=== PATIENT | male | born 1955 | race Caucasian/White ===

== ENCOUNTER 2021-07-23 12:10 | Inpatient (IN) | payer OTHER, SELFPAY ==
[2021-07-23] VITALS (143 sets, daily range): BP systolic 79–118; BP diastolic 46–69; PULSE 80–127; RESP 12–44; TEMP 36.3–37.1; O2SAT 85–100; BMI 43.4
--- NOTE | 2021-07-23 12:26 | DI.RAD.S_ITS ---
PROCEDURE: XR CHEST 1V INDICATIONS: suspected sepsis TECHNIQUE: One view of the chest was acquired. COMPARISON: [facility], CHEST 1 VIEW, 07/18/2017, 7:52. [facility], CHEST 2 VIEW, 07/10/2017, 8:38. FINDINGS: Surgical changes and devices: None. Lungs and pleura: Nodular opacity in the right mid lung field. Streaky opacity in both lungs. No definite pleural effusions or pneumothorax. Mediastinum: Fullness in the right hilar region. Heart size appears unchanged. Bones and chest wall: No suspicious bony lesions. Overlying soft tissues appear unremarkable. IMPRESSION: Evaluation is limited by technique and body habitus. Nodular opacity in the right mid lung field. This could be due to pneumonia or metastatic disease. Fullness in the right hilar region. Findings could be further evaluated with CT of the chest (prefer IV contrast). Dictated by: Shivam Jauregui M.D. on 07/23/2021 at 13:22 Approved by: Shivam Jauregui M.D. on 07/23/2021 at 13:25
--- NOTE | 2021-07-23 12:46 | ED_ITS ---
HPI - Weakness General Chief complaint: Weakness Stated complaint: short of breath, alcohol, hasn't eatten Time Seen by Provider: 07/23/21 12:44 Source: patient Mode of arrival: Wheelchair Limitations: no limitations History of Present Illness HPI Narrative: The patient presents with complaints of weakness for 5 days. He denies headache, sore throat, or fever. He has no chest pain. He does have dyspnea, and dyspnea on exertion. He is not coughing at this time. He is a heavy alcohol drinker. He has been vomiting. He has no hematemesis. He also has no hemoptysis. The vomitus has been clear liquids only. He denies diarrhea or melena. He is not having significant abdominal pain. He has no history of GI bleeding. He presents with generalized weakness. He has difficulty standing on his own. He has no fall, no injury. He has been experiencing mid back pain. He has a history of chronic back pain. He does not have a PCM, he receives no regular medical care. Related Data Home Medications Medication Instructions Recorded Confirmed No Known Home Medications 07/23/21 07/23/21 Allergies Allergy/AdvReac Type Severity Reaction Status Date / Time No Known Drug Allergies Allergy Unverified 01/27/20 16:03 Review of Systems Constitutional Constitutional: Reports as per HPI, Denies anorexia, Denies chills, Reports fatigue, Denies fever(s), Denies headache(s), Reports malaise and Reports weakness Eyes Eyes: Denies change in vision ENT Ears, Nose, Mouth, and Throat: Denies vertigo, Denies dizziness, Denies heada jannet(s) and Denies sore throat Cardiovascular Cardiovascular: Denies chest pain, Denies syncope, Denies pedal edema, Denies palpitations and Denies dyspnea Respiratory Respiratory: Denies chest congestion, Denies cough, Denies dyspnea and Reports other (No hemoptysis) Gastrointestinal Comments: Vague abdominal discomfort. Occasional vomiting. No hematemesis. No suggestive lower GI bleeding. Genitourinary Genitourinary: Denies dysuria and Denies penile discharge Comments: No hematuria Musculoskeletal Comments: Back pain, see HPI. No lower extremity edema. Integumentary/Breasts Skin/Breast: Denies lesions, Denies rash and Denies skin pain Neurologic Neurologic: Denies confusion, Denies vertigo, Denies dizziness, Denies syncope, Denies headache(s) and Reports weakness Psychiatric Psychiatric: Denies confusion and Denies depression Endocrine Endocrine: Reports fatigue and Denies palpitations Hematologic/Lymphatic On Anticoagulants: No Patient History Medical History Anticoagulated Hepatic failure Left ureteral calculus Renal failure Right renal stone Sepsis Urinary tract infection Family History Father Cancer Grandfather Cancer Grandmother Diabetes mellitus Heart disease Mother Age: 81 Alzheimer disease Sister Age: 66 Hypertension Social History household members: spouse Smoking Status: Current every day smoker alcohol intake: current Smoking Status: Current every day smoker alcohol intake frequency: 3 or more drinks per day Substance Use Type: does not use Exam Initial Vital Signs Initial Vital Signs: Vital Signs Temperature 97.7 F 07/23/21 12:21 Pulse Rate 93 H 07/23/21 12:21 Respiratory Rate 28 H 07/23/21 12:21 Blood Pressure 83/50 L 07/23/21 12:21 Pulse Oximetry 94 07/23/21 12:21 Const General: cooperative, disheveled and ill appearing Nutritional Appearance: obese Orientation: Orientation [facility] Head: normal to inspection, normocephalic and atraumatic Face and sinus: normal facial exam Mouth: lip normal and moist mucous membranes Throat: posterior oropharynx normal Eyes Conjunctivae: conjunctivae normal Sclera: sclerae normal Cornea: corneas normal Pupils: PERRL EOM: EOM intact bilaterally and No nystagmus Other: No icterus Neck Neck: supple and No tender Chest Chest: normal palpation of entire chest wall Resp Effort & Inspection: normal respiratory effort Auscultation: clear to auscultation bilaterally Cardio Rate: regular rate Rhythm: regular rhythm Heart Sounds: S1 normal, S2 normal, no click and no murmurs GI Inspection: no edema, non-distended, large pannus and obesity Palpation: soft, No mass and No tender Auscultation: normal bowel sounds Rectal Exam: visual inspection normal, heme negative stool, No hemorrhoids, No mass and No tenderness Other: Normal male genitalia Back/Spine/Pelvis Back: No CVA tenderness Thoracic/Lumbar Spine: thoracic and lumbar spine normal to inspection Skin General: no rashes or lesions noted Neuro General: patient alert, patient awake, patient oriented x3 and no focal motor deficits Cranial Nerves: No nystagmus Extrem General: normal to inspection, no pedal edema and no calf tenderness Psych Appearance: grossly normal and well kempt Course Course Course Narrative: The patient was hypotensive upon arrival, but with out tachycardia or fever. No new immediate source was obvious. COVID test is n egative. Chest x-ray revealed a right middle lobe mass, not of obvious infiltrate. There was also a left pleural effusion. Labs were consistent with renal failure and hepatic failure. CT again demonstrated the right middle lung mass. There are multiple nodular changes of the liver consistent with cirrhosis. Neoplasm needs to be considered. CT revealed a large right kidney stone, but also an obstructing left proximal ureter stone. He has significant pyuria. Urosepsisdue to the stone is the most likely source of sepsis. He was started on IV fluids, given a 30 milliliter/kilogram bolus. Blood and urine cultures were done. He was given Zosyn as well as vancomycin for sepsis. His blood pressure improved to the 90s. Urology, and Anesthesiology were consult. The patient went to the OR for a right ureter stent. The urologist, Dr. Lainez, later informed me that there was a large gush of purulent fluid once the stent was in place. Anesthesia has agreed to place a central line prior to admission. The on-call hospitalist,Dr Escobar, was involved in multiple conversations regarding the patient. He has accepted the patient admission following the urology procedure. Orders Ordered: ED Orders 07/23/21 12:26 XR chest 1V Stat EKG-12 Lead Stat 07/23/21 12:40 Ammonia (NH3) Stat Complete Blood Count AUTO DIFF Stat Comprehensive Metabolic Panel Stat Ethanol (ETOH) Stat Lactate (Lactic Acid) Stat Lipase Stat NT-proBNP (BNP-Adult 18+) Stat Procalcitonin Stat Prothrombin Time INR Stat Troponin & CK Cardiac Panel Stat Type and Screen Stat 07/23/21 12:55 Blood Culture Stat COVID19 - ADMIT (HOME DEPOT REP swab/PCR) Stat 07/23/21 13:05 COVID19 -Nasal swab/Pre-Proc Stat 07/23/21 13:15 Ictotest Urine Stat Urinalysis and Microscopic Stat Urine Culture Stat Urine Drug Screen, Rapid Stat 07/23/21 13:53 CT chest abd pel wo con Stat 07/23/21 14:20 Lactate (Lactic Acid) Stat Trop I [Troponin I] Stat Acetaminophen (Acetaminophen 325 Mg Tablet) 650 mg PO Q6HR PRN PRN Reason: Fever Fentanyl (Fentanyl 100 Mcg/2 Ml Inj) 0 mcg IV Q5MIN PRN PRN Reason: Pain, Severe (7-10) Folic Acid (Folic Acid 1 Mg Tablet) 1 mg PO DAILY LUCRETIA Meropenem 1 gm/ Sodium (Chloride) 100 mls @ 200 mls/hr IV Q12H LUCRETIA Last Admin: 07/23/21 18:18 Dose: 200 mls/hr Documented by: HECTOR Norepinephrine Bitartrate 4 mg (/ Dextrose) 254 mls @ 30.48 mls/hr IV TITRATE LUCRETIA; Protocol Last Admin: 07/23/21 18:35 Dose: Not Given Documented by: HECTOR Sodium Chloride (Normal Saline 0.9%) 1,000 mls @ 1,000 mls/hr IV BOLUS ONE Stop: 07/23/21 19:10 Last Infusion: 07/23/21 18:45 Dose: 0 mls/hr Documented by: Admin: 07/23/21 18:34 Dose: 1,000 mls/hr Documented by: HECTOR Lorazepam (Lorazepam 1 Mg Tablet) 0 mg PO CIWAPRN PRN; Protocol PRN Reason: Alcohol Withdrawal Lorazepam (Lorazepam 2 Mg/Ml Inj) 0 mg IV CIWAPRN PRN; Protocol PRN Reason: Alcohol Withdrawal Last Admin: 07/23/21 18:01 Dose: 2 mg Documented by: HECTOR Multivitamins (Multivitamin 1 Tablet) 1 tab PO DAILY [facility] Naloxone HCl (Naloxone 0.4 Mg/Ml Vial) 0.2 mg IV Q2MIN PRN PRN Reason: Opiate Reversal Ondansetron HCl (Ondansetron 4 Mg/2 Ml Inj) 4 mg IV NOW PRN PRN Reason: Nausea And Vomiting Pantoprazole Sodium (Pantoprazole 40 Mg Vial) 40 mg IV DAILY [facility]CRETIA Thiamine HCl (Thiamine 100 Mg Tablet) 100 mg PO DAILY LUCRETIA Stop: 07/27/21 09:01 Tramadol HCl (Tramadol 50 Mg Tablet) 50 mg PO TID PRN PRN Reason: Pain, Moderate (4-6) Last Admin: 07/23/21 18:01 Dose: 50 mg Documented by: HECTOR Discontinued Medications Hydromorphone HCl (Hydromorphone 0.5 Mg Inj) 0.5 mg IV NOW ONE Stop: 07/23/21 14:19 Last Admin: 07/23/21 14:28 Dose: 0.5 mg Documented by: MARISEL Sodium Chloride (Normal Saline 0.9%) 1,000 mls @ 1,000 mls/hr IV BOLUS ONE Stop: 07/23/21 13:33 Last Infusion: 07/23/21 14:07 Dose: 0 mls/hr Documented by: Admin: 07/23/21 12:50 Dose: 1,000 mls/hr Documented by: BRIEN Lactated Ringer's (Lactated Ringers) 4,116 mls @ 1,372 mls/hr 30 ml/kg infuse over 3 hr (4116 ml) IV NOW ONE Stop: 07/23/21 16:16 Last Infusion: 07/23/21 16:14 Dose: 0 mls/hr Documented by: Admin: 07/23/21 13:23 Dose: 1,000 mls/hr Documented by: BRIEN Piperacillin Sod/Tazobactam (Sod 4.5 gm/ Sodium Chloride) 100 mls @ 200 mls/hr IV NOW ONE Stop: 07/23/21 13:18 Last Infusion: 07/23/21 14:20 Dose: 0 mls/hr Documented by: Admin: 07/23/21 13:41 Dose: 200 mls/hr Documented by: MARISEL Vancomycin HCl (Vancomycin) 1,000 mg in 200 mls @ 200 mls/hr IV NOW ONE Stop: 07/23/21 15:31 Last Infusion: 07/23/21 15:51 Dose: 0 mls/hr Documented by: Admin: 07/23/21 14:48 Dose: 200 mls/hr Documented by: MARISEL Ondansetron HCl (Ondansetron 4 Mg/2 Ml Inj) 4 mg IV NOW ONE Stop: 07/23/21 14:18 Last Admin: 07/23/21 14:28 Dose: 4 mg Documented by: MARISEL Pantoprazole Sodium (Pantoprazole 40 Mg Vial) 40 mg IV NOW ONE Stop: 07/23/21 12:46 Last Admin: 07/23/21 13:22 Dose: 40 mg Documented by: BRIEN Vancomycin HCl (Vancomycin Per Pharmacy) 1 request MISC NOW ONE Stop: 07/23/21 14:23 Last Admin: 07/23/21 14:39 Dose: Not Given Documented by: MARISEL Vital Signs Vital signs: Vital Signs - 8 hr 07/23/21 12:21 07/23/21 12:31 07/23/21 12:32 Temperature 97.7 F Pulse Rate 93 H 93 H Respiratory Rate 28 H Blood Pressure 83/50 L 84/51 L Pulse Oximetry 94 93 93 07/23/21 12:35 07/23/21 12:37 07/23/21 12:40 Temperature Pulse Rate 90 88 88 Respiratory Rate 23 27 H 27 H Blood Pressure 80/50 L Pulse Oximetry 94 93 94 07/23/21 12:42 07/23/21 12:45 07/23/21 12:50 Temperature Pulse Rate 91 H 87 83 Respiratory Rate 28 H 26 H 23 Blood Pressure 80/53 L 82/52 L Pulse Oximetry 95 93 07/23/21 12:55 07/23/21 13:00 07/23/21 13:05 Temperature Pulse Rate 84 83 83 Respiratory Rate 25 H 23 21 Blood Pressure 90/52 L Pulse Oximetry 94 95 95 07/23/21 13:10 07/23/21 13:15 07/23/21 13:20 Temperature Pulse Rate 84 86 83 Respiratory Rate 22 28 H 20 Blood Pressure 89/51 L 92/51 L Pulse Oximetry 94 94 94 07/23/21 13:25 07/23/21 13:30 07/23/21 13:35 Temperature Pulse Rate 83 83 82 Respiratory Rate 23 20 21 Blood Pressure 92/52 L Pulse Oximetry 95 96 95 07/23/21 13:40 07/23/21 13:45 07/23/21 13:55 Temperature Pulse Rate 81 83 82 Respiratory Rate 20 25 H Blood Pressure 99/54 L Pulse Oximetry 96 97 92 07/23/21 13:59 07/23/21 14:00 07/23/21 14:05 Temperature Pulse Rate 81 81 80 Respiratory Rate 20 19 18 Blood Pressure 79/50 L 85/50 L Pulse Oximetry 95 95 94 07/23/21 14:10 07/23/21 14:15 07/23/21 14:20 Temperature Pulse Rate 82 82 82 Respiratory Rate 24 21 23 Blood Pressure 84/52 L 86/54 L Pulse Oximetry 95 95 96 07/23/21 14:25 07/23/21 14:27 07/23/21 14:30 Temperature Pulse Rate 81 84 85 Respiratory Rate 21 20 21 Blood Pressure 89/54 L 86/50 L Pulse Oximetry 97 97 95 07/23/21 14:35 07/23/21 14:40 07/23/21 14:45 Temperature Pulse Rate 84 83 84 Respiratory Rate 18 16 15 Blood Pressure 94/50 L Pulse Oximetry 91 93 91 07/23/21 14:50 07/23/21 14:55 07/23/21 15:00 Temperature Pulse Rate 84 83 83 Respiratory Rate 17 15 15 Blood Pressure 89/51 L 91/54 L Pulse Oximetry 92 92 92 07/23/21 15:05 07/23/21 15:10 07/23/21 15:15 Temperature Pulse Rate 81 84 84 Respiratory Rate 15 17 15 Blood Pressure 93/48 L Pulse Oximetry 91 91 91 07/23/21 15:20 07/23/21 15:25 07/23/21 15:30 Temperature Pulse Rate 83 83 82 Respiratory Rate 13 13 13 Blood Pressure 93/46 L 86/48 L Pulse Oximetry 90 L 91 91 07/23/21 15:35 07/23/21 15:40 07/23/21 15:45 Temperature Pulse Rate 83 82 82 Respiratory Rate 13 12 12 Blood Pressure 92/54 L Pulse Oximetry 91 94 94 07/23/21 15:50 07/23/21 15:55 Temperature Pulse Rate 85 86 Respiratory Rate 17 18 Blood Pressure Pulse Oximetry 95 95 MDM - Weakness Lab Data Result diagrams: 07/23/21 12:40 07/23/21 12:40 Labs: Lab Results 07/23/21 07/23/21 07/23/21 Range/Units 12:40 12:40 12:40 WBC 21.8 H (4.5-11.0) X10^3/uL RBC 4.87 (4.5-5.9) X10^6/uL Hgb 15.1 (13.5-17.5) g/dL Hct 44.6 (41-53) % MCV 91.5 (80-100) fL MCH 30.9 (26-34) PG MCHC 33.8 (30-36) % RDW 16.5 H (11.6-14.8) % Plt Count 43 L (150-400) X10^3/uL Neut % (Auto) Not Reportable Lymph % (Auto) Not Reportable [place] % (Auto) Not Reportable Eos % (Auto) Not Reportable Baso % (Auto) Not Reportable Lymph # (Auto) Not Reportable [place] # (Auto) Not Reportable Baso # (Auto) Not Reportable Total Counted 100 Seg Neutrophils % 77.0 H (38-70) % Band Neutrophils % 13.0 H (3-7) % Lymphocytes % (Manual) 1.0 L (25-45) % Monocytes % (Manual) 9.0 (2-11) % Neutrophils # (Manual) 18181 H (2360-7876) /uL RBC Morphology Normal morphology PT (10.1-12.7) SECONDS INR (0.9-1.3) Sodium 129 L (137-145) mmol/L Potassium 4.3 (3.4-5.1) mmol/L Chloride 92 L (98-107) mmol/L Carbon Dioxide 19 L (22-32) mmol/L BUN 82 H (9-20) mg/dL Creatinine 3.89 H (0.66-1.25) mg/dL Estimated GFR 15.7 L (>60) mL/min BUN/Creatinine Ratio 21.1 (6-22) Glucose 190 H (80-110) mg/dL Lactate 5.1 H* (0.7-2.1) mmol/L Calcium 8.8 (8.4-10.2) mg/dL Total Bilirubin 7.7 H (0.2-1.3) mg/dL AST 258 H (17-59) IU/L ALT 104 H (<50) IU/L Alkaline Phosphatase 131 H (38-126) U/L Ammonia (9-30) umol/L Total Creatine Kinase 146 (55-170) U/L CK-MB (CK-2) 4.27 H (<2.37) ng/mL CK-MB (CK-2) Rel Index 2.9 (1.5-5.0) % Troponin I 0.018 (0.01-0.034) ng/mL NT-Pro-B Natriuret Pep 2600 H (<125) pg/mL Total Protein 6.9 (6.3-8.2) g/dL Albumin 3.3 L (3.5-5.0) g/dL Globulin 3.6 (1.7-4.1) g/dL Albumin/Globulin Ratio 0.9 L (1.0-2.8) Lipase 20 L (23-300) U/L Procalcitonin 55.6 H (<0.5) ng/mL Urine Color Urine Appearance Urine pH (4.5-8.0) Ur Specific Hines (1.000-1.035) Urine Protein (Negative) Urine Glucose (UA) (Negative) g/dL Urine Ketones (NEGATIVE) Urine Occult Blood (Negative) Urine Nitrate (Negative) Urine Bilirubin (NEGATIVE) Ur Bilirubin Confirm (Negative) Urine Urobilinogen (0.2) E.U./dL Ur Leukocyte Esterase (NEGATIVE) Urine RBC (0-5/HPF) Urine WBC (0-5/HPF) Urine Bacteria (None) Ur Culture Indicated? U Opiates 300ng/mL cut (Negative) Ur Oxycodone Screen (Negative) Urine Methadone Screen (Negative) Ur Barbiturates Screen (Negative) U Tricyclic Antidepress (Negative) Ur Phencyclidine Scrn (Negative) Ur Amphetamines Screen (Negative) U Methamphetamines Scrn (Negative) Ur MDMA Scrn (Ecstasy) (Negative) U Benzodiazepines Scrn (Negative) Urine Cocaine Screen (Negative) U Marijuana (THC) Screen (Negative) Ethyl Alcohol ( - 10) mg/dL SARS-CoV-2 (PCR) (Negative) Blood Type Antibody Screen 07/23/21 07/23/21 07/23/21 Range/Units 12:40 12:40 12:40 WBC (4.5-11.0) X10^3/uL RBC (4.5-5.9) X10^6/uL Hgb (13.5-17.5) g/dL Hct (41-53) % MCV (80-100) fL MCH (26-34) PG MCHC (30-36) % RDW (11.6-14.8) % Plt Count (150-400) X10^3/uL Neut % (Auto) Lymph % (Auto) [place] % (Auto) Eos % (Auto) Baso % (Auto) Lymph # (Auto) [place] # (Auto) Baso # (Auto) Total Counted Seg Neutrophils % (38-70) % Band Neutrophils % (3-7) % Lymphocytes % (Manual) (25-45) % Monocytes % (Manual) (2-11) % Neutrophils # (Manual) (7723-8903) /uL RBC Morphology PT 17.9 H (10.1-12.7) SECONDS INR 1.6 H (0.9-1.3) Sodium (137-145) mmol/L Potassium (3.4-5.1) mmol/L Chloride (98-107) mmol/L Carbon Dioxide (22-32) mmol/L BUN (9-20) mg/dL Creatinine (0.66-1.25) mg/dL Estimated GFR (>60) mL/min BUN/Creatinine Ratio (6-22) Glucose (80-110) mg/dL Lactate (0.7-2.1) mmol/L Calcium (8.4-10.2) mg/dL Total Bilirubin (0.2-1.3) mg/dL AST (17-59) IU/L ALT (<50) IU/L Alkaline Phosphatase (38-126) U/L Ammonia 21 (9-30) umol/L Total Creatine Kinase (55-170) U/L CK-MB (CK-2) (<2.37) ng/mL CK-MB (CK-2) Rel Index (1.5-5.0) % Troponin I (0.01-0.034) ng/mL NT-Pro-B Natriuret Pep (<125) pg/mL Total Protein (6.3-8.2) g/dL Albumin (3.5-5.0) g/dL Globulin (1.7-4.1) g/dL Albumin/Globulin Ratio (1.0-2.8) Lipase (23-300) U/L Procalcitonin (<0.5) ng/mL Urine Color Urine Appearance Urine pH (4.5-8.0) Ur Specific Hines (1.000-1.035) Urine Protein (Negative) Urine Glucose (UA) (Negative) g/dL Urine Ketones (NEGATIVE) Urine Occult Blood (Negative) Urine Nitrate (Negative) Urine Bilirubin (NEGATIVE) Ur Bilirubin Confirm (Negative) Urine Urobilinogen (0.2) E.U./dL Ur Leukocyte Esterase (NEGATIVE) Urine RBC (0-5/HPF) Urine WBC (0-5/HPF) Urine Bacteria (None) Ur Culture Indicated? U Opiates 300ng/mL cut (Negative) Ur Oxycodone Screen (Negative) Urine Methadone Screen (Negative) Ur Barbiturates Screen (Negative) U Tricyclic Antidepress (Negative) Ur Phencyclidine Scrn (Negative) Ur Amphetamines Screen (Negative) U Methamphetamines Scrn (Negative) Ur MDMA Scrn (Ecstasy) (Negative) U Benzodiazepines Scrn (Negative) Urine Cocaine Screen (Negative) U Marijuana (THC) Screen (Negative) Ethyl Alcohol < 10 ( - 10) mg/dL SARS-CoV-2 (PCR) (Negative) Blood Type Antibody Screen 07/23/21 07/23/21 07/23/21 Range/Units 12:40 12:55 13:05 WBC (4.5-11.0) X10^3/uL RBC (4.5-5.9) X10^6/uL Hgb (13.5-17.5) g/dL Hct (41-53) % MCV (80-100) fL MCH (26-34) PG MCHC (30-36) % RDW (11.6-14.8) % Plt Count (150-400) X10^3/uL Neut % (Auto) Lymph % (Auto) [place] % (Auto) Eos % (Auto) Baso % (Auto) Lymph # (Auto) [place] # (Auto) Baso # (Auto) Total Counted Seg Neutrophils % (38-70) % Band Neutrophils % (3-7) % Lymphocytes % (Manual) (25-45) % Monocytes % (Manual) (2-11) % Neutrophils # (Manual) (6886-0764) /uL RBC Morphology PT (10.1-12.7) SECONDS INR (0.9-1.3) Sodium (137-145) mmol/L Potassium (3.4-5.1) mmol/L Chloride (98-107) mmol/L Carbon Dioxide (22-32) mmol/L BUN (9-20) mg/dL Creatinine (0.66-1.25) mg/dL Estimated GFR (>60) mL/min BUN/Creatinine Ratio (6-22) Glucose (80-110) mg/dL Lactate (0.7-2.1) mmol/L Calcium (8.4-10.2) mg/dL Total Bilirubin (0.2-1.3) mg/dL AST (17-59) IU/L ALT (<50) IU/L Alkaline Phosphatase (38-126) U/L Ammonia (9-30) umol/L Total Creatine Kinase (55-170) U/L CK-MB (CK-2) (<2.37) ng/mL CK-MB (CK-2) Rel Index (1.5-5.0) % Troponin I (0.01-0.034) ng/mL NT-Pro-B Natriuret Pep (<125) pg/mL Total Protein (6.3-8.2) g/dL Albumin (3.5-5.0) g/dL Globulin (1.7-4.1) g/dL Albumin/Globulin Ratio (1.0-2.8) Lipase (23-300) U/L Procalcitonin (<0.5) ng/mL Urine Color Urine Appearance Urine pH (4.5-8.0) Ur Specific [place] (1.000-1.035) Urine Protein (Negative) Urine Glucose (UA) (Negative) g/dL Urine Ketones (NEGATIVE) Urine Occult Blood (Negative) Urine Nitrate (Negative) Urine Bilirubin (NEGATIVE) Ur Bilirubin Confirm (Negative) Urine Urobilinogen (0.2) E.U./dL Ur Leukocyte Esterase (NEGATIVE) Urine RBC (0-5/HPF) Urine WBC (0-5/HPF) Urine Bacteria (None) Ur Culture Indicated? U Opiates 300ng/mL cut (Negative) Ur Oxycodone Screen (Negative) Urine Methadone Screen (Negative) Ur Barbiturates Screen (Negative) U Tricyclic Antidepress (Negative) Ur Phencyclidine Scrn (Negative) Ur Amphetamines Screen (Negative) U Methamphetamines Scrn (Negative) Ur MDMA Scrn (Ecstasy) (Negative) U Benzodiazepines Scrn (Negative) Urine Cocaine Screen (Negative) U Marijuana (THC) Screen (Negative) Ethyl Alcohol ( - 10) mg/dL SARS-CoV-2 (PCR) Negative Negative (Negative) Blood Type O Positive Antibody Screen Negative 07/23/21 07/23/21 07/23/21 Range/Units 13:15 13:15 14:20 WBC (4.5-11.0) X10^3/uL RBC (4.5-5.9) X10^6/uL Hgb (13.5-17.5) g/dL Hct (41-53) % MCV (80-100) fL MCH (26-34) PG MCHC (30-36) % RDW (11.6-14.8) % Plt Count (150-400) X10^3/uL Neut % (Auto) Lymph % (Auto) [place] % (Auto) Eos % (Auto) Baso % (Auto) Lymph # (Auto) [place] # (Auto) Baso # (Auto) Total Counted Seg Neutrophils % (38-70) % Band Neutrophils % (3-7) % Lymphocytes % (Manual) (25-45) % Monocytes % (Manual) (2-11) % Neutrophils # (Manual) (7446-0092) /uL RBC Morphology PT (10.1-12.7) SECONDS INR (0.9-1.3) Sodium (137-145) mmol/L Potassium (3.4-5.1) mmol/L Chloride (98-107) mmol/L Carbon Dioxide (22-32) mmol/L BUN (9-20) mg/dL Creatinine (0.66-1.25) mg/dL Estimated GFR (>60) mL/min BUN/Creatinine Ratio (6-22) Glucose (80-110) mg/dL Lactate 3.7 H (0.7-2.1) mmol/L Calcium (8.4-10.2) mg/dL Total Bilirubin (0.2-1.3) mg/dL AST (17-59) IU/L ALT (<50) IU/L Alkaline Phosphatase (38-126) U/L Ammonia (9-30) umol/L Total Creatine Kinase (55-170) U/L CK-MB (CK-2) (<2.37) ng/mL CK-MB (CK-2) Rel Index (1.5-5.0) % Troponin I (0.01-0.034) ng/mL NT-Pro-B Natriuret Pep (<125) pg/mL Total Protein (6.3-8.2) g/dL Albumin (3.5-5.0) g/dL Globulin (1.7-4.1) g/dL Albumin/Globulin Ratio (1.0-2.8) Lipase (23-300) U/L Procalcitonin (<0.5) ng/mL Urine Color Brown Urine Appearance Clear Urine pH 5.0 (4.5-8.0) Ur Specific [place] 1.020 (1.000-1.035) Urine Protein 3+ H (Negative) Urine Glucose (UA) Negative (Negative) g/dL Urine Ketones Trace H (NEGATIVE) Urine Occult Blood 3+ H (Negative) Urine Nitrate Negative (Negative) Urine Bilirubin 2+ H (NEGATIVE) Ur Bilirubin Confirm Positive H (Negative) Urine Urobilinogen 1.0 (0.2) E.U./dL Ur Leukocyte Esterase 2+ H (NEGATIVE) Urine RBC 30-100/hpf H (0-5/HPF) Urine WBC >100/hpf H (0-5/HPF) Urine Bacteria Many (>30) H (None) Ur Culture Indicated? Specimen cultured U Opiates 300ng/mL cut Negative (Negative) Ur Oxycodone Screen Negative (Negative) Urine Methadone Screen Negative (Negative) Ur Barbiturates Screen Negative (Negative) U Tricyclic Antidepress Negative (Negative) Ur Phencyclidine Scrn Negative (Negative) Ur Amphetamines Screen Negative (Negative) U Methamphetamines Scrn Negative (Negative) Ur MDMA Scrn (Ecstasy) Negative (Negative) U Benzodiazepines Scrn Negative (Negative) Urine Cocaine Screen Negative (Negative) U Marijuana (THC) Screen Negative (Negative) Ethyl Alcohol ( - 10) mg/dL SARS-CoV-2 (PCR) (Negative) Blood Type Antibody Screen 07/23/21 07/23/21 Range/Units 14:20 14:20 WBC (4.5-11.0) X10^3/uL RBC (4.5-5.9) X10^6/uL Hgb (13.5-17.5) g/dL Hct (41-53) % MCV (80-100) fL MCH (26-34) PG MCHC (30-36) % RDW (11.6-14.8) % Plt Count (150-400) X10^3/uL Neut % (Auto) Lymph % (Auto) [place] % (Auto) Eos % (Auto) Baso % (Auto) Lymph # (Auto) [place] # (Auto) Baso # (Auto) Total Counted Seg Neutrophils % (38-70) % Band Neutrophils % (3-7) % Lymphocytes % (Manual) (25-45) % Monocytes % (Manual) (2-11) % Neutrophils # (Manual) (2508-6805) /uL RBC Morphology PT (10.1-12.7) SECONDS INR (0.9-1.3) Sodium (137-145) mmol/L Potassium (3.4-5.1) mmol/L Chloride (98-107) mmol/L Carbon Dioxide (22-32) mmol/L BUN (9-20) mg/dL Creatinine (0.66-1.25) mg/dL Estimated GFR (>60) mL/min BUN/Creatinine Ratio (6-22) Glucose (80-110) mg/dL Lactate 4.0 H (0.7-2.1) mmol/L Calcium (8.4-10.2) mg/dL Total Bilirubin (0.2-1.3) mg/dL AST (17-59) IU/L ALT (<50) IU/L Alkaline Phosphatase (38-126) U/L Ammonia (9-30) umol/L Total Creatine Kinase (55-170) U/L CK-MB (CK-2) (<2.37) ng/mL CK-MB (CK-2) Rel Index (1.5-5.0) % Troponin I 0.012 (0.01-0.034) ng/mL NT-Pro-B Natriuret Pep (<125) pg/mL Total Protein (6.3-8.2) g/dL Albumin (3.5-5.0) g/dL Globulin (1.7-4.1) g/dL Albumin/Globulin Ratio (1.0-2.8) Lipase (23-300) U/L Procalcitonin (<0.5) ng/mL Urine Color Urine Appearance Urine pH (4.5-8.0) Ur Specific Hines (1.000-1.035) Urine Protein (Negative) Urine Glucose (UA) (Negative) g/dL Urine Ketones (NEGATIVE) Urine Occult Blood (Negative) Urine Nitrate (Negative) Urine Bilirubin (NEGATIVE) Ur Bilirubin Confirm (Negative) Urine Urobilinogen (0.2) E.U./dL Ur Leukocyte Esterase (NEGATIVE) Urine RBC (0-5/HPF) Urine WBC (0-5/HPF) Urine Bacteria (None) Ur Culture Indicated? U Opiates 300ng/mL cut (Negative) Ur Oxycodone Screen (Negative) Urine Methadone Screen (Negative) Ur Barbiturates Screen (Negative) U Tricyclic Antidepress (Negative) Ur Phencyclidine Scrn (Negative) Ur Amphetamines Screen (Negative) U Methamphetamines Scrn (Negative) Ur MDMA Scrn (Ecstasy) (Negative) U Benzodiazepines Scrn (Negative) Urine Cocaine Screen (Negative) U Marijuana (THC) Screen (Negative) Ethyl Alcohol ( - 10) mg/dL SARS-CoV-2 (PCR) (Negative) Blood Type Antibody Screen Imaging Data Chest x-ray: Radiologist Impression: [address] [address] XRay Report Signed Patient: Natalio Cardozo V MR#: [id number] : 1955 Acct:[id number] Age/Sex: 65 / M Date of Service: 07/23/21 Loc: ED Accession Number: [id number] ?? Procedure: XR chest 1V Ordering Provider: Solitario Morales MD PROCEDURE:? XR CHEST 1V ? INDICATIONS:? suspected sepsis ? TECHNIQUE:? One view of the chest was acquired.? ? COMPARISON:? [facility], , CHEST 1 VIEW, 07/18/2017, 7:52.? [facility], CHEST 2 VIEW, 07/10/2017, 8:38. ? FINDINGS:? ? Surgical changes and devices:? None.? ? Lungs and pleura:? Nodular opacity in the right mid lung field.? Streaky opacity in both lungs.? No definite pleural effusions or pneumothorax.? ? Mediastinum:? Fullness in the right hilar region.? Heart size appears unchanged.? ? Bones and chest wall:? No suspicious bony lesions.? Overlying soft tissues appear unremarkable.? ? IMPRESSION:? Evaluation is limited by technique and body habitus.? ? Nodular opacity in the right mid lung field.? This could be due to pneumonia or metastatic disease. ? Fullness in the right hilar region. ? Findings could be further evaluated with CT of the chest (prefer IV contrast).? ? Dictated by: Shivam Jauregui M.D. on 07/23/2021 at 13:22 ? ? Approved by: Shivam Jauregui M.D. on 07/23/2021 at 13:25?? Chest/abdomen/pelvis CT:: Radiologist Impression: [address] [address] [address] Scan Report Signed Patient: Natalio Cardozo V MR#: [id number] : 1955 Acct:[id number] Age/Sex: 65 / M Date of Service: 07/23/21 Loc: ED Accession Number: [id number] ?? Procedure: CT chest abd pel wo con Ordering Provider: Solitario Morales MD PROCEDURE:? CT CHEST ABD PEL WO CON ? INDICATIONS:? Sepsis.? Elevated LFTs.? Pulmonary mass.? Renal failure. ? TECHNIQUE:? After the administration of oral contrast, 5 mm thick sections acquired from the lung apices to the symphysis pubis.? 5 mm thick coronal and sagittal reformats acquired, with additional 7 mm coronal MIP reformats through the lungs.? For radiation dose re duction, the following was used:? automated exposure control, adjustment of mA and/or kV according to patient size.? ? IV contrast not administered due to renal insufficiency. ? COMPARISON:? [facility], CT, PE STUDY (CTA CHEST), 05/13/2017, 18:48.? [facility], CR, XR CHEST 1V, 07/23/2021, 12:36. ? FINDINGS:? Image quality:? Good.? Evaluation of the solid parenchymal organs is limited without IV contrast. ? CHEST:? Lungs and pleura:? Right middle lobe juxta fissural oval-shaped mass or nodular opacity measuring 4.4 x 2.5 cm, (3/27).? This measures 30 Hounsfield units.? Right upper lobe nodular opacity measuring 1.5 x 1.4 cm, (3/134).? Mild surrounding ill-defined opacity.? Remotely seen left upper lobe ground-glass pulmonary nodules are resolved.? Bibasilar atelectasis.? Small right pleural effusion.? No effusion on the left.? No pneumothorax.? Central and peripheral airways are patent are normal in caliber.? ? Mediastinum:? Heart size is normal.? Mild coronary artery calcifications.? No pericardial effusion.? No mediastinal adenopathy by CT size criteria.? Small mediastinal lymph nodes with increased density.? These nodes appear to be present on the 2017 CT.? Thoracic aorta and central pulmonary arteries are normal in size.? Esophagus is normal in caliber.? No hiatal hernia.? ? Chest wall:? No axillary or supraclavicular adenopathy by size criteria.? Thyroid gland is within normal limits.? ? ? ABDOMEN:? Solid organs:? Liver is normal in size.? Nodular contour of the liver.? Multiple hypodense ill-defined hepatic lesions.? Gallbladder is not significantly distended.? No calcified gallstones.? Pancreas is normal in contours.? Spleen is enlarged measuring 17.3 cm. No adrenal nodules.? Small foci of gas within the kidneys.? Calices are prominent bilaterally, left greater than right.? Calculus at the right renal pelvis measuring 2.2 cm, ().? Several additional small calculi on the right.? Calculus in the left proximal ureter measuring 1.2 cm, ().? Air is seen in the right ureter, (). ? Peritoneum and bowel:? Small and large bowel loops are normal in caliber and wall thickness.? The appendix is not seen.? Trace perihepatic ascites, ().? No pneumoperitoneum. ? Nodes and vessels:? No retroperitoneal or mesenteric adenopathy by size criteria.? Aorta and inferior vena cava are normal in size.? Suspect upper abdominal varices.? Suspect small paraesophageal varices.? No portal venous gas. ? Miscellaneous:? No ventral hernias.? ? ? PELVIS:? Genitourinary:? Bladder is decompressed with Pisano catheter.? There is air within the bladder lumen. ? Miscellaneous:? Fat containing left inguinal hernia.? No adenopathy.? ? Bones:? Irregular lucent lesion at L3, ().? Multilevel DDD.? No vertebral body compression fractures.? ? IMPRESSION:? ? 1. Mass or nodular opacity in the right middle lobe measuring 4.4 cm. ? 2. Nodular opacity in the right upper lobe measuring 1.5 cm. ? 3. Small right unilocular pleural effusion. ? 4. Cirrhotic liver morphology.? Multiple hypodense ill-defined lesions.? This is concerning for HCC.? Metastatic disease is also consideration. ? 5. Trace perihepatic ascites. Portal hypertension and small upper abdominal varices.? Splenomegaly. ? 6. 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 ? 7. Suspect mild left hydronephrosis due to obstructing calculus in the proximal left ureter measuring 1.2 cm.? Additional larger calculus at the right renal pelvis measuring 2.2 cm. ? 8. Lucent lesion at L3 is indeterminate for osseous metastasis. ? ? Comment: Findings were discussed with Solitario Morales at the time of dictation. ? Dictated by: Shivam Jauregui M.D. on 07/23/2021 at 14:24 ? ? Approved by: Shivam Jauregui M.D. on 07/23/2021 at 14:55?? ECG Data Attestation: I personally reviewed and interpreted this ECG as follows: (Normal sinus rhythm rate 92 beats per minute. LAFB. Prolonged QT. no ectopy, no acute ST T wave changes.) Critical Care Time Critical Care Time Critical Care Time: Yes Total Critical Care Time: 75 Attestation: See details above. There were multiple clinical decisions, with multiple consultations and multiple physicians involved. Patient was made aware of his clinical situation and need for admission. Discharge Plan Departure Patient Disposition: Admitted As Inpatient Clinical Impression: Septic shock due to undetermined organism, Pleural effusion, Hepatic failure, Renal failure, Left ureteral calculus, Urinary tract infection, Mass of middle lobe of right lung, Liver mass, Alcoholism, Cirrhosis of liver Admit Date/Time: 07/23/21 15:56 Admit Provider: Elio Escobar
[2021-07-23] MEDS: SODIUM CHLORIDE 0.9% 1,000 ML 1000 ML IV ×2 (12:50→18:34)
[2021-07-23 12:59] LABS: Hematocrit 44.6 % (41-53); Hemoglobin 15.1 g/dL (13.5-17.5); Mean Corpuscular HGB Conc 33.8 % (30-36); Mean Corpuscular Hemoglobin 30.9 PG (26-34); Mean Corpuscular Volume 91.5 fL (80-100); Platelet Count 43 X10^3/uL (150-400); Red Blood Cell Count 4.87 X10^6/uL (4.5-5.9); Red Cell Distribution Width 16.5 % (11.6-14.8); White Blood Cell Count 21.8 X10^3/uL (4.5-11.0)
[2021-07-23 13:00] LABS: Add Manual Diff / Slide Review YES
[2021-07-23 13:03] LABS: INR 1.6 (0.9-1.3); Prothrombin Time 17.9 SECONDS (10.1-12.7)
[2021-07-23 13:09] LABS: Ammonia (NH3) 21 umol/L (9-30)
[2021-07-23 13:10] LABS: Albumin 3.3 g/dL (3.5-5.0); Albumin Globulin Ratio 0.9 (1.0-2.8); Alkaline Phosphatase 131 U/L (38-126); Aspartate Aminotransferase 258 IU/L (17-59); BUN Creatinine Ratio 21.1 (6-22); Bilirubin Total 7.7 mg/dL (0.2-1.3); Blood Urea Nitrogen 82 mg/dL (9-20); Calcium 8.8 mg/dL (8.4-10.2); Carbon Dioxide 19 mmol/L (22-32); Chloride 92 mmol/L (98-107); Creatine Kinase 146 U/L (55-170); Estimated Glomerular Filt Rate 15.7 mL/min (>60); Globulin 3.6 g/dL (1.7-4.1); Glucose 190 mg/dL (80-110); HEMOLYSIS < 15 (0-50); Lipase 20 U/L (23-300); Potassium 4.3 mmol/L (3.4-5.1); Sodium 129 mmol/L (137-145); Total Protein 6.9 g/dL (6.3-8.2)
[2021-07-23 13:11] LABS: Ethanol (ETOH) < 10 mg/dL
[2021-07-23 13:15] LABS: Lactate (Lactic Acid) 5.1 mmol/L (0.7-2.1)
[2021-07-23 13:17] LABS: Alanine Aminotransferase 104 IU/L (<50)
[2021-07-23 13:19] LABS: Neutrophils Absolute Manual 19620 /uL (3000-5900); RBC Morphology Normal Morphology; Total Cells Counted 100
[2021-07-23 13:22] LABS: NT-proBNP (BNP-Adult 18+) 2600 pg/mL (<125); Troponin I 0.018 ng/mL (0.01-0.034)
[2021-07-23] MEDS: PANTOPRAZOLE 40 MG VIAL IV (13:22)
[2021-07-23] MEDS: LACTATED RINGERS 1000 ML IV (13:23)
[2021-07-23 13:24] LABS: COVID19 -Nasal RAPID Negative (Negative)
[2021-07-23 13:25] LABS: CKMB % Relative Index 2.9 % (1.5-5.0); Creatine Kinase MB 4.27 ng/mL (<2.37)
[2021-07-23 13:26] LABS: Procalcitonin 55.6 ng/mL (<0.5)
[2021-07-23 13:28] LABS: Appearance Urine UA CLEAR; Bilirubin Urine UA 2+ (NEGATIVE); Glucose Urine UA NEGATIVE (Negative); Ketones Urine UA TRACE (NEGATIVE); Leukocyte Esterase Urine UA 2+ (NEGATIVE); Nitrite Urine UA NEGATIVE (Negative); Occult Blood Urine UA 3+ (Negative); Protein Urine UA 3+ (Negative); UR Morphine/Opiate cutoff 300 Negative (Negative); Ur Creatinine Normal (Normal); Ur Specific Gravity Normal (Normal); Urine Amphetamines Negative (Negative); Urine Barbiturates Negative (Negative); Urine Benzodiazepines Negative (Negative); Urine Cocaine Negative (Negative); Urine MDMA Negative (Negative); Urine Methadone Negative (Negative); Urine Methamphetamines Negative (Negative); Urine Oxycodone Negative (Negative); Urine Phencyclidine Negative (Negative); Urine Tetrahydrocannabinol Negative (Negative); Urine Tricyclic Antidepressant Negative (Negative); Urine pH Normal (Normal)
[2021-07-23 13:34] LABS: Color Urine UA BROWN
[2021-07-23 13:35] LABS: Bacteria Urine Many (>30); Culture Indicated Urine Specimen Cultured; Ictotest Urine Positive (Negative); RBC Urine 30-100/HPF (0-5/HPF); WBC Urine >100/HPF (0-5/HPF)
[2021-07-23] MEDS: PIPERACILLIN/TAZO 4.5 GM in SODIUM CHLORIDE 0.9% 100 ML 200 ML IV (13:41)
--- NOTE | 2021-07-23 13:53 | DI.CT.S_ITS ---
PROCEDURE: CT CHEST ABD PEL WO CON INDICATIONS: Sepsis. Elevated LFTs. Pulmonary mass. Renal failure. TECHNIQUE: After the administration of oral contrast, 5 mm thick sections acquired from the lung apices to the symphysis pubis. 5 mm thick coronal and sagittal reformats acquired, with additional 7 mm coronal MIP reformats through the lungs. For radiation dose reduction, the following was used: automated exposure control, adjustment of mA and/or kV according to patient size. IV contrast not administered due to renal insufficiency. COMPARISON: [facility], CT, PE STUDY (CTA CHEST), 05/13/2017, 18:48. [facility], CR, XR CHEST 1V, 07/23/2021, 12:36. FINDINGS: Image quality: Good. Evaluation of the solid parenchymal organs is limited without IV contrast. CHEST: Lungs and pleura: Right middle lobe juxta fissural oval-shaped mass or nodular opacity measuring 4.4 x 2.5 cm, (3/27). This measures 30 Hounsfield units. Right upper lobe nodular opacity measuring 1.5 x 1.4 cm, (3/134). Mild surrounding ill-defined opacity. Remotely seen left upper lobe ground-glass pulmonary nodules are resolved. Bibasilar atelectasis. Small right pleural effusion. No effusion on the left. No pneumothorax. Central and peripheral airways are patent are normal in caliber. Mediastinum: Heart size is normal. Mild coronary artery calcifications. No pericardial effusion. No mediastinal adenopathy by CT size criteria. Small mediastinal lymph nodes with increased density. These nodes appear to be present on the 2017 CT. Thoracic aorta and central pulmonary arteries are normal in size. Esophagus is normal in caliber. No hiatal hernia. Chest wall: No axillary or supraclavicular adenopathy by size criteria. Thyroid gland is within normal limits. ABDOMEN: Solid organs: Liver is normal in size. Nodular contour of the liver. Multiple hypodense ill-defined hepatic lesions. Gallbladder is not significantly distended. No calcified gallstones. Pancreas is normal in contours. Spleen is enlarged measuring 17.3 cm. No adrenal nodules. Small foci of gas within the kidneys. Calices are prominent bilaterally, left greater than right. Calculus at the right renal pelvis measuring 2.2 cm, (2/87). Several additional small calculi on the right. Calculus in the left proximal ureter measuring 1.2 cm, (2/90). Air is seen in the right ureter, (2/116). Peritoneum and bowel: Small and large bowel loops are normal in caliber and wall thickness. The appendix is not seen. Trace perihepatic ascites, (2/60). No pneumoperitoneum. Nodes and vessels: No retroperitoneal or mesenteric adenopathy by size criteria. Aorta and inferior vena cava are normal in size. Suspect upper abdominal varices. Suspect small paraesophageal varices. No portal venous gas. Miscellaneous: No ventral hernias. PELVIS: Genitourinary: Bladder is decompressed with Pisano catheter. There is air within the bladder lumen. Miscellaneous: Fat containing left inguinal hernia. No adenopathy. Bones: Irregular lucent lesion at L3, (). Multilevel DDD. No vertebral body compression fractures. IMPRESSION: 1. Mass or nodular opacity in the right middle lobe measuring 4.4 cm. 2. Nodular opacity in the right upper lobe measuring 1.5 cm. 3. Small right unilocular pleural effusion. 4. Cirrhotic liver morphology. Multiple hypodense ill-defined lesions. This is concerning for HCC. Metastatic disease is also consideration. 5. Trace perihepatic ascites. Portal hypertension and small upper abdominal varices. Splenomegaly. 6. 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 7. Suspect mild left hydronephrosis due to obstructing calculus in the proximal left ureter measuring 1.2 cm. Additional larger calculus at the right renal pelvis measuring 2.2 cm. 8. Lucent lesion at L3 is indeterminate for osseous metastasis. Comment: Findings were discussed with Solitario Morales at the time of dictation. Dictated by: Shivam Jauregui M.D. on 07/23/2021 at 14:24 Approved by: Shivam Jauregui M.D. on 07/23/2021 at 14:55
[2021-07-23 13:58] LABS: COVID19 - ADMIT (NP swab/PCR) Negative (Negative)
[2021-07-23] MEDS: HYDROMORPHONE 0.5 MG INJ IV (14:28)
[2021-07-23] MEDS: ONDANSETRON 4 MG/2 ML INJ IV (14:28)
[2021-07-23 14:37] LABS: Lactate (Lactic Acid) 3.7 mmol/L (0.7-2.1)
[2021-07-23] MEDS: VANCOMYCIN 1,000 MG/200 ML PIGGYBACK 200 MG IV (14:48)
[2021-07-23 14:49] LABS: Reflexed Lactate in 2 Hours Y
[2021-07-23 14:50] LABS: Troponin I 0.012 ng/mL (0.01-0.034)
--- NOTE | 2021-07-23 15:56 | P.TELICUCN_ITS ---
History of Present Illness Consult details Chief complaint: short of breath, alcohol, hasn't eatten :: This patient was seen via real time interactive two-way audiovisual telecommunication. Narrative: Patient is a 65 year old male with significant history of alcohol abuse presents with generalized fatigue and intractable N/V. No reported fever/chills, chest pain, or SOB. On presentation, labs notable for WBC 21.8, BUN 82, Cr 3.89, lactic acid 5.1, PCT 55.6, AST 258, ALT 104, ALP 131, TB 7.7. 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 Patient was noted to be hypotensive with SBP ~89. He was resuscitated with 30cc/kg LR bolus and started on vanc/zosyn. Urology consulted and plan for emergent ureteral stent for source control. Tele-toll ticket clerk consulted for further management. [facility] Medical History (Updated 07/23/21 @ 16:30 by Sylvester Deras MD) Anticoagulated Hepatic failure Left ureteral calculus Renal failure Right renal stone Sepsis Urinary tract infection Family History (Updated 05/30/17 @ 00:00 by Conversion Provider) Father Cancer Grandfather Cancer Grandmother Diabetes mellitus Heart disease Mother Age: 81 Alzheimer disease Sister Age: 66 Hypertension Social History Smoking Status: Current every day smoker Current Medications Current Medications Medications: Home Medications No Known Home Medications 07/23/21 [History Confirmed 07/23/21] Visit Medications (administered) Generic Name Dose Route Start Last Admin Trade Name Freq PRN Reason Stop Dose Admin Lactated Ringer's 4,116 mls @ 1,372 mls/hr 07/23/21 13:17 07/23/21 13:23 Lactated Ringers 30 ml/kg infuse over 3 hr (4116 ml) 07/23/21 16:16 1,000 mls/hr IV Administration NOW ONE Exam Vital Signs (past 8 hours): - 07/23/21 12:21 07/23/21 12:31 07/23/21 12:32 Temperature 97.7 F Pulse Rate 93 H 93 H Respiratory Rate 28 H Blood Pressure 83/50 L 84/51 L Pulse Oximetry 94 93 93 07/23/21 12:35 07/23/21 12:37 07/23/21 12:40 Temperature Pulse Rate 90 88 88 Respiratory Rate 23 27 H 27 H Blood Pressure 80/50 L Pulse Oximetry 94 93 94 07/23/21 12:42 07/23/21 12:45 07/23/21 12:50 Temperature Pulse Rate 91 H 87 83 Respiratory Rate 28 H 26 H 23 Blood Pressure 80/53 L 82/52 L Pulse Oximetry 95 93 07/23/21 12:55 07/23/21 13:00 07/23/21 13:05 Temperature Pulse Rate 84 83 83 Respiratory Rate 25 H 23 21 Blood Pressure 90/52 L Pulse Oximetry 94 95 95 07/23/21 13:10 07/23/21 13:15 07/23/21 13:20 Temperature Pulse Rate 84 86 83 Respiratory Rate 22 28 H 20 Blood Pressure 89/51 L 92/51 L Pulse Oximetry 94 94 94 07/23/21 13:25 07/23/21 13:30 07/23/21 13:35 Temperature Pulse Rate 83 83 82 Respiratory Rate 23 20 21 Blood Pressure 92/52 L Pulse Oximetry 95 96 95 07/23/21 13:40 07/23/21 13:45 07/23/21 13:55 Temperature Pulse Rate 81 83 82 Respiratory Rate 20 25 H Blood Pressure 99/54 L Pulse Oximetry 96 97 92 07/23/21 13:59 07/23/21 14:00 07/23/21 14:05 Temperature Pulse Rate 81 81 80 Respiratory Rate 20 19 18 Blood Pressure 79/50 L 85/50 L Pulse Oximetry 95 95 94 07/23/21 14:10 07/23/21 14:15 07/23/21 14:20 Temperature Pulse Rate 82 82 82 Respiratory Rate 24 21 23 Blood Pressure 84/52 L 86/54 L Pulse Oximetry 95 95 96 07/23/21 14:25 07/23/21 14:27 07/23/21 14:30 Temperature Pulse Rate 81 84 85 Respiratory Rate 21 20 21 Blood Pressure 89/54 L 86/50 L Pulse Oximetry 97 97 95 07/23/21 14:35 07/23/21 14:40 07/23/21 14:45 Temperature Pulse Rate 84 83 84 Respiratory Rate 18 16 15 Blood Pressure 94/50 L Pulse Oximetry 91 93 91 07/23/21 14:50 07/23/21 14:55 07/23/21 15:00 Temperature Pulse Rate 84 83 83 Respiratory Rate 17 15 15 Blood Pressure 89/51 L 91/54 L Pulse Oximetry 92 92 92 07/23/21 15:05 07/23/21 15:10 07/23/21 15:15 Temperature Pulse Rate 81 84 84 Respiratory Rate 15 17 15 Blood Pressure 93/48 L Pulse Oximetry 91 91 91 07/23/21 15:20 07/23/21 15:25 07/23/21 15:30 Temperature Pulse Rate 83 83 82 Respiratory Rate 13 13 13 Blood Pressure 93/46 L 86/48 L Pulse Oximetry 90 L 91 91 Oxygen Delivery Method Room Air Objective Labs Result Diagrams: 07/23/21 12:40 07/23/21 12:40 Labs: Laboratory Results - last 24 hr 07/23/21 07/23/21 07/23/21 12:40 12:40 12:40 WBC 21.8 H RBC 4.87 Hgb 15.1 Hct 44.6 MCV 91.5 MCH 30.9 MCHC 33.8 RDW 16.5 H Plt Count 43 L Neut % (Auto) Not Reportable Lymph % (Auto) Not Reportable [place] % (Auto) Not Reportable Eos % (Auto) Not Reportable Baso % (Auto) Not Reportable Lymph # (Auto) Not Reportable [place] # (Auto) Not Reportable Baso # (Auto) Not Reportable Total Counted 100 Seg Neutrophils % 77.0 H Band Neutrophils % 13.0 H Lymphocytes % (Manual) 1.0 L Monocytes % (Manual) 9.0 Neutrophils # (Manual) 82526 H RBC Morphology Normal morphology PT INR Sodium 129 L Potassium 4.3 Chloride 92 L Carbon Dioxide 19 L BUN 82 H Creatinine 3.89 H Estimated GFR 15.7 L BUN/Creatinine Ratio 21.1 Glucose 190 H Lactate 5.1 H* Calcium 8.8 Total Bilirubin 7.7 H AST 258 H ALT 104 H Alkaline Phosphatase 131 H Ammonia Total Creatine Kinase 146 CK-MB (CK-2) 4.27 H CK-MB (CK-2) Rel Index 2.9 Troponin I 0.018 NT-Pro-B Natriuret Pep 2600 H Total Protein 6.9 Albumin 3.3 L Globulin 3.6 Albumin/Globulin Ratio 0.9 L Lipase 20 L Procalcitonin 55.6 H Urine Color Urine Appearance Urine pH Ur Specific [place] Urine Protein Urine Glucose (UA) Urine Ketones Urine Occult Blood Urine Nitrate Urine Bilirubin Ur Bilirubin Confirm Urine Urobilinogen Ur Leukocyte Esterase Urine RBC Urine WBC Urine Bacteria Ur Culture Indicated? U Opiates 300ng/mL cut Ur Oxycodone Screen Urine Methadone Screen Ur Barbiturates Screen U Tricyclic Antidepress Ur Phencyclidine Scrn Ur Amphetamines Screen U Methamphetamines Scrn Ur MDMA Scrn (Ecstasy) U Benzodiazepines Scrn Urine Cocaine Screen U Marijuana (THC) Screen Ethyl Alcohol SARS-CoV-2 (PCR) Blood Type Antibody Screen 07/23/21 07/23/21 07/23/21 12:40 12:40 12:40 WBC RBC Hgb Hct MCV MCH MCHC RDW Plt Count Neut % (Auto) Lymph % (Auto) [place] % (Auto) Eos % (Auto) Baso % (Auto) Lymph # (Auto) [place] # (Auto) Baso # (Auto) Total Counted Seg Neutrophils % Band Neutrophils % Lymphocytes % (Manual) Monocytes % (Manual) Neutrophils # (Manual) RBC Morphology PT 17.9 H INR 1.6 H Sodium Potassium Chloride Carbon Dioxide BUN Creatinine Estimated GFR BUN/Creatinine Ratio Glucose Lactate Calcium Total Bilirubin AST ALT Alkaline Phosphatase Ammonia 21 Total Creatine Kinase CK-MB (CK-2) CK-MB (CK-2) Rel Index Troponin I NT-Pro-B Natriuret Pep Total Protein Albumin Globulin Albumin/Globulin Ratio Lipase Procalcitonin Urine Color Urine Appearance Urine pH Ur Specific [place] Urine Protein Urine Glucose (UA) Urine Ketones Urine Occult Blood Urine Nitrate Urine Bilirubin Ur Bilirubin Confirm Urine Urobilinogen Ur Leukocyte Esterase Urine RBC Urine WBC Urine Bacteria Ur Culture Indicated? U Opiates 300ng/mL cut Ur Oxycodone Screen Urine Methadone Screen Ur Barbiturates Screen U Tricyclic Antidepress Ur Phencyclidine Scrn Ur Amphetamines Screen U Methamphetamines Scrn Ur MDMA Scrn (Ecstasy) U Benzodiazepines Scrn Urine Cocaine Screen U Marijuana (THC) Screen Ethyl Alcohol < 10 SARS-CoV-2 (PCR) Blood Type Antibody Screen 07/23/21 07/23/21 07/23/21 12:40 12:55 13:05 WBC RBC Hgb Hct MCV MCH MCHC RDW Plt Count Neut % (Auto) Lymph % (Auto) [place] % (Auto) Eos % (Auto) Baso % (Auto) Lymph # (Auto) [place] # (Auto) Baso # (Auto) Total Counted Seg Neutrophils % Band Neutrophils % Lymphocytes % (Manual) Monocytes % (Manual) Neutrophils # (Manual) RBC Morphology PT INR Sodium Potassium Chloride Carbon Dioxide BUN Creatinine Estimated GFR BUN/Creatinine Ratio Glucose Lactate Calcium Total Bilirubin AST ALT Alkaline Phosphatase Ammonia Total Creatine Kinase CK-MB (CK-2) CK-MB (CK-2) Rel Index Troponin I NT-Pro-B Natriuret Pep Total Protein Albumin Globulin Albumin/Globulin Ratio Lipase Procalcitonin Urine Color Urine Appearance Urine pH Ur Specific [place] Urine Protein Urine Glucose (UA) Urine Ketones Urine Occult Blood Urine Nitrate Urine Bilirubin Ur Bilirubin Confirm Urine Urobilinogen Ur Leukocyte Esterase Urine RBC Urine WBC Urine Bacteria Ur Culture Indicated? U Opiates 300ng/mL cut Ur Oxycodone Screen Urine Methadone Screen Ur Barbiturates Screen U Tricyclic Antidepress Ur Phencyclidine Scrn Ur Amphetamines Screen U Methamphetamines Scrn Ur MDMA Scrn (Ecstasy) U Benzodiazepines Scrn Urine Cocaine Screen U Marijuana (THC) Screen Ethyl Alcohol SARS-CoV-2 (PCR) Negative Negative Blood Type O Positive Antibody Screen Negative 07/23/21 07/23/21 07/23/21 13:15 13:15 14:20 WBC RBC Hgb Hct MCV MCH MCHC RDW Plt Count Neut % (Auto) Lymph % (Auto) [place] % (Auto) Eos % (Auto) Baso % (Auto) Lymph # (Auto) [place] # (Auto) Baso # (Auto) Total Counted Seg Neutrophils % Band Neutrophils % Lymphocytes % (Manual) Monocytes % (Manual) Neutrophils # (Manual) RBC Morphology PT INR Sodium Potassium Chloride Carbon Dioxide BUN Creatinine Estimated GFR BUN/Creatinine Ratio Glucose Lactate 3.7 H Calcium Total Bilirubin AST ALT Alkaline Phosphatase Ammonia Total Creatine Kinase CK-MB (CK-2) CK-MB (CK-2) Rel Index Troponin I NT-Pro-B Natriuret Pep Total Protein Albumin Globulin Albumin/Globulin Ratio Lipase Procalcitonin Urine Color Brown Urine Appearance Clear Urine pH 5.0 Ur Specific [place] 1.020 Urine Protein 3+ H Urine Glucose (UA) Negative Urine Ketones Trace H Urine Occult Blood 3+ H Urine Nitrate Negative Urine Bilirubin 2+ H Ur Bilirubin Confirm Positive H Urine Urobilinogen 1.0 Ur Leukocyte Esterase 2+ H Urine RBC 30-100/hpf H Urine WBC >100/hpf H Urine Bacteria Many (>30) H Ur Culture Indicated? Specimen cultured U Opiates 300ng/mL cut Negative Ur Oxycodone Screen Negative Urine Methadone Screen Negative Ur Barbiturates Screen Negative U Tricyclic Antidepress Negative Ur Phencyclidine Scrn Negative Ur Amphetamines Screen Negative U Methamphetamines Scrn Negative Ur MDMA Scrn (Ecstasy) Negative U Benzodiazepines Scrn Negative Urine Cocaine Screen Negative U Marijuana (THC) Screen Negative Ethyl Alcohol SARS-CoV-2 (PCR) Blood Type Antibody Screen 07/23/21 14:20 WBC RBC Hgb Hct MCV MCH MCHC RDW Plt Count Neut % (Auto) Lymph % (Auto) [place] % (Auto) Eos % (Auto) Baso % (Auto) Lymph # (Auto) [place] # (Auto) Baso # (Auto) Total Counted Seg Neutrophils % Band Neutrophils % Lymphocytes % (Manual) Monocytes % (Manual) Neutrophils # (Manual) RBC Morphology PT INR Sodium Potassium Chloride Carbon Dioxide BUN Creatinine Estimated GFR BUN/Creatinine Ratio Glucose Lactate Calcium Total Bilirubin AST ALT Alkaline Phosphatase Ammonia Total Creatine Kinase CK-MB (CK-2) CK-MB (CK-2) Rel Index Troponin I 0.012 NT-Pro-B Natriuret Pep Total Protein Albumin Globulin Albumin/Globulin Ratio Lipase Procalcitonin Urine Color Urine Appearance Urine pH Ur Specific [place] Urine Protein Urine Glucose (UA) Urine Ketones Urine Occult Blood Urine Nitrate Urine Bilirubin Ur Bilirubin Confirm Urine Urobilinogen Ur Leukocyte Esterase Urine RBC Urine WBC Urine Bacteria Ur Culture Indicated? U Opiates 300ng/mL cut Ur Oxycodone Screen Urine Methadone Screen Ur Barbiturates Screen U Tricyclic Antidepress Ur Phencyclidine Scrn Ur Amphetamines Screen U Methamphetamines Scrn Ur MDMA Scrn (Ecstasy) U Benzodiazepines Scrn Urine Cocaine Screen U Marijuana (THC) Screen Ethyl Alcohol SARS-CoV-2 (PCR) Blood Type Antibody Screen CT Chest/Abdomen/Pelvis: 1. Mass or nodular opacity in the right middle lobe measuring 4.4 cm. ? 2. Nodular opacity in the right upper lobe measuring 1.5 cm. ? 3. Small right unilocular pleural effusion. ? 4. Cirrhotic liver morphology.? Multiple hypodense ill-defined lesions.? This is concerning for HCC.? Metastatic disease is also consideration. ? 5. Trace perihepatic ascites. Portal hypertension and small upper abdominal varices.? Splenomegaly. ? 6. Air within the renal calices bilaterally is most consistent with emphysematous pyelitis.? ? 7. Suspect mild left hydronephrosis due to obstructing calculus in the proximal left ureter measuring 1.2 cm.? Additional larger calculus at the right renal pelvis measuring 2.2 cm. ? 8. Lucent lesion at L3 is indeterminate for osseous metastasis. Assessment & Plan Assessment and plan (1) Septic shock due to undetermined organism: Status: Acute Assessment & Plan narrative: NEURO: # Alcohol abuse -- Recommend starting thiamine, folic aicd, and MTV -- Start CIWA protocol RESP: # Abnormal CT chest findings -- Concern for malignancy given nodular lesions seen in RUL and RML -- Recommend outpatient follow up with pulmonary -- May need CT guided biopsy vs veran navigational bronchoscopy CVS: # Distributive shock -- Secondary to septic shock -- Recommend aggressive IVF resuscitation -- ABx as below -- If failed to maintain MAP goal > 65 then start levophed -- If required levophed then will add stress dose steroids ID: # Septic shock -- Secondary to pylenoephritis from obstructive calculus uropathy -- Agree with 30cc/kg LR resuscitation -- Recommend starting LR 150 cc/hr -- Levophed to maintain MAP goal > 65 -- Recommend meropenem -- Check blood and urine culture -- Urology plan for ureteral stent placement for source control : # Acute renal failure -- Secondary to septic shock and post obstructive uropathy -- Cont aggressive IVF resuscitation -- AVoid nephrotoxin agents -- Monitor UOP -- Daily BMP # Hyponatremia -- Secondary to beer potomania and dehydration -- Cont aggressive IVF resuscitation -- Daily BMP GI: # Alcoholic liver cirrhosis -- Calculated MELD score 33 (52.3% estimated 3 month mortality) -- Recommend checking liver US w/ doppler to rule out portal vein thromobosis -- Ammonia level normal -- Daily LFTs -- Will need triple phase CT to rule out HCC once renal function improve HEME: # Osseous lesions -- Concern for metastatic disease -- Will need formal biopsy once septic shock improve -- Oncology consultation as outpatient ENDO: -- Goal BS < 180 Time Spent With Patient Critical Care time: I spent a total of [] minutes of critical care time on this patient's care today; this time is exclusive of procedural time.
--- NOTE | 2021-07-23 16:04 | P.CONS_ITS ---
History of Present Illness Consult details Date Patient Seen: 07/23/21 Time Patient Seen: 16:05 Chief complaint: short of breath, alcohol, hasn't eatten Reason for consult: Sepsis, obstructing left ureteral stone, infected urine Requesting provider: Solitario Morales Narrative: This is a 65-year-old male patient who presented to the emergency department with complaint of being short of breath not having eaten. All their in the workup they found multiple significant medical problems. The patient also had a presenting blood pressure of 80 and with fluids it has gotten up to 90. He was found to be septic have infected urine and a obstructing stone in the left ureter. In addition the patient has a lung mass likely liver failure renal failure and multiple other medical problems. He is COVID negative. And Dr. Morales called to request that a stent be placed to eliminate any obstruction on the left patient does have a large nearing staghorn calculus on the right also. Procedure risks and alternatives were discussed with the patient his questions were answered and he wishes to proceed. He denies tahir rgies reports it has been 5 days since he has had anything to eat or drink. Meds Home Medications and Allergies Home Medications Medication Instructions Recorded Confirmed Type No Known Home Medications 07/23/21 07/23/21 History Allergies Allergy/AdvReac Type Severity Reaction Status Date / Time No Known Drug Allergies Allergy Unverified 01/27/20 16:03 Review of Systems Review of Systems ROS: Yes All systems reviewed with the patient and are negative except as otherwise documented (And as per emergency departmen) Exam Vital Signs (past 8 hours): - 07/23/21 12:21 07/23/21 12:31 07/23/21 12:32 Temperature 97.7 F Pulse Rate 93 H 93 H Respiratory Rate 28 H Blood Pressure 83/50 L 84/51 L Pulse Oximetry 94 93 93 07/23/21 12:35 07/23/21 12:37 07/23/21 12:40 Temperature Pulse Rate 90 88 88 Respiratory Rate 23 27 H 27 H Blood Pressure 80/50 L Pulse Oximetry 94 93 94 07/23/21 12:42 07/23/21 12:45 07/23/21 12:50 Temperature Pulse Rate 91 H 87 83 Respiratory Rate 28 H 26 H 23 Blood Pressure 80/53 L 82/52 L Pulse Oximetry 95 93 07/23/21 12:55 07/23/21 13:00 07/23/21 13:05 Temperature Pulse Rate 84 83 83 Respiratory Rate 25 H 23 21 Blood Pressure 90/52 L Pulse Oximetry 94 95 95 07/23/21 13:10 07/23/21 13:15 07/23/21 13:20 Temperature Pulse Rate 84 86 83 Respiratory Rate 22 28 H 20 Blood Pressure 89/51 L 92/51 L Pulse Oximetry 94 94 94 07/23/21 13:25 07/23/21 13:30 07/23/21 13:35 Temperature Pulse Rate 83 83 82 Respiratory Rate 23 20 21 Blood Pressure 92/52 L Pulse Oximetry 95 96 95 07/23/21 13:40 07/23/21 13:45 07/23/21 13:55 Temperature Pulse Rate 81 83 82 Respiratory Rate 20 25 H Blood Pressure 99/54 L Pulse Oximetry 96 97 92 07/23/21 13:59 07/23/21 14:00 07/23/21 14:05 Temperature Pulse Rate 81 81 80 Respiratory Rate 20 19 18 Blood Pressure 79/50 L 85/50 L Pulse Oximetry 95 95 94 07/23/21 14:10 07/23/21 14:15 07/23/21 14:20 Temperature Pulse Rate 82 82 82 Respiratory Rate 24 21 23 Blood Pressure 84/52 L 86/54 L Pulse Oximetry 95 95 96 07/23/21 14:25 07/23/21 14:27 07/23/21 14:30 Temperature Pulse Rate 81 84 85 Respiratory Rate 21 20 21 Blood Pressure 89/54 L 86/50 L Pulse Oximetry 97 97 95 07/23/21 14:35 07/23/21 14:40 07/23/21 14:45 Temperature Pulse Rate 84 83 84 Respiratory Rate 18 16 15 Blood Pressure 94/50 L Pulse Oximetry 91 93 91 07/23/21 14:50 07/23/21 14:55 07/23/21 15:00 Temperature Pulse Rate 84 83 83 Respiratory Rate 17 15 15 Blood Pressure 89/51 L 91/54 L Pulse Oximetry 92 92 92 07/23/21 15:05 07/23/21 15:10 07/23/21 15:15 Temperature Pulse Rate 81 84 84 Respiratory Rate 15 17 15 Blood Pressure 93/48 L Pulse Oximetry 91 91 91 07/23/21 15:20 07/23/21 15:25 07/23/21 15:30 Temperature Pulse Rate 83 83 82 Respiratory Rate 13 13 13 Blood Pressure 93/46 L 86/48 L Pulse Oximetry 90 L 91 91 Oxygen Delivery Method Room Air Narrative Exam Narrative: This is a awake, semi alert and somewhat oriented male lying on a gurney. Lungs: Coarse breath sounds Cardiovascular exam regular at 80-90 Abdomen: Protuberant and minimally tender Genitourinary exam: Normal male Objective Labs Result Diagrams: 07/23/21 12:40 07/23/21 12:40 Labs: Laboratory Results - last 24 hr 07/23/21 07/23/21 07/23/21 12:40 12:40 12:40 WBC 21.8 H RBC 4.87 Hgb 15.1 Hct 44.6 MCV 91.5 MCH 30.9 MCHC 33.8 RDW 16.5 H Plt Count 43 L Neut % (Auto) Not Reportable Lymph % (Auto) Not Reportable [place] % (Auto) Not Reportable Eos % (Auto) Not Reportable Baso % (Auto) Not Reportable Lymph # (Auto) Not Reportable [place] # (Auto) Not Reportable Baso # (Auto) Not Reportable Total Counted 100 Seg Neutrophils % 77.0 H Band Neutrophils % 13.0 H Lymphocytes % (Manual) 1.0 L Monocytes % (Manual) 9.0 Neutrophils # (Manual) 29075 H RBC Morphology Normal morphology PT INR Sodium 129 L Potassium 4.3 Chloride 92 L Carbon Dioxide 19 L BUN 82 H Creatinine 3.89 H Estimated GFR 15.7 L BUN/Creatinine Ratio 21.1 Glucose 190 H Lactate 5.1 H* Calcium 8.8 Total Bilirubin 7.7 H AST 258 H ALT 104 H Alkaline Phosphatase 131 H Ammonia Total Creatine Kinase 146 CK-MB (CK-2) 4.27 H CK-MB (CK-2) Rel Index 2.9 Troponin I 0.018 NT-Pro-B Natriuret Pep 2600 H Total Protein 6.9 Albumin 3.3 L Globulin 3.6 Albumin/Globulin Ratio 0.9 L Lipase 20 L Procalcitonin 55.6 H Urine Color Urine Appearance Urine pH Ur Specific [place] Urine Protein Urine Glucose (UA) Urine Ketones Urine Occult Blood Urine Nitrate Urine Bilirubin Ur Bilirubin Confirm Urine Urobilinogen Ur Leukocyte Esterase Urine RBC Urine WBC Urine Bacteria Ur Culture Indicated? U Opiates 300ng/mL cut Ur Oxycodone Screen Urine Methadone Screen Ur Barbiturates Screen U Tricyclic Antidepress Ur Phencyclidine Scrn Ur Amphetamines Screen U Methamphetamines Scrn Ur MDMA Scrn (Ecstasy) U Benzodiazepines Scrn Urine Cocaine Screen U Marijuana (THC) Screen Ethyl Alcohol SARS-CoV-2 (PCR) Blood Type Antibody Screen 07/23/21 07/23/21 07/23/21 12:40 12:40 12:40 WBC RBC Hgb Hct MCV MCH MCHC RDW Plt Count Neut % (Auto) Lymph % (Auto) [place] % (Auto) Eos % (Auto) Baso % (Auto) Lymph # (Auto) [place] # (Auto) Baso # (Auto) Total Counted Seg Neutrophils % Band Neutrophils % Lymphocytes % (Manual) Monocytes % (Manual) Neutrophils # (Manual) RBC Morphology PT 17.9 H INR 1.6 H Sodium Potassium Chloride Carbon Dioxide BUN Creatinine Estimated GFR BUN/Creatinine Ratio Glucose Lactate Calcium Total Bilirubin AST ALT Alkaline Phosphatase Ammonia 21 Total Creatine Kinase CK-MB (CK-2) CK-MB (CK-2) Rel Index Troponin I NT-Pro-B Natriuret Pep Total Protein Albumin Globulin Albumin/Globulin Ratio Lipase Procalcitonin Urine Color Urine Appearance Urine pH Ur Specific [place] Urine Protein Urine Glucose (UA) Urine Ketones Urine Occult Blood Urine Nitrate Urine Bilirubin Ur Bilirubin Confirm Urine Urobilinogen Ur Leukocyte Esterase Urine RBC Urine WBC Urine Bacteria Ur Culture Indicated? U Opiates 300ng/mL cut Ur Oxycodone Screen Urine Methadone Screen Ur Barbiturates Screen U Tricyclic Antidepress Ur Phencyclidine Scrn Ur Amphetamines Screen U Methamphetamines Scrn Ur MDMA Scrn (Ecstasy) U Benzodiazepines Scrn Urine Cocaine Screen U Marijuana (THC) Screen Ethyl Alcohol < 10 SARS-CoV-2 (PCR) Blood Type Antibody Screen 07/23/21 07/23/21 07/23/21 12:40 12:55 13:05 WBC RBC Hgb Hct MCV MCH MCHC RDW Plt Count Neut % (Auto) Lymph % (Auto) [place] % (Auto) Eos % (Auto) Baso % (Auto) Lymph # (Auto) [place] # (Auto) Baso # (Auto) Total Counted Seg Neutrophils % Band Neutrophils % Lymphocytes % (Manual) Monocytes % (Manual) Neutrophils # (Manual) RBC Morphology PT INR Sodium Potassium Chloride Carbon Dioxide BUN Creatinine Estimated GFR BUN/Creatinine Ratio Glucose Lactate Calcium Total Bilirubin AST ALT Alkaline Phosphatase Ammonia Total Creatine Kinase CK-MB (CK-2) CK-MB (CK-2) Rel Index Troponin I NT-Pro-B Natriuret Pep Total Protein Albumin Globulin Albumin/Globulin Ratio Lipase Procalcitonin Urine Color Urine Appearance Urine pH Ur Specific [place] Urine Protein Urine Glucose (UA) Urine Ketones Urine Occult Blood Urine Nitrate Urine Bilirubin Ur Bilirubin Confirm Urine Urobilinogen Ur Leukocyte Esterase Urine RBC Urine WBC Urine Bacteria Ur Culture Indicated? U Opiates 300ng/mL cut Ur Oxycodone Screen Urine Methadone Screen Ur Barbiturates Screen U Tricyclic Antidepress Ur Phencyclidine Scrn Ur Amphetamines Screen U Methamphetamines Scrn Ur MDMA Scrn (Ecstasy) U Benzodiazepines Scrn Urine Cocaine Screen U Marijuana (THC) Screen Ethyl Alcohol SARS-CoV-2 (PCR) Negative Negative Blood Type O Positive Antibody Screen Negative 07/23/21 07/23/21 07/23/21 13:15 13:15 14:20 WBC RBC Hgb Hct MCV MCH MCHC RDW Plt Count Neut % (Auto) Lymph % (Auto) [place] % (Auto) Eos % (Auto) Baso % (Auto) Lymph # (Auto) [place] # (Auto) Baso # (Auto) Total Counted Seg Neutrophils % Band Neutrophils % Lymphocytes % (Manual) Monocytes % (Manual) Neutrophils # (Manual) RBC Morphology PT INR Sodium Potassium Chloride Carbon Dioxide BUN Creatinine Estimated GFR BUN/Creatinine Ratio Glucose Lactate 3.7 H Calcium Total Bilirubin AST ALT Alkaline Phosphatase Ammonia Total Creatine Kinase CK-MB (CK-2) CK-MB (CK-2) Rel Index Troponin I NT-Pro-B Natriuret Pep Total Protein Albumin Globulin Albumin/Globulin Ratio Lipase Procalcitonin Urine Color Brown Urine Appearance Clear Urine pH 5.0 Ur Specific [place] 1.020 Urine Protein 3+ H Urine Glucose (UA) Negative Urine Ketones Trace H Urine Occult Blood 3+ H Urine Nitrate Negative Urine Bilirubin 2+ H Ur Bilirubin Confirm Positive H Urine Urobilinogen 1.0 Ur Leukocyte Esterase 2+ H Urine RBC 30-100/hpf H Urine WBC >100/hpf H Urine Bacteria Many (>30) H Ur Culture Indicated? Specimen cultured U Opiates 300ng/mL cut Negative Ur Oxycodone Screen Negative Urine Methadone Screen Negative Ur Barbiturates Screen Negative U Tricyclic Antidepress Negative Ur Phencyclidine Scrn Negative Ur Amphetamines Screen Negative U Methamphetamines Scrn Negative Ur MDMA Scrn (Ecstasy) Negative U Benzodiazepines Scrn Negative Urine Cocaine Screen Negative U Marijuana (THC) Screen Negative Ethyl Alcohol SARS-CoV-2 (PCR) Blood Type Antibody Screen 07/23/21 14:20 WBC RBC Hgb Hct MCV MCH MCHC RDW Plt Count Neut % (Auto) Lymph % (Auto) [place] % (Auto) Eos % (Auto) Baso % (Auto) Lymph # (Auto) [place] # (Auto) Baso # (Auto) Total Counted Seg Neutrophils % Band Neutrophils % Lymphocytes % (Manual) Monocytes % (Manual) Neutrophils # (Manual) RBC Morphology PT INR Sodium Potassium Chloride Carbon Dioxide BUN Creatinine Estimated GFR BUN/Creatinine Ratio Glucose Lactate Calcium Total Bilirubin AST ALT Alkaline Phosphatase Ammonia Total Creatine Kinase CK-MB (CK-2) CK-MB (CK-2) Rel Index Troponin I 0.012 NT-Pro-B Natriuret Pep Total Protein Albumin Globulin Albumin/Globulin Ratio Lipase Procalcitonin Urine Color Urine Appearance Urine pH Ur Specific [place] Urine Protein Urine Glucose (UA) Urine Ketones Urine Occult Blood Urine Nitrate Urine Bilirubin Ur Bilirubin Confirm Urine Urobilinogen Ur Leukocyte Esterase Urine RBC Urine WBC Urine Bacteria Ur Culture Indicated? U Opiates 300ng/mL cut Ur Oxycodone Screen Urine Methadone Screen Ur Barbiturates Screen U Tricyclic Antidepress Ur Phencyclidine Scrn Ur Amphetamines Screen U Methamphetamines Scrn Ur MDMA Scrn (Ecstasy) U Benzodiazepines Scrn Urine Cocaine Screen U Marijuana (THC) Screen Ethyl Alcohol SARS-CoV-2 (PCR) Blood Type Antibody Screen [facility] Medical History (Updated 07/23/21 @ 16:14 by Kurt Lainez MD) Anticoagulated Hepatic failure Left ureteral calculus Renal failure Right renal stone Sepsis Urinary tract infection Family History Father Cancer Grandfather Cancer Grandmother Diabetes mellitus Heart disease Mother Age: 81 Alzheimer disease Sister Age: 66 Hypertension Tobacco & Substance Use Smoking Status: Current every day smoker Assessment & Plan Assessment and plan (1) Right renal stone: Status: Acute (2) Left ureteral calculus: Status: Acute (3) Urinary tract infection: Qualifiers: Urinary tract infection type: acute cystitis Hematuria presence: with hematuria Qualified Code(s): N30.01 - Acute cystitis with hematuria Status: Acute (4) Anticoagulated: Status: Acute (5) Hepatic failure: Qualifiers: Liver failure chronicity: acute Hepatic coma status: without hepatic coma Qualified Code(s): K72.00 - Acute and subacute hepatic failure without coma Status: Acute (6) Renal failure: Qualifiers: Renal failure chronicity: acute Acute renal failure type: with other specified pathological lesion Qualified Code(s): N17.8 - Other acute kidney failure Status: Acute Plan: Assessment and plan: This is a very ill septic male with an obstructing left ureteral stone evidence of urinary tract infection. Patient also has multiple other comorbidities which will need to be sorted out. Plan would be for cystoscopy left stent placement. Procedure risks alternatives have been discussed with the patient and he wishes to proceed. Assessment & Plan narrative: Assessment and plan as noted above. Time Spent With Patient Time with patient: 30 to 49 minutes with 50% spent counseling/coordinating care Critical Care time: I spent a total of [] minutes of critical care time on this patient's care today; this time is exclusive of procedural time.
--- NOTE | 2021-07-23 16:05 | SUR.OPER ---
Lithotomy on padded OR bed, head on pillow, arms secured on padded arm boards at <90 degrees abduction. Legs secured in padded yellow fins stirrups.
--- NOTE | 2021-07-23 16:16 | PM.PREOP ---
Pre-operative Note COVID-19 COVID-19 status: Negative Result date/Date tested (Pos, Neg/Pending): 07/23/21 Interval Note History & Physical reviewed/Exam performed by Physician: Yes Changes to H&P: No
--- NOTE | 2021-07-23 16:21 | PC.NURSE ---
Called Jessica @ [phone] and updated w/ patient permission. verbalized understanding of current condition.
--- NOTE | 2021-07-23 16:39 | SUR.OPER ---
[place] FROM [facility] PER DR. DALIA SIMONS.
--- NOTE | 2021-07-23 16:42 | DI.US.S_ITS ---
PROCEDURE: US ABDOMEN LIMITED INDICATIONS: ELEVATED LIVER TESTS. EVALUATE FOR PORTAL VEIN THROMBOSIS TECHNIQUE: Real-time scanning was performed of the abdominal and retroperitoneal organs, with image documentation. COMPARISON: [facility], CT, PE STUDY (CTA CHEST), 05/13/2017, 18:48. [facility], US, ABDOMEN COMPLETE, 07/18/2017, 8:46. [facility], CT, CT CHEST ABD PEL WO CON, 07/23/2021, 13:52. FINDINGS: Liver: Liver is normal in size, and demonstrates lobular contour and heterogeneous echotexture. There are multiple anechoic masses in liver compatible with cysts. The largest cyst is in the right hepatic lobe measuring 3.9 x 3.3 cm in the left hepatic lobe. Doppler ultrasound: The main portal vein is patent measuring 12.2 mm in diameter, demonstrating hepatopetal flow. The left and right portal veins are also patent. Gallbladder: Semi contracted. There is gallbladder sludge. The gallbladder wall is thickened measuring 6.6 mm. No pericholecystic fluid or sonographic Crooks's sign. Biliary ducts: Intrahepatic bile ducts are non-dilated. Extrahepatic bile duct caliber measures 5.8 mm. Normal is 6-7 mm or less in diameter, or 10 mm or less post-cholecystectomy. Pancreas: Obscured by overlying bowel gas. Spleen: Spleen is normal in size and homogeneous in echotexture. Miscellaneous: There is a trace abdominal fluid in the right upper quadrant. IMPRESSION: 1. Liver demonstrates nodular contour and heterogeneous echotexture, consistent with cirrhosis. 2. Patent portal vein with normal direction of flow. 3. There are multiple hepatic cysts. 4. There is gallbladder wall thickening, most likely secondary to chronic liver disease. 5. Trace right upper quadrant free fluid. Dictated by: Alvaro Hidalgo M.D. on 07/24/2021 at 11:34 Approved by: Alvaro Hidalgo M.D. on 07/24/2021 at 11:47
--- NOTE | 2021-07-23 17:06 | P.OP_ITS ---
Procedure & Clinicians Procedure: Cystoscopy with left stent placement Same procedure as scheduled: Yes Indications: This is a 65-year-old male who presented to the emergency department with complaints of shortness of breath workup there revealed multiple significant medical problems including sepsis, left ureteral calculus and evidence of urinary tract infection. Patient was also found to have some degree of hepatic failure, renal failure, pulmonary mass, hepatic mass and or alcoholic cirrhosis, hypotension. I was called by Dr. Morales to place a stent on the left side to alleviate any obstruction. Patient presents in the operating room this time for that. Surgeon: Kurt Lainez Click Yes if Unassisted: Yes Anesthesia Type: General Operative Notes Findings: Urethra normal to the prostatic fossa which shows moderate obstructive character. The bladder showed some hypercontractility. Ureteral orifices in normal position. No mass was noted within the bladder. Stone was noted be a fluoro and with the stent in place, vigorous purulent efflux was noted via the left collecting system. The stent was a 7 Irish multi length stent the string was removed. Stent was in good position and the bladder under direct vision and in the kidney under fluoroscopic visualization. Closure Type: not applicable Specimen(s): none sent Applied: other (Ureteral stent 7 Irish multi length left collecting system no string) Estimated Blood Loss (mL): 0 Blood products transfused: none Procedure in detail: After informed consent was obtained the patient was identified and brought to the operating room. Patient was then placed in a supine position on the operative table, anesthesia was induced and maintained. After ensuring an adequate level of anesthesia the patient was transition to a lithotomy position. His Pisano catheter was removed. The Patient was then prepped, draped and prepared for surgery in a sterile fashion. After prepping, draping and ensuring an adequate level of anesthesia a 21 Irish cystoscope was passed through the urethra prostate and bladder were cystoscopy was performed. Left ureteral orifice was then identified again and a hybrid wire was passed up and into the left collecting system. The stent was passed over the wire and positioned in the renal pelvis under fluoroscopic visualization, as well as under direct vision in the bladder. The nylon hardness or string was removed. The position of the stent was once again verified the scope was removed and a 16 Irish 5 cc Pisano catheter was passed through the urethra and into the bladder without difficulty the balloon was filled with 14 cc of sterile water in the catheter placed to gravity drainage. The patient was awakened having tolerated the procedure well. The Patient is to be admitted by the hospitalist service to the intensive care unit. Follow-up for the patient will be determined by how he does with his multiple medical difficulties. Complications: none Post-operative Condition: other (Septic) Disposition: ICU Plan for aftercare: Follow-up with Urology will be determined depending on how the patient does with the rest of his hospital care.
--- NOTE | 2021-07-23 17:21 | PM.HP.1 ---
History of Present Illness History of Present Illness Date Patient Seen: 07/23/21 Time Patient Seen: 16:00 Chief complaint: short of breath, alcohol, hasn't eatten Narrative: Mr. Cardozo is a 65M with PMH liver cirrhosis, alcohol abuse who does not regularly see physicians who presents with weakness and vomiting for the last 5 days. He states his last alcoholic drink was 5 days ago. He has had subjective fevers/chils. No cough, but he has had shortness of breath. No abdominal pain, nausea, vomiting, diarrhea, or dysuria. He has felt lightheaded as well. In the ED workup was done, vitals notable for afebrile, tachy in the 90s, tachypneic in the 20s, blood pressure 80s/50s. Labs notable for WBC 21.8, hgb 15.1, plts 43. Na 129, BUN 89, creatinine 3.89. Lactate 5.1. Bilirubin 7.7, ast 258, alt 104, alk phos 131, procal 55.6. Urine was grossly positive with WBCs, blood, bacteria, leuk esterase. Chest xray showed right nodular opacity. CT thorax showed mass in right lobe, right pleural effusion, cirrhotic liver with hypodense lesions, air with renal calices, left hydronephrosis with calculus in left ureter, lucent lesion at l3. He was ordered for IV antibiotics, IV fluids. He was taken urgently with urology for stent placement for sepsis secondary to obstructing and infected kidney stone. He was admitted for further treatment. Patient History Medical History Anticoagulated Hepatic failure Left ureteral calculus Renal failure Right renal stone Sepsis Urinary tract infection Family & Social History Family History Father Cancer Grandfather Cancer Grandmother Diabetes mellitus Heart disease Mother Age: 81 Alzheimer disease Sister Age: 66 Hypertension Safety & Behavioral: Feels Safe in Current Yes Environment Been Physically Hurt or No Threatened By a Person Tobacco & Substance use: Smoking Status Current every day smoker alcohol intake frequency 3 or more drinks per day Substance Use Type does not use Meds Home Medications and Allergies Home Medications Medication Instructions Recorded Confirmed Type No Known Home Medications 07/23/21 07/23/21 History Allergies Allergy/AdvReac Type Severity Reaction Status Date / Time No Known Drug Allergies Allergy Unverified 01/27/20 16:03 Review of Systems Review of Systems Narrative: 14 systems reviewed and negative aside from what is noted in HPI Exam Vital Signs (past 8 hours): - 07/23/21 12:21 07/23/21 12:31 07/23/21 12:32 Temperature 97.7 F Pulse Rate 93 H 93 H Respiratory Rate 28 H Blood Pressure 83/50 L 84/51 L Pulse Oximetry 94 93 93 07/23/21 12:35 07/23/21 12:37 07/23/21 12:40 Temperature Pulse Rate 90 88 88 Respiratory Rate 23 27 H 27 H Blood Pressure 80/50 L Pulse Oximetry 94 93 94 07/23/21 12:42 07/23/21 12:45 07/23/21 12:50 Temperature Pulse Rate 91 H 87 83 Respiratory Rate 28 H 26 H 23 Blood Pressure 80/53 L 82/52 L Pulse Oximetry 95 93 07/23/21 12:55 07/23/21 13:00 07/23/21 13:05 Temperature Pulse Rate 84 83 83 Respiratory Rate 25 H 23 21 Blood Pressure 90/52 L Pulse Oximetry 94 95 95 07/23/21 13:10 07/23/21 13:15 07/23/21 13:20 Temperature Pulse Rate 84 86 83 Respiratory Rate 22 28 H 20 Blood Pressure 89/51 L 92/51 L Pulse Oximetry 94 94 94 07/23/21 13:25 07/23/21 13:30 07/23/21 13:35 Temperature Pulse Rate 83 83 82 Respiratory Rate 23 20 21 Blood Pressure 92/52 L Pulse Oximetry 95 96 95 07/23/21 13:40 07/23/21 13:45 07/23/21 13:55 Temperature Pulse Rate 81 83 82 Respiratory Rate 20 25 H Blood Pressure 99/54 L Pulse Oximetry 96 97 92 07/23/21 13:59 07/23/21 14:00 07/23/21 14:05 Temperature Pulse Rate 81 81 80 Respiratory Rate 20 19 18 Blood Pressure 79/50 L 85/50 L Pulse Oximetry 95 95 94 07/23/21 14:10 07/23/21 14:15 07/23/21 14:20 Temperature Pulse Rate 82 82 82 Respiratory Rate 24 21 23 Blood Pressure 84/52 L 86/54 L Pulse Oximetry 95 95 96 07/23/21 14:25 07/23/21 14:27 07/23/21 14:30 Temperature Pulse Rate 81 84 85 Respiratory Rate 21 20 21 Blood Pressure 89/54 L 86/50 L Pulse Oximetry 97 97 95 07/23/21 14:35 07/23/21 14:40 07/23/21 14:45 Temperature Pulse Rate 84 83 84 Respiratory Rate 18 16 15 Blood Pressure 94/50 L Pulse Oximetry 91 93 91 07/23/21 14:50 07/23/21 14:55 07/23/21 15:00 Temperature Pulse Rate 84 83 83 Respiratory Rate 17 15 15 Blood Pressure 89/51 L 91/54 L Pulse Oximetry 92 92 92 07/23/21 15:05 07/23/21 15:10 07/23/21 15:15 Temperature Pulse Rate 81 84 84 Respiratory Rate 15 17 15 Blood Pressure 93/48 L Pulse Oximetry 91 91 91 07/23/21 15:20 07/23/21 15:25 07/23/21 15:30 Temperature Pulse Rate 83 83 82 Respiratory Rate 13 13 13 Blood Pressure 93/46 L 86/48 L Pulse Oximetry 90 L 91 91 07/23/21 15:35 07/23/21 15:40 07/23/21 15:45 Temperature Pulse Rate 83 82 82 Respiratory Rate 13 12 12 Blood Pressure 92/54 L Pulse Oximetry 91 94 94 07/23/21 15:50 07/23/21 15:55 07/23/21 16:00 Temperature Pulse Rate 85 86 82 Respiratory Rate 17 18 18 Blood Pressure Pulse Oximetry 95 95 94 07/23/21 16:01 07/23/21 16:05 07/23/21 16:10 Temperature Pulse Rate 83 83 82 Respiratory Rate 19 18 20 Blood Pressure 81/47 L 86/53 L Pulse Oximetry 95 96 95 07/23/21 16:59 07/23/21 17:04 07/23/21 17:08 Temperature 97.3 F L 97.3 F L Pulse Rate 87 88 90 Respiratory Rate 12 14 18 Blood Pressure 100/56 L 99/58 L 92/61 Pulse Oximetry 97 97 98 07/23/21 17:13 Temperature Pulse Rate 98 H Respiratory Rate 15 Blood Pressure 93/62 Pulse Oximetry 100 Oxygen Delivery Method Nasal Cannula Oxygen Flow Rate 2 Narrative Exam Narrative: GEN: no acute distress HEENT: dry mucous membranes, PERRL NECK: trachea midline, no JVD CV: regular rate and rhythm, no murmurs PULM: clear bilaterally ABD: soft, nontender, nondistended, no organomegaly, normal bowel sounds EXT: warm and well perfused with 1+ edema NEURO: awake, alert, and oriented, slightly slow to respond PSYCH: pleasant, cooperative Objective Labs Result Diagrams: 07/23/21 12:40 07/23/21 12:40 Labs: Laboratory Results - last 24 hr 07/23/21 07/23/21 07/23/21 12:40 12:40 12:40 WBC 21.8 H RBC 4.87 Hgb 15.1 Hct 44.6 MCV 91.5 MCH 30.9 MCHC 33.8 RDW 16.5 H Plt Count 43 L Neut % (Auto) Not Reportable Lymph % (Auto) Not Reportable [place] % (Auto) Not Reportable Eos % (Auto) Not Reportable Baso % (Auto) Not Reportable Lymph # (Auto) Not Reportable [place] # (Auto) Not Reportable Baso # (Auto) Not Reportable Total Counted 100 Seg Neutrophils % 77.0 H Band Neutrophils % 13.0 H Lymphocytes % (Manual) 1.0 L Monocytes % (Manual) 9.0 Neutrophils # (Manual) 02375 H RBC Morphology Normal morphology PT INR Sodium 129 L Potassium 4.3 Chloride 92 L Carbon Dioxide 19 L BUN 82 H Creatinine 3.89 H Estimated GFR 15.7 L BUN/Creatinine Ratio 21.1 Glucose 190 H Lactate 5.1 H* Calcium 8.8 Total Bilirubin 7.7 H AST 258 H ALT 104 H Alkaline Phosphatase 131 H Ammonia Total Creatine Kinase 146 CK-MB (CK-2) 4.27 H CK-MB (CK-2) Rel Index 2.9 Troponin I 0.018 NT-Pro-B Natriuret Pep 2600 H Total Protein 6.9 Albumin 3.3 L Globulin 3.6 Albumin/Globulin Ratio 0.9 L Lipase 20 L Procalcitonin 55.6 H Urine Color Urine Appearance Urine pH Ur Specific [place] Urine Protein Urine Glucose (UA) Urine Ketones Urine Occult Blood Urine Nitrate Urine Bilirubin Ur Bilirubin Confirm Urine Urobilinogen Ur Leukocyte Esterase Urine RBC Urine WBC Urine Bacteria Ur Culture Indicated? U Opiates 300ng/mL cut Ur Oxycodone Screen Urine Methadone Screen Ur Barbiturates Screen U Tricyclic Antidepress Ur Phencyclidine Scrn Ur Amphetamines Screen U Methamphetamines Scrn Ur MDMA Scrn (Ecstasy) U Benzodiazepines Scrn Urine Cocaine Screen U Marijuana (THC) Screen Ethyl Alcohol SARS-CoV-2 (PCR) Blood Type Antibody Screen 07/23/21 07/23/21 07/23/21 12:40 12:40 12:40 WBC RBC Hgb Hct MCV MCH MCHC RDW Plt Count Neut % (Auto) Lymph % (Auto) [place] % (Auto) Eos % (Auto) Baso % (Auto) Lymph # (Auto) [place] # (Auto) Baso # (Auto) Total Counted Seg Neutrophils % Band Neutrophils % Lymphocytes % (Manual) Monocytes % (Manual) Neutrophils # (Manual) RBC Morphology PT 17.9 H INR 1.6 H Sodium Potassium Chloride Carbon Dioxide BUN Creatinine Estimated GFR BUN/Creatinine Ratio Glucose Lactate Calcium Total Bilirubin AST ALT Alkaline Phosphatase Ammonia 21 Total Creatine Kinase CK-MB (CK-2) CK-MB (CK-2) Rel Index Troponin I NT-Pro-B Natriuret Pep Total Protein Albumin Globulin Albumin/Globulin Ratio Lipase Procalcitonin Urine Color Urine Appearance Urine pH Ur Specific [place] Urine Protein Urine Glucose (UA) Urine Ketones Urine Occult Blood Urine Nitrate Urine Bilirubin Ur Bilirubin Confirm Urine Urobilinogen Ur Leukocyte Esterase Urine RBC Urine WBC Urine Bacteria Ur Culture Indicated? U Opiates 300ng/mL cut Ur Oxycodone Screen Urine Methadone Screen Ur Barbiturates Screen U Tricyclic Antidepress Ur Phencyclidine Scrn Ur Amphetamines Screen U Methamphetamines Scrn Ur MDMA Scrn (Ecstasy) U Benzodiazepines Scrn Urine Cocaine Screen U Marijuana (THC) Screen Ethyl Alcohol < 10 SARS-CoV-2 (PCR) Blood Type Antibody Screen 07/23/21 07/23/21 07/23/21 12:40 12:55 13:05 WBC RBC Hgb Hct MCV MCH MCHC RDW Plt Count Neut % (Auto) Lymph % (Auto) [place] % (Auto) Eos % (Auto) Baso % (Auto) Lymph # (Auto) [place] # (Auto) Baso # (Auto) Total Counted Seg Neutrophils % Band Neutrophils % Lymphocytes % (Manual) Monocytes % (Manual) Neutrophils # (Manual) RBC Morphology PT INR Sodium Potassium Chloride Carbon Dioxide BUN Creatinine Estimated GFR BUN/Creatinine Ratio Glucose Lactate Calcium Total Bilirubin AST ALT Alkaline Phosphatase Ammonia Total Creatine Kinase CK-MB (CK-2) CK-MB (CK-2) Rel Index Troponin I NT-Pro-B Natriuret Pep Total Protein Albumin Globulin Albumin/Globulin Ratio Lipase Procalcitonin Urine Color Urine Appearance Urine pH Ur Specific [place] Urine Protein Urine Glucose (UA) Urine Ketones Urine Occult Blood Urine Nitrate Urine Bilirubin Ur Bilirubin Confirm Urine Urobilinogen Ur Leukocyte Esterase Urine RBC Urine WBC Urine Bacteria Ur Culture Indicated? U Opiates 300ng/mL cut Ur Oxycodone Screen Urine Methadone Screen Ur Barbiturates Screen U Tricyclic Antidepress Ur Phencyclidine Scrn Ur Amphetamines Screen U Methamphetamines Scrn Ur MDMA Scrn (Ecstasy) U Benzodiazepines Scrn Urine Cocaine Screen U Marijuana (THC) Screen Ethyl Alcohol SARS-CoV-2 (PCR) Negative Negative Blood Type O Positive Antibody Screen Negative 07/23/21 07/23/21 07/23/21 13:15 13:15 14:20 WBC RBC Hgb Hct MCV MCH MCHC RDW Plt Count Neut % (Auto) Lymph % (Auto) [place] % (Auto) Eos % (Auto) Baso % (Auto) Lymph # (Auto) [place] # (Auto) Baso # (Auto) Total Counted Seg Neutrophils % Band Neutrophils % Lymphocytes % (Manual) Monocytes % (Manual) Neutrophils # (Manual) RBC Morphology PT INR Sodium Potassium Chloride Carbon Dioxide BUN Creatinine Estimated GFR BUN/Creatinine Ratio Glucose Lactate 3.7 H Calcium Total Bilirubin AST ALT Alkaline Phosphatase Ammonia Total Creatine Kinase CK-MB (CK-2) CK-MB (CK-2) Rel Index Troponin I NT-Pro-B Natriuret Pep Total Protein Albumin Globulin Albumin/Globulin Ratio Lipase Procalcitonin Urine Color Brown Urine Appearance Clear Urine pH 5.0 Ur Specific [place] 1.020 Urine Protein 3+ H Urine Glucose (UA) Negative Urine Ketones Trace H Urine Occult Blood 3+ H Urine Nitrate Negative Urine Bilirubin 2+ H Ur Bilirubin Confirm Positive H Urine Urobilinogen 1.0 Ur Leukocyte Esterase 2+ H Urine RBC 30-100/hpf H Urine WBC >100/hpf H Urine Bacteria Many (>30) H Ur Culture Indicated? Specimen cultured U Opiates 300ng/mL cut Negative Ur Oxycodone Screen Negative Urine Methadone Screen Negative Ur Barbiturates Screen Negative U Tricyclic Antidepress Negative Ur Phencyclidine Scrn Negative Ur Amphetamines Screen Negative U Methamphetamines Scrn Negative Ur MDMA Scrn (Ecstasy) Negative U Benzodiazepines Scrn Negative Urine Cocaine Screen Negative U Marijuana (THC) Screen Negative Ethyl Alcohol SARS-CoV-2 (PCR) Blood Type Antibody Screen 07/23/21 07/23/21 14:20 14:20 WBC RBC Hgb Hct MCV MCH MCHC RDW Plt Count Neut % (Auto) Lymph % (Auto) [place] % (Auto) Eos % (Auto) Baso % (Auto) Lymph # (Auto) [place] # (Auto) Baso # (Auto) Total Counted Seg Neutrophils % Band Neutrophils % Lymphocytes % (Manual) Monocytes % (Manual) Neutrophils # (Manual) RBC Morphology PT INR Sodium Potassium Chloride Carbon Dioxide BUN Creatinine Estimated GFR BUN/Creatinine Ratio Glucose Lactate 4.0 H Calcium Total Bilirubin AST ALT Alkaline Phosphatase Ammonia Total Creatine Kinase CK-MB (CK-2) CK-MB (CK-2) Rel Index Troponin I 0.012 NT-Pro-B Natriuret Pep Total Protein Albumin Globulin Albumin/Globulin Ratio Lipase Procalcitonin Urine Color Urine Appearance Urine pH Ur Specific [place] Urine Protein Urine Glucose (UA) Urine Ketones Urine Occult Blood Urine Nitrate Urine Bilirubin Ur Bilirubin Confirm Urine Urobilinogen Ur Leukocyte Esterase Urine RBC Urine WBC Urine Bacteria Ur Culture Indicated? U Opiates 300ng/mL cut Ur Oxycodone Screen Urine Methadone Screen Ur Barbiturates Screen U Tricyclic Antidepress Ur Phencyclidine Scrn Ur Amphetamines Screen U Methamphetamines Scrn Ur MDMA Scrn (Ecstasy) U Benzodiazepines Scrn Urine Cocaine Screen U Marijuana (THC) Screen Ethyl Alcohol SARS-CoV-2 (PCR) Blood Type Antibody Screen Assessment & Plan Assessment & Plan narrative: Mr. Cardozo is a 65M with PMH of EtOH abuse who presents with obstructing infected left kidney stone developing septic shock also found to have pulmonary, bone, and liver lesions of possible malignancy 1. Septic shock from infected left kidney stone -sepsis with WBC, infected urine, with acute renal failure -lactate improved from 5->4 after IV fluid -continue with aggressive fluid replacement -follow up urine and blood cultures -switch antibiotics to meropenem -trend lactate per protocol q4 2. HEIDE from obstruction with hydronephrosis -probable secondary HEIDE from obstructing stones -s/p stent placement with urology -trend creatinine closely -[place] to monitor urine output -no indication for dialysis currently 3. Alcoholic liver cirrhosis with alcohol abuse -MELD 34, 3 month mortality >50% -continues to have significant alcohol abuse -last drink 5 days ago -will order for CIWA protocol -thiamine, mvi, folate -trend LFTs daily 4. Bone, hepatic, pulmonary lesions concerning for metastatic disease -plan for triple phase CT when HEIDE improves -will need further evaluation of bone and liver abnormalities, may have metastatic lung cancer -will need outpatient workup likely with oncology, gastroenterology, and pulmonlogy 5. Hyponatremia -presume secondary to etoh abuse -trend sodium closely, follow after IV fluid bolus 6. Thrombocytopenia -secondary to cirrhosis -with bleeding after stent placement, plan to transfuse 1U platelets 7. Bilateral kidney stones -s/p stent placement, now with traumatic hematuria -has bilateral nonobstructing stones as well -urology consulted CODE: Full Proxy: Jessica Ordonez, DVT ppx: SCDs GI ppx: protonix Time Spent With Patient Critical Care time: I spent a total of [] minutes of critical care time on this patient's care today; this time is exclusive of procedural time. Quality MIPS - Admit I confirm the patient?s Advance Care Plan is present, Code status is documented, Surrogate decision maker is in patient?s record [If Yes, STOP here]: Yes
[2021-07-23] MEDS: TRAMADOL 50 MG TABLET PO (18:01)
[2021-07-23] MEDS: LORazepam 2 MG/ML INJ IV (18:01)
[2021-07-23] MEDS: MEROPENEM 1 GM in SODIUM CHLORIDE 0.9% 100 ML 200 ML IV (18:18)
--- NOTE | 2021-07-23 18:43 | DI.RAD.S_ITS ---
PROCEDURE: XR CHEST 1V INDICATIONS: sob, hypoxemia TECHNIQUE: One view of the chest was acquired. COMPARISON: [facility], CT, CT CHEST ABD PEL WO CON, 07/23/2021, 13:52. [facility], CR, XR CHEST 1V, 07/23/2021, 12:36. FINDINGS: Surgical changes and devices: None. Lungs and pleura: There is a mass redemonstrated in the right midlung zone. There is persistent pulmonary edema. There increased patchy airspace opacities bilaterally. There is a persistent small right pleural effusion. No definite pneumothorax. Mediastinum: Mediastinal contours are unchanged. Heart size is enlarged. Bones and chest wall: No suspicious bony lesions. Overlying soft tissues appear unremarkable. IMPRESSION: 1. Slightly increased pulmonary edema and patchy airspace opacities which may reflect pneumonia. 2. Right midlung mass redemonstrated. Dictated by: Reji Krishnan M.D. on 07/23/2021 at 20:38 Approved by: Reji Krishnan M.D. on 07/23/2021 at 20:40
[2021-07-23 19:09] LABS: HCO3 ABG 20 mmol/L (22-26); PCO2 ABG 35.7 mmHg (35-45); PO2 ABG 56 mmHg (80-100); TCO2 ABG 21 mmol/L (21-31); pH ABG 7.36 (7.35-7.45)
[2021-07-23 19:10] LABS: Fractionated Inspired Oxygen 38; Oxygen Saturation ABG 87 % (95-100)
[2021-07-23 19:11] LABS: Blood Urea Nitrogen 80 mg/dL (9-20); Carbon Dioxide 19 mmol/L (22-32); Chloride 97 mmol/L (98-107); Estimated Glomerular Filt Rate 18.8 mL/min (>60); Glucose 106 mg/dL (80-110); HEMOLYSIS < 15 (0-50); Sodium 131 mmol/L (137-145)
[2021-07-23 19:17] LABS: Hematocrit 43.2 % (41-53); Hemoglobin 14.5 g/dL (13.5-17.5); Mean Corpuscular HGB Conc 33.7 % (30-36); Mean Corpuscular Hemoglobin 31.3 PG (26-34); Platelet Count 46 X10^3/uL (150-400); Red Blood Cell Count 4.64 X10^6/uL (4.5-5.9); Red Cell Distribution Width 16.4 % (11.6-14.8); White Blood Cell Count 3.9 X10^3/uL (4.5-11.0)
[2021-07-23 19:55] LABS: Lactate (Lactic Acid) 3.8 mmol/L (0.7-2.1)
--- NOTE | 2021-07-23 20:05 | PM.ICURNDS ---
- :: This patient was seen via real time interactive two-way audiovisual telecommunication. Note: Completed multidisciplinary round. Patient returned back from OR post ureteral stent placement. Received 4 liters LR bolus and started on levophed 2 mcg. Lactic acid downtrending with fluids. Cont meropenem and IVF. On levophed to maintain MAP goal > 65. If levophed above 5 mcg then will add hydrocortisone 50 mg q6hr. If levophed escalated above 10 mcg then will add vasopressin 0.04 units/min. Case d/w RN at bedside.
[2021-07-23] MEDS: NOREPINEPHRINE 4 MG in DEXTROSE 5% IN WATER 250 ML 30.48 ML IV (20:21)
[2021-07-23] MEDS: LACTATED RINGERS 1,000 ML 150 ML IV (20:28)
[2021-07-23 21:39] LABS: Reflexed Lactate in 2 Hours Y
[2021-07-23] MEDS: HYDROCORTISONE 100 MG/2 ML VIAL 50 MG IV (22:22)
--- NOTE | 2021-07-23 22:37 | PC.NURSE ---
2030 Pt recently received from PACU with DX sepsis, cirrhosis, alcohol abuse, S/P placement of stint in L ureter for obstructive stone per urologist. BP on arrival to in the 80's measured on cuff on left lower extremity. B/P measured on Left upper arm in the 70's. Norepi started per order at 8mcg/min. Teleintensivist contacted and orders received. 2 lumen midline placed per DI RN, IV of LR atarted @ 150/hr. Earlier CIWA score of 12 pt received ativan 2mg IV. Current CIWA =0 will continue to monitor and titrated norepinephrine as ordered.
[2021-07-24] VITALS (48 sets, daily range): BP systolic 81–119; BP diastolic 50–68; PULSE 71–104; RESP 11–24; TEMP 36.2–36.6; O2SAT 90–98
[2021-07-24 01:18] LABS: Lactate (Lactic Acid) 3.1 mmol/L (0.7-2.1)
[2021-07-24] MEDS: TRAMADOL 50 MG TABLET PO ×2 (02:00→15:38)
[2021-07-24 03:05] LABS: Reflexed Lactate in 2 Hours Y
[2021-07-24] MEDS: HYDROCORTISONE 100 MG/2 ML VIAL 50 MG IV (03:41)
[2021-07-24 04:21] LABS: Lactate (Lactic Acid) 2.8 mmol/L (0.7-2.1)
[2021-07-24 04:22] LABS: Albumin 2.8 g/dL (3.5-5.0); Albumin Globulin Ratio 0.8 (1.0-2.8); Globulin 3.7 g/dL (1.7-4.1); Total Protein 6.5 g/dL (6.3-8.2)
[2021-07-24 04:38] LABS: Hematocrit 43.1 % (41-53); Hemoglobin 14.2 g/dL (13.5-17.5); Mean Corpuscular Hemoglobin 30.4 PG (26-34); Platelet Count 48 X10^3/uL (150-400); Red Blood Cell Count 4.68 X10^6/uL (4.5-5.9); Red Cell Distribution Width 16.4 % (11.6-14.8); White Blood Cell Count 27.4 X10^3/uL (4.5-11.0)
[2021-07-24 04:39] LABS: Add Manual Diff / Slide Review YES
[2021-07-24 04:41] LABS: Alanine Aminotransferase 95 IU/L (<50); Alkaline Phosphatase 137 U/L (38-126); Aspartate Aminotransferase 216 IU/L (17-59); Bilirubin Total 8.5 mg/dL (0.2-1.3); Bilirubin Unconjugated 1.4 mg/dL (0.0-1.1); HEMOLYSIS < 15 (0-50)
[2021-07-24 06:01] LABS: Reflexed Lactate in 2 Hours Y
[2021-07-24] MEDS: NOREPINEPHRINE 4 MG in DEXTROSE 5% IN WATER 250 ML 15.24 ML IV (06:08)
[2021-07-24] MEDS: LACTATED RINGERS 1,000 ML 75 ML IV ×2 (06:09→20:27)
--- NOTE | 2021-07-24 06:21 | PC.NURSE ---
Map > 70 for last several hours, titrating norepi down to maintain map >65
[2021-07-24] MEDS: MEROPENEM 1 GM in SODIUM CHLORIDE 0.9% 100 ML 200 ML IV ×2 (06:29→18:15)
[2021-07-24 06:46] LABS: Neutrophils Absolute Manual 23016 /uL (3000-5900); Total Cells Counted 100
[2021-07-24 06:47] LABS: Platelet Estimate Decreased on smear
[2021-07-24 06:48] LABS: Anisocytosis 1+; Toxic Granulation Present; Toxic Vacuolation Present
[2021-07-24 06:53] LABS: BUN Creatinine Ratio 27.1 (6-22); Blood Urea Nitrogen 89 mg/dL (9-20); Carbon Dioxide 21 mmol/L (22-32); Chloride 97 mmol/L (98-107); Estimated Glomerular Filt Rate 19.2 mL/min (>60); Glucose 156 mg/dL (80-110); HEMOLYSIS < 15 (0-50); Potassium 4.5 mmol/L (3.4-5.1); Sodium 132 mmol/L (137-145)
[2021-07-24 08:44] LABS: Lactate (Lactic Acid) 3.1 mmol/L (0.7-2.1)
--- NOTE | 2021-07-24 08:54 | CM.DANOTE ---
DCP: Case received, EMR reviewed. Patient was sleeping, but , Jessica, was present in the room. Introduced self and role. Was able to obtain information from spouse regarding patient's baseline activity level at home and some medical history. DCP assessment completed with information currently available. Patient is a 65 year old male who admitted yesterday afternoon to the care of the hospitalist team. PCP: None currently Payer: confirmed: [facility]. Patient came to the hospital via private vehicle secondary to having shortness of breath, and weakness. Patient ended up having a kidney stone. He had Cystoscopy and left stent placement. Patient also has history of alcohol use. Met with patient's , Jessica, in the room. Patient sleeping. Spouse stated, he had drank last week on his fishing trip. She stated that he alternates between beer and sometimes hard liquor. She indicated that patient has gone to recovery. He has no provider, he does not like to go to the doctor. He is independent at his baseline. Mentioned YUNG and Jazmin. Spouse indicated, I tried going to the meetings, but they we not helpful. She confirmed that he has gone to [facility] before, and that's an option if he will go. Mentioned bringing a list of providers from [facility] for patient as well. P: DCP to continue to follow and will be available for resources. Lucy Mcgregor RN/Engagement Director Discharge Planning/Care Management CM Discharge Assessment Start: 07/24/21 08:52 Freq: Status: Active Protocol: Document 07/24/21 08:52 (Rec: 07/24/21 08:54 [id number]) Discharge Planning Assessment Assigned Substation Operator Lucy Mcgregor RN/Engagement Director Advance Directives? No History Provided By Patient,Family Member,Medical Record Household Members spouse Type of transporation used prior to Drives own vehicle admit Independent with ADL's Yes Is patient alert and oriented? Yes Caregiver for Another No Barriers to Discharge No Discharge Plan Home Referrals Initiated Other Additional Comment Will provide provider resources before discharge, and [facility] information. Whiteboard Updated in Patient Room with Yes name and ext. # of Substation Operator Review Status In Process Next Review Type Continued Stay Review
--- NOTE | 2021-07-24 09:45 | P.TELICUPN_ITS ---
Subjective Subjective :: This patient was seen via real time interactive two-way audiovisual telecommunication. Current Medications Current Medications Medications: Home Medications No Known Home Medications 07/23/21 [History Confirmed 07/23/21] Visit Medications (administered) Generic Name Dose Route Start Last Admin Trade Name Ozzieq PRN Reason Stop Dose Admin Heparin Sodium (Porcine) 50 unit 07/23/21 21:00 07/23/21 19:54 Heparin Flush (Cl/Picc/Mid-Line) 50 Unit/5 Ml Syringe IV 50 unit BID LUCRETIA Administration Meropenem 1 gm/ Sodium 100 mls @ 200 mls/hr 07/23/21 19:00 07/24/21 08:08 Chloride IV Infused Q12H LUCRETIA Infusion Norepinephrine Bitartrate 4 mg 254 mls @ 30.48 mls/hr 07/23/21 16:45 07/24/21 07:45 / Dextrose IV 0 mcg/min TITRATE LUCRETIA 0 mls/hr Titration Protocol 8 MCG/MIN Lactated Ringer's 1,000 mls @ 75 mls/hr 07/23/21 20:30 07/24/21 06:09 Lactated Ringers IV 75 mls/hr CONT LUCRETIA Administration Lorazepam 0 mg 07/23/21 17:28 07/23/21 18:01 Lorazepam 2 Mg/Ml Inj IV 2 mg [id number] PRN Administration Alcohol Withdrawal Protocol Tramadol HCl 50 mg 07/23/21 17:46 07/24/21 02:00 Tramadol 50 Mg Tablet PO 50 mg TID PRN Administration Pain, Moderate (4-6) Objective Labs Result Diagrams: 07/24/21 04:00 07/24/21 04:00 Labs: Laboratory Results - last 24 hr 07/23/21 07/23/21 07/23/21 12:40 12:40 12:40 WBC 21.8 H RBC 4.87 Hgb 15.1 Hct 44.6 MCV 91.5 MCH 30.9 MCHC 33.8 RDW 16.5 H Plt Count 43 L Neut % (Auto) Not Reportable Lymph % (Auto) Not Reportable [place] % (Auto) Not Reportable Eos % (Auto) Not Reportable Baso % (Auto) Not Reportable Lymph # (Auto) Not Reportable [place] # (Auto) Not Reportable Baso # (Auto) Not Reportable Total Counted 100 Seg Neutrophils % 77.0 H Band Neutrophils % 13.0 H Lymphocytes % (Manual) 1.0 L Atypical Lymphs % Monocytes % (Manual) 9.0 Neutrophils # (Manual) 87574 H Toxic Granulation Toxic Vacuolation Platelet Estimate RBC Morphology Normal morphology Anisocytosis PT INR ABG pH ABG pCO2 ABG pO2 ABG HCO3 ABG Total CO2 ABG O2 Saturation ABG Base Excess FiO2 Sodium 129 L Potassium 4.3 Chloride 92 L Carbon Dioxide 19 L BUN 82 H Creatinine 3.89 H Estimated GFR 15.7 L BUN/Creatinine Ratio 21.1 Glucose 190 H Lactate 5.1 H* Calcium 8.8 Total Bilirubin 7.7 H Conjugated Bilirubin Unconjugated Bilirubin AST 258 H ALT 104 H Alkaline Phosphatase 131 H Ammonia Total Creatine Kinase 146 CK-MB (CK-2) 4.27 H CK-MB (CK-2) Rel Index 2.9 Troponin I 0.018 NT-Pro-B Natriuret Pep 2600 H Total Protein 6.9 Albumin 3.3 L Globulin 3.6 Albumin/Globulin Ratio 0.9 L Lipase 20 L Procalcitonin 55.6 H Urine Color Urine Appearance Urine pH Ur Specific [place] Urine Protein Urine Glucose (UA) Urine Ketones Urine Occult Blood Urine Nitrate Urine Bilirubin Ur Bilirubin Confirm Urine Urobilinogen Ur Leukocyte Esterase Urine RBC Urine WBC Urine Bacteria Ur Culture Indicated? Nasal Screen MRSA (PCR) U Opiates 300ng/mL cut Ur Oxycodone Screen Urine Methadone Screen Ur Barbiturates Screen U Tricyclic Antidepress Ur Phencyclidine Scrn Ur Amphetamines Screen U Methamphetamines Scrn Ur MDMA Scrn (Ecstasy) U Benzodiazepines Scrn Urine Cocaine Screen U Marijuana (THC) Screen Ethyl Alcohol SARS-CoV-2 (PCR) Blood Type Antibody Screen 07/23/21 07/23/21 07/23/21 12:40 12:40 12:40 WBC RBC Hgb Hct MCV MCH MCHC RDW Plt Count Neut % (Auto) Lymph % (Auto) [place] % (Auto) Eos % (Auto) Baso % (Auto) Lymph # (Auto) [place] # (Auto) Baso # (Auto) Total Counted Seg Neutrophils % Band Neutrophils % Lymphocytes % (Manual) Atypical Lymphs % Monocytes % (Manual) Neutrophils # (Manual) Toxic Granulation Toxic Vacuolation Platelet Estimate RBC Morphology Anisocytosis PT 17.9 H INR 1.6 H ABG pH ABG pCO2 ABG pO2 ABG HCO3 ABG Total CO2 ABG O2 Saturation ABG Base Excess FiO2 Sodium Potassium Chloride Carbon Dioxide BUN Creatinine Estimated GFR BUN/Creatinine Ratio Glucose Lactate Calcium Total Bilirubin Conjugated Bilirubin Unconjugated Bilirubin AST ALT Alkaline Phosphatase Ammonia 21 Total Creatine Kinase CK-MB (CK-2) CK-MB (CK-2) Rel Index Troponin I NT-Pro-B Natriuret Pep Total Protein Albumin Globulin Albumin/Globulin Ratio Lipase Procalcitonin Urine Color Urine Appearance Urine pH Ur Specific [place] Urine Protein Urine Glucose (UA) Urine Ketones Urine Occult Blood Urine Nitrate Urine Bilirubin Ur Bilirubin Confirm Urine Urobilinogen Ur Leukocyte Esterase Urine RBC Urine WBC Urine Bacteria Ur Culture Indicated? Nasal Screen MRSA (PCR) U Opiates 300ng/mL cut Ur Oxycodone Screen Urine Methadone Screen Ur Barbiturates Screen U Tricyclic Antidepress Ur Phencyclidine Scrn Ur Amphetamines Screen U Methamphetamines Scrn Ur MDMA Scrn (Ecstasy) U Benzodiazepines Scrn Urine Cocaine Screen U Marijuana (THC) Screen Ethyl Alcohol < 10 SARS-CoV-2 (PCR) Blood Type Antibody Screen 07/23/21 07/23/21 07/23/21 12:40 12:55 13:05 WBC RBC Hgb Hct MCV MCH MCHC RDW Plt Count Neut % (Auto) Lymph % (Auto) [place] % (Auto) Eos % (Auto) Baso % (Auto) Lymph # (Auto) [place] # (Auto) Baso # (Auto) Total Counted Seg Neutrophils % Band Neutrophils % Lymphocytes % (Manual) Atypical Lymphs % Monocytes % (Manual) Neutrophils # (Manual) Toxic Granulation Toxic Vacuolation Platelet Estimate RBC Morphology Anisocytosis PT INR ABG pH ABG pCO2 ABG pO2 ABG HCO3 ABG Total CO2 ABG O2 Saturation ABG Base Excess FiO2 Sodium Potassium Chloride Carbon Dioxide BUN Creatinine Estimated GFR BUN/Creatinine Ratio Glucose Lactate Calcium Total Bilirubin Conjugated Bilirubin Unconjugated Bilirubin AST ALT Alkaline Phosphatase Ammonia Total Creatine Kinase CK-MB (CK-2) CK-MB (CK-2) Rel Index Troponin I NT-Pro-B Natriuret Pep Total Protein Albumin Globulin Albumin/Globulin Ratio Lipase Procalcitonin Urine Color Urine Appearance Urine pH Ur Specific [place] Urine Protein Urine Glucose (UA) Urine Ketones Urine Occult Blood Urine Nitrate Urine Bilirubin Ur Bilirubin Confirm Urine Urobilinogen Ur Leukocyte Esterase Urine RBC Urine WBC Urine Bacteria Ur Culture Indicated? Nasal Screen MRSA (PCR) U Opiates 300ng/mL cut Ur Oxycodone Screen Urine Methadone Screen Ur Barbiturates Screen U Tricyclic Antidepress Ur Phencyclidine Scrn Ur Amphetamines Screen U Methamphetamines Scrn Ur MDMA Scrn (Ecstasy) U Benzodiazepines Scrn Urine Cocaine Screen U Marijuana (THC) Screen Ethyl Alcohol SARS-CoV-2 (PCR) Negative Negative Blood Type O Positive Antibody Screen Negative 07/23/21 07/23/21 07/23/21 13:15 13:15 14:20 WBC RBC Hgb Hct MCV MCH MCHC RDW Plt Count Neut % (Auto) Lymph % (Auto) [place] % (Auto) Eos % (Auto) Baso % (Auto) Lymph # (Auto) [place] # (Auto) Baso # (Auto) Total Counted Seg Neutrophils % Band Neutrophils % Lymphocytes % (Manual) Atypical Lymphs % Monocytes % (Manual) Neutrophils # (Manual) Toxic Granulation Toxic Vacuolation Platelet Estimate RBC Morphology Anisocytosis PT INR ABG pH ABG pCO2 ABG pO2 ABG HCO3 ABG Total CO2 ABG O2 Saturation ABG Base Excess FiO2 Sodium Potassium Chloride Carbon Dioxide BUN Creatinine Estimated GFR BUN/Creatinine Ratio Glucose Lactate 3.7 H Calcium Total Bilirubin Conjugated Bilirubin Unconjugated Bilirubin AST ALT Alkaline Phosphatase Ammonia Total Creatine Kinase CK-MB (CK-2) CK-MB (CK-2) Rel Index Troponin I NT-Pro-B Natriuret Pep Total Protein Albumin Globulin Albumin/Globulin Ratio Lipase Procalcitonin Urine Color Brown Urine Appearance Clear Urine pH 5.0 Ur Specific [place] 1.020 Urine Protein 3+ H Urine Glucose (UA) Negative Urine Ketones Trace H Urine Occult Blood 3+ H Urine Nitrate Negative Urine Bilirubin 2+ H Ur Bilirubin Confirm Positive H Urine Urobilinogen 1.0 Ur Leukocyte Esterase 2+ H Urine RBC 30-100/hpf H Urine WBC >100/hpf H Urine Bacteria Many (>30) H Ur Culture Indicated? Specimen cultured Nasal Screen MRSA (PCR) U Opiates 300ng/mL cut Negative Ur Oxycodone Screen Negative Urine Methadone Screen Negative Ur Barbiturates Screen Negative U Tricyclic Antidepress Negative Ur Phencyclidine Scrn Negative Ur Amphetamines Screen Negative U Methamphetamines Scrn Negative Ur MDMA Scrn (Ecstasy) Negative U Benzodiazepines Scrn Negative Urine Cocaine Screen Negative U Marijuana (THC) Screen Negative Ethyl Alcohol SARS-CoV-2 (PCR) Blood Type Antibody Screen 07/23/21 07/23/21 07/23/21 14:20 14:20 18:07 WBC RBC Hgb Hct MCV MCH MCHC RDW Plt Count Neut % (Auto) Lymph % (Auto) [place] % (Auto) Eos % (Auto) Baso % (Auto) Lymph # (Auto) [place] # (Auto) Baso # (Auto) Total Counted Seg Neutrophils % Band Neutrophils % Lymphocytes % (Manual) Atypical Lymphs % Monocytes % (Manual) Neutrophils # (Manual) Toxic Granulation Toxic Vacuolation Platelet Estimate RBC Morphology Anisocytosis PT INR ABG pH ABG pCO2 ABG pO2 ABG HCO3 ABG Total CO2 ABG O2 Saturation ABG Base Excess FiO2 Sodium Potassium Chloride Carbon Dioxide BUN Creatinine Estimated GFR BUN/Creatinine Ratio Glucose Lactate 4.0 H Calcium Total Bilirubin Conjugated Bilirubin Unconjugated Bilirubin AST ALT Alkaline Phosphatase Ammonia Total Creatine Kinase CK-MB (CK-2) CK-MB (CK-2) Rel Index Troponin I 0.012 NT-Pro-B Natriuret Pep Total Protein Albumin Globulin Albumin/Globulin Ratio Lipase Procalcitonin Urine Color Urine Appearance Urine pH Ur Specific [place] Urine Protein Urine Glucose (UA) Urine Ketones Urine Occult Blood Urine Nitrate Urine Bilirubin Ur Bilirubin Confirm Urine Urobilinogen Ur Leukocyte Esterase Urine RBC Urine WBC Urine Bacteria Ur Culture Indicated? Nasal Screen MRSA (PCR) Negative for mrsa U Opiates 300ng/mL cut Ur Oxycodone Screen Urine Methadone Screen Ur Barbiturates Screen U Tricyclic Antidepress Ur Phencyclidine Scrn Ur Amphetamines Screen U Methamphetamines Scrn Ur MDMA Scrn (Ecstasy) U Benzodiazepines Scrn Urine Cocaine Screen U Marijuana (THC) Screen Ethyl Alcohol SARS-CoV-2 (PCR) Blood Type Antibody Screen 07/23/21 07/23/21 07/23/21 18:50 18:50 19:30 WBC 3.9 L D RBC 4.64 Hgb 14.5 Hct 43.2 MCV 93.0 MCH 31.3 MCHC 33.7 RDW 16.4 H Plt Count 46 L Neut % (Auto) Lymph % (Auto) [place] % (Auto) Eos % (Auto) Baso % (Auto) Lymph # (Auto) [place] # (Auto) Baso # (Auto) Total Counted Seg Neutrophils % Band Neutrophils % Lymphocytes % (Manual) Atypical Lymphs % Monocytes % (Manual) Neutrophils # (Manual) Toxic Granulation Toxic Vacuolation Platelet Estimate RBC Morphology Anisocytosis PT INR ABG pH ABG pCO2 ABG pO2 ABG HCO3 ABG Total CO2 ABG O2 Saturation ABG Base Excess FiO2 Sodium 131 L Potassium 4.0 Chloride 97 L Carbon Dioxide 19 L BUN 80 H Creatinine 3.34 H Estimated GFR 18.8 L BUN/Creatinine Ratio 24.0 H Glucose 106 Lactate 3.8 H Calcium 8.0 L Total Bilirubin Conjugated Bilirubin Unconjugated Bilirubin AST ALT Alkaline Phosphatase Ammonia Total Creatine Kinase CK-MB (CK-2) CK-MB (CK-2) Rel Index Troponin I NT-Pro-B Natriuret Pep Total Protein Albumin Globulin Albumin/Globulin Ratio Lipase Procalcitonin Urine Color Urine Appearance Urine pH Ur Specific [place] Urine Protein Urine Glucose (UA) Urine Ketones Urine Occult Blood Urine Nitrate Urine Bilirubin Ur Bilirubin Confirm Urine Urobilinogen Ur Leukocyte Esterase Urine RBC Urine WBC Urine Bacteria Ur Culture Indicated? Nasal Screen MRSA (PCR) U Opiates 300ng/mL cut Ur Oxycodone Screen Urine Methadone Screen Ur Barbiturates Screen U Tricyclic Antidepress Ur Phencyclidine Scrn Ur Amphetamines Screen U Methamphetamines Scrn Ur MDMA Scrn (Ecstasy) U Benzodiazepines Scrn Urine Cocaine Screen U Marijuana (THC) Screen Ethyl Alcohol SARS-CoV-2 (PCR) Blood Type Antibody Screen 07/23/21 07/23/21 07/24/21 19:32 20:35 01:00 WBC RBC Hgb Hct MCV MCH MCHC RDW Plt Count Neut % (Auto) Lymph % (Auto) [place] % (Auto) Eos % (Auto) Baso % (Auto) Lymph # (Auto) [place] # (Auto) Baso # (Auto) Total Counted Seg Neutrophils % Band Neutrophils % Lymphocytes % (Manual) Atypical Lymphs % Monocytes % (Manual) Neutrophils # (Manual) Toxic Granulation Toxic Vacuolation Platelet Estimate RBC Morphology Anisocytosis PT INR ABG pH 7.36 ABG pCO2 35.7 ABG pO2 56 L ABG HCO3 20 L ABG Total CO2 21 ABG O2 Saturation 87 L ABG Base Excess -6.0 L FiO2 38 Sodium Potassium Chloride Carbon Dioxide BUN Creatinine Estimated GFR BUN/Creatinine Ratio Glucose Lactate 3.1 H Calcium Total Bilirubin Conjugated Bilirubin Unconjugated Bilirubin AST ALT Alkaline Phosphatase Ammonia Total Creatine Kinase CK-MB (CK-2) CK-MB (CK-2) Rel Index Troponin I NT-Pro-B Natriuret Pep Total Protein Albumin Globulin Albumin/Globulin Ratio Lipase Procalcitonin Urine Color Urine Appearance Urine pH Ur Specific [place] Urine Protein Urine Glucose (UA) Urine Ketones Urine Occult Blood Urine Nitrate Urine Bilirubin Ur Bilirubin Confirm Urine Urobilinogen Ur Leukocyte Esterase Urine RBC Urine WBC Urine Bacteria Ur Culture Indicated? Nasal Screen MRSA (PCR) Negative for mrsa U Opiates 300ng/mL cut Ur Oxycodone Screen Urine Methadone Screen Ur Barbiturates Screen U Tricyclic Antidepress Ur Phencyclidine Scrn Ur Amphetamines Screen U Methamphetamines Scrn Ur MDMA Scrn (Ecstasy) U Benzodiazepines Scrn Urine Cocaine Screen U Marijuana (THC) Screen Ethyl Alcohol SARS-CoV-2 (PCR) Blood Type Antibody Screen 07/24/21 07/24/21 07/24/21 04:00 04:00 04:00 WBC 27.4 H D RBC 4.68 Hgb 14.2 Hct 43.1 MCV 92.0 MCH 30.4 MCHC 33.0 RDW 16.4 H Plt Count 48 L Neut % (Auto) Not Reportable Lymph % (Auto) Not Reportable [place] % (Auto) Not Reportable Eos % (Auto) Not Reportable Baso % (Auto) Not Reportable Lymph # (Auto) Not Reportable [place] # (Auto) Not Reportable Baso # (Auto) Not Reportable Total Counted 100 Seg Neutrophils % 68.0 Band Neutrophils % 16.0 H Lymphocytes % (Manual) 4.0 L Atypical Lymphs % 12.0 H Monocytes % (Manual) Neutrophils # (Manual) 61710 H Toxic Granulation Present H Toxic Vacuolation Present H Platelet Estimate Decreased on smear RBC Morphology See below Anisocytosis 1+ H PT INR ABG pH ABG pCO2 ABG pO2 ABG HCO3 ABG Total CO2 ABG O2 Saturation ABG Base Excess FiO2 Sodium Potassium Chloride Carbon Dioxide BUN Creatinine Estimated GFR BUN/Creatinine Ratio Glucose Lactate 2.8 H Calcium Total Bilirubin 8.5 H Conjugated Bilirubin 5.0 H Unconjugated Bilirubin 1.4 H AST 216 H ALT 95 H Alkaline Phosphatase 137 H Ammonia Total Creatine Kinase CK-MB (CK-2) CK-MB (CK-2) Rel Index Troponin I NT-Pro-B Natriuret Pep Total Protein 6.5 Albumin 2.8 L Globulin 3.7 Albumin/Globulin Ratio 0.8 L Lipase Procalcitonin Urine Color Urine Appearance Urine pH Ur Specific [place] Urine Protein Urine Glucose (UA) Urine Ketones Urine Occult Blood Urine Nitrate Urine Bilirubin Ur Bilirubin Confirm Urine Urobilinogen Ur Leukocyte Esterase Urine RBC Urine WBC Urine Bacteria Ur Culture Indicated? Nasal Screen MRSA (PCR) U Opiates 300ng/mL cut Ur Oxycodone Screen Urine Methadone Screen Ur Barbiturates Screen U Tricyclic Antidepress Ur Phencyclidine Scrn Ur Amphetamines Screen U Methamphetamines Scrn Ur MDMA Scrn (Ecstasy) U Benzodiazepines Scrn Urine Cocaine Screen U Marijuana (THC) Screen Ethyl Alcohol SARS-CoV-2 (PCR) Blood Type Antibody Screen 07/24/21 07/24/21 04:00 08:15 WBC RBC Hgb Hct MCV MCH MCHC RDW Plt Count Neut % (Auto) Lymph % (Auto) [place] % (Auto) Eos % (Auto) Baso % (Auto) Lymph # (Auto) [place] # (Auto) Baso # (Auto) Total Counted Seg Neutrophils % Band Neutrophils % Lymphocytes % (Manual) Atypical Lymphs % Monocytes % (Manual) Neutrophils # (Manual) Toxic Granulation Toxic Vacuolation Platelet Estimate RBC Morphology Anisocytosis PT INR ABG pH ABG pCO2 ABG pO2 ABG HCO3 ABG Total CO2 ABG O2 Saturation ABG Base Excess FiO2 Sodium 132 L Potassium 4.5 Chloride 97 L Carbon Dioxide 21 L BUN 89 H Creatinine 3.28 H Estimated GFR 19.2 L BUN/Creatinine Ratio 27.1 H Glucose 156 H Lactate 3.1 H Calcium 8.0 L Total Bilirubin Conjugated Bilirubin Unconjugated Bilirubin AST ALT Alkaline Phosphatase Ammonia Total Creatine Kinase CK-MB (CK-2) CK-MB (CK-2) Rel Index Troponin I NT-Pro-B Natriuret Pep Total Protein Albumin Globulin Albumin/Globulin Ratio Lipase Procalcitonin Urine Color Urine Appearance Urine pH Ur Specific [place] Urine Protein Urine Glucose (UA) Urine Ketones Urine Occult Blood Urine Nitrate Urine Bilirubin Ur Bilirubin Confirm Urine Urobilinogen Ur Leukocyte Esterase Urine RBC Urine WBC Urine Bacteria Ur Culture Indicated? Nasal Screen MRSA (PCR) U Opiates 300ng/mL cut Ur Oxycodone Screen Urine Methadone Screen Ur Barbiturates Screen U Tricyclic Antidepress Ur Phencyclidine Scrn Ur Amphetamines Screen U Methamphetamines Scrn Ur MDMA Scrn (Ecstasy) U Benzodiazepines Scrn Urine Cocaine Screen U Marijuana (THC) Screen Ethyl Alcohol SARS-CoV-2 (PCR) Blood Type Antibody Screen Exam Vital Signs (past 8 hours): - 07/24/21 02:00 07/24/21 03:00 07/24/21 04:00 Temperature Pulse Rate 96 H 94 H 91 H Respiratory Rate 20 20 17 Blood Pressure 107/56 L 109/58 L 104/58 L Pulse Oximetry 95 95 98 07/24/21 05:00 07/24/21 06:00 07/24/21 06:59 Temperature 97.1 F L Pulse Rate 87 81 83 Respiratory Rate 16 14 16 Blood Pressure 113/63 119/64 114/62 Pulse Oximetry 94 95 94 07/24/21 07:00 07/24/21 07:15 07/24/21 07:30 Temperature Pulse Rate 83 84 83 Respiratory Rate 14 16 14 Blood Pressure 114/62 117/66 117/68 Pulse Oximetry 93 94 95 07/24/21 07:45 07/24/21 08:00 07/24/21 08:15 Temperature Pulse Rate 80 84 84 Respiratory Rate 13 14 16 Blood Pressure 111/67 109/58 L 107/60 Pulse Oximetry 94 91 93 Oxygen Delivery Method Nasal Cannula Oxygen Flow Rate 4 Assessment & Plan Assessment & Plan narrative: Assessment: Septic shock 2/2 pyelonephritis with obstructive calculus S/P ureteral stent placement 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 Concern for metastatic disease Rec: Off pressors, maintain MAP goal > 65 Continue meropenem, urine showed Gram neg bacilli, f/u final sensitivity Stop stress dose steroid Daily CBC, CMP Continue thiamine, folic acid, and MTV CIWA protocol Post obstructive diuresis (200-300 ml/hr) , hourly I/O , BMP Q12H, Adjust IV fluid composition and rate accordingly 2 D echo SCD for DVT ppx, check coags and platelets daily and re eval for consideration of SC heparin bid ppx dose when appropriate On PPI BS control, Goal BS < 180 Recommend Onc & pulmonary consults after improvement Discussed with medical staff CCT 35 min Time Spent With Patient Critical Care time: I spent a total of [] minutes of critical care time on this patient's care today; this time is exclusive of procedural time.
[2021-07-24] MEDS: THIAMINE 100 MG TABLET PO (09:58)
[2021-07-24] MEDS: FOLIC ACID 1 MG TABLET PO (09:58)
[2021-07-24] MEDS: MULTIVITAMIN 1 TABLET 1 TAB PO (09:58)
[2021-07-24] MEDS: PANTOPRAZOLE 40 MG VIAL IV (09:59)
[2021-07-24 10:21] LABS: Reflexed Lactate in 2 Hours Y
[2021-07-24 11:15] LABS: Lactate 2HR (Lactic Acid Rflx) 2.7 mmol/L (0.7-2.1)
--- NOTE | 2021-07-24 15:27 | P.PN_ITS ---
Subjective Subjective Date Patient Seen: 07/24/21 Time Patient Seen: 08:00 Interval history: This morning he feels improved. He is less confused, less tachycardic, not withdrawing per CIWA. Urine output has been strong. He has been turned off levophed. Exam Vital Signs (past 8 hours): - 07/24/21 07:30 07/24/21 07:45 07/24/21 08:00 Temperature Pulse Rate 83 80 84 Respiratory Rate 14 13 14 Blood Pressure 117/68 111/67 109/58 L Pulse Oximetry 95 94 91 07/24/21 08:15 07/24/21 08:30 07/24/21 08:45 Temperature Pulse Rate 84 84 84 Respiratory Rate 16 16 12 Blood Pressure 107/60 104/58 L 103/64 Pulse Oximetry 93 93 95 07/24/21 09:00 07/24/21 09:15 07/24/21 09:30 Temperature Pulse Rate 83 81 81 Respiratory Rate 18 15 15 Blood Pressure 94/61 111/63 113/58 L Pulse Oximetry 96 95 95 07/24/21 09:45 07/24/21 09:58 07/24/21 10:00 Temperature 97.4 F L Pulse Rate 80 79 Respiratory Rate 14 14 Blood Pressure 107/59 L 105/59 L Pulse Oximetry 95 95 07/24/21 10:15 07/24/21 10:30 07/24/21 10:45 Temperature 97.4 F L Pulse Rate 78 79 76 Respiratory Rate 13 14 14 Blood Pressure 104/55 L 117/59 L 95/52 L Pulse Oximetry 94 95 94 07/24/21 11:00 07/24/21 11:15 07/24/21 11:30 Temperature Pulse Rate 76 76 75 Respiratory Rate 14 12 12 Blood Pressure 96/55 L 98/54 L 99/55 L Pulse Oximetry 95 95 95 07/24/21 11:45 07/24/21 12:00 07/24/21 12:15 Temperature Pulse Rate 75 74 75 Respiratory Rate 12 12 12 Blood Pressure 89/50 L 92/51 L 91/55 L Pulse Oximetry 94 95 95 07/24/21 12:30 07/24/21 12:45 07/24/21 13:00 Temperature Pulse Rate 74 73 74 Respiratory Rate 11 L 13 12 Blood Pressure 81/53 L 90/58 L 97/63 Pulse Oximetry 95 96 95 07/24/21 13:30 07/24/21 14:00 07/24/21 14:30 Temperature Pulse Rate 75 75 75 Respiratory Rate 12 12 11 L Blood Pressure 103/58 L Pulse Oximetry 95 93 94 07/24/21 15:00 Temperature Pulse Rate 79 Respiratory Rate 17 Blood Pressure 101/64 Pulse Oximetry 91 Oxygen Delivery Method Nasal Cannula Oxygen Flow Rate 4 Narrative Exam Narrative: EN: no acute distress HEENT: moist mucous membranes, PERRL NECK: trachea midline, no JVD CV: regular rate and rhythm, no murmurs PULM: crackles bilaterally ABD: soft, nontender, nondistended, no organomegaly, normal bowel sounds EXT: warm and well perfused with 1+ edema NEURO: awake, alert, and oriented, slightly slow to respond PSYCH: pleasant, cooperative Objective Labs Result Diagrams: 07/24/21 04:00 07/24/21 04:00 Labs: Laboratory Results - last 24 hr 07/23/21 07/23/21 07/23/21 14:20 18:07 18:50 WBC RBC Hgb Hct MCV MCH MCHC RDW Plt Count Neut % (Auto) Lymph % (Auto) [place] % (Auto) Eos % (Auto) Baso % (Auto) Lymph # (Auto) [place] # (Auto) Baso # (Auto) Total Counted Seg Neutrophils % Band Neutrophils % Lymphocytes % (Manual) Atypical Lymphs % Neutrophils # (Manual) Toxic Granulation Toxic Vacuolation Platelet Estimate RBC Morphology Anisocytosis ABG pH ABG pCO2 ABG pO2 ABG HCO3 ABG Total CO2 ABG O2 Saturation ABG Base Excess FiO2 Sodium 131 L Potassium 4.0 Chloride 97 L Carbon Dioxide 19 L BUN 80 H Creatinine 3.34 H Estimated GFR 18.8 L BUN/Creatinine Ratio 24.0 H Glucose 106 Lactate 4.0 H Calcium 8.0 L Total Bilirubin Conjugated Bilirubin Unconjugated Bilirubin AST ALT Alkaline Phosphatase Total Protein Albumin Globulin Albumin/Globulin Ratio Nasal Screen MRSA (PCR) Negative for mrsa 07/23/21 07/23/21 07/23/21 18:50 19:30 19:32 WBC 3.9 L D RBC 4.64 Hgb 14.5 Hct 43.2 MCV 93.0 MCH 31.3 MCHC 33.7 RDW 16.4 H Plt Count 46 L Neut % (Auto) Lymph % (Auto) [place] % (Auto) Eos % (Auto) Baso % (Auto) Lymph # (Auto) [place] # (Auto) Baso # (Auto) Total Counted Seg Neutrophils % Band Neutrophils % Lymphocytes % (Manual) Atypical Lymphs % Neutrophils # (Manual) Toxic Granulation Toxic Vacuolation Platelet Estimate RBC Morphology Anisocytosis ABG pH 7.36 ABG pCO2 35.7 ABG pO2 56 L ABG HCO3 20 L ABG Total CO2 21 ABG O2 Saturation 87 L ABG Base Excess -6.0 L FiO2 38 Sodium Potassium Chloride Carbon Dioxide BUN Creatinine Estimated GFR BUN/Creatinine Ratio Glucose Lactate 3.8 H Calcium Total Bilirubin Conjugated Bilirubin Unconjugated Bilirubin AST ALT Alkaline Phosphatase Total Protein Albumin Globulin Albumin/Globulin Ratio Nasal Screen MRSA (PCR) 07/23/21 07/24/21 07/24/21 20:35 01:00 04:00 WBC RBC Hgb Hct MCV MCH MCHC RDW Plt Count Neut % (Auto) Lymph % (Auto) [place] % (Auto) Eos % (Auto) Baso % (Auto) Lymph # (Auto) [place] # (Auto) Baso # (Auto) Total Counted Seg Neutrophils % Band Neutrophils % Lymphocytes % (Manual) Atypical Lymphs % Neutrophils # (Manual) Toxic Granulation Toxic Vacuolation Platelet Estimate RBC Morphology Anisocytosis ABG pH ABG pCO2 ABG pO2 ABG HCO3 ABG Total CO2 ABG O2 Saturation ABG Base Excess FiO2 Sodium Potassium Chloride Carbon Dioxide BUN Creatinine Estimated GFR BUN/Creatinine Ratio Glucose Lactate 3.1 H Calcium Total Bilirubin 8.5 H Conjugated Bilirubin 5.0 H Unconjugated Bilirubin 1.4 H AST 216 H ALT 95 H Alkaline Phosphatase 137 H Total Protein 6.5 Albumin 2.8 L Globulin 3.7 Albumin/Globulin Ratio 0.8 L Nasal Screen MRSA (PCR) Negative for mrsa 07/24/21 07/24/21 07/24/21 04:00 04:00 04:00 WBC 27.4 H D RBC 4.68 Hgb 14.2 Hct 43.1 MCV 92.0 MCH 30.4 MCHC 33.0 RDW 16.4 H Plt Count 48 L Neut % (Auto) Not Reportable Lymph % (Auto) Not Reportable [place] % (Auto) Not Reportable Eos % (Auto) Not Reportable Baso % (Auto) Not Reportable Lymph # (Auto) Not Reportable [place] # (Auto) Not Reportable Baso # (Auto) Not Reportable Total Counted 100 Seg Neutrophils % 68.0 Band Neutrophils % 16.0 H Lymphocytes % (Manual) 4.0 L Atypical Lymphs % 12.0 H Neutrophils # (Manual) 80369 H Toxic Granulation Present H Toxic Vacuolation Present H Platelet Estimate Decreased on smear RBC Morphology See below Anisocytosis 1+ H ABG pH ABG pCO2 ABG pO2 ABG HCO3 ABG Total CO2 ABG O2 Saturation ABG Base Excess FiO2 Sodium 132 L Potassium 4.5 Chloride 97 L Carbon Dioxide 21 L BUN 89 H Creatinine 3.28 H Estimated GFR 19.2 L BUN/Creatinine Ratio 27.1 H Glucose 156 H Lactate 2.8 H Calcium 8.0 L Total Bilirubin Conjugated Bilirubin Unconjugated Bilirubin AST ALT Alkaline Phosphatase Total Protein Albumin Globulin Albumin/Globulin Ratio Nasal Screen MRSA (PCR) 07/24/21 07/24/21 08:15 10:55 WBC RBC Hgb Hct MCV MCH MCHC RDW Plt Count Neut % (Auto) Lymph % (Auto) [place] % (Auto) Eos % (Auto) Baso % (Auto) Lymph # (Auto) [place] # (Auto) Baso # (Auto) Total Counted Seg Neutrophils % Band Neutrophils % Lymphocytes % (Manual) Atypical Lymphs % Neutrophils # (Manual) Toxic Granulation Toxic Vacuolation Platelet Estimate RBC Morphology Anisocytosis ABG pH ABG pCO2 ABG pO2 ABG HCO3 ABG Total CO2 ABG O2 Saturation ABG Base Excess FiO2 Sodium Potassium Chloride Carbon Dioxide BUN Creatinine Estimated GFR BUN/Creatinine Ratio Glucose Lactate 3.1 H 2.7 H Calcium Total Bilirubin Conjugated Bilirubin Unconjugated Bilirubin AST ALT Alkaline Phosphatase Total Protein Albumin Globulin Albumin/Globulin Ratio Nasal Screen MRSA (PCR) PFSH Medical History Anticoagulated Hepatic failure Left ureteral calculus Renal failure Right renal stone Sepsis Urinary tract infection Family History Father Cancer Grandfather Cancer Grandmother Diabetes mellitus Heart disease Mother Age: 81 Alzheimer disease Sister Age: 66 Hypertension Social History household members: spouse Smoking Status: Current every day smoker alcohol intake: current Assessment & Plan Assessment & Plan narrative: Mr. Cardozo is a 65M with PMH of EtOH abuse who presents with obstructing infected left kidney stone developing septic shock also found to have pulmonary, bone, and liver lesions of possible malignancy 1. Septic shock from infected left kidney stone -sepsis with WBC, infected urine, with acute renal failure -lactate improved with aggressive IV fluid, from 5 now to 2.7, continue to trend -continue with aggressive fluid replacement -follow up urine and blood cultures, urine showing gram negative rods -antibiotics with meropenem 2. HEIDE from obstruction with hydronephrosis -probable secondary HEIDE from obstructing stones -s/p stent placement with urology -trend creatinine closely, is improving after stent placement with creatinine of 3.28 from 3.89 -[place] to monitor urine output -no indication for dialysis currently 3. Alcoholic liver cirrhosis with alcohol abuse -MELD 34 on admission, 3 month mortality >50% -continues to have significant alcohol abuse -last drink 5 days ago -will order for CIWA protocol -thiamine, mvi, folate -trend LFTs daily 4. Bone, hepatic, pulmonary lesions concerning for metastatic disease -plan for triple phase CT when HEIDE improves -will need further evaluation of bone and liver abnormalities, may have m etastatic lung cancer -will need outpatient workup likely with oncology, gastroenterology, and pulmo nlogy 5. Hyponatremia -presume secondary to etoh abuse -trend sodium closely, improved Na to 132 from 129 after fluid resuscitation 6. 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 Bilateral kidney stones -s/p stent placement, now with traumatic hematuria -has bilateral nonobstructing stones as well -urology consulted CODE: Full Proxy: Jessica Ordonez, DVT ppx: SCDs GI ppx: protonix Time Spent With Patient Critical Care time: I spent a total of [] minutes of critical care time on this patient's care today; this time is exclusive of procedural time.
[2021-07-24 16:05] LABS: Lactate (Lactic Acid) 2.6 mmol/L (0.7-2.1)
[2021-07-24 17:57] LABS: Reflexed Lactate in 2 Hours Y
[2021-07-24 18:04] LABS: BUN Creatinine Ratio 33.7 (6-22); Blood Urea Nitrogen 85 mg/dL (9-20); Calcium 7.4 mg/dL (8.4-10.2); Carbon Dioxide 24 mmol/L (22-32); Chloride 100 mmol/L (98-107); Glucose 197 mg/dL (80-110); HEMOLYSIS < 15 (0-50); Sodium 133 mmol/L (137-145)
--- NOTE | 2021-07-24 20:05 | PM.ICURNDS ---
- :: This patient was seen via real time interactive two-way audiovisual telecommunication. Note: Multidisciplinary round completed. Patient is off levophed. UOP remains ~150 cc/hr. Advised to continue IVF to meet UOP for post ATN diuresis. Cx positive for GNR, on meropenem. Okay to downgrade to acute care. Case d/w RN.
[2021-07-25] VITALS (33 sets, daily range): BP systolic 87–113; BP diastolic 51–65; PULSE 64–79; RESP 14–19; TEMP 35.8–36.6; O2SAT 85–95
[2021-07-25 05:20] LABS: Lactate (Lactic Acid) 1.4 mmol/L (0.7-2.1)
[2021-07-25 05:21] LABS: Alanine Aminotransferase 110 IU/L (<50); Albumin 2.6 g/dL (3.5-5.0); Albumin Globulin Ratio 0.7 (1.0-2.8); Alkaline Phosphatase 107 U/L (38-126); Aspartate Aminotransferase 201 IU/L (17-59); BUN Creatinine Ratio 35.1 (6-22); Bilirubin Conjugated 5.1 md/dL (0.0-0.3); Bilirubin Total 8.6 mg/dL (0.2-1.3); Bilirubin Unconjugated 1.3 mg/dL (0.0-1.1); Blood Urea Nitrogen 86 mg/dL (9-20); Calcium 7.5 mg/dL (8.4-10.2); Carbon Dioxide 27 mmol/L (22-32); Chloride 100 mmol/L (98-107); Estimated Glomerular Filt Rate 26.8 mL/min (>60); Globulin 3.6 g/dL (1.7-4.1); Glucose 203 mg/dL (80-110); HEMOLYSIS < 15 (0-50); Magnesium 2.8 mg/dL (1.6-2.3); Potassium 3.7 mmol/L (3.4-5.1); Sodium 134 mmol/L (137-145); Total Protein 6.2 g/dL (6.3-8.2)
[2021-07-25 05:22] LABS: Hematocrit 41.3 % (41-53); Hemoglobin 13.8 g/dL (13.5-17.5); Mean Corpuscular HGB Conc 33.4 % (30-36); Mean Corpuscular Hemoglobin 30.8 PG (26-34); Mean Corpuscular Volume 92.2 fL (80-100); Red Blood Cell Count 4.48 X10^6/uL (4.5-5.9); Red Cell Distribution Width 16.4 % (11.6-14.8); White Blood Cell Count 11.7 X10^3/uL (4.5-11.0)
[2021-07-25 05:44] LABS: Platelet Count 33 X10^3/uL (150-400)
[2021-07-25] MEDS: MEROPENEM 1 GM in SODIUM CHLORIDE 0.9% 100 ML 200 ML IV (06:46)
[2021-07-25] MEDS: PANTOPRAZOLE 40 MG VIAL IV (10:31)
[2021-07-25] MEDS: THIAMINE 100 MG TABLET PO (10:32)
[2021-07-25] MEDS: FOLIC ACID 1 MG TABLET PO (10:32)
[2021-07-25] MEDS: MULTIVITAMIN 1 TABLET 1 TAB PO (10:32)
[2021-07-25] MEDS: cefTRIAXone 2,000 MG in SODIUM CHLORIDE 0.9% 100 ML 200 ML IV (10:33)
[2021-07-25] MEDS: LACTATED RINGERS 1,000 ML 75 ML IV ×2 (10:35→23:46)
--- NOTE | 2021-07-25 14:44 | PM.PN.1 ---
Subjective Subjective Date Patient Seen: 07/25/21 Time Patient Seen: 14:45 Interval history: This morning he feels improved. He is less confused, no shaking or evidence of withdrawal. Exam Vital Signs (past 8 hours): - 07/25/21 08:00 07/25/21 12:00 Temperature 96.5 F L 96.5 F L Pulse Rate 69 73 Respiratory Rate 18 17 Blood Pressure 94/63 91/51 L Pulse Oximetry 93 94 Oxygen Delivery Method Nasal Cannula Oxygen Flow Rate 2 Narrative Exam Narrative: GEN: no acute distress HEENT: moist mucous membranes, PERRL NECK: trachea midline, no JVD CV: regular rate and rhythm, no murmurs PULM: crackles bilaterally, no wheezes ABD: soft, nontender, nondistended, no organomegaly, normal bowel sounds EXT: warm and well perfused with 1+ edema NEURO: awake, alert, and oriented, slightly slow to respond PSYCH: pleasant, cooperative Objective Labs Result Diagrams: 07/25/21 05:00 07/25/21 05:00 Labs: Laboratory Results - last 24 hr 07/24/21 07/24/21 07/25/21 15:45 17:40 05:00 WBC 11.7 H D RBC 4.48 L Hgb 13.8 Hct 41.3 MCV 92.2 MCH 30.8 MCHC 33.4 RDW 16.4 H Plt Count 33 L* Sodium 133 L Potassium 4.0 Chloride 100 Carbon Dioxide 24 BUN 85 H Creatinine 2.52 H Estimated GFR 26.0 L BUN/Creatinine Ratio 33.7 H Glucose 197 H Lactate 2.6 H Calcium 7.4 L Magnesium Total Bilirubin Conjugated Bilirubin Unconjugated Bilirubin AST ALT Alkaline Phosphatase Total Protein Albumin Globulin Albumin/Globulin Ratio 07/25/21 07/25/21 05:00 05:00 WBC RBC Hgb Hct MCV MCH MCHC RDW Plt Count Sodium 134 L Potassium 3.7 Chloride 100 Carbon Dioxide 27 BUN 86 H Creatinine 2.45 H Estimated GFR 26.8 L BUN/Creatinine Ratio 35.1 H Glucose 203 H Lactate 1.4 Calcium 7.5 L Magnesium 2.8 H Total Bilirubin 8.6 H Conjugated Bilirubin 5.1 H Unconjugated Bilirubin 1.3 H AST 201 H ALT 110 H Alkaline Phosphatase 107 Total Protein 6.2 L Albumin 2.6 L Globulin 3.6 Albumin/Globulin Ratio 0.7 L PFSH Medical History Anticoagulated Hepatic failure Left ureteral calculus Renal failure Right renal stone Sepsis Urinary tract infection Family History Father Cancer Grandfather Cancer Grandmother Diabetes mellitus Heart disease Mother Age: 81 Alzheimer disease Sister Age: 66 Hypertension Social History household members: spouse Smoking Status: Current every day smoker alcohol intake: current Assessment & Plan Assessment & Plan narrative: Mr. Cardozo is a 65M with PMH of EtOH abuse who presents with obstructing infected left kidney stone developing septic shock also found to have pulmonary, bone, and liver lesions of possible malignancy 1. Septic shock from infected left kidney stone -sepsis with WBC, infected urine, with acute renal failure -lactate improved with aggressive IV fluid, from 5 now to 2.7, continue to trend -continue with aggressive fluid replacement -urine cultures showing sanchez-sensitive E. coli. Narrowed today from meropenem to ceftriaxone. -thrombocytopenia also likely from sepsis and combination with cirrhosis. 2. HEIDE from obstruction with hydronephrosis, improving. -probable secondary HEIDE from obstructing stones -s/p stent placement with urology -trend creatinine closely, is improving after stent placement -[place] to monitor urine output -no indication for dialysis currently 3. Alcoholic liver cirrhosis with alcohol abuse -MELD 34 on admission, 3 month mortality >50% -continues to have significant alcohol abuse -last drink 5 days prior to admission. -[facility] protocol -thiamine, mvi, folate -trend LFTs daily 4. Bone, hepatic, pulmonary lesions concerning for metastatic disease -plan for triple phase CT when HEIDE improves possibly, may be able to defer to outpatient. -will need further evaluation of bone and liver abnormalities, may have metastatic lung cancer -will need outpatient workup likely with oncology, gastroenterology, and pulmonlogy 5. Hyponatremia -presume secondary to etoh abuse -trend sodium closely, improved Na to 132 from 129 after fluid resuscitation 6. 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 Bilateral kidney stones -s/p stent placement, now with traumatic hematuria -has bilateral nonobstructing stones as well -urology consulted 8. Acute respiratory failure with hypoxia, improved - likely in setting of sepsis, continue to wean O2 as tolerated. CODE: Full Proxy: Jessica Ordonez, DVT ppx: SCDs GI ppx: protonix Time Spent With Patient Critical Care time: I spent a total of [] minutes of critical care time on this patient's care today; this time is exclusive of procedural time.
--- NOTE | 2021-07-25 18:41 | PC.NURSE ---
PT ABLE TO BE WEANED DOWN TO 2L O2 WITH SPO2 MID 90'S BUT WITH OCCASIONAL EPISODES OF APNEA- TAKING PO WELL DENIES NAUSEA AND/OR VOMITING - MID LINE PATENT WITH LR INFUSING AT 75CC/H PT REQUIRES ASSIST OF 2 WITH USE OF GAIT BELT/WALKER TO TRANSFER TO BSC OR CHAIR- MOVING BOWELS AND WOOD PATENT, CIWA SCORE 3
[2021-07-25] MEDS: TRAMADOL 50 MG TABLET PO (19:43)
[2021-07-25] MEDS: SODIUM CHLORIDE 0.9% FLUSH 10 ML IV (23:07)
[2021-07-26] VITALS (38 sets, daily range): BP systolic 91–113; BP diastolic 53–71; PULSE 66–88; RESP 12–18; TEMP 35.8–36.8; O2SAT 82–97
[2021-07-26] MEDS: THIAMINE 100 MG TABLET PO (08:07)
[2021-07-26] MEDS: PANTOPRAZOLE 40 MG VIAL IV (08:07)
[2021-07-26] MEDS: FOLIC ACID 1 MG TABLET PO (08:07)
[2021-07-26] MEDS: MULTIVITAMIN 1 TABLET 1 TAB PO (08:07)
[2021-07-26] MEDS: SODIUM CHLORIDE 0.9% FLUSH 10 ML IV ×2 (08:07→21:18)
[2021-07-26] MEDS: cefTRIAXone 2,000 MG in SODIUM CHLORIDE 0.9% 100 ML 200 ML IV (08:08)
--- NOTE | 2021-07-26 11:20 | PT.IIE ---
Current Diagnoses Sepsis, unspecified organism (07/23/21) Acute and subacute hepatic failure without coma (07/23/21) Other acute kidney failure (07/23/21) Calculus of kidney (07/23/21) Calculus of ureter (07/23/21) Acute cystitis with hematuria (07/23/21) Severe sepsis with septic shock (07/23/21) senior living (current) use of anticoagulants (07/23/21) Surgery Performed Operation Date: 07/23/21 17:00 Actual Procedures p Cystoscopy w/ Ureteral Procedure Placement of Ureteral Stent(Left) - Kurt Lainez MD Medical History (Last Reviewed 07/23/21 @ 19:03 by Solitario Morales MD) Anticoagulated Hepatic failure Left ureteral calculus Renal failure Right renal stone Sepsis Urinary tract infection Physical Therapy Inpatient Evaluation/Re-Eval M1 PT/OT-IP Prior Functional Status Start: 07/26/21 14:17 Freq: NEEDED Status: Active Protocol: Document 07/26/21 11:20 AB (Rec: 07/26/21 14:34 AB [email or web address]) Medical Review Prior Functional Status Medical History Reviewed Yes Communication able to make needs known but with slow responses Mobility and Gait pt stated that he is independent with all mobilities and ambulation without AD Social History Household Members spouse Living Arrangements House Number of Floors (Floors) Two Floors Number of Stairs To Enter/Railing? pt stays on main level of the house 3 steps B rails to enter Home Environment High Toilet,Walk in Shower, Built-In Shower Seat Home Equipment Hand Held Shower,Grab Bars Near Toilet,Grab Bars In Shower M2 PT-IP Current Condition Start: 07/26/21 14:17 Freq: NEEDED Status: Active Protocol: Document 07/26/21 11:20 AB (Rec: 07/26/21 14:34 AB [email or web address]) Physical Therapy Current Condition Current Condition Evaluation Date 07/26/21 Treatment Diagnosis UTI; alcohol liver cirrhosis; difficulty in walking Onset Date 07/23/21 M3 PT-IP Subjective Start: 07/26/21 14:17 Freq: NEEDED Status: Active Protocol: Document 07/26/21 11:20 AB (Rec: 07/26/21 14:34 AB [email or web address]) Subjective Physical Therapy Visit Type Type Initial Evaluation Visit Start Time 11:20 Visit Stop Time 12:00 Total Visit Minutes 40 Number of FLORAL ARTIST Visits 0 Physical Therapy Visit Comments Patient Comments agreeable to do PT M4 PT-IP Mobility and Gait Start: 07/26/21 14:17 Freq: NEEDED Status: Active Protocol: Document 07/26/21 11:20 AB (Rec: 07/26/21 14:34 AB [id number]) PT-Bed Mobility Assessment Supine to Sit Supine to Sit Maximum Assistance,Bedrails PT-Transfer Assessment Sit to and From Stand Sit to and from Stand Minimal Assistance,1 Person Assistance,Use of Upper Extremities Equipment Transfer Assistive Device Gait Belt,Front Wheeled Walker Orthotic/Prosthetic Devices or Brace: No Transfers Transfer Destination Toilet Transfer Technique ambulated Transfer Ability Level of Assist Minimal Assistance,1 Person Assistance,Use of Upper Extremities Comments Mobility Comments BP supine: 109/64 O2 sat RA: 90%. pt completed supine to sit max A and max cues. pt sat on EOB CGA. (+) SOB. O2 sat 87-88%. informed nurse. pt requesting to use the toilet. completed sit to stand min A and ambulated to the toilet using FWW min A and cues. (+) LOB to the L requiring min A for rebalancing. max cues for all tasks. max A for controlled descent to the toilet. pt completed sit to stand from the toilet min A using grab bars and mod A for standing balance using grab bar/FWW while NAC assisted the hygiene care. pt ambulated out of the toilet to the chair using FWW min A. O2 sat decrease to ~ 85% but after deep breathing 91%. pt agreed to ambulate more and completed ~ 75 ft using FWW min A and max cues. pt sat back on chair. positioned on chair. call light and table placed within reach. Gait Assessment Gait Gait Assistance Required: Minimum Assistance Distance (Feet) 75 Able to Maintain Weight Bearing Status Yes During Gait Assistive Devices Assistive Device Gait Belt,Front Wheeled Walker Orthotic/Prosthetic Devices or Brace: No Gait Deviations General Gait Pattern Ataxic,Decreased Stride Length ,Decreased Feet Clearance Factors Limiting Gait Function Factors Limiting Gait Function Decreased Activity Tolerance, Decreased Strength,Difficulty Following Directions,Limited Range of Motion,Poor Balance, Poor Safety Awareness PT-Balance Assessment Sitting Balance and Reactions Static Sitting Balance Ability Good Dynamic Sitting Balance Ability Fair Standing Balance and Reactions Static Standing Balance Ability Fair Dynamic Standing Balance Ability Poor Device Used FWW M5 PT-IP Objective Assessments Start: 07/26/21 14:17 Freq: NEEDED Status: Active Protocol: Document 07/26/21 11:20 AB (Rec: 07/26/21 14:34 AB [email or web address]) Orientation Orientation/Cognition Level of Alertness Confusional State Orientation Name Language Function Ability Hard of Hearing Safety Awareness Decreased Safety Awareness Memory Description Short Term Impaired Gross Range of Motion Lower Extremity ROM Assessment Within Functional Limits Strength Lower Extremity Strength Assessment Within Functional Limits Muscle Tone Muscle Tone WNL Yes M6 PT-IP Treatment Start: 07/26/21 14:17 Freq: NEEDED Status: Active Protocol: Document 07/26/21 11:20 AB (Rec: 07/26/21 14:34 AB [email or web address]) Physical Therapy Treatment Education Education Provided Safety M7 PT-IP Assessment and Plan Start: 07/26/21 14:17 Freq: NEEDED Status: Active Protocol: Document 07/26/21 11:20 AB (Rec: 07/26/21 14:34 AB [email or web address]) PT Summary Assessment and Plan Potential Rehabilitation Potential Good Status of Condition at Evaluation Evolving Summary Impairments Pain,ROM,Strength,Balance, Coordination,Sensation,Tone, Cognition,Bed Mobility, Transfers,Gait,Activity Tolerance Assessment Summary pt requiring min A with ambulation using FWW and with (+) LOB during ambulation. pt also has decrease safety awareness and requires increase time to complete all tasks and follow directions. d/c plan depending on progress and if spouse will be able to provide assistance to pt. caregiver training will be conducted when appropriate as well as stair climbing training. At this time, pt may require SNF rehab to improve strength and independence. Goals Bed Mobility Goal Independent Transfer Goal Independent,Front Wheeled Walker Gait Goal Independent,Front Wheel Walker Gait Distance 200 Other Goals improve ambulation without AD/ least restrictive AD 250 ft I up/down 3 steps B rail mod I Days to Meet Goals 10 Frequency of Treatment Frequency Of Treatment Once a Day Treatment Plan Physical Therapy Treatment Plan Bed Mobility Training,Transfer Training,Gait Training, Therapeutic Exercise,Balance Retraining,Discharge Planning, Hot or Cold Pack,Neuromuscular Re-ed,Coordination Retraining Precautions Other Precautions falls Recommendations To Nursing Amount of Assist Needed 1 Person Assist Discharge Recommendations PT Discharge Recommendations Home with 06/04 Assist Available,Home Health,SNF Rehab,Home vs SNF Equipment Needed for Home Before FWW: if going home and not Discharge safe without AD Transportation Needs at Discharge Private Vehicle,Wheelchair/ Cabulance
--- NOTE | 2021-07-26 13:17 | PM.PN.1 ---
Subjective Subjective Date Patient Seen: 07/26/21 Time Patient Seen: 13:17 Interval history: This morning he feels improved. He is less confused but remains slow, no shaking or evidence of withdrawal. No pain today. Eating well. Exam Vital Signs (past 8 hours): - 07/26/21 05:30 07/26/21 08:00 07/26/21 09:04 Temperature 97.8 F Pulse Rate 73 73 Respiratory Rate 18 Blood Pressure 104/69 Pulse Oximetry 93 92 92 07/26/21 11:57 07/26/21 12:35 Temperature 98.3 F 96.5 F L Pulse Rate 80 74 Respiratory Rate 18 16 Blood Pressure 113/67 104/64 Pulse Oximetry 92 95 Oxygen Delivery Method Room Air Oxygen Flow Rate 0 Narrative Exam Narrative: GEN: no acute distress, sitting upright in bedside chair. HEENT: moist mucous membranes, PERRL NECK: trachea midline, no JVD CV: regular rate and rhythm, no murmurs PULM: crackles bilaterally, no wheezes ABD: soft, nontender, mild distension with probable ascites. EXT: warm and well perfused with 1+ edema NEURO: awake, alert, and oriented x3, slightly slow to respond but improving. PSYCH: pleasant, cooperative Objective Labs Result Diagrams: 07/25/21 05:00 07/25/21 05:00 [facility] Medical History Anticoagulated Hepatic failure Left ureteral calculus Renal failure Right renal stone Sepsis Urinary tract infection Family History Father Cancer Grandfather Cancer Grandmother Diabetes mellitus Heart disease Mother Age: 81 Alzheimer disease Sister Age: 66 Hypertension Social History household members: spouse Smoking Status: Current every day smoker alcohol intake: current Assessment & Plan Assessment & Plan narrative: Mr. Cardozo is a 65M with PMH of EtOH abuse who presents with obstructing infected left kidney stone developing septic shock also found to have pulmonary, bone, and liver lesions of possible malignancy 1. Septic shock from infected left kidney stone -sepsis with WBC, infected urine, with acute renal failure -lactate improved with aggressive IV fluid, from 5 now to normal. -can stop IV fluids today. -urine cultures showing sanchez-sensitive E. coli. Narrowed today from meropenem to ceftriaxone. Total 14 days likely needed but can convert to oral antibiotics. -thrombocytopenia also likely from sepsis and combination with cirrhosis. 2. HEIDE from obstruction with hydronephrosis, improving. -probable secondary HEIDE from obstructing stones -s/p stent placement with urology -trend creatinine closely, is improving after stent placement -davenport to monitor urine output -no indication for dialysis currently 3. Alcoholic liver cirrhosis with alcohol abuse -MELD 34 on admission, 3 month mortality >50% -continues to have significant alcohol abuse -last drink 5 days prior to admission. -[facility] protocol -thiamine, mvi, folate -trend LFTs daily 4. Bone, hepatic, pulmonary lesions concerning for metastatic disease -plan for triple phase CT when HEIDE improves possibly, may be able to defer to outpatient. -will need further evaluation of bone and liver abnormalities, may have metastatic lung cancer -will need outpatient workup likely with oncology, gastroenterology, and pulmonlogy 5. Hyponatremia -presume secondary to etoh abuse -trend sodium closely, improved Na to 132 from 129 after fluid resuscitation 6. 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 Bilateral kidney stones -s/p stent placement, now with traumatic hematuria -has bilateral nonobstructing stones as well -urology consulted 8. Acute respiratory failure with hypoxia, improved ?- likely in setting of sepsis, continue to wean O2 as tolerated. CODE: Full Proxy: Jessica Ordonez, DVT ppx: SCDs GI ppx: protonix Dispo: Pending PT/OT, likely discharge home or SNF in 1-2 days depending on evaluation. Time Spent With Patient Critical Care time: I spent a total of [] minutes of critical care time on this patient's care today; this time is exclusive of procedural time.
--- NOTE | 2021-07-26 14:18 | DIET.CONS ---
Dietary Consultation Note Admission Date: 07/23/2021 15:56 Assessment: 65 y/o M c PMH of ETOH abuse. Receiving MVI, Thiamine, and Folate. Ashok states he has a long h/o drinking and trying to quit drinking. Plans to attend AA meetings again after d/c. States that he will have N/V after drinking and self treats this with additional drinking. States he drinks to be happy but realizes he ends up sick instead. Ashok reports limited PO at home, possibly one meal per day (breakfast of two eggs, two buttered toast with milk). Most of kcals from ETOH intake. Drink of choice is sweetened wine coolers. Endorses 2-3 x 16oz per day. Has used candy bars as a way to deter ETOH intake in the past, worked for one year. Ht: 177.8 cm Wt: 139 kg BMI: 43.4 Last BM: 07/26/21 (07/26/21 11:57) MNA: 14 Dariel Score: 20 Diet: 07/24/21 Dinner Low Sodium Diet (2gm) Diet Modifications: Nutrition Percent Meal Consumed 25% 07/26/21 13:31 Percent Meal Consumed 25% 07/26/21 09:09 Percent Meal Consumed 75% 07/25/21 18:26 Percent Meal Consumed 75% 07/25/21 13:00 Labs: RBC 4.48 X10^6/uL (4.5-5.9) L 07/25/21 05:00 Hgb 13.8 g/dL (13.5-17.5) 07/25/21 05:00 Hct 41.3 % (41-53) 07/25/21 05:00 Creatinine 2.45 mg/dL (0.66-1.25) H 07/25/21 05:00 Lactate 1.4 mmol/L (0.7-2.1) 07/25/21 05:00 NT-Pro-B Natriuret Pep 2600 pg/mL (<125) H 07/23/21 12:40 Nutrition Diagnosis: 1. Excessive ETOH intake r/t reported chronic ETOH use to be happy aeb pt report use and elevated AST (201), hyponatremia (134) and liver cirrhosis 2. Chronic moderate malnutrition r/t excessive ETOH intake aeb reported poor PO of nutritious foods, getting most kcals from ETOH, reported N/V, and h/o ETOH abuse. Interventions: Provided Sobriety MNT education Monitoring/Evaluations: consult prn Electronically Signed by: Rach Bennett 07/26/21 14:01 Clinical Dietitian [address] [address]
--- NOTE | 2021-07-26 14:54 | PC.NURSE ---
Addendum entered by Gurdeep Cooper R.N. 07/26/21 18:30: Pt has been on RA all day with sats ranging 90-95%. Pt has been drowsy but awakens easily and answers questions appropriately with clear speech. He states that his fatigue is actually improved compared to before he came in. He has denied pain and not required any PRN rx. CIWA 0. Catheter noted to be leaking around meatus and was irrigated easily. Hygiene care provided. Urine is draining to davenport bag and no further issue noted. UOP has been more than adequate. Original Note: BEKA midline difficult to flush, does not draw. Reported to Dr. Villavicencio. Instruction rec'd to dc midline and place PIV. PIV place to RFA. Labs drawn/sent. Pt tolerated well.
[2021-07-26 16:07] LABS: Hematocrit 45.3 % (41-53); Hemoglobin 15.2 g/dL (13.5-17.5); Mean Corpuscular HGB Conc 33.6 % (30-36); Mean Corpuscular Hemoglobin 30.9 PG (26-34); Mean Corpuscular Volume 92.2 fL (80-100); Platelet Count 46 X10^3/uL (150-400); Red Blood Cell Count 4.92 X10^6/uL (4.5-5.9); Red Cell Distribution Width 16.5 % (11.6-14.8); White Blood Cell Count 11.9 X10^3/uL (4.5-11.0)
[2021-07-26 16:30] LABS: Add Manual Diff / Slide Review YES
[2021-07-26 17:00] LABS: Neutrophils Absolute Manual 9758 /uL (3000-5900); Nucleated Red Blood Cells 1 #/Diff; Total Cells Counted 100
[2021-07-26 17:01] LABS: Anisocytosis 2+
[2021-07-26 18:57] LABS: BUN Creatinine Ratio 42.9 (6-22); Blood Urea Nitrogen 57 mg/dL (9-20); Calcium 7.5 mg/dL (8.4-10.2); Carbon Dioxide 25 mmol/L (22-32); Chloride 101 mmol/L (98-107); Estimated Glomerular Filt Rate 54.3 mL/min (>60); Glucose 162 mg/dL (80-110); HEMOLYSIS 37 (0-50); Magnesium 2.7 mg/dL (1.6-2.3); Sodium 134 mmol/L (137-145)
[2021-07-27] VITALS (15 sets, daily range): BP systolic 108–110; BP diastolic 56–73; PULSE 77–89; RESP 17–81; TEMP 36.1–36.8; O2SAT 90–94
[2021-07-27 04:22] LABS: Acinetobacter baumannii Not Detected (Not Detect); E. coli Detected (Not Detect); Enterobacter cloacae complex Not Detected (Not Detect); Enterobacteriaceae species Detected (Not Detect); Enterococcus species Not Detected (Not Detect); KPC (carbapenem-resist gene) Not Detected (Not Detect); Listeria monocytogenes Not Detected (Not Detect); Proteus species Not Detected (Not Detect); Serratia marcescens Not Detected (Not Detect); Staphylococcus species Not Detected (Not Detect); Streptococcus agalactiae (Gr B Not Detected (Not Detect); Streptococcus pneumonia Not Detected (Not Detect); Streptococcus pyogenes (Gr A) Not Detected (Not Detect); Streptococcus species Not Detected (Not Detect)
[2021-07-27 04:23] LABS: Candida albicans Not Detected (Not Detect); Candida glabrata Not Detected (Not Detect); Candida krusei Not Detected (Not Detect); Candida parapsilosis Not Detected (Not Detect); Candida tropicalis Not Detected (Not Detect); Haemophilus influenzae Not Detected (Not Detect); Neisseria meningitidis Not Detected (Not Detect); Pseudomonas aeruginosa Not Detected (Not Detect)
[2021-07-27 05:48] LABS: Alanine Aminotransferase 112 IU/L (<50); Albumin 2.6 g/dL (3.5-5.0); Albumin Globulin Ratio 0.7 (1.0-2.8); Alkaline Phosphatase 207 U/L (38-126); Aspartate Aminotransferase 185 IU/L (17-59); BUN Creatinine Ratio 40.9 (6-22); Bilirubin Total 6.9 mg/dL (0.2-1.3); Blood Urea Nitrogen 47 mg/dL (9-20); Calcium 7.7 mg/dL (8.4-10.2); Carbon Dioxide 26 mmol/L (22-32); Chloride 103 mmol/L (98-107); Estimated Glomerular Filt Rate > 60.0 mL/min (>60); Globulin 3.9 g/dL (1.7-4.1); Glucose 140 mg/dL (80-110); HEMOLYSIS < 15 (0-50); Magnesium 2.6 mg/dL (1.6-2.3); Potassium 3.8 mmol/L (3.4-5.1); Sodium 136 mmol/L (137-145); Total Protein 6.5 g/dL (6.3-8.2)
[2021-07-27] MEDS: cefTRIAXone 2,000 MG in SODIUM CHLORIDE 0.9% 100 ML 200 ML IV (08:56)
[2021-07-27] MEDS: FOLIC ACID 1 MG TABLET PO (09:07)
[2021-07-27] MEDS: PANTOPRAZOLE DR 40 MG TABLET PO (09:07)
[2021-07-27] MEDS: MULTIVITAMIN 1 TABLET 1 TAB PO (09:07)
[2021-07-27] MEDS: THIAMINE 100 MG TABLET PO (09:07)
--- NOTE | 2021-07-27 11:59 | PT.IPTN ---
Current Diagnoses Sepsis, unspecified organism (07/23/21) Acute and subacute hepatic failure without coma (07/23/21) Other acute kidney failure (07/23/21) Calculus of kidney (07/23/21) Calculus of ureter (07/23/21) Acute cystitis with hematuria (07/23/21) Severe sepsis with septic shock (07/23/21) halfway (current) use of anticoagulants (07/23/21) Surgery Performed Operation Date: 07/23/21 17:00 Actual Procedures p Cystoscopy w/ Ureteral Procedure Placement of Ureteral Stent(Left) - Kurt Lainez MD Physical Therapy Treatment Note M2 PT-IP Current Condition Start: 07/26/21 14:17 Freq: NEEDED Status: Active Protocol: Document 07/27/21 10:42 SP (Rec: 07/27/21 12:42 SP [id number]) Physical Therapy Current Condition Current Condition Evaluation Date 07/26/21 Treatment Diagnosis UTI; alcohol liver cirrhosis; difficulty in walking Onset Date 07/23/21 M3 PT-IP Subjective Start: 07/26/21 14:17 Freq: NEEDED Status: Active Protocol: Document 07/27/21 10:42 SP (Rec: 07/27/21 12:42 SP [id number]) Subjective Physical Therapy Visit Type Type Treatment Note Visit Start Time 10:42 Visit Stop Time 11:00 Total Visit Minutes 38 Notes Pt seen for split tx: 1042- 1100, [id number] due to urgent need to use bathroom, decreased strength and set up caregiver training with for education on mobility assist with gait, stair mgt safety. Initial visit vitals post bathroom and gait in room assessment: BP 110/64 HR 84 SaO2 91% on RA with report lightheadeness but willing to work. 2nd arrival in room completed caregiver training including gait belt and support throughout tx required . Number of RETAIL EQUIPMENT ASSOCIATE Visits 1 Physical Therapy Visit Comments Patient Comments Pt agreeable to working with therapy. Patient Goals Return home with to assist him. Therapy Pain Assessment Pain Present Pain Present Denied Pain M4 PT-IP Mobility and Gait Start: 07/26/21 14:17 Freq: NEEDED Status: Active Protocol: Document 07/27/21 10:42 SP (Rec: 07/27/21 12:42 SP [id number]) PT-Bed Mobility Assessment Supine to Sit Supine to Sit Moderate Assistance,1 Person Assistance,Bedrails Scooting Scooting to Edge of Bed Contact Guard Assistance, Minimal Assistance PT-Transfer Assessment Sit to and From Stand Sit to and from Stand Minimal Assistance,1 Person Assistance,Use of Upper Extremities Equipment Transfer Assistive Device Gait Belt,Front Wheeled Walker Orthotic/Prosthetic Devices or Brace: No Transfers Transfer Destination Chair,Toilet,Wheelchair Transfer Technique pt ambulated using FWW Transfer Ability Level of Assist Contact Guard Assistance, Minimal Assistance,1 Person Assistance,Use of Upper Extremities Comments Mobility Comments Pt was seated on toilet during initial arrival nurse in bathroom to assist him. RETAIL EQUIPMENT ASSOCIATE provided CGA-Min A for sit> stand, cued utilizing grab bar for self support and other UE on FWW cued upright posture to decrease forward trunk posture leaning on FWW, CG-Min A for static stand while nurse assisted with pericare. Pt ambulated to sink 10 ft CGA with cuing FWW positioning safety facign sink, CGA static stand at sink unsteady LEs and trunk little sway, no LOB self recoveries and contact sink while washed hands. Pt return to chair 5 ft using FWW CGA with cues for pivot and back up fully with FWW, [place] with verbal and contact cues for reaching back for safe descent to chair, Min A. Pt agreeable to CGT with and assessing stairs for safety DC home. RET[employer] EQUIPMENT ASSOCIATE called Jessica and agreed to come in for CGT and discussed pt requires use of FWW for safety during mobility and asked we can dispense one due to [facility] not open. Jessica ( ) in room when returned, pt sleeping supine in bed when arrived. Pt agreeable to mobilizing. Completed LR R CGA , R SL>sit Mod A by pulling from her arm and pushing from bed to right trunk, CGA scoot EOB. donned another gown for back of body coverage and gait belt . Sit> stand CG-Min A cued push from bed to stand, ambulated further distance into hallway 50 ft using FWW, CG- 5% A with w/c follow due to tiring/decreased strength/ endurance, seated rest requested in w/c, Min A with cues for reaching back slow descent to w/c. Pt wheeled to stairs, Sit>stand cues for HP usign FWW 5 steps to stairs, completed ascend/descend 3 stairs x3 sets stairs CGA- 10% A BHR step to gait patterning, brief rest at bottom stairs between sets for stand rest and cues for breath recovery. Pt attempted walk to w/c no AD , unsteady,cues for reminders use of FWW at this time decreased balance, SPT using FWW to w/c, cues HP to sit. Pt wheeled to room. Sit>stand CG - mIn A from w/c and 5 ft to room chair using FWW, CG- 10A% A gait and slow descent to chair with cues proper hand placement. Pt had call light and all needs in reach with in room when left. RETAIL EQUIPMENT ASSOCIATE educated recommending fWW for mobility and willing to have dispensed and HHPT for skilled further strengthening for progressing functional independence in mobility. Gait Assessment Gait Gait Assistance Required: Contact Guard Assist,Minimum Assistance,1 Person Assist Distance (Feet) 50 Able to Maintain Weight Bearing Status Yes During Gait Assistive Devices Assistive Device Gait Belt,Front Wheeled Walker Orthotic/Prosthetic Devices or Brace: No Gait Deviations General Gait Pattern Antalgic,Decreased Stride Length,Decreased Feet Clearance,Flexed Trunk,Wide Based Gait Factors Limiting Gait Function Factors Limiting Gait Function Decreased Activity Tolerance, Decreased Strength,Difficulty Following Directions,Limited Range of Motion,Poor Balance, Poor Safety Awareness, Respiratory Distress Comments Gait Comments See mobility comments Stair Climbing Assessment Evaluation Level of Assist On Stairs Contact Guard Assistance, Minimal Assistance,1 Person Assistance Devices Stair Climbing Assistive Devices Left Railing,Right Railing Technique/Endurance Stair Climbing Direction Ascend and Descend Stair Climbing Technique Step to Step Number of Steps Climbed 3 Stair Climbing Set # Repetitions (reps) 3 Comments Stair Climbing Comments Step to patterning B HR, CG- Min A x1 by , pt requires support to steady trunk on stairs, no LOB. Brief rest between set for breath cues and tiring recovery. PT-Balance Assessment Sitting Balance and Reactions Static Sitting Balance Ability Good Dynamic Sitting Balance Ability Fair Standing Balance and Reactions Static Standing Balance Ability Fair Dynamic Standing Balance Ability Fair Device Used FWW M5 PT-IP Objective Assessments Start: 07/26/21 14:17 Freq: NEEDED Status: Active Protocol: Document 07/26/21 11:20 AB (Rec: 07/26/21 14:34 AB [id number]) Orientation Orientation/Cognition Level of Alertness Confusional State Orientation Name Language Function Ability Hard of Hearing Safety Awareness Decreased Safety Awareness Memory Description Short Term Impaired Gross Range of Motion Lower Extremity ROM Assessment Within Functional Limits Strength Lower Extremity Strength Assessment Within Functional Limits Muscle Tone Muscle Tone WNL Yes M6 PT-IP Treatment Start: 07/26/21 14:17 Freq: NEEDED Status: Active Protocol: Document 07/27/21 10:42 SP (Rec: 07/27/21 12:42 SP [id number]) Physical Therapy Treatment Education Education Provided Safety M7 PT-IP Assessment and Plan Start: 07/26/21 14:17 Freq: NEEDED Status: Active Protocol: Document 07/27/21 10:42 SP (Rec: 07/27/21 12:42 SP [id number]) PT Summary Assessment and Plan Potential Rehabilitation Potential Good Status of Condition at Evaluation Evolving Summary Impairments Pain,ROM,Strength,Balance, Coordination,Sensation,Tone, Cognition,Bed Mobility, Transfers,Gait,Activity Tolerance Progress Towards Goals Progressing Toward Goals,Slow Progress due to Activity Tolerance Assessment Summary Pt reported little lightheaded during initial mobility and lethargic throughout tx, required split tx, wanting to mobilize. Pt requires CGA- Min A during all mobility using FWW, complete stair and caregiver training with . [employer] EQUIPMENT ASSOCIATE dispensed FWW for home use . Recommending HHPT for progress strength and functional independence. Pt is ok to return home with when medically cleared / available. Goals Bed Mobility Goal Independent Transfer Goal Independent,Front Wheeled Walker Gait Goal Independent,Front Wheel Walker Gait Distance 200 Other Goals improve ambulation without AD/ least restrictive AD 250 ft I up/down 3 steps B rail mod I Days to Meet Goals 10 Frequency of Treatment Frequency Of Treatment Once a Day Treatment Plan Physical Therapy Treatment Plan Bed Mobility Training,Transfer Training,Gait Training, Therapeutic Exercise,Balance Retraining,Discharge Planning, Hot or Cold Pack,Neuromuscular Re-ed,Coordination Retraining Other Recommendations and Next Treatment LE ex, STS, gait further Focus distance w/ LRAD. Precautions Other Precautions falls Recommendations To Nursing Amount of Assist Needed 1 Person Assist Discharge Recommendations PT Discharge Recommendations Home with 24/7 Assist Available,Home Health Equipment Needed for Home Before dispensed FWW for home use due Discharge to unsteady with out AD. Transportation Needs at Discharge Private Vehicle
--- NOTE | 2021-07-27 12:47 | PM.DS.1 ---
History of Present Illness History of Present Illness Date Patient Seen: 07/27/21 Time Patient Seen: 12:47 Chief complaint: short of breath, alcohol, hasn't eatten Narrative: Per Dr. Escobar, ?Mr. Cardozo is a 65M with PMH liver cirrhosis, alcohol abuse who does not regularly see physicians who presents with weakness and vomiting for the last 5 days. He states his last alcoholic drink was 5 days ago. He has had subjective fevers/chils. No cough, but he has had shortness of breath. No abdominal pain, nausea, vomiting, diarrhea, or dysuria. He has felt lightheaded as well. In the ED workup was done, vitals notable for afebrile, tachy in the 90s, tachypneic in the 20s, blood pressure 80s/50s. Labs notable for WBC 21.8, hgb 15.1, plts 43. Na 129, BUN 89, creatinine 3.89. Lactate 5.1. Bilirubin 7.7, ast 258, alt 104, alk phos 131, procal 55.6. Urine was grossly positive with WBCs, blood, bacteria, leuk esterase. Chest xray showed right nodular opacity. CT thorax showed mass in right lobe, right pleural effusion, cirrhotic liver with hypodense lesions, air with renal calices, left hydronephrosis with calculus in left ureter, lucent lesion at l3. He was ordered for IV antibiotics, IV fluids. He was taken urgently with urology for stent placement for sepsis secondary to obstructing and infected kidney stone. He was admitted for further treatment. Discharge Providers Provider Date of admission: 07/23/21 15:56 Discharge Date: 07/27/21 Consults: 07/23/21 16:38 Consult to Tele-transaction processor Routine Comment: Consulting Provider: Anastasiya [employer] Reason for consultation: [employer] [facility] Has provider been notified: Yes 07/23/21 17:28 Consult to Dietitian, Adult Routine Comment: Reason For Exam: cirrhosis, likely cancer, etoh abuse 07/24/21 00:02 Consult to Respiratory Therapy Evaluate & Treat Comment: Physician Instructions: Evaluate and treat 07/25/21 18:33 Consult to Physical Therapy Evaluate & Treat Comment: Physician Instructions: Evaluate and Treat Discharge provider: Ugo Villavicencio DO Summary Hospital Course Discharge Diagnosis: Please see hospital course by problem list noted below. Hospital Course: ?Mr. Cardozo is a 65M with PMH of EtOH abuse who presented with obstructing infected left kidney stone developing septic shock also found to have pulmonary, bone, and liver lesions of possible malignancy. He improved with stent placement and antibiotic therapy, stable for discharge home with outpatient follow up. 1. Septic shock from infected left kidney stone and E. coli bacteremia. -sepsis with WBC, infected urine, with acute renal failure -lactate improved with aggressive IV fluid, from 5 now to normal. -urine cultures showing sanchez-sensitive E. coli. Blood cultures just now growing E. coli as well. Narrowed from meropenem to ceftriaxone on HD#3 based on urine cultures. Total 14 days needed but can convert to oral antibiotics on discharge. Discharged on oral cefdinir. -thrombocytopenia also likely from sepsis and combination with cirrhosis. -outpatient follow up with urology recommended. 2. HEIDE from obstruction with hydronephrosis, improving. -probable secondary HEIDE from obstructing stones and sepsis. Improved with stent placement and IV fluid. -s/p stent placement with urology. Will need outpatient urology follow up. 3. Alcoholic liver cirrhosis with alcohol abuse -MELD 34 on admission, 3 month mortality >50% -continues to have significant alcohol abuse -last drink 5 days prior to admission. -CIWA protocol while here, no evidence of withdrawal. Provided with multivitamin, folate, and thiamine during admission. -appreciate social work consultation. 4. Bone, hepatic, pulmonary lesions concerning for metastatic disease -recommend triple phase CT as an outpatient. -will need outpatient workup likely with oncology, gastroenterology, and pulmonlogy 5. Hyponatremia -presume secondary to etoh abuse, slight component from hypovolemia as this did improve with IV fluids. 6. Thrombocytopenia -secondary to cirrhosis -with bleeding after stent placement, given 1 pack plt. -ultimately improved with treatment of above sepsis. 7. Bilateral kidney stones -s/p stent placement, complicated by traumatic hematuria -has bilateral nonobstructing stones as well -will need outpatient urology follow up for possible stent and davenport removal. 8. Acute respiratory failure with hypoxia, resolved ?- likely in setting of sepsis, resolved prior to discharge Time Spent with Patient Time spent: Greater than 30 minutes Exam Vital Signs (past 8 hours): - 07/27/21 07:50 07/27/21 08:08 07/27/21 08:09 Temperature 97.0 F L Pulse Rate 81 81 81 Respiratory Rate 81 H Blood Pressure 108/56 L 108/56 L Pulse Oximetry 94 93 94 07/27/21 08:30 07/27/21 10:48 07/27/21 10:50 Temperature Pulse Rate Respiratory Rate Blood Pressure Pulse Oximetry 92 91 90 L 07/27/21 10:51 07/27/21 12:29 07/27/21 12:30 Temperature Pulse Rate 78 78 Respiratory Rate Blood Pressure 110/64 109/73 Pulse Oximetry 94 94 Oxygen Delivery Method Room Air Oxygen Flow Rate 0 Narrative Exam Narrative: GEN: no acute distress, sitting upright in bedside chair. HEENT: moist mucous membranes, PERRL NECK: trachea midline, no JVD CV: regular rate and rhythm, no murmurs PULM: crackles bilaterally, no wheezes ABD: soft, nontender, mild distension with probable ascites. EXT: warm and well perfused with 1+ edema NEURO: awake, alert, and oriented x3, slow to respond but improved mentation. PSYCH: pleasant, cooperative Objective Labs Result Diagrams: 07/26/21 14:45 07/27/21 05:04 Labs: Laboratory Results - last 24 hr 07/26/21 07/26/21 07/27/21 14:45 16:35 02:57 WBC 11.9 H RBC 4.92 Hgb 15.2 Hct 45.3 MCV 92.2 MCH 30.9 MCHC 33.6 RDW 16.5 H Plt Count 46 L Neut % (Auto) Not Reportable Lymph % (Auto) Not Reportable [place] % (Auto) Not Reportable Eos % (Auto) Not Reportable Baso % (Auto) Not Reportable Lymph # (Auto) Not Reportable [place] # (Auto) Not Reportable Baso # (Auto) Not Reportable Total Counted 100 Seg Neutrophils % 81.0 H Band Neutrophils % 1.0 L Lymphocytes % (Manual) 11.0 L Monocytes % (Manual) 6.0 Basophils % (Manual) 1.0 Neutrophils # (Manual) 9758 H Nucleated RBCs 1 H RBC Morphology See below Anisocytosis 2+ H Sodium 134 L Potassium 4.0 Chloride 101 Carbon Dioxide 25 BUN 57 H Creatinine 1.33 H Estimated GFR 54.3 L BUN/Creatinine Ratio 42.9 H Glucose 162 H Calcium 7.5 L Magnesium 2.7 H Total Bilirubin AST ALT Alkaline Phosphatase Total Protein Albumin Globulin Albumin/Globulin Ratio A. baumannii (PCR) Not detected Michelle albicans (PCR) Not detected C. glabrata (PCR) Not detected C. krusei (PCR) Not detected C. parapsilosis (PCR) Not detected C. tropicalis (PCR) Not detected Enterobacteriac sp PCR Detected H E. cloacae complex PCR Not detected Enterococcus sp PCR Not detected E. coli (PCR) Detected H H. influenzae (PCR) Not detected Klebsiella oxytoca PCR Not detected Klebsiella pneumoniae Not detected List. monocytogenes PCR Not detected N. meningitidis (PCR) Not detected Proteus species (PCR) Not detected Serratia marcescens PCR Not detected Staphylococcus sp PCR Not detected Staph aureus (PCR) Not detected mecA-Methicil Res Gene Not Reportable Streptococcus sp PCR Not detected Group A Strep (PCR) Not detected Strep agalactiae (PCR) Not detected Strep pneumoniae (PCR) Not detected P. aeruginosa (PCR) Not detected Farhana/B-Vanco Res Genes Not Reportable KPC-Carbap Res Gene PCR Not detected 07/27/21 05:04 WBC RBC Hgb Hct MCV MCH MCHC RDW Plt Count Neut % (Auto) Lymph % (Auto) [place] % (Auto) Eos % (Auto) Baso % (Auto) Lymph # (Auto) [place] # (Auto) Baso # (Auto) Total Counted Seg Neutrophils % Band Neutrophils % Lymphocytes % (Manual) Monocytes % (Manual) Basophils % (Manual) Neutrophils # (Manual) Nucleated RBCs RBC Morphology Anisocytosis Sodium 136 L Potassium 3.8 Chloride 103 Carbon Dioxide 26 BUN 47 H Creatinine 1.15 Estimated GFR > 60.0 BUN/Creatinine Ratio 40.9 H Glucose 140 H Calcium 7.7 L Magnesium 2.6 H Total Bilirubin 6.9 H AST 185 H ALT 112 H Alkaline Phosphatase 207 H D Total Protein 6.5 Albumin 2.6 L Globulin 3.9 Albumin/Globulin Ratio 0.7 L A. baumannii (PCR) Michelle albicans (PCR) C. glabrata (PCR) C. krusei (PCR) C. parapsilosis (PCR) C. tropicalis (PCR) Enterobacteriac sp PCR E. cloacae complex PCR Enterococcus sp PCR E. coli (PCR) H. influenzae (PCR) Klebsiella oxytoca PCR Klebsiella pneumoniae List. monocytogenes PCR N. meningitidis (PCR) Proteus species (PCR) Serratia marcescens PCR Staphylococcus sp PCR Staph aureus (PCR) mecA-Methicil Res Gene Streptococcus sp PCR Group A Strep (PCR) Strep agalactiae (PCR) Strep pneumoniae (PCR) P. aeruginosa (PCR) Farhana/B-Vanco Res Genes KPC-Carbap Res Gene PCR PFSH Medical History Anticoagulated Hepatic failure Left ureteral calculus Renal failure Right renal stone Sepsis Urinary tract infection Family History Father Cancer Grandfather Cancer Grandmother Diabetes mellitus Heart disease Mother Age: 81 Alzheimer disease Sister Age: 66 Hypertension Social History household members: spouse Smoking Status: Current every day smoker alcohol intake: current Discharge Plan Discharge Plan Patient Disposition: Home Provider Discharge Comment: You were admitted to the hospital with sepsis due to an infected urine stone. You had a stent placed and will need to follow up with urology as an outpatient. You should complete antibiotics at home. Please follow up with PCP as soon as possible for further assistance in management of your liver cirrhosis. Discharge orders & Medications Prescriptions: New cefdinir 300 mg capsule 300 mg PO BID 10 Days Qty: 20 RF: 0 Follow up/Referrals: Kurt Lainez MD [Physician] - 2 Weeks (S/p stent placement for obstructive stone) Diet/Activity/Treatments Diet: Diet as Tolerated Activity: As tolerated
--- NOTE | 2021-07-27 14:16 | CM.DANOTE ---
1400 Discharge completed, all paperwork reviewed with patient and spouse, all questions and concerns addressed. Psiano catheter removed with no difficulty, PIV removed, catheter intact. All pt belongings with , assisted pt to private vehicle in wheelchair, assisted pt to car, no further patient contact.
== END 2021-07-27 14:00 | disposition home or self-care (01) | DRG 871 ==
LOC: ED 14:30 → AC 15:57 → ICU 16:50
PROVIDERS: Internal Medicine; Internal Medicine Pulmonary Disease; Urology; Admitting Provider Internal Medicine; Emergency Provider Emergency Medicine; Referring Provider Emergency Medicine; Visit Provider Internal Medicine
PROC: 0T9780Z Drainage of Left Ureter with Drainage Device, Via Natural or Artificial Opening Endoscopic (ICD-10-PCS; principal; 2021-07-23 17:00)
DX: A41.51 Sepsis due to Escherichia coli [E. coli] (principal); R65.21 Severe sepsis with septic shock; J96.01 Acute respiratory failure with hypoxia; N17.9 Acute kidney failure, unspecified; N13.6 Pyonephrosis; E87.1 Hypo-osmolality and hyponatremia; C79.51 Secondary malignant neoplasm of bone; C78.00 Secondary malignant neoplasm of unspecified lung; C78.7 Secondary malignant neoplasm of liver and intrahepatic bile duct; D69.59 Other secondary thrombocytopenia; K70.30 Alcoholic cirrhosis of liver without ascites; F10.10 Alcohol abuse, uncomplicated; Y90.0 Blood alcohol level of less than 20 mg/100 ml; C80.1 Malignant (primary) neoplasm, unspecified; F17.200 Nicotine dependence, unspecified, uncomplicated; N20.0 Calculus of kidney; R31.9 Hematuria, unspecified; Z20.822 Contact with and (suspected) exposure to COVID-19
CPT/HCPCS: 36415; 36569; 36592; 36600; 71045; 71250; 74176; 76000; 76705; 80048; 80053; 80076; 80305; 80320; 81001; 82140; 82550; 82553; 82805; 83605; 83690; 83735; 83880; 84145; 84484; 85007; 85025; 85027; 85610; 86022; 86850; 86900; 86901; 87040; 87077; 87086; 87150; 87186; 87205; 87635; 87797; 93005; 93010; 94760; 94762; 96361; 96365; 96367; 96375; 97116; 97162; 97530; 99285; 99291; 99292; 99406; C9803; C9113; J0696; J1170; J1642; J1720; J2060; J2185; J2250; J2405; J2543; J2704; J3010

== ENCOUNTER → 2021-08-20 09:03 | Outpatient (CLI) | payer OTHER, SELFPAY ==
[2021-07-23 18:48] VITALS: BMI 43.4
== END ==
PROVIDERS: Visit Provider Urology
DX: R30.0 Dysuria (principal)
CPT/HCPCS: 87086

== ENCOUNTER → 2021-08-20 09:26 | Outpatient (CLI) | payer OTHER, SELFPAY ==
[2021-08-20 09:15] VITALS: BMI 43.4
--- NOTE | 2021-08-20 09:27 | DI.RAD.S_ITS ---
PROCEDURE: XR KUB INDICATIONS: Renal calculi TECHNIQUE: One view of the abdomen acquired. COMPARISON: [facility], CR, XR CHEST 1V, 07/23/2021, 12:36. [facility], CR, XR CHEST 1V, 07/23/2021, 18:47. [facility], CT, CT CHEST ABD PEL WO CON, 07/23/2021, 13:52. FINDINGS: Surgical changes and devices: Left ureterovesicular stent is present. Bowel: Bowel gas pattern is normal. Soft tissues: There are areas of increased density identified overlying the renal shadows bilaterally. It is noted that the area of increased density overlying what appears to be the central portion of the left renal shadow does not correspond to a calcification identified on 07/23/2021. The proximal ureteral calcification on the left is not clearly visualized. The right-sided focus of increased density does correspond to areas of calcification previously identified and appears unchanged. Visualized solid organ contours appear normal in size. Bones: No suspicious bony lesions. IMPRESSION: 1. Stable appearance of right-sided increased densities corresponding to calcifications within the right kidney from prior exam. 2. Area of increased density overlying the central portion of the left renal shadow does not appear to correlate to a previous area of calcification. This may be iatrogenic focus of density potentially related to the stent or much less likely new calcification since 07/23/2021. Previous left ureteral calculus is no longer visualized. Dictated by: Wendy Faust M.D. on 08/20/2021 at 11:32 Approved by: Wendy Faust M.D. on 08/20/2021 at 11:40
== END ==
PROVIDERS: PCP Physician Assistant; Referring Provider Urology; Visit Provider Urology
DX: N20.2 Calculus of kidney with calculus of ureter (principal); R30.0 Dysuria; N30.01 Acute cystitis with hematuria; K72.90 Hepatic failure, unspecified without coma; N19 Unspecified kidney failure; F10.20 Alcohol dependence, uncomplicated; R16.0 Hepatomegaly, not elsewhere classified; R91.8 Other nonspecific abnormal finding of lung field; M54.50 Low back pain, unspecified; G89.29 Other chronic pain; Z79.01 Long term (current) use of anticoagulants; Z96.0 Presence of urogenital implants
CPT/HCPCS: 74018; 81002; 87077; 87086; 87186

== ENCOUNTER → 2021-08-23 08:29 | Outpatient (CLI) | payer OTHER, SELFPAY ==
[2021-08-20 09:15] VITALS: BMI 43.4
--- NOTE | 2021-08-23 08:30 | DI.RAD.S_ITS ---
PROCEDURE: XR KUB INDICATIONS: Renal calculi TECHNIQUE: One view of the abdomen acquired. COMPARISON: [facility], CT, CT CHEST ABD PEL WO CON, 07/23/2021, 13:52. [facility], CR, XR KUB, 08/20/2021, 9:21. FINDINGS: Left double-J ureteral stent is not significantly changed. The proximal left ureteral calculus seen on the 07/23/2021 CT is not definitively visualized. Calculi in the right renal pelvis are unchanged. IMPRESSION: Unchanged position of left double-J ureteral calculus. No left ureteral calculus identified radiographically Dictated by: Yunior Wayne M.D. on 08/23/2021 at 11:18 Approved by: Yunior Wayne M.D. on 08/23/2021 at 11:25
== END ==
PROVIDERS: PCP Physician Assistant; Referring Provider Urology; Visit Provider Urology
DX: N20.1 Calculus of ureter (principal); Z96.0 Presence of urogenital implants
CPT/HCPCS: 74018

== ENCOUNTER → 2021-09-25 10:10 | Outpatient (CLI) | payer OTHER, SELFPAY ==
[2021-09-04 10:51] VITALS: BMI 43.4
--- NOTE | 2021-09-25 10:12 | DI.RAD.S_ITS ---
PROCEDURE: XR KUB INDICATIONS: Renal calculi/stent TECHNIQUE: One view of the abdomen acquired. COMPARISON: [facility], CR, XR KUB, 08/23/2021, 8:39. FINDINGS: Surgical changes and devices: Left-sided nephroureteral stent is present. Position and contour is stable compared to the prior study. Bowel: Bowel gas pattern is normal. Soft tissues: Hyperdense material projecting in the right mid abdomen, similar size and distribution compared to the prior study. Additionally, there is a calcification projecting over the mid left kidney measuring about 1.2 cm not present previously. Bones: No suspicious bony lesions. Mild degenerative changes through the lumbar spine. IMPRESSION: 1. Stable position of left nephroureteral stent. 2. New 1.2 cm possible left intrarenal calculus. Dictated by: Nasra Saleh M.D. on 09/25/2021 at 13:14 Approved by: Nasra Saleh M.D. on 09/25/2021 at 13:19
== END ==
PROVIDERS: PCP Physician Assistant; Referring Provider Urology; Visit Provider Urology
DX: N20.0 Calculus of kidney (principal); N20.1 Calculus of ureter; Z96.0 Presence of urogenital implants
CPT/HCPCS: 74018

== ENCOUNTER → 2021-10-28 09:32 | Outpatient (CLI) | payer OTHER, SELFPAY ==
[2021-09-04 10:51] VITALS: BMI 43.4
--- NOTE | 2021-10-28 09:33 | DI.RAD.S_ITS ---
PROCEDURE: XR KUB INDICATIONS: For renal calculi TECHNIQUE: One view of the abdomen acquired. COMPARISON: , CT, PET NECK TO MID THIGH, 10/18/2021, 9:53. [facility], , XR KUB, 09/25/2021, 11:16. FINDINGS: Surgical changes and devices: Redemonstrated left ureteral stent, grossly unchanged in position and configuration. Bowel: Bowel gas pattern is normal. Soft tissues: A calculus is again seen adjacent to the proximal left ureteral stent. Right nephrolithiasis is noted. Visualized solid organ contours appear normal in size. Bones: No suspicious bony lesions. IMPRESSION: No significant interval change. Dictated by: Jaison Mckeon M.D. on 10/28/2021 at 11:08 Approved by: Jaison Mckeon M.D. on 10/28/2021 at 11:54
[2021-10-28 10:51] LABS: INR 1.2 (0.9-1.3); Prothrombin Time 13.1 SECONDS (10.1-12.7)
[2021-10-28 11:30] LABS: BUN Creatinine Ratio 14.8 (6-22); Blood Urea Nitrogen 12 mg/dL (9-20); Calcium 9.1 mg/dL (8.4-10.2); Carbon Dioxide 27 mmol/L (22-32); Chloride 109 mmol/L (98-107); Estimated Glomerular Filt Rate > 60.0 mL/min (>60); Glucose 112 mg/dL (80-110); HEMOLYSIS < 15 (0-50); Potassium 4.5 mmol/L (3.4-5.1); Sodium 142 mmol/L (137-145)
== END ==
PROVIDERS: PCP Physician Assistant; Referring Provider Urology; Visit Provider Urology
DX: N20.2 Calculus of kidney with calculus of ureter (principal); N19 Unspecified kidney failure; Z79.01 Long term (current) use of anticoagulants; Z96.0 Presence of urogenital implants
CPT/HCPCS: 36415; 74018; 80048; 85610

== ENCOUNTER → 2021-12-11 13:22 | Outpatient (CLI) | payer OTHER, SELFPAY ==
[2021-11-04 14:14] VITALS: BMI 43.4
--- NOTE | 2021-12-11 13:24 | DI.RAD.S_ITS ---
PROCEDURE: XR KUB INDICATIONS: kidney and ureteral calculus TECHNIQUE: One view of the abdomen acquired. COMPARISON: [facility], [place], PET NECK TO MID THIGH, 10/18/2021, 9:53. [facility], CR, XR KUB, 10/28/2021, 10:49. [facility], CR, XR KUB, 09/25/2021, 11:16. FINDINGS: Surgical changes and devices: Left-sided double-J ureteral stent is redemonstrated. Bowel: Bowel gas pattern is normal. Soft tissues: There is a 2.2 cm radiopacity projected over the expected location of the right kidney and an 8 mm radiopacity projected over the expected location of the left kidney. Bones: No suspicious bony lesions. IMPRESSION: Bilateral nephrolithiasis. Double-J ureteral stent unchanged from the prior film. Dictated by: Chhaya Page M.D. on 12/11/2021 at 14:07 Approved by: Chhaya Page M.D. on 12/11/2021 at 14:11
== END ==
PROVIDERS: PCP Physician Assistant; Referring Provider Urology; Visit Provider Specialist
DX: N20.0 Calculus of kidney (principal); N20.1 Calculus of ureter; Z96.0 Presence of urogenital implants
CPT/HCPCS: 74018

== ENCOUNTER → 2021-12-17 08:06 | Outpatient (CLI) | payer OTHER, SELFPAY ==
[2021-11-04 14:14] VITALS: BMI 43.4
== END ==
PROVIDERS: PCP Physician Assistant; Visit Provider Urology
DX: R30.0 Dysuria (principal); N20.2 Calculus of kidney with calculus of ureter; N30.01 Acute cystitis with hematuria; N28.9 Disorder of kidney and ureter, unspecified; Z96.0 Presence of urogenital implants
CPT/HCPCS: 81002; 87077; 87086; 87186

== ENCOUNTER 2021-12-31 18:57 | Inpatient (IN) | payer OTHER, SELFPAY ==
[2021-12-17 08:23] VITALS: BMI 43.4
[2021-12-31 18:59] VITALS: BP 132/75; PULSE 92; RESP 16; TEMP 36.5; O2SAT 98; BMI 37.8
--- NOTE | 2021-12-31 19:09 | DI.RAD.S_ITS ---
PROCEDURE: XR CHEST 1V INDICATIONS: diabetic emergency TECHNIQUE: One view of the chest was acquired. COMPARISON: [facility], CR, XR CHEST 1V, 07/23/2021, 18:47. [facility], CR, XR CHEST 1V, 07/23/2021, 12:36. FINDINGS: Surgical changes and devices: None. Lungs and pleura: Mild hazy opacity in the right lung. Prominent pulmonary vasculature markings. Right middle lobe nodular opacity is similar to the prior exam. No significant pleural effusions. No pneumothorax. Mediastinum: Mediastinal contours appear unchanged. Heart size is prominent. Bones and chest wall: No suspicious bony lesions. Overlying soft tissues appear unremarkable. IMPRESSION: Mild hazy opacity in the right lung. This could represent atelectasis and/or edema, or pneumonia. Nodular opacity in the right middle lobe appears similar to the prior exams. Dictated by: Shivam Jauregui M.D. on 12/31/2021 at 20:21 Approved by: Shivam Jauregui M.D. on 12/31/2021 at 20:24
--- NOTE | 2021-12-31 19:11 | ED_ITS ---
HPI - General Adult General Chief complaint: Diabetic Problem Stated complaint: HIGH BLOOD SUGAR Time Seen by Provider: 12/31/21 19:01 Source: patient Mode of arrival: Ambulatory History of Present Illness HPI narrative: 66-year-old male smoker with extensive history of alcohol, cirrhosis with kidney stones and a right-sided ureteral stent in place presents at the request of his primary care provider for evaluation of 2-3 weeks of dizziness, weakness, polyuria, poly aphasia, and polydipsia. He had outpatient labs today noting a blood sugar of 641 and was sent here for evaluation. He has no history of diabetes or abnormal blood sugars. He has had no fever chills. Denies chest pain or shortness of breath. He has had no nausea, vomiting or diarrhea. He denies any change in medications or diet. Related Data Previous Rx's Medication Instructions Recorded sulfamethoxazole 800 1 tab PO BID #7 tab 12/17/21 mg-trimethoprim 160 mg tablet (Bactrim DS) sulfamethoxazole 800 1 tab PO BID #20 tab 12/19/21 mg-trimethoprim 160 mg tablet (Bactrim DS) Allergies Allergy/AdvReac Type Severity Reaction Status Date / Time No Known Drug Allergies Allergy Verified 12/31/21 18:59 Review of Systems Review of Systems Narrative: GENERAL: See HPI HEENT: Denies sinus pain, ear pain, sore throat, difficulty swallowing, dizziness. RESPIRATORY: Denies dyspnea, cough, wheezing, hemoptysis, sputum. CARDIOVASCULAR: Denies chest pain, palpitations, orthopnea, edema, GASTROINTESTINAL: See HPI : CHF MUSCULOSKELETAL: denies weakness, joint pain, or bony pain SKIN: Denies rash, skin lesions, or other NEUROLOGIC: see HPI PSYCHIATRIC: No concerning psychosocial issues. 12 point review of systems is negative except for those stated above Patient History Medical History Anticoagulated Hepatic failure Left ureteral calculus Lesion of right [place] kidney Renal failure Retained ureteral stent Right renal stone Sepsis Urinary tract infection Family History Father Cancer Grandfather Cancer Grandmother Diabetes mellitus Heart disease Mother Age: 81 Alzheimer disease Sister Age: 66 Hypertension Social History household members: spouse Smoking Status: Current every day smoker alcohol intake: current Smoking Status: Current every day smoker alcohol intake frequency: other Substance Use Type: does not use Exam Narrative Exam Narrative: GENERAL: [66] year old patient appears stated age. Well-developed patient, in mild distress. HEAD: Atraumatic. Normocephalic. EYES: Pupils equal round and reactive. Extraocular motions intact. No scleral icterus. No injection or drainage. ENT: Nose without bleeding, purulent drainage. Throat without erythema, tonsillar hypertrophy or exudate. Airway patent. NECK: Trachea midline. Non tender CARDIOVASCULAR: Regular rate and rhythm without murmurs, gallops, or rubs. RESPIRATORY: Clear to auscultation. Breath sounds equal bilaterally. No wheezes, rales, or rhonchi. GASTROINTESTINAL: Abdomen soft, non-tender, nondistended. EXTREMITIES: No edema or joint tenderness. BACK: Nontender without deformity or crepitance. No flank tenderness. NEURO: AOx3. SKIN: No rash or erythema of visible areas Initial Vital Signs Initial Vital Signs: Vital Signs Temperature 97.7 F 12/31/21 18:59 Pulse Rate 92 H 12/31/21 18:59 Respiratory Rate 16 12/31/21 18:59 Blood Pressure 132/75 12/31/21 18:59 Pulse Oximetry 98 12/31/21 18:59 Course Orders Ordered: ED Orders 12/31/21 19:09 XR chest 1V Stat EKG-12 Lead Stat 12/31/21 19:45 A1C [Hemoglobin A1C% w Est Avg Glu] Stat Blood Culture Stat Complete Blood Count AUTO DIFF Stat Comprehensive Metabolic Panel Stat Ketones (Beta-Hydroxybutyrate) Stat Lactate (Lactic Acid) Stat Procalcitonin Stat Venous Blood Gas Stat 12/31/21 20:10 COVID19 -Nasal RAPID/Pre-Proc Stat INSULIN DRIP PREMIX (Myxredlin Drip Premix) 100 unit in 100 mls @ 6 mls/hr IV TITRATE LUCRETIA; Protocol Last Admin: 12/31/21 20:53 Dose: 6 mls/hr, 6 mls/hr Documented by: NUSRAT Cosigned by: ESDRASIEDLE Discontinued Medications Sodium Chloride (Normal Saline 0.9%) 1,000 mls @ 1,000 mls/hr IV BOLUS ONE Stop: 12/31/21 20:07 Last Infusion: 12/31/21 20:55 Dose: 0 mls/hr Documented by: Admin: 12/31/21 20:09 Dose: 1,000 mls/hr Documented by: NUSRAT Lactated Ringer's (Lactated Ringers) 1,000 mls @ 1,000 mls/hr IV BOLUS ONE Stop: 12/31/21 21:36 Last Admin: 12/31/21 20:54 Dose: 1,000 mls/hr Documented by: NUSRAT Consultations Consultation #1: Hospitalist happy to accept Vital Signs Vital signs: Vital Signs - 8 hr 12/31/21 18:59 Temperature 97.7 F Pulse Rate 92 H Respiratory Rate 16 Blood Pressure 132/75 Pulse Oximetry 98 Medical Decision Making Lab Data Result diagrams: 12/31/21 19:45 12/31/21 19:45 Labs: Lab Results 12/31/21 12/31/21 12/31/21 Range/Units 19:45 19:45 19:45 WBC 6.1 (4.5-11.0) X10^3/uL RBC 4.63 (4.5-5.9) X10^6/uL Hgb 13.8 (13.5-17.5) g/dL Hct 41.3 (41-53) % MCV 89.1 (80-100) fL MCH 29.8 (26-34) PG MCHC 33.4 (30-36) % RDW 14.7 (11.6-14.8) % Plt Count 98 L (150-400) X10^3/uL Neut % (Auto) 71.9 (50-75) % Lymph % (Auto) 15.2 L (25-40) % [place] % (Auto) 9.9 (3-14) % Eos % (Auto) 2.1 (2-4) % Baso % (Auto) 0.9 (0-2) % Neut # (Auto) 4400 (5608-7757) /uL Lymph # (Auto) 900 L (8893-1240) /uL [place] # (Auto) 600 (0-900) /uL Eos # (Auto) 100 (0-450) /uL Baso # (Auto) 100 (0-100) /uL Sodium 129 L (137-145) mmol/L Potassium 4.6 (3.4-5.1) mmol/L Chloride 97 L (98-107) mmol/L Carbon Dioxide 24 (22-32) mmol/L BUN 21 H (9-20) mg/dL Creatinine 1.32 H (0.66-1.25) mg/dL Estimated GFR > 60 (>60) mL/min BUN/Creatinine Ratio 15.9 (6-22) Glucose 646 H* (80-110) mg/dL Hemoglobin A1c (4.0-6.0) % Lactate 1.8 (0.7-2.1) mmol/L Calcium 9.2 (8.4-10.2) mg/dL Total Bilirubin 1.1 (0.2-1.3) mg/dL AST 31 (17-59) IU/L ALT 25 (<50) IU/L Alkaline Phosphatase 227 H (38-126) U/L Total Protein 8.6 H (6.3-8.2) g/dL Albumin 3.6 (3.5-5.0) g/dL Globulin 5.0 H (1.7-4.1) g/dL Albumin/Globulin Ratio 0.7 L (1.0-2.8) Procalcitonin 0.23 (<0.5) ng/mL Ketones 0.37 H (<0.27) mmol/L SARS-CoV-2 (PCR) (Negative) 12/31/21 12/31/21 Range/Units 19:45 20:10 WBC (4.5-11.0) X10^3/uL RBC (4.5-5.9) X10^6/uL Hgb (13.5-17.5) g/dL Hct (41-53) % MCV (80-100) fL MCH (26-34) PG MCHC (30-36) % RDW (11.6-14.8) % Plt Count (150-400) X10^3/uL Neut % (Auto) (50-75) % Lymph % (Auto) (25-40) % [place] % (Auto) (3-14) % Eos % (Auto) (2-4) % Baso % (Auto) (0-2) % Neut # (Auto) (5816-6979) /uL Lymph # (Auto) (9817-5541) /uL [place] # (Auto) (0-900) /uL Eos # (Auto) (0-450) /uL Baso # (Auto) (0-100) /uL Sodium (137-145) mmol/L Potassium (3.4-5.1) mmol/L Chloride (98-107) mmol/L Carbon Dioxide (22-32) mmol/L BUN (9-20) mg/dL Creatinine (0.66-1.25) mg/dL Estimated GFR (>60) mL/min BUN/Creatinine Ratio (6-22) Glucose (80-110) mg/dL Hemoglobin A1c 12.4 H (4.0-6.0) % Lactate (0.7-2.1) mmol/L Calcium (8.4-10.2) mg/dL Total Bilirubin (0.2-1.3) mg/dL AST (17-59) IU/L ALT (<50) IU/L Alkaline Phosphatase (38-126) U/L Total Protein (6.3-8.2) g/dL Albumin (3.5-5.0) g/dL Globulin (1.7-4.1) g/dL Albumin/Globulin Ratio (1.0-2.8) Procalcitonin (<0.5) ng/mL Ketones (<0.27) mmol/L SARS-CoV-2 (PCR) Negative (Negative) Imaging Data Chest x-ray: Radiologist's Impression: Natalio Cardozo V?(Ashok)??66??M??1955 ? Allergy/Adv: No Known Drug Allergies (More??) Close Chest X-Ray (Signed) Shivam Jauregui - 12/31/21 KUB X-Ray (Signed) Chhaya Page - 12/11/21 KUB X-Ray (Signed) Jaison Mckeon - 10/28/21 KUB X-Ray (Signed) Nasra Saleh - 09/25/21 DI Result CC 08/30/21 KUB X-Ray (Signed) Yunior Wayne - 08/23/21 KUB X-Ray (Signed) Wendy Faust - 08/20/21 Chest X-Ray (Signed) Reji Krishnan - 07/23/21 Abdomen Ultrasound (Signed) Karo Hidalgo - 07/23/21 Telemetry Strips 07/23/21 Chest/Abdomen/Pelvis CT (Signed) Call,Shivam - 07/23/21 Chest X-Ray (Signed) Call,Shivam - 07/23/21 Radiology - Historical 07/18/17 Radiology - Historical 07/18/17 Radiology - Historical 07/18/17 Radiology - Historical 07/18/17 Radiology - Historical 07/18/17 Radiology - Historical 07/18/17 Radiology - Historical 05/14/17 Radiology - Historical 05/13/17 Radiology - Historical 05/13/17 Radiology - Historical 05/13/17 Radiology - Historical 05/13/17 Radiology - Historical 05/13/17 Launch?[place] [address] XRay Report Signed Patient: Natalio Cardozo V MR#: [id number] : 1955 Acct:[id number] Age/Sex: 66 / M Date of Service: 12/31/21 Loc: ED Accession Number: [id number] ?? Procedure: XR chest 1V Ordering Provider: Kemal Acosta D.O. PROCEDURE:? XR CHEST 1V ? INDICATIONS:? diabetic emergency ? TECHNIQUE:? One view of the chest was acquired.? ? COMPARISON:? [facility], XR CHEST 1V, 07/23/2021, 18:47.? [facility], XR CHEST 1V, 07/23/2021, 12:36. ? FINDINGS:? ? Surgical changes and devices:? None.? ? Lungs and pleura:? Mild hazy opacity in the right lung.? Prominent pulmonary vasculature markings.? Right middle lobe nodular opacity is similar to the prior exam.? No significant pleural effusions.? No pneumothorax.? ? Mediastinum:? Mediastinal contours appear unchanged.? Heart size is prominent.? ? Bones and chest wall:? No suspicious bony lesions.? Overlying soft tissues appear unremarkable.? ? IMPRESSION:? Mild hazy opacity in the right lung.? This could represent atelectasis and/or edema, or pneumonia. ? Nodular opacity in the right middle lobe appears similar to the prior exams. ? ? ? Dictated by: Shivam Jauregui M.D. on 12/31/2021 at 20:21 ? ? Approved by: Shivam Jauregui M.D. on 12/31/2021 at 20:24 ? [facility] Narrative Medical decision making narrative: Patient with 2 weeks of symptoms including polyphagia, polydipsia, polyuria presents with significantly elevated blood sugar and acute kidney injury. He is given fluids, started on insulin drip and will require hospitalization for further evaluation and stabilization. Chest x-ray does show an atypical appearance in the right middle lobe which appears chronic, no antibiotics initiated at this time. He has no chest pain, cough or fever. Discharge Plan Departure Patient Disposition: Admitted As Inpatient Clinical Impression: Acute hyperglycemia, Acute kidney injury Admit Date/Time: 12/31/21 21:06 Admit Provider: Cecy Baires
[2021-12-31 20:03] LABS: Add Manual Diff / Slide Review NO; Basophils Absolute Auto 100 /uL (0-100); Basophils Percent Auto 0.9 % (0-2); Eosinophils Absolute Auto 100 /uL (0-450); Eosinophils Percent Auto 2.1 % (2-4); Hematocrit 41.3 % (41-53); Hemoglobin 13.8 g/dL (13.5-17.5); Lymphocytes Absolute Auto 900 /uL (1100-4500); Lymphocytes Percent Auto 15.2 % (25-40); Mean Corpuscular HGB Conc 33.4 % (30-36); Mean Corpuscular Hemoglobin 29.8 PG (26-34); Mean Corpuscular Volume 89.1 fL (80-100); Monocytes Absolute Auto 600 /uL (0-900); Monocytes Percent Auto 9.9 % (3-14); Neutrophils Absolute Auto 4400 /uL (1500-7000); Neutrophils Percent Auto 71.9 % (50-75); Platelet Count 98 X10^3/uL (150-400); Red Blood Cell Count 4.63 X10^6/uL (4.5-5.9); Red Cell Distribution Width 14.7 % (11.6-14.8); White Blood Cell Count 6.1 X10^3/uL (4.5-11.0)
[2021-12-31] MEDS: SODIUM CHLORIDE 0.9% 1,000 ML 1000 ML IV (20:09)
[2021-12-31 20:13] LABS: Hemoglobin A1C% w Est Avg Glu 12.4 % (4.0-6.0)
[2021-12-31 20:15] LABS: Alanine Aminotransferase 25 IU/L (<50); Albumin 3.6 g/dL (3.5-5.0); Albumin Globulin Ratio 0.7 (1.0-2.8); Alkaline Phosphatase 227 U/L (38-126); Aspartate Aminotransferase 31 IU/L (17-59); BUN Creatinine Ratio 15.9 (6-22); Bilirubin Total 1.1 mg/dL (0.2-1.3); Blood Urea Nitrogen 21 mg/dL (9-20); Calcium 9.2 mg/dL (8.4-10.2); Carbon Dioxide 24 mmol/L (22-32); Chloride 97 mmol/L (98-107); Estimated Glomerular Filt Rate > 60 mL/min (>60); HEMOLYSIS < 15 (0-50); Potassium 4.6 mmol/L (3.4-5.1); Sodium 129 mmol/L (137-145); Total Protein 8.6 g/dL (6.3-8.2)
[2021-12-31 20:18] LABS: Ketones (Beta-Hydroxybutyrate) 0.37 mmol/L (<0.27)
[2021-12-31 20:21] LABS: Lactate (Lactic Acid) 1.8 mmol/L (0.7-2.1)
[2021-12-31 20:26] LABS: Glucose 646 mg/dL (80-110)
[2021-12-31 20:31] LABS: COVID19 -Nasal RAPID Negative (Negative)
[2021-12-31 20:34] LABS: Procalcitonin 0.23 ng/mL (<0.5)
[2021-12-31] MEDS: INSULIN DRIP PREMIX 100 UNIT/100 ML PLAST..BAG 6 UNIT IV (20:53)
[2021-12-31] MEDS: LACTATED RINGERS 1,000 ML 1000 ML IV (20:54)
--- NOTE | 2021-12-31 21:28 | RT ---
Addendum entered by Kevin Dueñas 01/01/22 06:40: BLOOD DRAWN BY SOMEONE ELSE . I RAN BLOOD FOR CHARTED RESULTS . ORDER IS IN INCORRECTLY Original Note: vbg results ph 7.37 , co2 47.9, po2 56, BE 3, HCO3 27.8 , TCO2 29 , SO2 88%
[2021-12-31 22:00] VITALS: BP 136/93; PULSE 76; RESP 21; TEMP 36.6; O2SAT 96
[2021-12-31 22:08] VITALS: BMI 37.8
--- NOTE | 2021-12-31 22:50 | PM.CN.EICU ---
History of Present Illness Consult details Chief complaint: HIGH BLOOD SUGAR :: This patient was seen via real time interactive two-way audiovisual telecommunication. Narrative: 66 y.o. male w/ PMHx of ? EtOH, cirrhpsis, nephrolithiasis who was sent over from his PCP for a high blood glucose. Value in the ED was 646 with a HgbA1C of 12.4%. He is unaware of a T2DM diagnosis. He was complaining of dizziness in the PCP; this is what prompted the labs. He also reports seeing a cancer doctor for a lung mass. ED labs also notable for elevated serum creatinine of 1.32. pCXR showed a RML nodular opacity as a RML/RLL hazy opacity (on my personal interpretation). Procalcitonin and anion gap were all normal. [facility] Medical History Anticoagulated Hepatic failure Left ureteral calculus Lesion of right [place] kidney Renal failure Retained ureteral stent Right renal stone Sepsis Urinary tract infection Family History Father Cancer Grandfather Cancer Grandmother Diabetes mellitus Heart disease Mother Age: 81 Alzheimer disease Sister Age: 66 Hypertension Social History household members: spouse Smoking Status: Current every day smoker alcohol intake: current Current Medications Current Medications Medications: Home Medications sulfamethoxazole 800 mg-trimethoprim 160 mg tablet (Bactrim DS) 1 tab PO BID #7 tab 12/17/21 [Rx Confirmed 12/17/21] sulfamethoxazole 800 mg-trimethoprim 160 mg tablet (Bactrim DS) 1 tab PO BID #20 tab 12/19/21 [Rx] Visit Medications (administered) Generic Name Dose Route Start Last Admin Trade Name Freq PRN Reason Stop Dose Admin INSULIN DRIP PREMIX 100 unit in 100 mls @ 6 mls/hr 12/31/21 20:45 12/31/21 20:53 Myxredlin Drip Premix IV 6 mls/hr TITRATE LUCRETIA 6 mls/hr Administration Protocol Exam Vital Signs (past 8 hours): - 12/31/21 18:59 12/31/21 22:00 Temperature 97.7 F 97.8 F Pulse Rate 92 H 76 Respiratory Rate 16 21 Blood Pressure 132/75 136/93 H Pulse Oximetry 98 96 Oxygen Delivery Method Room Air Oxygen Flow Rate 0 Const General: cooperative and comfortable Cardio Rate: regular rate Rhythm: regular rhythm Neuro General: patient alert and patient awake Objective Labs Result Diagrams: 12/31/21 19:45 12/31/21 19:45 Labs: Laboratory Results - last 24 hr 12/31/21 12/31/21 12/31/21 19:45 19:45 19:45 WBC 6.1 RBC 4.63 Hgb 13.8 Hct 41.3 MCV 89.1 MCH 29.8 MCHC 33.4 RDW 14.7 Plt Count 98 L Neut % (Auto) 71.9 Lymph % (Auto) 15.2 L [place] % (Auto) 9.9 Eos % (Auto) 2.1 Baso % (Auto) 0.9 Neut # (Auto) 4400 Lymph # (Auto) 900 L [place] # (Auto) 600 Eos # (Auto) 100 Baso # (Auto) 100 Sodium 129 L Potassium 4.6 Chloride 97 L Carbon Dioxide 24 BUN 21 H Creatinine 1.32 H Estimated GFR > 60 BUN/Creatinine Ratio 15.9 Glucose 646 H* Hemoglobin A1c Lactate 1.8 Calcium 9.2 Total Bilirubin 1.1 AST 31 ALT 25 Alkaline Phosphatase 227 H Total Protein 8.6 H Albumin 3.6 Globulin 5.0 H Albumin/Globulin Ratio 0.7 L Procalcitonin 0.23 Ketones 0.37 H SARS-CoV-2 (PCR) 12/31/21 12/31/21 19:45 20:10 WBC RBC Hgb Hct MCV MCH MCHC RDW Plt Count Neut % (Auto) Lymph % (Auto) [place] % (Auto) Eos % (Auto) Baso % (Auto) Neut # (Auto) Lymph # (Auto) [place] # (Auto) Eos # (Auto) Baso # (Auto) Sodium Potassium Chloride Carbon Dioxide BUN Creatinine Estimated GFR BUN/Creatinine Ratio Glucose Hemoglobin A1c 12.4 H Lactate Calcium Total Bilirubin AST ALT Alkaline Phosphatase Total Protein Albumin Globulin Albumin/Globulin Ratio Procalcitonin Ketones SARS-CoV-2 (PCR) Negative Assessment & Plan Assessment and plan (1) Acute hyperglycemia: Problem details: No evidence for DKA/HHS Status: Acute Plan: -Continue IV insulin -Can start insulin glargine now -Mild IV hydration (2) Acute kidney injury: Status: Acute Plan: -see IVF plan (3) Alcoholism: Status: Acute Plan: -Obtain further history -Consider CIWA, thiamine, folate (4) Lung nodule: Status: Acute Plan: -Continue outpt workup
[2021-12-31 23:00] VITALS: BP 115/79; PULSE 74; RESP 15; TEMP 36.5; O2SAT 96
--- NOTE | 2021-12-31 23:01 | P.HP_ITS ---
History of Present Illness History of Present Illness Date Patient Seen: 12/31/21 Time Patient Seen: 23:01 Chief complaint: New diagnosis of Diabetes type 2 Narrative: Ashok Cardozo is a 66-year-old male with no or limited medical history who states that he is being worked up for number of cancers and has had kidney stones in the past was seen by his PCP in the [facility] who requested that he present himself to the emergency room due to very high blood sugar. Patient is somewhat of a difficult historian due to likely lack of knowledge about the specialists. He states that his ?oncologist?, Dr. Lainez has been working up his kidney issues, and abnormal findings on of his liver, lung and pituitary gland. He states that he had a lung biopsy and that they have not been able to figure out if and where he has cancer?. He sees Dr. Diaz at [facility] who he refers to as his ?cancer doctor. Apparently he stated to the nurses and in not until I overheard that he had had an unintentional weight loss of 45 lb over the past couple months. Patient was hospitalized at [facility] in August of 2021 with urosepsis and encephalopathy. He was followed up by Oncology due to abnormal liver function tests, hyperbilirubinemia, a 4 cm right middle lobe lung mass, multiple hepatic cysts and cirrhotic lesions in his liver, and a 2.4 cm lesion in the right kidney concerning for potential kidney cancer. Per the patient it sounds like they are still trying to fully workup potential malignancy which could also include hepatocellular carcinoma versus cholangiocarcinoma versus lung malignancy with metastases to the liver. Chest x-ray done in the emergency department indicated a ?hazy opacity in the right lung? and a nodular opacity in the right middle lobe present in prior exams. Patient is afebrile, blood pressure 111/64, heart rate 77, respiratory rate 17, oxygen saturation of 95% on room air, he weighs 119.7 kg with a BMI of 37.8. CBC is unremarkable except for a low platelet count of 98, sodium 132, glucose initially 645 and now 468, A1c is 12.4, alk-phos 227, procalcitonin is normal, TSH is 1.86, he has ketones in his urine, and COVID-19 PCR is negative. Patient History Medical History Anticoagulated Hepatic failure Left ureteral calculus Lesion of right [place] kidney Renal failure Right renal stone Sepsis Urinary tract infection Surgical History (Updated 01/01/22 @ 00:50 by RUDY Nina) Retained ureteral stent Family & Social History Family History Father Cancer Grandfather Cancer Grandmother Diabetes mellitus Heart disease Mother Age: 81 Alzheimer disease Sister Age: 66 Hypertension Social History: household members spouse Prior Living Arrangements House Safety & Behavioral: Feels Safe in Current Yes Environment Been Physically Hurt or No Threatened By a Person Suicidal Ideation Description None Tobacco & Substance use: Tobacco type cigarettes Smoking Status Current every day smoker, 6 cigarettes per day alcohol intake as of today 12/31 states that the patient has not consumed for 30 days. alcohol intake frequency other Substance Use Type does not use Meds Home Medications and Allergies Allergies Allergy/AdvReac Type Severity Reaction Status Date / Time No Known Drug Allergies Allergy Verified 12/31/21 18:59 Review of Systems Review of Systems ROS: Yes All systems reviewed with the patient and are negative except as otherwise documented Exam Vital Signs (past 8 hours): - 12/31/21 18:59 12/31/21 22:00 Temperature 97.7 F 97.8 F Pulse Rate 92 H 76 Respiratory Rate 16 21 Blood Pressure 132/75 136/93 H Pulse Oximetry 98 96 Oxygen Delivery Method Room Air Oxygen Flow Rate 0 Narrative Exam Narrative: Gen: Alert, oriented, Ob 66 y.o. male, appears fatigued HEENT: normocephalic, atraumatic, conjunctiva clear, sclera non-icteric, oral mucosa pink and moist Neck: supple, full ROM, no JVD, trachea is midline Resp: Lungs CTA, non-labored breathing CV: RRR, no murmur or rubs Abd: Obese, soft, non-tender, normoactive BTs Skin: no lesions or rashes, dry and intact Neuro: Alert and oriented X 4 w/no focal deficits. Speech clear and coherent. Extremities: moves all 4 extremities, is ambulatory, negative Leyda?s sign Psyche: normal mood and affect. Objective Labs Result Diagrams: 12/31/21 19:45 12/31/21 23:20 Labs: Laboratory Results - last 24 hr 12/31/21 12/31/21 12/31/21 19:45 19:45 19:45 WBC 6.1 RBC 4.63 Hgb 13.8 Hct 41.3 MCV 89.1 MCH 29.8 MCHC 33.4 RDW 14.7 Plt Count 98 L Neut % (Auto) 71.9 Lymph % (Auto) 15.2 L [place] % (Auto) 9.9 Eos % (Auto) 2.1 Baso % (Auto) 0.9 Neut # (Auto) 4400 Lymph # (Auto) 900 L [place] # (Auto) 600 Eos # (Auto) 100 Baso # (Auto) 100 Sodium 129 L Potassium 4.6 Chloride 97 L Carbon Dioxide 24 BUN 21 H Creatinine 1.32 H Estimated GFR > 60 BUN/Creatinine Ratio 15.9 Glucose 646 H* Hemoglobin A1c Lactate 1.8 Calcium 9.2 Total Bilirubin 1.1 AST 31 ALT 25 Alkaline Phosphatase 227 H Total Protein 8.6 H Albumin 3.6 Globulin 5.0 H Albumin/Globulin Ratio 0.7 L Procalcitonin 0.23 Ketones 0.37 H SARS-CoV-2 (PCR) 12/31/21 12/31/21 19:45 20:10 WBC RBC Hgb Hct MCV MCH MCHC RDW Plt Count Neut % (Auto) Lymph % (Auto) [place] % (Auto) Eos % (Auto) Baso % (Auto) Neut # (Auto) Lymph # (Auto) [place] # (Auto) Eos # (Auto) Baso # (Auto) Sodium Potassium Chloride Carbon Dioxide BUN Creatinine Estimated GFR BUN/Creatinine Ratio Glucose Hemoglobin A1c 12.4 H Lactate Calcium Total Bilirubin AST ALT Alkaline Phosphatase Total Protein Albumin Globulin Albumin/Globulin Ratio Procalcitonin Ketones SARS-CoV-2 (PCR) Negative Assessment & Plan Assessment & Plan narrative: Ashok Cardozo is admitted to the intensive care unit for non DKA hyperosmolar hyperglycemia. 1.Non DKA hyperosmolar hyperglycemia * He was initiated on a standard insulin drip of 6 units per hour which has been reduced to 5 units/hour. * [facility] interviewed the patient and recommended starting Lantus 10 units now * They also recommended once his blood sugars dropped to 300 to stop the insulin drip and we will go to [facility] glucose checks and correctional insulin * BMP q.3 hours * Patient will need diabetic education 2. Risk stratification * Lipid panel is pending for the morning 3. Continued workup of potential carcinoma of the lung, kidney or liver * Patient is undergoing full workup at [facility] for this. VTE Prophylaxis: Wells risk score 0 Enoxaparin 40 mg subQ once daily Bilateral SCDs Patient is admitted to the inpatient Intensive care service due to the severity of disease, risks of further disease progression and this stay is expected to exceed 2 midnights. FEN: IV fluids: saline lock, diet: carb controlled diet, labs: CBC, C/BMP, liver enzymes, Mag, PT/INR Consultants [facility], care and involvement in the patient?s care is appreciated. Dispo: Likely discharge to home with outpatient followup Code status: Full Code as discussed with the patient who identifies his Deysi Ramirez as his surrogate and POA. [X] I have utilized all available immediate resources to obtain, update, or review of the patient's current medications COVID-19 COVID-19 status: Negative Result date/Date tested (Pos, Neg/Pending): 01/01/22 Time Spent With Patient Critical Care time: I spent a total of [] minutes of critical care time on this patient's care today; this time is exclusive of procedural time. Scores Wells' Criteria for PE Clinical signs and symptoms of DVT: No PE is #1 Dx or equally likely: No Heart rate > 100: No Immobilization at least 3 days or surg in previous 4 weeks: No History of PE or DVT: No Hemoptysis: No Malignancy w/Treatment within 6 months or palliative: No Wells' PE Score total: 0 Quality VTE Deep Vein Thrombosis/Pulmonary Embolism Present on Admission: No MIPS - Admit I confirm the patient?s Advance Care Plan is present, Code status is documented, Surrogate decision maker is in patient?s record [If Yes, STOP here]: Yes MIPS - DC The patient has current or prior documentation of left ventricular ejection fraction (LVEF) less than 40%, or moderate or severely depressed left ventricular systolic function.: No
--- NOTE | 2021-12-31 23:05 | PC.NURSE ---
Pt to room at 2200. BG per fingerstick 478, Insulin gtt infusing at 6 units/hr. Alert and orient, RESIGHINI bilateral hearing aids at home. Oriented to room and routine. Call light in reach. TeleIntensivist notified of patient arrival.
[2021-12-31 23:44] LABS: Blood Urea Nitrogen 19 mg/dL (9-20); Calcium 8.7 mg/dL (8.4-10.2); Carbon Dioxide 24 mmol/L (22-32); Chloride 100 mmol/L (98-107); Estimated Glomerular Filt Rate > 60 mL/min (>60); Glucose 468 mg/dL (80-110); HEMOLYSIS < 15 (0-50); Potassium 3.9 mmol/L (3.4-5.1); Sodium 132 mmol/L (137-145)
[2022-01-01] VITALS (14 sets, daily range): BP systolic 96–146; BP diastolic 49–86; PULSE 68–87; RESP 16–17; TEMP 36.4–37.2; O2SAT 95–97
[2022-01-01 00:16] LABS: TSH w/ Reflex to FT4 1.86 uIU/mL (0.47-4.68)
[2022-01-01] MEDS: INSULIN GLARGINE 100 UNIT/ML 3ML PEN 10 UNIT SUBCUT ×3 (01:10→21:16)
[2022-01-01] MEDS: LACTATED RINGERS 1,000 ML 100 ML IV (01:11)
--- NOTE | 2022-01-01 02:59 | PC.NURSE ---
Addendum entered by Mary Avelar R.N. 01/01/22 06:59: Requested SS coverage for Pt. Awaiting orders. CBG 284 this am. Original Note: Assumed care of Pt, Insulin gtt infusing at 5 units per hour, added maint IVF LR @ 100 per emar. Lantus added as well. CBG coming down nicely. Pt resting quietly at present. Insulin off @ 0300. Up to BR with SBA. Denies pain.
[2022-01-01 05:30] LABS: Add Manual Diff / Slide Review NO; Basophils Absolute Auto 0 /uL (0-100); Basophils Percent Auto 0.5 % (0-2); Eosinophils Absolute Auto 100 /uL (0-450); Eosinophils Percent Auto 2.6 % (2-4); Hematocrit 37.5 % (41-53); Lymphocytes Absolute Auto 900 /uL (1100-4500); Lymphocytes Percent Auto 20.1 % (25-40); Mean Corpuscular HGB Conc 34.7 % (30-36); Mean Corpuscular Volume 86.5 fL (80-100); Monocytes Absolute Auto 500 /uL (0-900); Monocytes Percent Auto 10.8 % (3-14); Neutrophils Absolute Auto 2800 /uL (1500-7000); Platelet Count 80 X10^3/uL (150-400); Red Blood Cell Count 4.34 X10^6/uL (4.5-5.9); White Blood Cell Count 4.3 X10^3/uL (4.5-11.0)
[2022-01-01 05:35] LABS: BUN Creatinine Ratio 14.8 (6-22); Blood Urea Nitrogen 17 mg/dL (9-20); Calcium 8.6 mg/dL (8.4-10.2); Carbon Dioxide 25 mmol/L (22-32); Chloride 105 mmol/L (98-107); Cholesterol 100 mg/dL (140-199); Estimated Glomerular Filt Rate > 60 mL/min (>60); Glucose 306 mg/dL (80-110); HDL Cholesterol 25 mg/dL (40-60); HEMOLYSIS < 15 (0-50); LDL Cholesterol Calculated 52 mg/dL (<100); Potassium 3.7 mmol/L (3.4-5.1); Sodium 136 mmol/L (137-145); Triglycerides 117 mg/dL (35-150)
[2022-01-01 05:37] LABS: Ketones (Beta-Hydroxybutyrate) 0.33 mmol/L (<0.27)
[2022-01-01] MEDS: HEPARIN 5,000 UNIT/ML VIAL 5000 UNIT SUBCUT ×3 (06:34→21:16)
[2022-01-01] MEDS: PANTOPRAZOLE 40 MG VIAL IV (08:22)
[2022-01-01] MEDS: INSULIN LISPRO 100 UNIT/ML 3ML VIAL SUBCUT ×4 (08:23→21:15)
--- NOTE | 2022-01-01 10:04 | PM.PN.EICU ---
Subjective Subjective :: This patient was seen via real time interactive two-way audiovisual telecommunication. patient weaned off insulin gtt today, curently on insulin basal bolus Current Medications Current Medications Medications: Visit Medications (administered) Generic Name Dose Route Start Last Admin Trade Name Freq PRN Reason Stop Dose Admin Heparin Sodium (Porcine) 5,000 unit 01/01/22 06:00 01/01/22 06:34 Heparin 5,000 Unit/Ml Vial SUBCUT 5,000 unit Q8HR LUCRETIA Administration INSULIN DRIP PREMIX 100 unit in 100 mls @ 6 mls/hr 12/31/21 20:45 01/01/22 03:02 Myxredlin Drip Premix IV 0 mls/hr TITRATE LUCRETIA 0 mls/hr Titration Protocol Lactated Ringer's 1,000 mls @ 100 mls/hr 12/31/21 23:15 01/01/22 01:11 Lactated Ringers IV 100 mls/hr CONT LUCRETIA Administration Insulin Glargine 10 unit 12/31/21 23:00 01/01/22 01:10 Insulin Glargine 100 Unit/Ml 3ml Pen SUBCUT 10 unit BEDTIME LUCRETIA Administration Insulin Human Lispro 0 unit 01/01/22 07:45 01/01/22 08:23 Insulin Lispro 100 Unit/Ml 3ml Vial SUBCUT 8 unit ACHS LUCRETIA Administration Protocol Pantoprazole Sodium 40 mg 01/01/22 09:00 01/01/22 08:22 Pantoprazole 40 Mg Vial IV 40 mg DAILY LUCRETIA Administration Objective Labs Result Diagrams: 01/01/22 04:47 01/01/22 04:47 Labs: Laboratory Results - last 24 hr 12/31/21 12/31/21 12/31/21 19:45 19:45 19:45 WBC 6.1 RBC 4.63 Hgb 13.8 Hct 41.3 MCV 89.1 MCH 29.8 MCHC 33.4 RDW 14.7 Plt Count 98 L Neut % (Auto) 71.9 Lymph % (Auto) 15.2 L [place] % (Auto) 9.9 Eos % (Auto) 2.1 Baso % (Auto) 0.9 Neut # (Auto) 4400 Lymph # (Auto) 900 L [place] # (Auto) 600 Eos # (Auto) 100 Baso # (Auto) 100 Sodium 129 L Potassium 4.6 Chloride 97 L Carbon Dioxide 24 BUN 21 H Creatinine 1.32 H Estimated GFR > 60 BUN/Creatinine Ratio 15.9 Glucose 646 H* Hemoglobin A1c Lactate 1.8 Calcium 9.2 Total Bilirubin 1.1 AST 31 ALT 25 Alkaline Phosphatase 227 H Total Protein 8.6 H Albumin 3.6 Globulin 5.0 H Albumin/Globulin Ratio 0.7 L Triglycerides Cholesterol LDL Cholesterol, Calc HDL Cholesterol Procalcitonin 0.23 TSH Ketones 0.37 H SARS-CoV-2 (PCR) 12/31/21 12/31/21 12/31/21 19:45 20:10 23:20 WBC RBC Hgb Hct MCV MCH MCHC RDW Plt Count Neut % (Auto) Lymph % (Auto) [place] % (Auto) Eos % (Auto) Baso % (Auto) Neut # (Auto) Lymph # (Auto) [place] # (Auto) Eos # (Auto) Baso # (Auto) Sodium Potassium Chloride Carbon Dioxide BUN Creatinine Estimated GFR BUN/Creatinine Ratio Glucose Hemoglobin A1c 12.4 H Lactate Calcium Total Bilirubin AST ALT Alkaline Phosphatase Total Protein Albumin Globulin Albumin/Globulin Ratio Triglycerides Cholesterol LDL Cholesterol, Calc HDL Cholesterol Procalcitonin TSH 1.86 Ketones SARS-CoV-2 (PCR) Negative 12/31/21 01/01/22 01/01/22 23:20 04:47 04:47 WBC 4.3 L RBC 4.34 L Hgb 13.0 L Hct 37.5 L MCV 86.5 MCH 30.0 MCHC 34.7 RDW 15.0 H Plt Count 80 L Neut % (Auto) 66.0 Lymph % (Auto) 20.1 L [place] % (Auto) 10.8 Eos % (Auto) 2.6 Baso % (Auto) 0.5 Neut # (Auto) 2800 Lymph # (Auto) 900 L [place] # (Auto) 500 Eos # (Auto) 100 Baso # (Auto) 0 Sodium 132 L Potassium 3.9 Chloride 100 Carbon Dioxide 24 BUN 19 Creatinine 1.19 Estimated GFR > 60 BUN/Creatinine Ratio 16.0 Glucose 468 H D Hemoglobin A1c Lactate Calcium 8.7 Total Bilirubin AST ALT Alkaline Phosphatase Total Protein Albumin Globulin Albumin/Globulin Ratio Triglycerides Cholesterol LDL Cholesterol, Calc HDL Cholesterol Procalcitonin TSH Ketones 0.33 H SARS-CoV-2 (PCR) 01/01/22 01/01/22 04:47 04:47 WBC RBC Hgb Hct MCV MCH MCHC RDW Plt Count Neut % (Auto) Lymph % (Auto) [place] % (Auto) Eos % (Auto) Baso % (Auto) Neut # (Auto) Lymph # (Auto) [place] # (Auto) Eos # (Auto) Baso # (Auto) Sodium 136 L Potassium 3.7 Chloride 105 Carbon Dioxide 25 BUN 17 Creatinine 1.15 Estimated GFR > 60 BUN/Creatinine Ratio 14.8 Glucose 306 H D Hemoglobin A1c Lactate Calcium 8.6 Total Bilirubin AST ALT Alkaline Phosphatase Total Protein Albumin Globulin Albumin/Globulin Ratio Triglycerides 117 Cholesterol 100 L LDL Cholesterol, Calc 52 HDL Cholesterol 25 L Procalcitonin TSH Ketones SARS-CoV-2 (PCR) Exam Vital Signs (past 8 hours): - 01/01/22 03:00 01/01/22 07:00 01/01/22 08:00 Temperature 97.7 F 97.9 F Pulse Rate 82 74 68 Respiratory Rate 16 Blood Pressure 99/54 L 96/49 L 116/75 Pulse Oximetry 97 96 95 Oxygen Delivery Method Room Air Oxygen Flow Rate 0 Narrative Exam Narrative: surrogat for exam is primary team Quality TeleICU VTE Deep Vein Thrombosis/Pulmonary Embolism Present on Admission: No Assessment & Plan Assessment and plan (1) Acute hyperglycemia: Problem details: No evidence for DKA/HHS Status: Acute Plan: continue FS achs and basal bolus reigmen (2) Acute kidney injury: Status: Acute Plan: can conitnue IVF for one more day, monitro UO and trend bmp (3) Lung nodule: Status: Acute Plan: reusme outclarisaetlenny hsieh, would touch abse with kulwinder zunigaan as a repeat CT may be needed. (4) Alcoholism: Status: Acute Plan: ciwa protocol Assessment & Plan narrative: patient stable for transfer to medical floor Time Spent With Patient Critical Care time: I spent a total of [] minutes of critical care time on this patient's care today; this time is exclusive of procedural time.
--- NOTE | 2022-01-01 10:51 | PM.PN.1 ---
Subjective Subjective Date Patient Seen: 01/01/22 Time Patient Seen: 10:30 Interval history: Today he feels dizzy. Insulin gtt was stopped last night. His blood sugars have been in upper 200s to 300s. He feels dehydrated. Exam Vital Signs (past 8 hours): - 01/01/22 03:00 01/01/22 07:00 01/01/22 08:00 Temperature 97.7 F 97.9 F Pulse Rate 82 74 68 Respiratory Rate 16 Blood Pressure 99/54 L 96/49 L 116/75 Pulse Oximetry 97 96 95 01/01/22 09:00 01/01/22 10:00 Temperature Pulse Rate 71 70 Respiratory Rate Blood Pressure 144/85 H 146/67 H Pulse Oximetry 95 95 Oxygen Delivery Method Room Air Oxygen Flow Rate 0 Narrative Exam Narrative: GEN: no acute distress HEENT: dry mucous membranes CV: regular rate and rhythm PULM: clear bilaterally ABD: soft, nontender, nondistended, no organomegaly EXT: warm and well perfused with no edema Objective Labs Result Diagrams: 01/01/22 04:47 01/01/22 04:47 Labs: Laboratory Results - last 24 hr 12/31/21 12/31/21 12/31/21 19:45 19:45 19:45 WBC 6.1 RBC 4.63 Hgb 13.8 Hct 41.3 MCV 89.1 MCH 29.8 MCHC 33.4 RDW 14.7 Plt Count 98 L Neut % (Auto) 71.9 Lymph % (Auto) 15.2 L [place] % (Auto) 9.9 Eos % (Auto) 2.1 Baso % (Auto) 0.9 Neut # (Auto) 4400 Lymph # (Auto) 900 L [place] # (Auto) 600 Eos # (Auto) 100 Baso # (Auto) 100 Sodium 129 L Potassium 4.6 Chloride 97 L Carbon Dioxide 24 BUN 21 H Creatinine 1.32 H Estimated GFR > 60 BUN/Creatinine Ratio 15.9 Glucose 646 H* Hemoglobin A1c Lactate 1.8 Calcium 9.2 Total Bilirubin 1.1 AST 31 ALT 25 Alkaline Phosphatase 227 H Total Protein 8.6 H Albumin 3.6 Globulin 5.0 H Albumin/Globulin Ratio 0.7 L Triglycerides Cholesterol LDL Cholesterol, Calc HDL Cholesterol Procalcitonin 0.23 TSH Ketones 0.37 H SARS-CoV-2 (PCR) 0412/31/21 12/31/21 19:45 20:10 23:20 WBC RBC Hgb Hct MCV MCH MCHC RDW Plt Count Neut % (Auto) Lymph % (Auto) [place] % (Auto) Eos % (Auto) Baso % (Auto) Neut # (Auto) Lymph # (Auto) [place] # (Auto) Eos # (Auto) Baso # (Auto) Sodium Potassium Chloride Carbon Dioxide BUN Creatinine Estimated GFR BUN/Creatinine Ratio Glucose Hemoglobin A1c 12.4 H Lactate Calcium Total Bilirubin AST ALT Alkaline Phosphatase Total Protein Albumin Globulin Albumin/Globulin Ratio Triglycerides Cholesterol LDL Cholesterol, Calc HDL Cholesterol Procalcitonin TSH 1.86 Ketones SARS-CoV-2 (PCR) Negative 12/31/21 01/01/22 01/01/22 23:20 04:47 04:47 WBC 4.3 L RBC 4.34 L Hgb 13.0 L Hct 37.5 L MCV 86.5 MCH 30.0 MCHC 34.7 RDW 15.0 H Plt Count 80 L Neut % (Auto) 66.0 Lymph % (Auto) 20.1 L [place] % (Auto) 10.8 Eos % (Auto) 2.6 Baso % (Auto) 0.5 Neut # (Auto) 2800 Lymph # (Auto) 900 L [place] # (Auto) 500 Eos # (Auto) 100 Baso # (Auto) 0 Sodium 132 L Potassium 3.9 Chloride 100 Carbon Dioxide 24 BUN 19 Creatinine 1.19 Estimated GFR > 60 BUN/Creatinine Ratio 16.0 Glucose 468 H D Hemoglobin A1c Lactate Calcium 8.7 Total Bilirubin AST ALT Alkaline Phosphatase Total Protein Albumin Globulin Albumin/Globulin Ratio Triglycerides Cholesterol LDL Cholesterol, Calc HDL Cholesterol Procalcitonin TSH Ketones 0.33 H SARS-CoV-2 (PCR) 01/01/22 01/01/22 04:47 04:47 WBC RBC Hgb Hct MCV MCH MCHC RDW Plt Count Neut % (Auto) Lymph % (Auto) [place] % (Auto) Eos % (Auto) Baso % (Auto) Neut # (Auto) Lymph # (Auto) [place] # (Auto) Eos # (Auto) Baso # (Auto) Sodium 136 L Potassium 3.7 Chloride 105 Carbon Dioxide 25 BUN 17 Creatinine 1.15 Estimated GFR > 60 BUN/Creatinine Ratio 14.8 Glucose 306 H D Hemoglobin A1c Lactate Calcium 8.6 Total Bilirubin AST ALT Alkaline Phosphatase Total Protein Albumin Globulin Albumin/Globulin Ratio Triglycerides 117 Cholesterol 100 L LDL Cholesterol, Calc 52 HDL Cholesterol 25 L Procalcitonin TSH Ketones SARS-CoV-2 (PCR) PFSH Medical History (Updated 01/01/22 @ 00:50 by RUDY Nina) Anticoagulated Hepatic failure Left ureteral calculus Lesion of right [place] kidney Renal failure Right renal stone Sepsis Urinary tract infection Surgical History (Updated 01/01/22 @ 00:50 by RUDY Nina) Retained ureteral stent Family History Father Cancer Grandfather Cancer Grandmother Diabetes mellitus Heart disease Mother Age: 81 Alzheimer disease Sister Age: 66 Hypertension Social History household members: spouse Smoking Status: Current every day smoker alcohol intake: current Assessment & Plan Assessment & Plan narrative: 1. New diagnosis of Type 2 DM with hyperglycemia -VBG results no in chart, but per report did not have acidosis -a1c >12, blood sugar on admission >600 -improved to the 300s now -off insulin gtt late PM on 12/31 -started lantus at 10U, still hyperglycemic, increase to 10U BID -increase sliding scale from medium to high dose -dietary consult ordered -will need insulin use teaching prior to dc 2. Dizziness -presume secondary to hypovolemia -slightly improved, but not completely resolved -suspect hypovolemia secondary to hyperglycemia -check orthostatics -bolus IVF as needed 3. HEIDE, improving -secondary to hypovolemia from hyperglycemia -creatinine on admission 1.3, baseline 0.8, now improved to 1.1 4. Lung nodule -follow up as outpatient 5. History of alcohol abuse -patient reports no EtOH in last 30 days -no need for CIWA protocol Time Spent With Patient Critical Care time: I spent a total of [] minutes of critical care time on this patient's care today; this time is exclusive of procedural time. Quality VTE Deep Vein Thrombosis/Pulmonary Embolism Present on Admission: No
[2022-01-01 13:07] LABS: Acinetobacter baumannii Not Detected (Not Detect); Candida albicans Not Detected (Not Detect); Candida glabrata Not Detected (Not Detect); Candida krusei Not Detected (Not Detect); Candida parapsilosis Not Detected (Not Detect); Candida tropicalis Not Detected (Not Detect); E. coli Not Detected (Not Detect); Enterobacter cloacae complex Not Detected (Not Detect); Enterobacteriaceae species Not Detected (Not Detect); Enterococcus species Not Detected (Not Detect); Haemophilus influenzae Not Detected (Not Detect); Listeria monocytogenes Not Detected (Not Detect); Neisseria meningitidis Not Detected (Not Detect); Proteus species Not Detected (Not Detect); Pseudomonas aeruginosa Not Detected (Not Detect); Serratia marcescens Not Detected (Not Detect); Staphylococcus species Not Detected (Not Detect); Streptococcus agalactiae (Gr B Not Detected (Not Detect); Streptococcus pneumonia Not Detected (Not Detect); Streptococcus pyogenes (Gr A) Not Detected (Not Detect); Streptococcus species Not Detected (Not Detect)
--- NOTE | 2022-01-01 13:48 | CM.IDA ---
DCP Assessment Patient is 66 y/o male who presents to due to concern for high blood sugar. Patient has new dx of Type 2 Diabetes with Hypergylcemia. Per RN, patient is poor historian and unable to provide detailed medical hx. 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 Upon entering patient's room, patient is asleep. Per RN, patient lives with and has a daughter who is a support to patient. Due to patient's new Diabetes dx patient is awaiting a consultation with a gluing crew leader. Plan: No known needs for patient at this time, possible d/c by tomorrow. DCP to f/u with POC for d/c needs. ROSEANNA Meier Discharge Planning/Care Management CM Discharge Assessment Start: 01/01/22 13:46 Freq: Status: Active Protocol: Document 01/01/22 13:47 LN (Rec: 01/01/22 13:48 LN [id number]) Discharge Planning Assessment Assigned Superintendent Maintenance ROSEANNA Caldwell Advance Directives? No History Provided By Medical Record Has Patient been admitted in last 30 No days? Prior Living Arrangements House Household Members spouse Type of transporation used prior to Drives own vehicle admit Independent with ADL's Yes Is patient alert and oriented? Yes Discharge Plan Home Please Provide Date Initial DC 01/01/22 Assessment Was Performed
--- NOTE | 2022-01-01 15:51 | DIET.CONS ---
Dietary Consultation Note Admission Date: 12/31/2021 21:06 Assessment: 66y M admitted c new dx DM2 (admit BG 634, A1c 12.4) referred to nutrition for DM education and reported 40# wt loss over 2mo. Pt reports profound taste changes over past 2mo, pt has no appetite and when eating everything tastes acidic and gives him heartburn. Pt eating small serving food once daily, otherwise drinks nearly a gallon of milk and nearly a gallon of juice daily (apple, orange, white grape) as this is all he feels he can tolerate. Pt endorses polydypsia, polyuria, and dry mouth despite drinking excessive water and liquids. Pt being worked up as outpatient with oncologist but does not yet know or understand if and what type of malignancy he may have. Pt very interested in outpatient DM education. This RD called his PCP office, Ron [facility] and requested referral. Ht: 177.8 cm Wt: 119.748 kg (-12.5% unintentional in 2mo) BMI: 37.8 UBW: 136kg Last BM: 12/31/21 (12/31/21 22:08) MNA: 10 Dariel Score: 19 Diet: 01/01/22 Breakfast Carbohydrate Consistent Diet Diet Modifications: Carbohydrate level: Medium (3 CHO) Bedtime snack: No Labs: RBC 4.34 X10^6/uL (4.5-5.9) L 01/01/22 04:47 Hgb 13.0 g/dL (13.5-17.5) L 01/01/22 04:47 Hct 37.5 % (41-53) L 01/01/22 04:47 Creatinine 1.15 mg/dL (0.66-1.25) 01/01/22 04:47 Hemoglobin A1c 12.4 % (4.0-6.0) H 12/31/21 19:45 Lactate 1.8 mmol/L (0.7-2.1) 12/31/21 19:45 Nutrition Diagnosis: 1. Severe Acute Protein Calorie Malnutrition r/t hyperglycemia and possible hypermetabolism of malignancy aeb 12.5% unintentional weight loss in 2 mo (severe), pt admitted c new dx DM2 (A1c 12.4, BG 634), pt endorses polydypsea, polyurea, pt being worked up by oncologist. 2. altered nutrition related laboratory values (A1c, BG) r/t undesirable food choices aeb admit BG 634, A1c 12.4, new dx DM2, pt reports drinking excessive amounts of fruit juice and milk. Interventions: 1. Educated pt on new dx diabetes based on pts current intake. Because pts not consuming much PO beside fluids, focused education on fluids to consume and fluids to avoid until pt starts outpatient education. Pt to avoid juices and sweetened beverages with preference for water, plain milk, and sugar free drinks. Provided carb counting handout for review. Called pts PCP for outpatient DMSE referral which was submitted. 2. To support PCM, sending pt ONS Glucerna and Ensure Max chocolate with watermelon water this evening for pt to consume over night in addition to meal tray. Will continue sending ONS through hospital stay. EER: 2300kcals (20kcal/kg per BMI), 125-150g PRO (1.2-1.4g/kg per PCM), 45-60g CHO Monitoring/Evaluations: f/u as outpatient Electronically Signed by: Fide Valenzuela 01/01/22 15:51 Clinical Dietitian [address] [address]
[2022-01-01] MEDS: SODIUM CHLORIDE 0.9% FLUSH 10 ML IV (21:16)
[2022-01-01 21:19] LABS: Blood Urea Nitrogen 19 mg/dL (9-20); Calcium 8.5 mg/dL (8.4-10.2); Carbon Dioxide 22 mmol/L (22-32); Chloride 102 mmol/L (98-107); Estimated Glomerular Filt Rate > 60 mL/min (>60); HEMOLYSIS < 15 (0-50); Potassium 4.7 mmol/L (3.4-5.1); Sodium 132 mmol/L (137-145)
[2022-01-01 21:29] LABS: Glucose 490 mg/dL (80-110)
--- NOTE | 2022-01-01 23:15 | PC.NURSE ---
Addendum entered by Mely Magallanes R.N. 01/02/22 00:33: CBG rechecked at midnight, 357, 10 units insulin given per sliding scale, SUPERIOR COURT JUSTICE aware, no other orders received at this time. Original Note: Shift Notes-HS CBG >500 on glucometer, verified to 490 with lab, reported to Keyonna GRANT, ordered to give scheduled 10 units Lantus, cover with high algorithm sliding scale, and recheck in two hours. Patient states he feels fine, ambulated into BR steadily.
[2022-01-02] MEDS: INSULIN LISPRO 100 UNIT/ML 3ML VIAL SUBCUT ×2 (00:03→11:39)
[2022-01-02 05:57] LABS: BUN Creatinine Ratio 16.5 (6-22); Blood Urea Nitrogen 18 mg/dL (9-20); Calcium 8.6 mg/dL (8.4-10.2); Carbon Dioxide 26 mmol/L (22-32); Chloride 105 mmol/L (98-107); Estimated Glomerular Filt Rate > 60 mL/min (>60); Glucose 289 mg/dL (80-110); HEMOLYSIS < 15 (0-50); Sodium 135 mmol/L (137-145)
[2022-01-02] MEDS: HEPARIN 5,000 UNIT/ML VIAL 5000 UNIT SUBCUT (06:17)
[2022-01-02 07:00] VITALS: BP 114/78; PULSE 75; RESP 14; TEMP 36.2; O2SAT 96
[2022-01-02] MEDS: PANTOPRAZOLE 40 MG VIAL IV (09:10)
[2022-01-02] MEDS: SODIUM CHLORIDE 0.9% FLUSH 10 ML IV (09:10)
[2022-01-02] MEDS: INSULIN GLARGINE 100 UNIT/ML 3ML PEN 10 UNIT SUBCUT (09:12)
[2022-01-02 09:25] VITALS: PULSE 74; RESP 18; O2SAT 95
--- NOTE | 2022-01-02 10:59 | PM.DS.1 ---
History of Present Illness History of Present Illness Date Patient Seen: 01/02/22 Chief complaint: New diagnosis of Diabetes type 2 Narrative: Ashok Cardozo is a 66-year-old male with no or limited medical history who states that he is being worked up for number of cancers and has had kidney stones in the past was seen by his PCP in the [facility] who requested that he present himself to the emergency room due to very high blood sugar.? Patient is somewhat of a difficult historian due to likely lack of knowledge about the specialists.? He states that his ?oncologist?, Dr. Lainez has been working up his kidney issues, and abnormal findings on of his liver, lung and pituitary gland.? He states that he had a lung biopsy and that they have not been able to figure out if and where he has cancer?.? He sees Dr. Diaz at [place] who he refers to as his ?cancer doctor.? Apparently he stated to the nurses and in not until I overheard that he had had an unintentional weight loss of 45 lb over the past couple months.? Patient was hospitalized at [facility] in August of 2021 with urosepsis and encephalopathy.? He was followed up by Oncology due to abnormal liver function tests, hyperbilirubinemia, a 4 cm right middle lobe lung mass, multiple hepatic cysts and cirrhotic lesions in his liver, and a 2.4 cm lesion in the right kidney concerning for potential kidney cancer.? Per the patient it sounds like they are still trying to fully workup potential malignancy which could also include hepatocellular carcinoma versus cholangiocarcinoma versus lung malignancy with metastases to the liver. Chest x-ray done in the emergency department indicated a ?hazy opacity in the right lung? and a nodular opacity in the right middle lobe present in prior exams.? Patient is afebrile, blood pressure 111/64, heart rate 77, respiratory rate 17, oxygen saturation of 95% on room air, he weighs 119.7 kg with a BMI of 37.8.? CBC is unremarkable except for a low platelet count of 98, sodium 132, glucose initially 645 and now 468, A1c is 12.4, alk-phos 227, procalcitonin is normal, TSH is 1.86, he has ketones in his urine, and COVID-19 PCR is negative. Discharge Providers Provider Date of admission: 12/31/21 21:06 Discharge Date: 01/02/22 Primary care physician: Mariluz Velasquez PA-C Consults: 12/31/21 21:51 Consult to Tele-controller operations and hr manager Routine Comment: Consulting Provider: Anastasiya Tele[employer]intensivists Reason for consultation: Bacteriology Research Assistant services Has provider been notified: Yes 12/31/21 22:19 Consult to Dietitian, Adult Routine Comment: Reason For Exam: unintentional weight loss 45lbs Discharge provider: Sunita Godwin MD Summary Hospital Course Discharge Diagnosis: 1. New onset diabetes 2. Hyperglycemia no evidence of DKA 3. Left ureteral calculi 4. Current workup for malignancy Hospital Course: Patient was admitted to the hospital for hyperglycemia. He was placed on an insulin drip with improvement of his blood sugars. His hemoglobin A1c was elevated at over 12%. Patient was transitioned from IV insulin to subcutaneous insulin. Blood sugars remain elevated and he will need to continue titration. He has had no further complaints. Patient has been seen by our dietitian and arrangements will be made for outpatient diabetic Education. Nursing has instructed him on proper insulin use and how to use a glucometer. The patient did have dizziness during the hospital but that resolved. With IV hydration he was significantly improved and deemed appropriate for discharge home. Status at Discharge Cognitive/behavioral status at discharge: oriented Functional status at discharge: independent ambulation Overall status at discharge: patient is progressing back to baseline Exam Vital Signs (past 8 hours): - 01/02/22 07:00 01/02/22 09:25 Temperature 97.2 F L Pulse Rate 75 74 Respiratory Rate 14 18 Blood Pressure 114/78 Pulse Oximetry 96 95 Oxygen Delivery Method Room Air Oxygen Flow Rate 0 Narrative Exam Narrative: Pleasant male resting comfortably in no distress Resp Other: Lungs: Clear to auscultation Cardio Other: Cardiac exam: Regular rate and rhythm normal S1-S2 GI Other: Abdomen: Soft nontender nondistended Extrem Other: Extremities: No edema Objective Labs Result Diagrams: 01/01/22 04:47 01/02/22 05:24 Labs: Laboratory Results - last 24 hr 12/31/21 01/01/22 01/01/22 19:45 20:39 21:02 VBG pH 7.37 VBG pCO2 47.9 VBG pO2 56 H VBG HCO3 28 VBG Total CO2 29 VBG O2 Saturation 88 H VBG Base Excess 3.0 Sodium 132 L Potassium 4.7 Chloride 102 Carbon Dioxide 22 BUN 19 Creatinine 1.19 Estimated GFR > 60 BUN/Creatinine Ratio 16.0 Glucose 490 H* D Calcium 8.5 A. baumannii (PCR) Not detected Michelle albicans (PCR) Not detected C. glabrata (PCR) Not detected C. krusei (PCR) Not detected C. parapsilosis (PCR) Not detected C. tropicalis (PCR) Not detected Enterobacteriac sp PCR Not detected E. cloacae complex PCR Not detected Enterococcus sp PCR Not detected E. coli (PCR) Not detected H. influenzae (PCR) Not detected Klebsiella oxytoca PCR Not detected Klebsiella pneumoniae Not detected List. monocytogenes PCR Not detected N. meningitidis (PCR) Not detected Proteus species (PCR) Not detected Serratia marcescens PCR Not detected Staphylococcus sp PCR Not detected Staph aureus (PCR) Not detected mecA-Methicil Res Gene Not Reportable Streptococcus sp PCR Not detected Group A Strep (PCR) Not detected Strep agalactiae (PCR) Not detected Strep pneumoniae (PCR) Not detected P. aeruginosa (PCR) Not detected Farhana/B-Vanco Res Genes Not Reportable KPC-Carbap Res Gene PCR Not Reportable 01/02/22 05:24 VBG pH VBG pCO2 VBG pO2 VBG HCO3 VBG Total CO2 VBG O2 Saturation VBG Base Excess Sodium 135 L Potassium 4.0 Chloride 105 Carbon Dioxide 26 BUN 18 Creatinine 1.09 Estimated GFR > 60 BUN/Creatinine Ratio 16.5 Glucose 289 H D Calcium 8.6 A. baumannii (PCR) Michelle albicans (PCR) C. glabrata (PCR) C. krusei (PCR) C. parapsilosis (PCR) C. tropicalis (PCR) Enterobacteriac sp PCR E. cloacae complex PCR Enterococcus sp PCR E. coli (PCR) H. influenzae (PCR) Klebsiella oxytoca PCR Klebsiella pneumoniae List. monocytogenes PCR N. meningitidis (PCR) Proteus species (PCR) Serratia marcescens PCR Staphylococcus sp PCR Staph aureus (PCR) mecA-Methicil Res Gene Streptococcus sp PCR Group A Strep (PCR) Strep agalactiae (PCR) Strep pneumoniae (PCR) P. aeruginosa (PCR) Farhana/B-Vanco Res Genes KPC-Carbap Res Gene PCR [facility] Medical History (Updated 01/01/22 @ 00:50 by Cecy Baires, PERSONNEL ASSOCIATE) Anticoagulated Hepatic failure Left ureteral calculus Lesion of right [place] kidney Renal failure Right renal stone Sepsis Urinary tract infection Surgical History (Updated 01/01/22 @ 00:50 by RUDY Nina) Retained ureteral stent Family History Father Cancer Grandfather Cancer Grandmother Diabetes mellitus Heart disease Mother Age: 81 Alzheimer disease Sister Age: 66 Hypertension Social History household members: spouse Smoking Status: Current every day smoker alcohol intake: current Discharge Plan Discharge Plan Patient Disposition: Home Discharge orders & Medications Prescriptions: New insulin glargine 100 unit/mL solution 20 unit SUBCUT BID Qty: 10 0RF (DME) miscellaneous medical supply Package See Rx Instructions .Route Qty: 48 0RF Rx Instructions: As directed Follow up/Referrals: Mariluz Velasquez PA-C [Primary Care Provider] - Discharge Health Status Multidrug resistant organism: No MDRO Diet/Activity/Treatments Diet: Carb-consistent/Diabetic Discharge Data Primary Care Provider: Mariluz Velasquez Quality VTE Deep Vein Thrombosis/Pulmonary Embolism Present on Admission: No
[2022-01-02 12:21] LABS: PCO2 VBG 47.9 mmHg (45-50); PO2 VBG 56 mmHg (35-45); pH VBG 7.37 (7.33-7.43)
[2022-01-02 12:22] LABS: HCO3 VBG 28 mmol/L (23-28); Total CO2 VBG 29 mmol/L (24-29)
[2022-01-02 12:23] LABS: Oxygen Saturation VBG 88 % (70-75)
== END 2022-01-02 13:24 | disposition home or self-care (01) | DRG 638 ==
LOC: ED 19:01 → AC 21:07 → ICU 22:11
PROVIDERS: Internal Medicine; Admitting Provider Nurse Practitioner Family; Emergency Provider Emergency Medicine; PCP Physician Assistant; Referring Provider Emergency Medicine; Visit Provider Nurse Practitioner Family
DX: E11.65 Type 2 diabetes mellitus with hyperglycemia (principal); N17.9 Acute kidney failure, unspecified; N20.1 Calculus of ureter; E86.1 Hypovolemia; F17.210 Nicotine dependence, cigarettes, uncomplicated; Z20.822 Contact with and (suspected) exposure to COVID-19
CPT/HCPCS: 36415; 71045; 80048; 80053; 80061; 82009; 82805; 82962; 83036; 83605; 84145; 84443; 85025; 87040; 87150; 87205; 87635; 93005; 94760; 99284; C9803; C9113; J1644; J1815

== ENCOUNTER → 2022-01-07 11:17 | Outpatient (CLI) | payer OTHER, SELFPAY ==
[2021-12-31 22:08] VITALS: BMI 37.8
--- NOTE | 2022-01-07 11:18 | DI.RAD.S_ITS ---
PROCEDURE: XR KUB INDICATIONS: Kidney stone TECHNIQUE: One view of the abdomen acquired. COMPARISON: [facility], CR, XR KUB, 12/11/2021, 13:17. FINDINGS: Surgical changes and devices: Left-sided ureteral stent is again seen and unchanged. Bowel: Bowel gas pattern is normal. Soft tissues: Again noted is a oval calcification projecting in right renal fossa measures 2.3 cm in length. 1 cm calcification is noted projecting in left renal fossa adjacent to proximal tip of the ureteral stent. Visualized solid organ contours appear normal in size. Bones: No suspicious bony lesions. IMPRESSION: Stable appearing bilateral renal calcifications and left-sided ureteral stent. Dictated by: Cabrera Rivera M.D. on 01/07/2022 at 16:14 Approved by: Cabrera Rivera M.D. on 01/07/2022 at 16:14
== END ==
PROVIDERS: PCP Physician Assistant; Referring Provider Urology; Visit Provider Urology
DX: N20.2 Calculus of kidney with calculus of ureter (principal); Z96.0 Presence of urogenital implants
CPT/HCPCS: 74018

== ENCOUNTER → 2022-03-07 08:49 | Outpatient (CLI) | payer OTHER, SELFPAY ==
[2022-03-07 10:18] LABS: Appearance Urine UA SL CLOUDY; Bilirubin Urine UA NEGATIVE (NEGATIVE); Color Urine UA YELLOW; Glucose Urine UA NEGATIVE (Negative); Ketones Urine UA NEGATIVE (NEGATIVE); Leukocyte Esterase Urine UA 3+ (NEGATIVE); Nitrite Urine UA POSITIVE (Negative); Occult Blood Urine UA 3+ (Negative); Protein Urine UA 1+ (Negative)
[2022-03-07 10:56] LABS: Bacteria Urine Many (>30); Culture Indicated Urine Specimen Cultured; RBC Urine 30-100/HPF (0-5/HPF); Squamous Epithelial Cell Urine 1-5 /HPF (0-5/HPF); WBC Urine >100/HPF (0-5/HPF)
== END ==
PROVIDERS: PCP Physician Assistant; Referring Provider Urology; Visit Provider Urology
DX: N20.0 Calculus of kidney (principal); R30.0 Dysuria
CPT/HCPCS: 81001; 87077; 87086; 87186

== ENCOUNTER 2022-08-13 15:47 | Emergency (ER) | payer OTHER, SELFPAY ==
[2022-08-13 16:04] VITALS: BP 138/80; PULSE 106; RESP 24; TEMP 36.8; O2SAT 97; BMI 43.9
[2022-08-13 16:32] VITALS: BP 121/76; PULSE 100; O2SAT 97
--- NOTE | 2022-08-13 16:38 | ED_ITS ---
HPI - General Adult General Chief complaint: Abdominal Pain Stated complaint: here for a stat paracentesis Time Seen by Provider: 08/13/22 16:33 Source: patient Mode of arrival: Ambulatory Limitations: no limitations History of Present Illness HPI narrative: 66-year-old male. Is an insulin-dependent diabetic. Four days ago had his 1st paracentesis. He states they took off 5 L. He tolerated it well. He is here because of return of the ascites. He contacted his primary doctor who could not get an outpatient paracentesis performed on him for the next several days he was instructed to come to the emergency department for evaluation. Related Data Previous Rx's Medication Instructions Recorded diabetic supplies, miscellan. #25 ea 01/02/22 ([facility] [facility] Log Book) insulin glargine 100 unit/mL 20 unit (0.2 mL) SUBCUT BID #10 mL 01/02/22 subcutaneous solution miscellaneous medical supply #48 ea 01/02/22 Allergies Allergy/AdvReac Type Severity Reaction Status Date / Time No Known Drug Allergies Allergy Verified 12/31/21 18:59 Review of Systems Cardiovascular Cardiovascular: Reports system reviewed and no additional complaints, except as documented Respiratory Respiratory: Reports system reviewed and no additional complaints, except as documented Gastrointestinal Gastrointestinal: Reports system reviewed and no additional complaints, except as documented Genitourinary Genitourinary: Reports system reviewed and no additional complaints, except as documented Integumentary/Breasts Skin/Breast: Reports system reviewed and no additional complaints, except as documented Neurologic Neurologic: Reports system reviewed and no additional complaints, except as documented Hematologic/Lymphatic On Anticoagulants: No Patient History Medical History Anticoagulated Hepatic failure Left ureteral calculus Lesion of right [place] kidney Renal failure Right renal stone Sepsis Urinary tract infection Surgical History (Updated 01/01/22 @ 00:50 by RUDY Nina) Retained ureteral stent Family History Father Cancer Grandfather Cancer Grandmother Diabetes mellitus Heart disease Mother Age: 81 Alzheimer disease Sister Age: 66 Hypertension Social History household members: spouse Smoking Status: Current every day smoker alcohol intake: current Smoking Status: Current every day smoker tobacco type: cigarettes alcohol intake frequency: other Substance Use Type: does not use Exam Initial Vital Signs Initial Vital Signs: Vital Signs Temperature 98.3 F 08/13/22 16:04 Pulse Rate 106 H 08/13/22 16:04 Respiratory Rate 24 08/13/22 16:04 Blood Pressure 138/80 08/13/22 16:04 Pulse Oximetry 97 08/13/22 16:04 Oxygen Delivery Method 08/13/22 16:04 HENMT Head: normal to inspection and normocephalic Resp Effort & Inspection: normal respiratory effort Cardio Rate: regular rate GI Inspection: distended Palpation: No soft, firm and tender Skin General: no rashes or lesions noted Neuro General: patient alert, patient awake, patient oriented x3 and moves all extremities Extrem General: normal to inspection and capillary refill normal Procedures Paracentesis Indication: Ascites Procedure: therapeutic paracentesis Location: RLQ Local Anesthetic: lidocaine 2% Amount of anesthesia used (mL): 5 Bedside Ultrasound Used: yes, Ascites confirmed and location marked Amount of fluid obtained (mL): 5,000 Fluid: clear Post Procedure Exam: awake, alert and normal BP Patient Tolerated Procedure: Well Course Orders Ordered: ED Orders 08/13/22 16:00 Ictotest Urine Stat Urinalysis and Microscopic Stat Urine Culture Stat Discontinued Medications Lidocaine HCl (Lidocaine 2% Inj Mdv 20ml) 20 ml INJ INTRA-OP ONE Stop: 08/13/22 16:38 Last Admin: 08/13/22 16:51 Dose: Not Given Documented By: PRISCILA Lidocaine HCl (Lidocaine 2% Inj Mdv 10ml) 200 mg INJ INTRA-OP ONE Stop: 08/13/22 16:46 Last Admin: 08/13/22 16:48 Dose: 200 mg Documented By: PRISCILA Vital Signs Vital signs: Vital Signs - 8 hr 08/13/22 16:04 08/13/22 16:32 08/13/22 16:32 Temperature 98.3 F Pulse Rate 106 H 100 H Respiratory Rate 24 Blood Pressure 138/80 121/76 Pulse Oximetry 97 97 Oxygen Delivery Method Room Air 08/13/22 17:00 08/13/22 17:00 08/13/22 17:23 Temperature Pulse Rate 92 H Respiratory Rate Blood Pressure 128/73 124/75 Pulse Oximetry 97 Oxygen Delivery Method 08/13/22 17:23 08/13/22 17:30 08/13/22 17:30 Temperature Pulse Rate 91 H 93 H Respiratory Rate Blood Pressure 126/78 Pulse Oximetry 98 98 Oxygen Delivery Method Medical Decision Making Lab Data Labs: Lab Results 08/13/22 Range/Units 16:00 Urine Color [place] Urine Appearance Cloudy Urine pH 6.5 (4.5-8.0) Ur Specific [place] 1.015 (1.000-1.035) Urine Protein 1+ H (Negative) Urine Glucose (UA) Trace H (Negative) g/dL Urine Ketones Trace H (NEGATIVE) Urine Occult Blood 1+ H (Negative) Urine Nitrate Positive H (Negative) Urine Bilirubin 2+ H (NEGATIVE) Ur Bilirubin Confirm Positive H (Negative) Urine Urobilinogen >=8.0 (0.2) E.U./dL Ur Leukocyte Esterase 3+ H (NEGATIVE) Urine RBC None seen (0-5/HPF) Urine WBC 30-100/hpf H (0-5/HPF) Ur Squamous Epith Cells 1-5 /hpf (0-5/HPF) Urine Bacteria Many (>30) H (None) Ur Culture Indicated? Specimen cultured MDM Narrative Medical decision making narrative: Patient has no UTI symptoms. We will hold on any antibiotics until his culture results. 5 L fluid removed. Patient tolerated procedure well. Will have him follow-up with his primary provider for further workup. He was given return precautions. He expressed understanding and agreement. Discharge Plan Departure Patient Disposition: Home Clinical Impression: Ascites Instructions: Abdominal Paracentesis Activity Restrictions/Additional Instructions: I recommend that you continue all of your medications as directed. Contact your primary doctor tomorrow for a follow-up. Return to the emergency department for any new or worsening symptoms. Prescriptions: No Action insulin glargine 100 unit/mL solution 20 unit SUBCUT BID Qty: 10 0RF (DME) miscellaneous medical supply Package See Rx Instructions .Route Qty: 48 0RF Rx Instructions: As directed (DME) [employer] [facility]G Log Book Misc See Rx Instructions .Route Qty: 25 0RF Rx Instructions: achs Referrals: Mariluz Velasquez PA-C [Primary Care Provider] -
[2022-08-13] MEDS: LIDOCAINE 2% INJ MDV 10ML 200 MG INJ (16:48)
[2022-08-13 16:50] LABS: Appearance Urine UA CLOUDY; Bilirubin Urine UA 2+ (NEGATIVE); Color Urine UA ORANGE; Glucose Urine UA TRACE g/dL (Negative); Ketones Urine UA TRACE (NEGATIVE); Leukocyte Esterase Urine UA 3+ (NEGATIVE); Nitrite Urine UA POSITIVE (Negative); Occult Blood Urine UA 1+ (Negative); Protein Urine UA 1+ (Negative); Specific Gravity Urine UA 1.015 (1.000-1.035); Urobilinogen Urine UA >=8.0 E.U./dL (0.2); pH Urine UA 6.5 (4.5-8.0)
[2022-08-13 16:58] LABS: Ictotest Urine Positive (Negative)
[2022-08-13 17:00] VITALS: BP 128/73; PULSE 92; O2SAT 97
[2022-08-13 17:04] LABS: Bacteria Urine Many (>30); Culture Indicated Urine Specimen Cultured; RBC Urine None Seen (0-5/HPF); Squamous Epithelial Cell Urine 1-5 /HPF (0-5/HPF); WBC Urine 30-100/HPF (0-5/HPF)
[2022-08-13 17:23] VITALS: BP 124/75; PULSE 91; O2SAT 98
[2022-08-13 17:30] VITALS: BP 126/78; PULSE 93; O2SAT 98
[2022-08-13 17:39] VITALS: BP 127/79; PULSE 90; O2SAT 98
== END 2022-08-13 18:14 | disposition home or self-care (01) ==
PROVIDERS: Emergency Provider Emergency Medicine; PCP Physician Assistant; Referring Provider Physician Assistant
DX: R18.8 Other ascites (principal)
CPT/HCPCS: 49083; 81001; 87077; 87086; 87186; 99283

== ENCOUNTER 2023-02-12 10:22 | Emergency (ER) | payer OTHER, SELFPAY ==
[2023-02-12] VITALS (44 sets, daily range): BP systolic 109–162; BP diastolic 59–93; PULSE 71–101; RESP 10–24; O2SAT 95–98; BMI 43.0
[2023-02-12 11:16] LABS: Ammonia (NH3) 48 umol/L (9-30)
[2023-02-12 11:17] LABS: Alanine Aminotransferase 49 IU/L (<50); Albumin 3.3 g/dL (3.5-5.0); Albumin Globulin Ratio 0.8 (1.0-2.8); Alkaline Phosphatase 280 U/L (38-126); Aspartate Aminotransferase 115 IU/L (17-59); BUN Creatinine Ratio 7.5 (6-22); Blood Urea Nitrogen 6 mg/dL (9-20); Calcium 7.7 mg/dL (8.4-10.2); Carbon Dioxide 25 mmol/L (22-32); Chloride 105 mmol/L (98-107); Estimated Glomerular Filt Rate > 60 mL/min (>60); Globulin 4.2 g/dL (1.7-4.1); Glucose 161 mg/dL (80-110); HEMOLYSIS < 15 (0-50); Potassium 3.4 mmol/L (3.4-5.1); Sodium 140 mmol/L (137-145); Total Protein 7.5 g/dL (6.3-8.2)
[2023-02-12 11:21] LABS: Add Manual Diff / Slide Review NO; Basophils Absolute Auto 0 /uL (0-100); Basophils Percent Auto 0.7 % (0-2); Eosinophils Absolute Auto 100 /uL (0-450); Eosinophils Percent Auto 1.7 % (2-4); Hematocrit 38.2 % (41-53); Hemoglobin 12.9 g/dL (13.5-17.5); INR 1.3 (0.9-1.3); Lymphocytes Absolute Auto 700 /uL (1100-4500); Lymphocytes Percent Auto 11.3 % (25-40); Mean Corpuscular HGB Conc 33.9 % (30-36); Mean Corpuscular Volume 100.3 fL (80-100); Monocytes Absolute Auto 1100 /uL (0-900); Monocytes Percent Auto 18.5 % (3-14); Neutrophils Absolute Auto 4100 /uL (1500-7000); Neutrophils Percent Auto 67.8 % (50-75); Platelet Count 61 X10^3/uL (150-400); Prothrombin Time 15.3 SECONDS (10.1-12.7); Red Cell Distribution Width 15.9 % (11.6-14.8); White Blood Cell Count 6.1 X10^3/uL (4.5-11.0)
[2023-02-12 11:24] LABS: PTT Partial Thromboplastin Tim 32 SECONDS (26-36)
--- NOTE | 2023-02-12 14:20 | ED_ITS ---
HPI - General Adult General Chief complaint: Abdominal Pain Stated complaint: Alcoholic has fluid in stomach Time Seen by Provider: 02/12/23 14:18 Source: patient Mode of arrival: Ambulatory Limitations: no limitations History of Present Illness HPI narrative: This is a 67-year-old male with history of alcoholic cirrhosis, insulin- dependent diabetes who has had prior paracentesis patient presents with complaint of increasing swelling and significant fluid overload. Patient states he had a paracentesis several months ago. He has not re-presented since. He denies fevers or chills. No chest pain, no shortness of breath, no nausea or vomiting. No diarrhea constipation. No other GI or urinary symptoms. No black or bloody stools. Patient states he has chronic swelling in his lower extremities but not worsening. Patient states his belly is very tight but not really painful. He states he is had prior back surgery. Denies any drug allergies. Does use tobacco daily, does drink multiple alcoholic drinks daily and states he drinks throughout the day. He denies any illicit. Patient is requesting paracentesis. Related Data Previous Rx's Medication Instructions Recorded diabetic supplies, miscellan. #25 ea 01/02/22 ([facility] [facility]G Log Book) insulin glargine 100 unit/mL 20 unit (0.2 mL) SUBCUT BID #10 mL 01/02/22 subcutaneous solution miscellaneous medical supply #48 ea 01/02/22 furosemide 40 mg tablet (Lasix) 40 mg PO DAILY #7 tabs 02/12/23 Allergies Allergy/AdvReac Type Severity Reaction Status Date / Time No Known Drug Allergies Allergy Verified 02/12/23 10:31 Review of Systems Review of Systems ROS Unobtainable: All systems reviewed & are unremarkable except as noted in HPI and below Patient History Medical History Anticoagulated Hepatic failure Left ureteral calculus Lesion of right [place] kidney Renal failure Right renal stone Sepsis Urinary tract infection Surgical History Retained ureteral stent Family History Father Cancer Grandfather Cancer Grandmother Diabetes mellitus Heart disease Mother Age: 82 Alzheimer disease Sister Age: 67 Hypertension Social History household members: spouse Smoking Status: Current every day smoker alcohol intake: current Smoking Status: Current every day smoker tobacco type: smokeless tobacco alcohol intake frequency: 3 or more drinks per day Substance Use Type: does not use Exam Narrative Exam Narrative: GENERAL: Alert and oriented x three, male in mild distress. HEENT: Head normocephalic, atraumatic, EOMI, pupils reactive, face symmetric, moist mucous membranes NECK: Supple, full range of motion CARDIOVASCULAR: Regular rate and rhythm without murmurs, rubs or gallops. RESPIRATORY: Breath sounds equal bilaterally, no wheezes rales or rhonchi. ABDOMEN: Soft, nontender. Normoactive bowel sounds all 4 quadrants. No guarding or rebound, rigidity, no mass : No CVA tenderness EXTREMITIES: Normal range of motion, no clubbing or edema. Neurovascularly intact NEUROLOGICAL: Cranial nerves II through XII grossly intact. Moving all extremities SKIN: Warm, dry, no petechiae, no rashes or lesions. Initial Vital Signs Initial Vital Signs: Vital Signs Pulse Rate 100 H 02/12/23 10:29 Respiratory Rate 16 02/12/23 10:29 Blood Pressure 142/83 H 02/12/23 10:29 Pulse Oximetry 96 02/12/23 10:29 Oxygen Delivery Method Room Air 02/12/23 10:29 Procedures Paracentesis Time Out Performed: Yes Indication: Ascites Location: RLQ Local Anesthetic: lidocaine 2% Amount of anesthesia used (mL): 5 Bedside Ultrasound Used: yes, Ascites confirmed and location marked (and real time guideance) Preparation: sterile prep and drape and Blade used to make zac in skin Amount of fluid obtained (mL): 6,000 Fluid: clear Size of Needle Used: 25 Post Procedure Exam: awake, alert Patient Tolerated Procedure: Well and No complications Complications: none Course Orders Ordered: ED Orders 02/12/23 10:50 Ammonia (NH3) Stat Complete Blood Count AUTO DIFF Stat Comprehensive Metabolic Panel Stat PTT Partial Thromboplastin Ramses Stat Prothrombin Time INR Stat 02/12/23 14:38 US paracentesis Stat Vital Signs Vital signs: Vital Signs - 8 hr 02/12/23 11:30 02/12/23 11:30 02/12/23 12:00 Pulse Rate 88 Respiratory Rate 12 Blood Pressure 124/81 113/72 Pulse Oximetry 95 Oxygen Delivery Method 06/01/23 12:00 02/12/23 12:30 02/12/23 12:30 Pulse Rate 78 71 Respiratory Rate Blood Pressure 109/59 L Pulse Oximetry 97 95 Oxygen Delivery Method 02/12/23 13:00 02/12/23 13:00 02/12/23 13:30 Pulse Rate 75 Respiratory Rate 15 Blood Pressure 120/73 130/60 Pulse Oximetry 97 Oxygen Delivery Method Room Air 02/12/23 13:30 02/12/23 14:00 02/12/23 14:00 Pulse Rate 80 85 Respiratory Rate 15 14 Blood Pressure 120/71 Pulse Oximetry 97 97 Oxygen Delivery Method 02/12/23 14:22 02/12/23 14:22 02/12/23 14:30 Pulse Rate 93 H Respiratory Rate 15 Blood Pressure 120/69 111/76 Pulse Oximetry 97 Oxygen Delivery Method 02/12/23 14:30 02/12/23 15:00 02/12/23 15:00 Pulse Rate 91 H 96 H Respiratory Rate 13 21 Blood Pressure 123/75 Pulse Oximetry 96 95 Oxygen Delivery Method Room Air 02/12/23 15:15 02/12/23 15:15 02/12/23 15:20 Pulse Rate 82 88 Respiratory Rate 18 Blood Pressure 131/75 Pulse Oximetry 96 96 Oxygen Delivery Method 02/12/23 15:20 02/12/23 15:30 02/12/23 15:31 Pulse Rate 76 82 Respiratory Rate 11 L Blood Pressure 127/72 Pulse Oximetry 95 95 Oxygen Delivery Method 02/12/23 15:31 02/12/23 15:40 02/12/23 15:40 Pulse Rate 82 Respiratory Rate 10 L Blood Pressure 130/72 134/79 Pulse Oximetry 97 Oxygen Delivery Method Room Air 02/12/23 15:50 02/12/23 15:50 02/12/23 15:55 Pulse Rate 86 Respiratory Rate 24 Blood Pressure 162/81 H Pulse Oximetry 96 97 Oxygen Delivery Method Room Air 02/12/23 15:55 02/12/23 16:00 02/12/23 16:00 Pulse Rate 84 86 Respiratory Rate 18 17 Blood Pressure 146/77 H Pulse Oximetry 95 95 Oxygen Delivery Method 02/12/23 16:05 02/12/23 16:05 02/12/23 16:10 Pulse Rate 84 82 Respiratory Rate 20 15 Blood Pressure 138/76 Pulse Oximetry 97 96 Oxygen Delivery Method 02/12/23 16:10 02/12/23 16:15 02/12/23 16:15 Pulse Rate 87 Respiratory Rate 19 Blood Pressure 136/81 143/86 H Pulse Oximetry 97 Oxygen Delivery Method 02/12/23 16:20 02/12/23 16:20 02/12/23 16:25 Pulse Rate 90 Respiratory Rate 19 Blood Pressure 150/93 H Pulse Oximetry 97 97 Oxygen Delivery Method Room Air 02/12/23 16:25 02/12/23 16:27 02/12/23 16:27 Pulse Rate 88 89 Respiratory Rate 19 14 Blood Pressure 150/77 H Pulse Oximetry 97 97 Oxygen Delivery Method 02/12/23 16:30 02/12/23 16:30 02/12/23 16:35 Pulse Rate 89 88 Respiratory Rate 18 19 Blood Pressure 139/78 Pulse Oximetry 97 97 Oxygen Delivery Method 02/12/23 16:35 02/12/23 16:40 02/12/23 16:40 Pulse Rate 88 Respiratory Rate 24 Blood Pressure 147/85 H 148/86 H Pulse Oximetry 98 Oxygen Delivery Method Room Air 02/12/23 16:45 02/12/23 16:45 02/12/23 16:50 Pulse Rate 91 H 86 Respiratory Rate 19 Blood Pressure 159/91 H Pulse Oximetry 97 98 Oxygen Delivery Method 02/12/23 16:50 02/12/23 16:55 02/12/23 16:55 Pulse Rate 85 Respiratory Rate 23 Blood Pressure 153/88 H 140/83 Pulse Oximetry 98 Oxygen Delivery Method 02/12/23 17:00 02/12/23 17:00 02/12/23 17:05 Pulse Rate 88 86 Respiratory Rate 21 14 Blood Pressure 146/82 H Pulse Oximetry 98 98 Oxygen Delivery Method 02/12/23 17:05 02/12/23 17:10 02/12/23 17:10 Pulse Rate 88 Respiratory Rate 18 Blood Pressure 119/86 152/80 H Pulse Oximetry 98 Oxygen Delivery Method 02/12/23 17:15 02/12/23 17:15 02/12/23 17:20 Pulse Rate 94 H 92 H Respiratory Rate 24 17 Blood Pressure 140/80 Pulse Oximetry 98 98 Oxygen Delivery Method 02/12/23 17:20 02/12/23 17:25 02/12/23 17:25 Pulse Rate 89 Respiratory Rate 16 Blood Pressure 141/81 H 149/77 H Pulse Oximetry 98 Oxygen Delivery Method 02/12/23 17:30 02/12/23 17:30 02/12/23 17:35 Pulse Rate 94 H 96 H Respiratory Rate 23 Blood Pressure 150/92 H Pulse Oximetry 98 97 Oxygen Delivery Method Room Air 02/12/23 17:35 02/12/23 17:36 02/12/23 17:36 Pulse Rate 98 H Respiratory Rate Blood Pressure 137/74 148/78 H Pulse Oximetry 97 Oxygen Delivery Method 02/12/23 17:40 02/12/23 17:40 02/12/23 17:45 Pulse Rate 100 H 101 H Respiratory Rate 16 18 Blood Pressure 136/66 Pulse Oximetry 98 98 Oxygen Delivery Method Room Air Room Air 02/12/23 17:45 Pulse Rate Respiratory Rate Blood Pressure 137/67 Pulse Oximetry Oxygen Delivery Method Medical Decision Making Lab Data 02/12/23 10:50 02/12/23 10:50 Labs: Lab Results 02/12/23 02/12/23 02/12/23 Range/Units 10:50 10:50 10:50 WBC 6.1 (4.5-11.0) X10^3/uL RBC 3.80 L (4.5-5.9) X10^6/uL Hgb 12.9 L (13.5-17.5) g/dL Hct 38.2 L (41-53) % MCV 100.3 H (80-100) fL MCH 34.0 (26-34) PG MCHC 33.9 (30-36) % RDW 15.9 H (11.6-14.8) % Plt Count 61 L (150-400) X10^3/uL Neut % (Auto) 67.8 (50-75) % Lymph % (Auto) 11.3 L (25-40) % [place] % (Auto) 18.5 H (3-14) % Eos % (Auto) 1.7 L (2-4) % Baso % (Auto) 0.7 (0-2) % Neut # (Auto) 4100 (5201-2147) /uL Lymph # (Auto) 700 L (1475-9493) /uL [place] # (Auto) 1100 H (0-900) /uL Eos # (Auto) 100 (0-450) /uL Baso # (Auto) 0 (0-100) /uL PT 15.3 H (10.1-12.7) SECONDS INR 1.3 (0.9-1.3) APTT 32 (26-36) SECONDS Sodium 140 (137-145) mmol/L Potassium 3.4 (3.4-5.1) mmol/L Chloride 105 (98-107) mmol/L Carbon Dioxide 25 (22-32) mmol/L BUN 6 L (9-20) mg/dL Creatinine 0.80 (0.66-1.25) mg/dL Estimated GFR > 60 (>60) mL/min BUN/Creatinine Ratio 7.5 (6-22) Glucose 161 H (80-110) mg/dL Calcium 7.7 L (8.4-10.2) mg/dL Total Bilirubin 4.0 H (0.2-1.3) mg/dL AST 115 H (17-59) IU/L ALT 49 (<50) IU/L Alkaline Phosphatase 280 H (38-126) U/L Ammonia (9-30) umol/L Total Protein 7.5 (6.3-8.2) g/dL Albumin 3.3 L (3.5-5.0) g/dL Globulin 4.2 H (1.7-4.1) g/dL Albumin/Globulin Ratio 0.8 L (1.0-2.8) 02/12/23 Range/Units 10:50 WBC (4.5-11.0) X10^3/uL RBC (4.5-5.9) X10^6/uL Hgb (13.5-17.5) g/dL Hct (41-53) % MCV (80-100) fL MCH (26-34) PG MCHC (30-36) % RDW (11.6-14.8) % Plt Count (150-400) X10^3/uL Neut % (Auto) (50-75) % Lymph % (Auto) (25-40) % [place] % (Auto) (3-14) % Eos % (Auto) (2-4) % Baso % (Auto) (0-2) % Neut # (Auto) (0692-9948) /uL Lymph # (Auto) (3627-7094) /uL [place] # (Auto) (0-900) /uL Eos # (Auto) (0-450) /uL Baso # (Auto) (0-100) /uL PT (10.1-12.7) SECONDS INR (0.9-1.3) APTT (26-36) SECONDS Sodium (137-145) mmol/L Potassium (3.4-5.1) mmol/L Chloride (98-107) mmol/L Carbon Dioxide (22-32) mmol/L BUN (9-20) mg/dL Creatinine (0.66-1.25) mg/dL Estimated GFR (>60) mL/min BUN/Creatinine Ratio (6-22) Glucose (80-110) mg/dL Calcium (8.4-10.2) mg/dL Total Bilirubin (0.2-1.3) mg/dL AST (17-59) IU/L ALT (<50) IU/L Alkaline Phosphatase (38-126) U/L Ammonia 48 H (9-30) umol/L Total Protein (6.3-8.2) g/dL Albumin (3.5-5.0) g/dL Globulin (1.7-4.1) g/dL Albumin/Globulin Ratio (1.0-2.8) MDM Narrative Medical decision making narrative: This is a 67-year-old male who presents with complaint of ascites. Patient states request for paracentesis. Patient's labs do show platelets of 61, above cutoff of 50, hemoglobin is 12.9, coags show INR 1.3, bilirubin is 4 improved from 6.9. Sodium electrolytes are otherwise normal, normal renal function glucose is 161. Bilirubins, AST is 115, alk phos 280. Patient was consented. Discussed versus benefits. Patient had ultrasound marking. Real-time guidance at bedside by myself and paracentesis was performed. Patient's 6 L total removed. Patient tolerated well. Patient has received diuretics in the past so will give a short course. Does not have any changes today make me concerned for SBP. Discharge Plan Departure Patient Disposition: Home Clinical Impression: Ascites Instructions: DI for Abdominal Paracentesis Activity Restrictions/Additional Instructions: You can call your primary care and they can help order and schedule outpatient paracentesis if needed. Continue your home medications as prescribed. Talk with your physician about whether diuretic maybe helpful for your symptoms. Prescription sent to [facility] in [place]. Please return for fevers, new abdominal pain, back or flank pain, vomiting, black or bloody stools, increasing swelling of your abdomen or legs. Prescriptions: New furosemide [Lasix] 40 mg tablet 40 mg PO DAILY Qty: 7 0RF No Action insulin glargine 100 unit/mL solution 20 unit SUBCUT BID Qty: 10 0RF (DME) miscellaneous medical supply Package See Rx Instructions .Route Qty: 48 0RF Rx Instructions: As directed (DME) [employer] bG Log Book Misc See Rx Instructions .Route Qty: 25 0RF Rx Instructions: achs Referrals: Mariluz Velasquez PA-C [Primary Care Provider] - Stand Alone Forms: Patient Portal/API
--- NOTE | 2023-02-12 14:38 | DI.US.S_ITS ---
PROCEDURE: US PARACENTESIS MARKING INDICATIONS: ascites, swelling TECHNIQUE: A limited ultrasound was performed. There is moderate amount of ascites in the right lower quadrant. The site of paracentesis was marked. COMPARISON: [facility], US, US PARACENTESIS, 08/22/2022, 14:24. [facility], MR, MR ABDOMEN LIVER PROTOCOL, 09/12/2022, 8:23. FINDINGS: There is moderate amount of ascites in the right lower quadrant. IMPRESSION: Ultrasound marking for paracentesis. Dictated by: Alvaro Hidalgo M.D. on 02/13/2023 at 11:52 Approved by: Alvaro Hidalgo M.D. on 02/13/2023 at 11:55
--- NOTE | 2023-02-12 17:39 | PC.NURSE ---
Procedure for paracentesis was performed at 1550. 6L of clear, yellow fluid were removed and the abdominal catheter was removed at 1700. Patients vital signs remained stable. A bandage was applied to catheter insertion site and 30 minutes later remains dry. No leakage present.
== END 2023-02-12 18:00 | disposition home or self-care (01) ==
PROVIDERS: Emergency Provider Emergency Medicine; PCP Physician Assistant
DX: R18.8 Other ascites (principal)
CPT/HCPCS: 36415; 49083; 80053; 82140; 85025; 85610; 85730; 99284

== ENCOUNTER 2023-03-09 07:38 | Emergency (ER) | payer OTHER, SELFPAY ==
[2023-03-09] VITALS (9 sets, daily range): BP systolic 128–144; BP diastolic 75–84; PULSE 82–95; RESP 19; TEMP 36.3; O2SAT 96–99; BMI 45.1
--- NOTE | 2023-03-09 07:51 | ED.GENADULT ---
HPI - General Adult General Chief complaint: Abdominal Pain Stated complaint: needs stomach drained Time Seen by Provider: 03/09/23 07:44 Source: patient Mode of arrival: Ambulatory Limitations: no limitations History of Present Illness HPI narrative: Patient is a 67-year-old male. Is a insulin-dependent diabetic. Also has cirrhosis. Has frequent issues with ascites. Has had paracentesis multiple times in the past. His last 1 was approximately 1 month ago. He is here stating that his abdomen is once again becoming distended and has fluid in it. He is having some discomfort and problems breathing. Specifically worsened over the past couple days. No fevers. Is here for a therapeutic paracentesis Related Data Previous Rx's Medication Instructions Recorded diabetic supplies, miscellan. #25 ea 01/02/22 ([facility] [facility]G Log Book) insulin glargine 100 unit/mL 20 unit (0.2 mL) SUBCUT BID #10 mL 01/02/22 subcutaneous solution miscellaneous medical supply #48 ea 01/02/22 furosemide 40 mg tablet (Lasix) 40 mg PO DAILY #7 tabs 02/12/23 furosemide 20 mg tablet (Lasix) 20 mg PO DAILY #30 tabs 03/09/23 Allergies Allergy/AdvReac Type Severity Reaction Status Date / Time No Known Drug Allergies Allergy Verified 02/12/23 10:31 Review of Systems Constitutional Constitutional: Reports system reviewed and no additional complaints, except as documented Respiratory Respiratory: Reports system reviewed and no additional complaints, except as documented Gastrointestinal Gastrointestinal: Reports system reviewed and no additional complaints, except as documented Genitourinary Genitourinary: Reports system reviewed and no additional complaints, except as documented Integumentary/Breasts Skin/Breast: Reports system reviewed and no additional complaints, except as documented Patient History Medical History Anticoagulated Hepatic failure Left ureteral calculus Lesion of right [place] kidney Renal failure Right renal stone Sepsis Urinary tract infection Surgical History Retained ureteral stent Family History Father Cancer Grandfather Cancer Grandmother Diabetes mellitus Heart disease Mother Age: 82 Alzheimer disease Sister Age: 67 Hypertension Social History household members: spouse Smoking Status: Current every day smoker alcohol intake: current Smoking Status: Current every day smoker tobacco type: smokeless tobacco alcohol intake frequency: 3 or more drinks per day Substance Use Type: does not use Exam Initial Vital Signs Initial Vital Signs: Vital Signs Temperature 97.3 F L 03/09/23 07:48 Pulse Rate 89 03/09/23 07:48 Respiratory Rate 19 03/09/23 07:48 Blood Pressure 144/79 H 03/09/23 07:48 Pulse Oximetry 98 03/09/23 07:48 Oxygen Delivery Method Room Air 03/09/23 07:48 Resp Effort & Inspection: normal respiratory effort GI Inspection: distended Palpation: firm, No guarding, No rigid, No tender and ascites Skin General: no rashes or lesions noted Neuro General: patient alert and moves all extremities Extrem General: normal to inspection Procedures Paracentesis Time Out Performed: Yes Indication: Ascites Procedure: therapeutic paracentesis Location: RLQ Local Anesthetic: lidocaine 1% Amount of anesthesia used (mL): 3 Bedside Ultrasound Used: yes, Ascites confirmed and location marked Preparation: sterile prep and drape Amount of fluid obtained (mL): 7 Fluid: clear Size of Needle Used: 20 Post Procedure Exam: awake, alert, normal BP, normal HR and normal SpO2 Patient Tolerated Procedure: Well and No complications Course Vital Signs Vital signs: Vital Signs - 8 hr 03/09/23 07:48 Temperature 97.3 F L Pulse Rate 89 Respiratory Rate 19 Blood Pressure 144/79 H Pulse Oximetry 98 Oxygen Delivery Method Room Air Medical Decision Making [facility] Narrative Medical decision making narrative: Patient has ascites. After consent was signed a therapeutic paracentesis was performed. Patient tolerated the procedure well. Patient absolutely has more fluid in his abdomen however we took out 7.5 L. we will hold on taking anymore for now. Patient will return to the emergency department in a couple days to have a another paracentesis. Patient expressed understanding and agreement with plan. Discharge Plan Departure Patient Disposition: Home Clinical Impression: Ascites Instructions: Ascites, DI for Abdominal Paracentesis Activity Restrictions/Additional Instructions: You can expect some oozing from where the catheter was inserted into your abdomen. This should resolve within the next day or so. If you wish you can consider returning to the emergency department on Thursday and we can look at potentially repeating another paracentesis. I would also recommend that you contact your primary doctor for follow-up. Prescriptions: New furosemide [Lasix] 20 mg tablet 20 mg PO DAILY Qty: 30 0RF No Action insulin glargine 100 unit/mL solution 20 unit SUBCUT BID Qty: 10 0RF (DME) miscellaneous medical supply Package See Rx Instructions .Route Qty: 48 0RF Rx Instructions: As directed (DME) [employer] [facility] Log Book Misc See Rx Instructions .Route Qty: 25 0RF Rx Instructions: achs furosemide [Lasix] 40 mg tablet 40 mg PO DAILY Qty: 7 0RF Referrals: Mariluz Velasquez PA-C [Primary Care Provider] - Stand Alone Forms: Patient Portal/API
== END 2023-03-09 09:00 | disposition home or self-care (01) ==
PROVIDERS: Emergency Provider Emergency Medicine; PCP Physician Assistant
DX: R18.8 Other ascites (principal)
CPT/HCPCS: 49083; 99281; 99283

== ENCOUNTER 2023-03-11 07:10 | Emergency (ER) | payer OTHER, SELFPAY ==
[2023-03-11] VITALS (24 sets, daily range): BP systolic 115–131; BP diastolic 71–83; PULSE 80–91; RESP 13–24; TEMP 37; O2SAT 96–98; BMI 41.6
--- NOTE | 2023-03-11 07:21 | ED.GENADULT ---
HPI - General Adult General Chief complaint: Abdominal Pain Stated complaint: stomach needs drained Time Seen by Provider: 03/11/23 07:12 Source: patient Mode of arrival: Ambulatory Limitations: no limitations History of Present Illness HPI narrative: Patient is a 67-year-old male. Has a history of cirrhosis. Has had multiple paracentesis in the past. Was actually here a couple days ago where I performed a paracentesis on him. We got to the point where we took out was 7 L of fluid from his abdomen. He obviously still had fluid. We did not want to take more out secondary to the possibility of hemodynamic stability. He did tolerate the procedure well. He was instructed to return to the emergency department this morning for continued paracentesis. He states that after he was discharged he could not get the Lasix until yesterday. Feels like his abdomen did start to become more distended but he feels better today than what he did on Thursday. Related Data Previous Rx's Medication Instructions Recorded diabetic supplies, miscellan. #25 ea 01/02/22 ([employer] [facility] Log Book) insulin glargine 100 unit/mL 20 unit (0.2 mL) SUBCUT BID #10 mL 01/02/22 subcutaneous solution miscellaneous medical supply #48 ea 01/02/22 furosemide 40 mg tablet (Lasix) 40 mg PO DAILY #7 tabs 02/12/23 furosemide 20 mg tablet (Lasix) 20 mg PO DAILY #30 tabs 03/09/23 Allergies Allergy/AdvReac Type Severity Reaction Status Date / Time No Known Drug Allergies Allergy Verified 02/12/23 10:31 Review of Systems Constitutional Constitutional: Reports system reviewed and no additional complaints, except as documented Gastrointestinal Gastrointestinal: Reports system reviewed and no additional complaints, except as documented Genitourinary Genitourinary: Reports system reviewed and no additional complaints, except as documented Integumentary/Breasts Skin/Breast: Reports system reviewed and no additional complaints, except as documented Neurologic Neurologic: Reports system reviewed and no additional complaints, except as documented Hematologic/Lymphatic On Anticoagulants: No Patient History Medical History Anticoagulated Hepatic failure Left ureteral calculus Lesion of right [place] kidney Renal failure Right renal stone Sepsis Urinary tract infection Surgical History Retained ureteral stent Family History Father Cancer Grandfather Cancer Grandmother Diabetes mellitus Heart disease Mother Age: 82 Alzheimer disease Sister Age: 67 Hypertension Social History household members: spouse Smoking Status: Current every day smoker alcohol intake: current Smoking Status: Current every day smoker tobacco type: smokeless tobacco alcohol intake frequency: 3 or more drinks per day Substance Use Type: does not use Exam Initial Vital Signs Initial Vital Signs: Vital Signs Temperature 98.6 F 03/11/23 07:20 Pulse Rate 90 03/11/23 07:20 Respiratory Rate 18 03/11/23 07:20 Blood Pressure 119/78 03/11/23 07:20 Pulse Oximetry 98 03/11/23 07:20 Oxygen Delivery Method Room Air 03/11/23 07:20 Resp Effort & Inspection: normal respiratory effort Cardio Rate: regular rate GI Inspection: distended Palpation: firm, No guarding, No rigid and No tender Skin General: no rashes or lesions noted Neuro General: patient alert, patient awake and moves all extremities Extrem General: capillary refill normal Procedures Paracentesis Time Out Performed: Yes Indication: Ascites Procedure: therapeutic paracentesis Location: LLQ Local Anesthetic: lidocaine 1% Amount of anesthesia used (mL): 3 Bedside Ultrasound Used: yes, Ascites confirmed and location marked Preparation: sterile prep and drape and Blade used to make zac in skin Amount of fluid obtained (mL): 8,100 Fluid: clear Size of Needle Used: 20 Post Procedure Exam: awake, alert and normal BP Patient Tolerated Procedure: Well and No complications Complications: none Course Vital Signs Vital signs: Vital Signs - 8 hr 03/11/23 07:20 Temperature 98.6 F Pulse Rate 90 Respiratory Rate 18 Blood Pressure 119/78 Pulse Oximetry 98 Oxygen Delivery Method Room Air Discharge Plan Departure Patient Disposition: Home Clinical Impression: Ascites Instructions: Ascites, DI for Abdominal Paracentesis Activity Restrictions/Additional Instructions: I do recommend that you continue to take all your medications as directed. Also recommend that you keep your scheduled medical appointment with your primary doctor. We sure that you talk about the possibility of scheduling these procedures as an outpatient. Return to the emergency department for new or worsening symptoms. Prescriptions: No Action insulin glargine 100 unit/mL solution 20 unit SUBCUT BID Qty: 10 0RF (DME) miscellaneous medical supply Package See Rx Instructions .Route Qty: 48 0RF Rx Instructions: As directed (DME) [facility] [facility] Log Book Misc See Rx Instructions .Route Qty: 25 0RF Rx Instructions: achs furosemide [Lasix] 40 mg tablet 40 mg PO DAILY Qty: 7 0RF furosemide [Lasix] 20 mg tablet 20 mg PO DAILY Qty: 30 0RF Referrals: Mariluz Velasquez PA-C [Primary Care Provider] - Stand Alone Forms: Patient Portal/API
--- NOTE | 2023-03-11 08:55 | PC.NURSE ---
There was an RN in this patient room the entirety of the time fluid was being removed from patient abdomen. Provider came in and assessed patient between every liter of fluid that was removed. Patient vitals remained with normal limits throughout the procedure. Patient tolerated the procedure well. Patient was able to ambulate as normal to restroom after fluid was removed. This RN ensured provider saw the patient after each successive liter of fluid past 5 liters and get the provider order prior to pulling off an additional liter.
== END 2023-03-11 08:57 | disposition home or self-care (01) ==
PROVIDERS: Emergency Provider Emergency Medicine; PCP Physician Assistant
DX: R18.8 Other ascites (principal)
CPT/HCPCS: 49083; 99281; 99282

== ENCOUNTER → 2023-04-16 12:42 | Outpatient (CLI) | payer SELFPAY ==
--- NOTE | 2023-04-16 | DI.US.S_ITS ---
PROCEDURE: US PARACENTESIS INDICATIONS: CIRRHOSIS LIVER WITH ASCITES TECHNIQUE: The indications, alternatives, benefits, risks, and complications of the procedure were explained to the patient. Written informed consent was obtained and placed in the chart. The abdomen and pelvis were examined sonographically, and an appropriate site was chosen for paracentesis. The skin was prepared and draped in the usual sterile fashion, and 1% lidocaine was infiltrated from the skin down through the peritoneal surface. A 19-gauge catheter-covered needle was then introduced into the peritoneal space, the catheter was advanced and the needle was withdrawn, and thereafter peritoneal fluid was withdrawn. The catheter was then removed and a dressing was applied. The fluid was discarded if the clinician did not order diagnostic testing of the fluid. COMPARISON: [facility], PARACENTESIS, 02/12/2023, 15:07. FINDINGS: Access site: Right lower quadrant Needle: One-Step centesis catheter with introducer needle. Fluid volume and description: 5 L; clear. Fluid sent for diagnostic testing: Not requested by referring physician. Medications: 1% lidocaine for local anaesthesia. Complications: None. IMPRESSION: Successful ultrasound-guided paracentesis. Dictated by: Alvaro Hidalgo M.D. on 04/16/2023 at 21:46 Approved by: Alvaro Hidalgo M.D. on 04/16/2023 at 21:46
[2023-04-16 13:24] LABS: Hemoglobin 12.9 g/dL (13.5-17.5); Mean Corpuscular HGB Conc 33.9 % (30-36); Mean Corpuscular Hemoglobin 33.2 PG (26-34); Mean Corpuscular Volume 97.9 fL (80-100); Platelet Count 92 X10^3/uL (150-400); Red Blood Cell Count 3.88 X10^6/uL (4.5-5.9); Red Cell Distribution Width 14.6 % (11.6-14.8); White Blood Cell Count 5.7 X10^3/uL (4.5-11.0)
[2023-04-16 13:38] LABS: INR 1.4 (0.9-1.3); Prothrombin Time 15.8 SECONDS (10.1-12.7)
== END ==
PROVIDERS: PCP Physician Assistant; Referring Provider Physician Assistant; Visit Provider Physician Assistant
DX: K70.31 Alcoholic cirrhosis of liver with ascites (principal)
CPT/HCPCS: 36415; 49083; 85027; 85610

== ENCOUNTER → 2023-04-20 15:11 | Outpatient (CLI) | payer SELFPAY ==
--- NOTE | 2023-04-20 | DI.US.S_ITS ---
PROCEDURE: US PARACENTESIS INDICATIONS: ASCITES TECHNIQUE: The indications, alternatives, benefits, risks, and complications of the procedure were explained to the patient. Written informed consent was obtained and placed in the chart. The abdomen and pelvis were examined sonographically, and an appropriate site was chosen for paracentesis. The skin was prepared and draped in the usual sterile fashion, and 1% lidocaine was infiltrated from the skin down through the peritoneal surface. A 19-gauge catheter-covered needle was then introduced into the peritoneal space, the catheter was advanced and the needle was withdrawn, and thereafter peritoneal fluid was withdrawn. The catheter was then removed and a dressing was applied. The fluid was discarded if the clinician did not order diagnostic testing of the fluid. COMPARISON: [facility], PARACENTESIS, 02/12/2023, 15:07. FINDINGS: Access site: Right lower quadrant Needle: One-Step centesis catheter with introducer needle. Fluid volume and description: 5000 mL; color Fluid sent for diagnostic testing: Not requested. Medications: 1% lidocaine for local anaesthesia. Complications: None. IMPRESSION: Successful ultrasound-guided paracentesis. Dictated by: Alvaro Hidalgo M.D. on 04/20/2023 at 16:38 Approved by: Alvaro Hidalgo M.D. on 04/20/2023 at 16:39
== END ==
PROVIDERS: PCP Physician Assistant; Referring Provider Physician Assistant; Visit Provider Physician Assistant
DX: K70.31 Alcoholic cirrhosis of liver with ascites (principal)
CPT/HCPCS: 49083

== ENCOUNTER → 2023-04-22 07:47 | Outpatient (CLI) | payer SELFPAY ==
--- NOTE | 2023-04-22 | DI.US.S_ITS ---
PROCEDURE: US PARACENTESIS INDICATIONS: ALCOHOLIC CIRRHOSIS WITH ASCITES TECHNIQUE: The indications, alternatives, benefits, risks, and complications of the procedure were explained to the patient. Written informed consent was obtained and placed in the chart. The abdomen and pelvis were examined sonographically, and an appropriate site was chosen for paracentesis. The skin was prepared and draped in the usual sterile fashion, and 1% lidocaine was infiltrated from the skin down through the peritoneal surface. A 19-gauge catheter-covered needle was then introduced into the peritoneal space, the catheter was advanced and the needle was withdrawn, and thereafter peritoneal fluid was withdrawn. The catheter was then removed and a dressing was applied. The fluid was discarded if the clinician did not order diagnostic testing of the fluid. COMPARISON: [facility], PARACENTESIS, 04/20/2023, 15:19. FINDINGS: Access site: Right lower quadrant Needle: One-Step centesis catheter with introducer needle. Fluid volume and description: 5000 mL clear yellow fluid Fluid sent for diagnostic testing: Not requested Medications: 1% lidocaine for local anaesthesia. Complications: None. IMPRESSION: Successful ultrasound-guided paracentesis. Dictated by: Ovi Stroy M.D. on 04/22/2023 at 11:12 Approved by: Ovi Story M.D. on 04/22/2023 at 11:13
== END ==
PROVIDERS: PCP Physician Assistant; Referring Provider Physician Assistant; Visit Provider Physician Assistant
DX: K70.31 Alcoholic cirrhosis of liver with ascites (principal)
CPT/HCPCS: 49083

== ENCOUNTER → 2023-12-04 07:40 | Outpatient (CLI) | payer MEDICARE, OTHER, SELFPAY ==
--- NOTE | 2023-12-04 07:41 | DI.US.S_ITS ---
PROCEDURE: US PARACENTESIS INDICATIONS: ASCITES TECHNIQUE: The indications, alternatives, benefits, risks, and complications of the procedure were explained to the patient. Written informed consent was obtained and placed in the chart. The abdomen and pelvis were examined sonographically, and an appropriate site was chosen for paracentesis. The skin was prepared and draped in the usual sterile fashion, and 1% lidocaine was infiltrated from the skin down through the peritoneal surface. A 19-gauge catheter-covered needle was then introduced into the peritoneal space, the catheter was advanced and the needle was withdrawn, and thereafter peritoneal fluid was withdrawn. The catheter was then removed and a dressing was applied. The fluid was discarded if the clinician did not order diagnostic testing of the fluid. COMPARISON: [facility], PARACENTESIS, 04/20/2023, 15:19. FINDINGS: Access site: Right lower quadrant. Needle: One-Step centesis catheter with introducer needle. Fluid volume and description: 5000 mL; clear. Fluid sent for diagnostic testing: Not requested by referring physician. Medications: 1% lidocaine for local anaesthesia. Complications: None. IMPRESSION: Successful ultrasound-guided paracentesis. Dictated by: Alvaro Hidalgo M.D. on 12/04/2023 at 13:44 Approved by: Alvaro Hidalgo M.D. on 12/04/2023 at 13:47
== END ==
PROVIDERS: PCP Physician Assistant; Referring Provider Physician Assistant; Visit Provider Physician Assistant
DX: K70.31 Alcoholic cirrhosis of liver with ascites (principal)
CPT/HCPCS: 49083

== ENCOUNTER → 2023-12-08 08:42 | Outpatient (CLI) | payer MEDICARE, OTHER, SELFPAY ==
--- NOTE | 2023-12-08 08:43 | DI.US.S_ITS ---
PROCEDURE: US PARACENTESIS INDICATIONS: ASCITES TECHNIQUE: The indications, alternatives, benefits, risks, and complications of the procedure were explained to the patient. Written informed consent was obtained and placed in the chart. The abdomen and pelvis were examined sonographically, and an appropriate site was chosen for paracentesis. The skin was prepared and draped in the usual sterile fashion, and 1% lidocaine was infiltrated from the skin down through the peritoneal surface. A 19-gauge catheter-covered needle was then introduced into the peritoneal space, the catheter was advanced and the needle was withdrawn, and thereafter peritoneal fluid was withdrawn. The catheter was then removed and a dressing was applied. The fluid was discarded if the clinician did not order diagnostic testing of the fluid. COMPARISON: [facility], , PARACENTESIS, 12/04/2023, 7:57. FINDINGS: Access site: Right lower quadrant Needle: One-Step centesis catheter with introducer needle. Fluid volume and description: Clear yellow fluid, 5 liters Fluid sent for diagnostic testing: As ordered by diagnostic team Medications: 1% lidocaine for local anaesthesia. Complications: None. IMPRESSION: Successful ultrasound-guided paracentesis. Dictated by: Jonas Starks M.D. on 12/08/2023 at 13:34 Approved by: Jonas Starks M.D. on 12/08/2023 at 13:42
== END ==
PROVIDERS: PCP Physician Assistant; Referring Provider Physician Assistant; Visit Provider Physician Assistant
DX: K70.31 Alcoholic cirrhosis of liver with ascites (principal)
CPT/HCPCS: 49083

== ENCOUNTER → 2023-12-09 14:07 | Outpatient (CLI) | payer MEDICARE, OTHER, SELFPAY ==
--- NOTE | 2023-12-09 14:08 | DI.US.S_ITS ---
PROCEDURE: US PARACENTESIS INDICATIONS: ASCITES TECHNIQUE: The indications, alternatives, benefits, risks, and complications of the procedure were explained to the patient. Written informed consent was obtained and placed in the chart. The abdomen and pelvis were examined sonographically, and an appropriate site was chosen for paracentesis. The skin was prepared and draped in the usual sterile fashion, and 1% lidocaine was infiltrated from the skin down through the peritoneal surface. A 19-gauge catheter-covered needle was then introduced into the peritoneal space, the catheter was advanced and the needle was withdrawn, and thereafter peritoneal fluid was withdrawn. The catheter was then removed and a dressing was applied. The fluid was discarded if the clinician did not order diagnostic testing of the fluid. COMPARISON: [facility], PARACENTESIS, 12/08/2023, 8:51. FINDINGS: Access site: Right lower quadrant Needle: One-Step centesis catheter with introducer needle. Fluid volume and description: 5000 cc yellow Fluid sent for diagnostic testing: No Medications: 1% lidocaine for local anaesthesia. Complications: None. IMPRESSION: Successful ultrasound-guided paracentesis. Dictated by: Wendy Faust M.D. on 12/10/2023 at 15:38 Approved by: Wendy Faust M.D. on 12/10/2023 at 15:38
== END ==
PROVIDERS: PCP Physician Assistant; Referring Provider Physician Assistant; Visit Provider Physician Assistant
DX: K70.31 Alcoholic cirrhosis of liver with ascites (principal)
CPT/HCPCS: 49083

== ENCOUNTER → 2023-12-11 13:57 | Outpatient (CLI) | payer MEDICARE, OTHER, SELFPAY ==
--- NOTE | 2023-12-11 13:58 | DI.US.S_ITS ---
PROCEDURE: US PARACENTESIS INDICATIONS: ASCITES TECHNIQUE: The indications, alternatives, benefits, risks, and complications of the procedure were explained to the patient. Written informed consent was obtained and placed in the chart. The abdomen and pelvis were examined sonographically, and an appropriate site was chosen for paracentesis. The skin was prepared and draped in the usual sterile fashion, and 1% lidocaine was infiltrated from the skin down through the peritoneal surface. A 19-gauge catheter-covered needle was then introduced into the peritoneal space, the catheter was advanced and the needle was withdrawn, and thereafter peritoneal fluid was withdrawn. The catheter was then removed and a dressing was applied. The fluid was discarded if the clinician did not order diagnostic testing of the fluid. COMPARISON: [facility], , PARACENTESIS, 12/09/2023, 14:32. FINDINGS: Access site: Right paramedian lower abdomen. Needle: One-Step centesis catheter with introducer needle. Fluid volume and description: 4900 cc Fluid sent for diagnostic testing: None. Medications: 1% lidocaine for local anaesthesia. Complications: None. IMPRESSION: Successful ultrasound-guided therapeutic paracentesis. Dictated by: Shivam Jauregui M.D. on 12/11/2023 at 17:23 Approved by: Shivam Jauregui M.D. on 12/11/2023 at 17:24
== END ==
PROVIDERS: PCP Physician Assistant; Referring Provider Physician Assistant; Visit Provider Physician Assistant
DX: K70.31 Alcoholic cirrhosis of liver with ascites (principal)
CPT/HCPCS: 49083

== ENCOUNTER → 2023-12-15 07:38 | Outpatient (CLI) | payer MEDICARE, OTHER, SELFPAY ==
--- NOTE | 2023-12-15 07:39 | DI.US.S_ITS ---
PROCEDURE: US PARACENTESIS INDICATIONS: ACITES TECHNIQUE: The indications, alternatives, benefits, risks, and complications of the procedure were explained to the patient. Written informed consent was obtained and placed in the chart. The abdomen and pelvis were examined sonographically, and an appropriate site was chosen for paracentesis. The skin was prepared and draped in the usual sterile fashion, and 1% lidocaine was infiltrated from the skin down through the peritoneal surface. A 19-gauge catheter-covered needle was then introduced into the peritoneal space, the catheter was advanced and the needle was withdrawn, and thereafter peritoneal fluid was withdrawn. The catheter was then removed and a dressing was applied. The fluid was discarded if the clinician did not order diagnostic testing of the fluid. COMPARISON: [facility], , PARACENTESIS, 12/11/2023, 14:21. FINDINGS: Access site: Right lower quadrant Needle: One-Step centesis catheter with introducer needle. Fluid volume and description: 5 liters, Clear/yellow Fluid sent for diagnostic testing: No Medications: 1% lidocaine for local anaesthesia. Complications: None. IMPRESSION: Successful ultrasound-guided paracentesis. Dictated by: Gaston Pérez M.D. on 12/15/2023 at 9:28 Approved by: Gaston Pérez M.D. on 12/15/2023 at 9:29
== END ==
LOC: US 07:39
PROVIDERS: PCP Physician Assistant; Referring Provider Physician Assistant; Visit Provider Physician Assistant
DX: K70.31 Alcoholic cirrhosis of liver with ascites (principal)
CPT/HCPCS: 49083

== ENCOUNTER → 2023-12-16 15:42 | Outpatient (CLI) | payer MEDICARE, OTHER, SELFPAY ==
--- NOTE | 2023-12-16 15:44 | DI.US.S_ITS ---
PROCEDURE: US PARACENTESIS INDICATIONS: ASCITES TECHNIQUE: The indications, alternatives, benefits, risks, and complications of the procedure were explained to the patient. Written informed consent was obtained and placed in the chart. The abdomen and pelvis were examined sonographically, and an appropriate site was chosen for paracentesis. The skin was prepared and draped in the usual sterile fashion, and 1% lidocaine was infiltrated from the skin down through the peritoneal surface. A 19-gauge catheter-covered needle was then introduced into the peritoneal space, the catheter was advanced and the needle was withdrawn, and thereafter peritoneal fluid was withdrawn. The catheter was then removed and a dressing was applied. The fluid was discarded if the clinician did not order diagnostic testing of the fluid. COMPARISON: [facility], , PARACENTESIS, 12/15/2023, 8:03. FINDINGS: Access site: Left lower quadrant Needle: One-Step centesis catheter with introducer needle. Fluid volume and description: 5000 cc, clear graham Fluid sent for diagnostic testing: None Medications: 1% lidocaine for local anaesthesia. Complications: None. IMPRESSION: Successful ultrasound-guided paracentesis. 5 L removed. Please consider HCC screening with multiphase liver CT or MRI. Dictated by: Shivam Jauregui M.D. on 12/16/2023 at 18:02 Approved by: Shivam Jauregui M.D. on 12/16/2023 at 18:04
== END ==
LOC: US 15:44
PROVIDERS: PCP Physician Assistant; Referring Provider Physician Assistant; Visit Provider Physician Assistant
DX: K70.31 Alcoholic cirrhosis of liver with ascites (principal)
CPT/HCPCS: 49083

== ENCOUNTER → 2023-12-17 07:38 | Outpatient (CLI) | payer MEDICARE, OTHER, SELFPAY ==
--- NOTE | 2023-12-17 07:39 | DI.US.S_ITS ---
PROCEDURE: US PARACENTESIS INDICATIONS: ASCITES TECHNIQUE: The indications, alternatives, benefits, risks, and complications of the procedure were explained to the patient. Written informed consent was obtained and placed in the chart. The abdomen and pelvis were examined sonographically, and an appropriate site was chosen for paracentesis. The skin was prepared and draped in the usual sterile fashion, and 1% lidocaine was infiltrated from the skin down through the peritoneal surface. A 19-gauge catheter-covered needle was then introduced into the peritoneal space, the catheter was advanced and the needle was withdrawn, and thereafter peritoneal fluid was withdrawn. The catheter was then removed and a dressing was applied. The fluid was discarded if the clinician did not order diagnostic testing of the fluid. COMPARISON: [facility], PARACENTESIS, 12/15/2023, 8:03. FINDINGS: Access site: Left lower quadrant Needle: One-Step centesis catheter with introducer needle. Fluid volume and description: 5000 mL; clear. Fluid sent for diagnostic testing: Not requested by referring physician. Medications: 1% lidocaine for local anaesthesia. Complications: None. IMPRESSION: Successful ultrasound-guided paracentesis. Dictated by: Alvaro Hidalgo M.D. on 12/17/2023 at 10:02 Approved by: Alvaro Hidalgo M.D. on 12/17/2023 at 10:03
== END ==
LOC: US 07:38
PROVIDERS: PCP Physician Assistant; Referring Provider Physician Assistant; Visit Provider Physician Assistant
DX: K70.31 Alcoholic cirrhosis of liver with ascites (principal)
CPT/HCPCS: 49083

== ENCOUNTER → 2023-12-25 07:43 | Outpatient (CLI) | payer MEDICARE, OTHER, SELFPAY ==
--- NOTE | 2023-12-25 07:45 | DI.US.S_ITS ---
PROCEDURE: US PARACENTESIS INDICATIONS: ACITES TECHNIQUE: The indications, alternatives, benefits, risks, and complications of the procedure were explained to the patient. Written informed consent was obtained and placed in the chart. The abdomen and pelvis were examined sonographically, and an appropriate site was chosen for paracentesis. The skin was prepared and draped in the usual sterile fashion, and 1% lidocaine was infiltrated from the skin down through the peritoneal surface. A 19-gauge catheter-covered needle was then introduced into the peritoneal space, the catheter was advanced and the needle was withdrawn, and thereafter peritoneal fluid was withdrawn. The catheter was then removed and a dressing was applied. The fluid was discarded if the clinician did not order diagnostic testing of the fluid. COMPARISON: [facility], , PARACENTESIS, 12/17/2023, 7:53. FINDINGS: Access site: Right lower quadrant Needle: One-Step centesis catheter with introducer needle. Fluid volume and description: 5L, clear graham ascites. Fluid sent for diagnostic testing: none. Medications: 1% lidocaine for local anaesthesia. Complications: None. IMPRESSION: Successful ultrasound-guided paracentesis. Dictated by: Viral Harrington M.D. on 12/25/2023 at 9:12 Approved by: Viral Harrington M.D. on 12/25/2023 at 12:56
== END ==
LOC: US 07:44
PROVIDERS: PCP Physician Assistant; Referring Provider Physician Assistant; Visit Provider Physician Assistant
DX: K70.31 Alcoholic cirrhosis of liver with ascites (principal)
CPT/HCPCS: 49083

== ENCOUNTER 2024-01-27 07:29 | Emergency (ER) | payer MEDICARE, SELFPAY ==
[2024-01-27] VITALS (14 sets, daily range): BP systolic 115–134; BP diastolic 67–78; PULSE 92–101; RESP 12–19; TEMP 36.6; O2SAT 95–98; BMI 44.4
--- NOTE | 2024-01-27 07:58 | ED.GENADULT ---
HPI - General Adult General Chief complaint: Abdominal Pain Stated complaint: per pt needs stomach pump of paracentesis Time Seen by Provider: 01/27/24 07:34 Source: patient Mode of arrival: Ambulatory History of Present Illness HPI narrative: Patient has a history of alcoholic cirrhosis resulting in his ascites. Has had multiple paracentesis in the past. He was not see a GI doctor. He has been taking all of his medications. He states that he still occasionally drinks and when he does so his abdomen seems to be come more distended. His last paracentesis was little over 1 month ago. No urinary symptoms and no change in bowel habits. Related Data Previous Rx's Medication Instructions Recorded diabetic supplies, miscellan. #25 ea 01/02/22 (Chemstrip bG Log Book) insulin glargine 100 unit/mL 20 unit (0.2 mL) SUBCUT BID #10 mL 01/02/22 subcutaneous solution miscellaneous medical supply #48 ea 01/02/22 furosemide 40 mg tablet (Lasix) 40 mg PO DAILY #7 tabs 02/12/23 furosemide 20 mg tablet (Lasix) 20 mg PO DAILY #30 tabs 03/09/23 Allergies Allergy/AdvReac Type Severity Reaction Status Date / Time adhesive AdvReac Intermediate Blister Unverified 12/16/23 16:41 Review of Systems Cardiovascular Cardiovascular: Reports system reviewed and no additional complaints, except as documented Respiratory Respiratory: Reports system reviewed and no additional complaints, except as documented Gastrointestinal Gastrointestinal: Reports system reviewed and no additional complaints, except as documented Genitourinary Genitourinary: Reports system reviewed and no additional complaints, except as documented Patient History Medical History Lesion of right lower [place] kidney Renal failure Hepatic failure Anticoagulated Urinary tract infection Left ureteral calculus Right renal stone Sepsis Surgical History Retained ureteral stent Family History Father Cancer Grandfather Cancer Grandmother Diabetes mellitus Heart disease Mother Age: 82 Alzheimer disease Sister Age: 67 Hypertension Social History household members: spouse Smoking Status: Current every day smoker alcohol intake: current Smoking Status: Current every day smoker tobacco type: smokeless tobacco alcohol intake frequency: 3 or more drinks per day Substance Use Type: does not use Exam Initial Vital Signs Initial Vital Signs: Vital Signs Pulse Rate 98 H 01/27/24 07:36 Respiratory Rate 16 01/27/24 07:36 Blood Pressure 134/72 01/27/24 07:36 Pulse Oximetry 98 01/27/24 07:36 Oxygen Delivery Method Room Air 01/27/24 07:36 HENMT Head: normal to inspection and normocephalic Resp Effort & Inspection: normal respiratory effort Cardio Rate: regular rate GI Inspection: distended Palpation: firm, No guarding, No tender and ascites Skin General: No jaundice Neuro General: patient alert, patient awake, patient oriented x3 and moves all extremities Extrem General: No edema Procedures Paracentesis Indication: Ascites Procedure: therapeutic paracentesis Location: RLQ Local Anesthetic: lidocaine 1% Amount of anesthesia used (mL): 5 Bedside Ultrasound Used: yes, Ascites confirmed and location marked Preparation: sterile prep and drape and Blade used to make zac in skin Amount of fluid obtained (mL): 7,000 Fluid: clear Post Procedure Exam: awake, alert, normal BP, normal HR and normal SpO2 Patient Tolerated Procedure: Well and No complications Course Orders Ordered: ED Orders 01/27/24 07:37 Complete Blood Count AUTO DIFF Stat Comprehensive Metabolic Panel Stat Lipase Stat PTT Partial Thromboplastin Ramses Stat Prothrombin Time INR Stat 01/27/24 07:42 EKG-12 Lead Stat Vital Signs Vital signs: Vital Signs - 8 hr 01/27/24 07:36 01/27/24 07:38 01/27/24 07:39 Temperature Pulse Rate 98 H 99 H Respiratory Rate 16 17 Blood Pressure 134/72 134/72 Pulse Oximetry 98 96 Oxygen Delivery Method Room Air 01/27/24 07:39 01/27/24 08:22 Temperature 98 F Pulse Rate 98 H Respiratory Rate 18 Blood Pressure Pulse Oximetry 96 Oxygen Delivery Method Medical Decision Making Lab Data Lab results reviewed: Yes I reviewed the patient's lab results. 01/27/24 07:37 01/27/24 07:37 Labs: Lab Results 01/27/24 Range/Units 07:37 WBC 6.9 (4.5-11.0) X10^3/uL RBC 4.09 L (4.5-5.9) X10^6/uL Hgb 13.7 (13.5-17.5) g/dL Hct 40.1 L (41-53) % MCV 98.1 (80-100) fL MCH 33.5 (26-34) PG MCHC 34.2 (30-36) % RDW 15.2 H (11.6-14.8) % Plt Count 103 L (150-400) X10^3/uL Neut % (Auto) 62.5 (50-75) % Lymph % (Auto) 15.8 L (25-40) % [place] % (Auto) 19.3 H (3-14) % Eos % (Auto) 1.9 L (2-4) % Baso % (Auto) 0.5 (0-2) % Neut # (Auto) 4300 (2389-2617) /uL Lymph # (Auto) 1100 (3289-6871) /uL [place] # (Auto) 1300 H (0-900) /uL Eos # (Auto) 100 (0-450) /uL Baso # (Auto) 0 (0-100) /uL PT 17.8 H (9.4-12.5) SECONDS INR 1.5 H (0.9-1.3) APTT 39 H (25.1-36.5) SECONDS Sodium 137 (137-145) mmol/L Potassium 3.1 L (3.4-5.1) mmol/L Chloride 101 (98-107) mmol/L Carbon Dioxide 32 (22-32) mmol/L BUN 7 L (9-20) mg/dL Creatinine 0.77 (0.66-1.25) mg/dL Estimated GFR > 60 (>60) mL/min BUN/Creatinine Ratio 9.1 (6-22) Glucose 115 H (80-110) mg/dL Calcium 7.9 L (8.4-10.2) mg/dL Total Bilirubin 6.9 H (0.2-1.3) mg/dL AST 76 H (17-59) IU/L ALT 27 (<50) IU/L Alkaline Phosphatase 167 H (38-126) U/L Total Protein 8.0 (6.3-8.2) g/dL Albumin 3.0 L (3.5-5.0) g/dL Globulin 5.0 H (1.7-4.1) g/dL Albumin/Globulin Ratio 0.6 L (1.0-2.8) Lipase 62 (23-300) U/L ECG Data Attestation: I personally reviewed and interpreted this ECG as follows: Interpretation: Sinus rhythm Ventricular rate 97 Left axis deviation One PVC No ST T wave changes MDM Narrative Medical decision making narrative: Patient is alert and oriented. Labs are relatively unremarkable. Paracentesis was performed for therapeutic purposes. Removed 7 L. Patient tolerated this well. Probably could have removed more however was some concern about potentially developing some hypotension. No samples were sent to the lab. Patient was advised to return precautions. He expressed understanding and agreement. Discharge Plan Departure Patient Disposition: Home Clinical Impression: Ascites, Status post abdominal paracentesis Instructions: Ascites, DI for Abdominal Paracentesis Activity Restrictions/Additional Instructions: Continue to take all of your medications as directed. I do recommend that you work on making contact with a surveillance monitor for further treatment. Return to the emergency department for new or worsening symptoms. Prescriptions: No Action insulin glargine 100 unit/mL solution 20 unit SUBCUT BID Qty: 10 0RF (DME) miscellaneous medical supply Package See Rx Instructions .Route Qty: 48 0RF Rx Instructions: As directed (DME) Chemstrip bG Log Book Misc See Rx Instructions .Route Qty: 25 0RF Rx Instructions: achs furosemide [Lasix] 40 mg tablet 40 mg PO DAILY Qty: 7 0RF furosemide [Lasix] 20 mg tablet 20 mg PO DAILY Qty: 30 0RF Referrals: Mariluz Velasquez PA-C [Primary Care Provider] - Stand Alone Forms: Patient Portal/API
[2024-01-27 08:06] LABS: Add Manual Diff / Slide Review NO; Basophils Absolute Auto 0 /uL (0-100); Basophils Percent Auto 0.5 % (0-2); Eosinophils Absolute Auto 100 /uL (0-450); Eosinophils Percent Auto 1.9 % (2-4); Hematocrit 40.1 % (41-53); Hemoglobin 13.7 g/dL (13.5-17.5); Lymphocytes Absolute Auto 1100 /uL (1100-4500); Lymphocytes Percent Auto 15.8 % (25-40); Mean Corpuscular HGB Conc 34.2 % (30-36); Mean Corpuscular Hemoglobin 33.5 PG (26-34); Mean Corpuscular Volume 98.1 fL (80-100); Monocytes Absolute Auto 1300 /uL (0-900); Monocytes Percent Auto 19.3 % (3-14); Neutrophils Absolute Auto 4300 /uL (1500-7000); Neutrophils Percent Auto 62.5 % (50-75); Platelet Count 103 X10^3/uL (150-400); Red Blood Cell Count 4.09 X10^6/uL (4.5-5.9); Red Cell Distribution Width 15.2 % (11.6-14.8); White Blood Cell Count 6.9 X10^3/uL (4.5-11.0)
[2024-01-27 08:08] LABS: INR 1.5 (0.9-1.3); Prothrombin Time 17.8 SECONDS (9.4-12.5)
[2024-01-27 08:10] LABS: PTT Partial Thromboplastin Tim 39 SECONDS (25.1-36.5)
[2024-01-27 08:13] LABS: Alanine Aminotransferase 27 IU/L (<50); Albumin Globulin Ratio 0.6 (1.0-2.8); Alkaline Phosphatase 167 U/L (38-126); Aspartate Aminotransferase 76 IU/L (17-59); BUN Creatinine Ratio 9.1 (6-22); Bilirubin Total 6.9 mg/dL (0.2-1.3); Blood Urea Nitrogen 7 mg/dL (9-20); Calcium 7.9 mg/dL (8.4-10.2); Carbon Dioxide 32 mmol/L (22-32); Chloride 101 mmol/L (98-107); Estimated Glomerular Filt Rate > 60 mL/min (>60); Glucose 115 mg/dL (80-110); HEMOLYSIS 26 (0-50); Lipase 62 U/L (23-300); Potassium 3.1 mmol/L (3.4-5.1); Sodium 137 mmol/L (137-145)
== END 2024-01-27 09:27 | disposition home or self-care (01) ==
PROVIDERS: Emergency Provider Emergency Medicine; PCP Physician Assistant
DX: K70.31 Alcoholic cirrhosis of liver with ascites (principal)
CPT/HCPCS: 49083; 80053; 83690; 85025; 85610; 85730; 93005; 93010; 99281; 99283

== ENCOUNTER 2024-02-22 07:39 | Emergency (ER) | payer MEDICARE, SELFPAY ==
--- NOTE | 2024-02-22 | DI.US.S_ITS ---
PROCEDURE: US ABDOMEN LIMITED INDICATIONS: ASCITES, KAI FOR DR. ALEGRE TECHNIQUE: Real-time focused scanning was performed of the abdomen, with image documentation. COMPARISON: [facility], , US ABDOMEN LIMITED, 07/24/2021, 8:42. FINDINGS: Moderate ascites is seen. The right-side of the abdomen is marked for paracentesis for Dr. Alegre. IMPRESSION: Abdominal marking for paracentesis. Dictated by: Tramaine Brewer M.D. on 02/22/2024 at 9:58 Approved by: Tramaine Brewer M.D. on 02/22/2024 at 9:58
[2024-02-22 07:54] VITALS: BP 132/74; PULSE 101; RESP 16; TEMP 36.9; O2SAT 95; BMI 47.3
--- NOTE | 2024-02-22 08:28 | ED_ITS ---
HPI - General Adult General Chief complaint: Urogenital-Male Stated complaint: Need Paracentesis & Hydrocelectomy Time Seen by Provider: 02/22/24 08:24 Source: patient, RN notes reviewed and old records reviewed Mode of arrival: Ambulatory Limitations: no limitations History of Present Illness HPI narrative: 68-year-old male with history of alcoholic cirrhosis and ascites has had multiple paracentesis. Patient presents today with increased swelling of his abdomen and testicles. He believes he is scheduled for an outpatient paracentesis in the next 24-48 hours but has not received a call back confirming. Patient notes that he was switched on insurance so he had delay and had difficulty scheduling. He states he has sometimes had paracentesis 2 or 3 times in a week. States his abdomen is quite distended but has easily been this distended in the past. He describes scrotal swelling and increased swelling in his lower extremities. Patient states no fevers or chills. He has a little bit of mild shortness of breath but denies any chest pain or pressure. He is able to lay flat on his back. Patient denies any pain in his abdomen. He denies any scrotal pain. He states he has been able to urinate without issue. He does have swelling of bilateral lower extremities. He states it is little bit worse than his typical. Patient states he is on Lasix daily he takes 40-60 mg daily. He is on insulin. He states no other daily prescription medications. He does continue to use tobacco, states he quit alcohol several weeks ago. No recreational drugs. Dr. Jones is his primary care physician. States he has not established with a radiology ct technologist. Related Data Home Medications Medication Instructions Recorded Confirmed insulin NPH isoph U-100 human 100 unit SUBCUT 02/17/24 02/17/24 unit/mL (3 mL) subcutaneous pen (Humulin N NPH U-100 Insulin KwikPen) spironolactone 100 mg tablet 100 mg PO DAILY 02/17/24 02/22/24 Previous Rx's Medication Instructions Recorded diabetic supplies, miscellan. #25 ea 01/02/22 (Chemstrip bG Log Book) insulin glargine 100 unit/mL 20 unit (0.2 mL) SUBCUT BID #10 mL 01/02/22 subcutaneous solution miscellaneous medical supply #48 ea 01/02/22 furosemide 20 mg tablet (Lasix) 20 mg PO DAILY #30 tabs 03/09/23 furosemide 20 mg tablet (Lasix) 40 mg (2 x 20 mg) PO BID #20 tabs 02/22/24 Allergies Allergy/AdvReac Type Severity Reaction Status Date / Time adhesive AdvReac Intermediate Blister Verified 02/22/24 07:58 Review of Systems Review of Systems ROS Unobtainable: All systems reviewed & are unremarkable except as noted in HPI and below Patient History Medical History Acute kidney injury Lesion of right [place] kidney Renal failure Hepatic failure Anticoagulated Urinary tract infection Left ureteral calculus Right renal stone Sepsis Surgical History Retained ureteral stent Family History Father Cancer Grandfather Cancer Grandmother Diabetes mellitus Heart disease Mother Age: 83 Alzheimer disease Sister Age: 68 Hypertension Social History household members: spouse Smoking Status: Current every day smoker alcohol intake: current Smoking Status: Current every day smoker tobacco type: smokeless tobacco alcohol intake frequency: 3 or more drinks per day Substance Use Type: does not use Exam Narrative Exam Narrative: GENERAL: Alert and oriented x three, male in mild distress. Patient is lying flat on his back of the bed. HEENT: Head normocephalic, atraumatic, EOMI, pupils reactive, face symmetric, moist mucous membranes NECK: Supple, full range of motion CARDIOVASCULAR: Regular rate and rhythm without murmurs, rubs or gallops. Patient has 2+ pitting edema bilateral lower extremities. RESPIRATORY: Breath sounds equal bilaterally, no wheezes rales or rhonchi. ABDOMEN: Soft, nontender. Abdomen is significantly distended, umbilicus is distended. He is soft with fluid wave present. Has some keep it. Patient does have some scabs on the umbilicus but no drainage or fluid leakage. Normoactive bowel sounds all 4 quadrants. No guarding or rebound, rigidity, no mass : No CVA tenderness, patient has bilateral scrotal edema, he has some edema of the penis itself. EXTREMITIES: Normal range of motion, no clubbing or edema. Neurovascularly intact NEUROLOGICAL: Cranial nerves II through XII grossly intact. Moving all extremities SKIN: Warm, dry, no petechiae, no rashes or lesions. Initial Vital Signs Initial Vital Signs: Vital Signs Temperature 98.5 F 02/22/24 07:54 Pulse Rate 101 H 02/22/24 07:54 Respiratory Rate 16 02/22/24 07:54 Blood Pressure 132/74 02/22/24 07:54 Pulse Oximetry 95 02/22/24 07:54 Oxygen Delivery Method Room Air 02/22/24 07:54 Procedures Paracentesis Time Out Performed: Yes Indication: Ascites Procedure: therapeutic paracentesis Location: RLQ Local Anesthetic: lidocaine 2% Amount of anesthesia used (mL): 8 Bedside Ultrasound Used: yes, Ascites confirmed and location marked (Also real- time guidance.) Preparation: sterile prep and drape and Blade used to make zac in skin Amount of fluid obtained (mL): 6,000 Fluid: clear Size of Needle Used: 25 Post Procedure Exam: awake, alert, normal BP, normal HR and normal SpO2 Patient Tolerated Procedure: No complications Complications: none Course Orders Ordered: ED Orders 02/22/24 09:51 CBC Auto Diff [Complete Blood Count AUTO DIFF] Stat CMP [Comprehensive Metabolic Panel] Stat PTT Partial Thromboplastin Ramses Stat Prothrombin Time INR Stat Vital Signs Vital signs: Vital Signs - 8 hr 02/22/24 07:54 02/22/24 08:36 Temperature 98.5 F Pulse Rate 101 H 85 Respiratory Rate 16 16 Blood Pressure 132/74 133/67 Pulse Oximetry 95 95 Oxygen Delivery Method Room Air Room Air Medical Decision Making Lab Data 02/22/24 09:51 02/22/24 09:51 Labs: Lab Results 02/22/24 Range/Units 09:51 WBC 6.1 (4.5-11.0) X10^3/uL RBC 3.60 L (4.5-5.9) X10^6/uL Hgb 12.4 L (13.5-17.5) g/dL Hct 36.1 L (41-53) % MCV 100.6 H (80-100) fL MCH 34.6 H (26-34) PG MCHC 34.4 (30-36) % RDW 16.2 H (11.6-14.8) % Plt Count 90 L (150-400) X10^3/uL Neut % (Auto) 69.1 (50-75) % Lymph % (Auto) 9.7 L (25-40) % [place] % (Auto) 18.4 H (3-14) % Eos % (Auto) 2.2 (2-4) % Baso % (Auto) 0.6 (0-2) % Neut # (Auto) 4300 (4144-6944) /uL Lymph # (Auto) 600 L (3078-8998) /uL [place] # (Auto) 1100 H (0-900) /uL Eos # (Auto) 100 (0-450) /uL Baso # (Auto) 0 (0-100) /uL PT 17.2 H (9.4-12.5) SECONDS INR 1.5 H (0.9-1.3) APTT 36 (25.1-36.5) SECONDS Sodium 137 (137-145) mmol/L Potassium 4.0 (3.4-5.1) mmol/L Chloride 107 (98-107) mmol/L Carbon Dioxide 28 (22-32) mmol/L BUN 10 (9-20) mg/dL Creatinine 0.91 (0.66-1.25) mg/dL Estimated GFR > 60 (>60) mL/min BUN/Creatinine Ratio 11.0 (6-22) Glucose 122 H (80-110) mg/dL Calcium 8.0 L (8.4-10.2) mg/dL Total Bilirubin 6.1 H (0.2-1.3) mg/dL AST 44 (17-59) IU/L ALT 22 (<50) IU/L Alkaline Phosphatase 142 H (38-126) U/L Total Protein 8.0 (6.3-8.2) g/dL Albumin 2.9 L (3.5-5.0) g/dL Globulin 5.1 H (1.7-4.1) g/dL Albumin/Globulin Ratio 0.6 L (1.0-2.8) Imaging Data US - abdomen: Radiologist's Impression: [address] [address] Ultrasound Report Signed Patient: Natalio Cardozo V MR#: [id number] : 1955 Acct:[id number] Age/Sex: 68 / M Date of Service: 02/22/24 Loc: ED Accession Number: [id number] Procedure: US abdomen limited Ordering Provider: Kacey Alegre D.O. PROCEDURE: US ABDOMEN LIMITED INDICATIONS: ASCITES, KAI FOR DR. ALEGRE TECHNIQUE: Real-time focused scanning was performed of the abdomen, with image documentation. COMPARISON: [facility], US ABDOMEN LIMITED, 07/24/2021, 8:42. FINDINGS: Moderate ascites is seen. The right-side of the abdomen is marked for paracentesis for Dr. Alegre. IMPRESSION: Abdominal marking for paracentesis. Dictated by: Tramaine Brewer M.D. on 02/22/2024 at 9:58 Approved by: Tramaine Brewer M.D. on 02/22/2024 at 9:58 MDM Narrative Medical decision making narrative: 68-year-old male who presents with request for paracentesis. Patient has had them in the past he has known alcoholic cirrhosis he does note he stopped drinking couple weeks ago. His last paracentesis was several weeks ago in January. He states he has not been able to set up an outpatient paracentesis secondary to insurance changes. Labs show white count 6.1, hemoglobin 12.4 was 13 in January, platelets are 90 were 103 on January 26 as well. INR today is 1.5, electrolytes are appropriate creatinine is appropriate, calcium Ca bilirubin 6.1 down from 6.9 in January, alk- phos is 142 AST ALT are appropriate. Albumin is 2.9 with a globulin of 5.1 Spoke with patient he is agreeable for paracentesis. He has not other 1 scheduled on . I think he would benefit from multiple. Patient had verbal and written consent. Patient had 6 L removed. Tolerated well no significant or persistent changes in blood pressure. Patient was monitored for approximately an hour and then discharged home. He is set up for repeat paracentesis later this which I think will benefit from. Also discussed with patient we will increase his Lasix for the short term. Discharge Plan Departure Patient Disposition: Home Clinical Impression: Cirrhosis of liver, Ascites, Edema of scrotum Activity Restrictions/Additional Instructions: You has been scheduled for paracentesis as an outpatient on February 24 at 8:45 a.m. Please arrive 20-30 minutes prior to your appointment to check in. Follow up with your physician this week for recheck. Make sure that they have gotten you scheduled for regular paracentesis. You may need to call scheduling in order to set up an exact time and date. You had 6 L removed today. I would recommend continuing through Lasix you can take 2 tablets in the morning and 2 tablets in the evening. Prescription was sent to [facility] in [place]. Please return for worsening symptoms, new fevers, new abdominal back or flank pain, increasing swelling of your abdomen, legs or scrotum, you are having any vomiting. Or other new or concerning changes. Prescriptions: New furosemide [Lasix] 20 mg tablet 40 mg PO BID Qty: 20 0RF No Action spironolactone 100 mg tablet 100 mg PO DAILY Humulin N NPH Insulin KwikPen 100 unit/mL (3 mL) insulin pen SUBCUT Patient Comments: [NO ORIGINAL SIG] insulin glargine 100 unit/mL solution 20 unit SUBCUT BID Qty: 10 0RF (DME) miscellaneous medical supply Package See Rx Instructions .Route Qty: 48 0RF Rx Instructions: As directed (DME) Chemstrip bG Log Book Misc See Rx Instructions .Route Qty: 25 0RF Rx Instructions: achs furosemide [Lasix] 20 mg tablet 20 mg PO DAILY Qty: 30 0RF Referrals: Yunior Jones MD [Primary Care Provider] - Stand Alone Forms: Patient Portal/API
[2024-02-22 08:36] VITALS: BP 133/67; PULSE 85; RESP 16; O2SAT 95
--- NOTE | 2024-02-22 08:56 | PC.NURSE ---
At this time I called the triage nure for the patient's PCP Yunior Jones. She confirmed that the patient is scheduled for outpatient paracentesis once a week and that he did not call to schedule for this week. She reports she will schedule it for him and will call me back.
--- NOTE | 2024-02-22 09:13 | PC.NURSE ---
Paracentesis has been scheduled for patient at 0845 on February.
[2024-02-22 10:00] LABS: Add Manual Diff / Slide Review NO; Basophils Absolute Auto 0 /uL (0-100); Basophils Percent Auto 0.6 % (0-2); Eosinophils Absolute Auto 100 /uL (0-450); Eosinophils Percent Auto 2.2 % (2-4); Hematocrit 36.1 % (41-53); Hemoglobin 12.4 g/dL (13.5-17.5); Lymphocytes Absolute Auto 600 /uL (1100-4500); Lymphocytes Percent Auto 9.7 % (25-40); Mean Corpuscular HGB Conc 34.4 % (30-36); Mean Corpuscular Hemoglobin 34.6 PG (26-34); Mean Corpuscular Volume 100.6 fL (80-100); Monocytes Absolute Auto 1100 /uL (0-900); Monocytes Percent Auto 18.4 % (3-14); Neutrophils Absolute Auto 4300 /uL (1500-7000); Neutrophils Percent Auto 69.1 % (50-75); Platelet Count 90 X10^3/uL (150-400); Red Cell Distribution Width 16.2 % (11.6-14.8); White Blood Cell Count 6.1 X10^3/uL (4.5-11.0)
[2024-02-22 10:12] LABS: INR 1.5 (0.9-1.3); Prothrombin Time 17.2 SECONDS (9.4-12.5)
[2024-02-22 10:15] LABS: PTT Partial Thromboplastin Tim 36 SECONDS (25.1-36.5)
[2024-02-22 10:16] LABS: Alanine Aminotransferase 22 IU/L (<50); Albumin 2.9 g/dL (3.5-5.0); Albumin Globulin Ratio 0.6 (1.0-2.8); Alkaline Phosphatase 142 U/L (38-126); Aspartate Aminotransferase 44 IU/L (17-59); Bilirubin Total 6.1 mg/dL (0.2-1.3); Blood Urea Nitrogen 10 mg/dL (9-20); Carbon Dioxide 28 mmol/L (22-32); Chloride 107 mmol/L (98-107); Estimated Glomerular Filt Rate > 60 mL/min (>60); Globulin 5.1 g/dL (1.7-4.1); Glucose 122 mg/dL (80-110); HEMOLYSIS < 15 (0-50); Sodium 137 mmol/L (137-145)
--- NOTE | 2024-02-22 12:00 | PC.NURSE ---
Paracentesis preformed by MAGEN [place]. This RN to bedside to monitor pt and collect fluid.
--- NOTE | 2024-02-22 12:16 | PC.NURSE ---
Pt tolerating procedure. Four Litres of clear, graham, fluid drained from the pt. Pt tolerating procedure. No complaints, needs or distress noted at this time.
[2024-02-22 13:28] VITALS: BP 116/66; PULSE 87; RESP 16; O2SAT 96
== END 2024-02-22 13:15 | disposition home or self-care (01) ==
PROVIDERS: Emergency Provider Emergency Medicine; PCP Family Medicine
DX: K74.60 Unspecified cirrhosis of liver (principal); R18.8 Other ascites; N50.89 Other specified disorders of the male genital organs
CPT/HCPCS: 36415; 49083; 76705; 80053; 85025; 85610; 85730; 99283

== ENCOUNTER → 2024-02-25 08:36 | Outpatient (CLI) | payer MEDICARE, SELFPAY ==
--- NOTE | 2024-02-25 08:37 | DI.US.S_ITS ---
PROCEDURE: US PARACENTESIS INDICATIONS: ascites TECHNIQUE: The indications, alternatives, benefits, risks, and complications of the procedure were explained to the patient. Written informed consent was obtained and placed in the chart. The abdomen and pelvis were examined sonographically, and an appropriate site was chosen for paracentesis. The skin was prepared and draped in the usual sterile fashion, and 1% lidocaine was infiltrated from the skin down through the peritoneal surface. A 19-gauge catheter-covered needle was then introduced into the peritoneal space, the catheter was advanced and the needle was withdrawn, and thereafter peritoneal fluid was withdrawn. The catheter was then removed and a dressing was applied. The fluid was discarded if the clinician did not order diagnostic testing of the fluid. COMPARISON: [facility], , PARACENTESIS, 12/25/2023, 7:51. FINDINGS: Access site: Right lower quadrant Needle: One-Step centesis catheter with introducer needle. Fluid volume and description: 5L of clear straw colored ascites. Fluid sent for diagnostic testing: Not requested Medications: 1% lidocaine for local anaesthesia. Complications: None. IMPRESSION: Successful ultrasound-guided paracentesis. Dictated by: Viral Harrington M.D. on 02/25/2024 at 13:41 Approved by: Viral Harrington M.D. on 02/25/2024 at 13:42
== END ==
LOC: US 08:36
PROVIDERS: PCP Family Medicine; Referring Provider Family Medicine; Visit Provider Family Medicine
DX: K70.31 Alcoholic cirrhosis of liver with ascites (principal)
CPT/HCPCS: 49083

== ENCOUNTER → 2024-02-26 09:23 | Outpatient (CLI) | payer MEDICARE, SELFPAY ==
--- NOTE | 2024-02-26 09:24 | DI.US.S_ITS ---
PROCEDURE: US PARACENTESIS INDICATIONS: ascites TECHNIQUE: The indications, alternatives, benefits, risks, and complications of the procedure were explained to the patient. Written informed consent was obtained and placed in the chart. The abdomen and pelvis were examined sonographically, and an appropriate site was chosen for paracentesis. The skin was prepared and draped in the usual sterile fashion, and 1% lidocaine was infiltrated from the skin down through the peritoneal surface. A 19-gauge catheter-covered needle was then introduced into the peritoneal space, the catheter was advanced and the needle was withdrawn, and thereafter peritoneal fluid was withdrawn. The catheter was then removed and a dressing was applied. The fluid was discarded if the clinician did not order diagnostic testing of the fluid. COMPARISON: [facility], PARACENTESIS, 02/25/2024, 9:07. FINDINGS: Access site: Right lower quadrant Needle: One-Step centesis catheter with introducer needle. Fluid volume and description: 5000 cc, clear yellow Fluid sent for diagnostic testing: No Medications: 1% lidocaine for local anaesthesia. Complications: None. IMPRESSION: Successful ultrasound-guided paracentesis. Dictated by: Gaston Pérez M.D. on 02/26/2024 at 11:44 Approved by: Gaston Pérez M.D. on 02/26/2024 at 11:45
== END ==
LOC: US 09:23
PROVIDERS: PCP Family Medicine; Referring Provider Family Medicine; Visit Provider Family Medicine
DX: K70.31 Alcoholic cirrhosis of liver with ascites (principal)
CPT/HCPCS: 49083

== ENCOUNTER → 2024-02-29 07:40 | Outpatient (CLI) | payer MEDICARE, SELFPAY ==
[2024-02-29] VITALS (25 sets, daily range): BP systolic 85–204; BP diastolic 48–69; PULSE 61–86; RESP 10–22; TEMP 36.3–36.6; O2SAT 95–99
--- NOTE | 2024-02-29 07:42 | DI.US.S_ITS ---
PROCEDURE: US PARACENTESIS INDICATIONS: ascites TECHNIQUE: The indications, alternatives, benefits, risks, and complications of the procedure were explained to the patient. Written informed consent was obtained and placed in the chart. The abdomen and pelvis were examined sonographically, and an appropriate site was chosen for paracentesis. The skin was prepared and draped in the usual sterile fashion, and 1% lidocaine was infiltrated from the skin down through the peritoneal surface. A 19-gauge catheter-covered needle was then introduced into the peritoneal space, the catheter was advanced and the needle was withdrawn, and thereafter peritoneal fluid was withdrawn. The catheter was then removed and a dressing was applied. The fluid was discarded if the clinician did not order diagnostic testing of the fluid. COMPARISON: [facility], PARACENTESIS, 02/26/2024, 9:59. FINDINGS: Access site: Right lower quadrant Needle: One-Step centesis catheter with introducer needle. Fluid volume and description: 16 L Fluid sent for diagnostic testing: No Medications: 1% lidocaine for local anaesthesia. Complications: None. IMPRESSION: Successful ultrasound-guided paracentesis. Dictated by: Wendy Faust M.D. on 02/29/2024 at 16:59 Approved by: Wendy Faust M.D. on 02/29/2024 at 16:59
[2024-02-29] MEDS: ALBUMIN HUMAN IV (10:15)
== END ==
LOC: US 07:41 → RAD 11:40
PROVIDERS: PCP Family Medicine; Referring Provider Family Medicine; Visit Provider Family Medicine
DX: K70.31 Alcoholic cirrhosis of liver with ascites (principal)
CPT/HCPCS: 49083; P9041

== ENCOUNTER → 2024-03-03 12:35 | Outpatient (CLI) | payer MEDICARE, SELFPAY ==
--- NOTE | 2024-03-03 12:36 | DI.US.S_ITS ---
PROCEDURE: US PARACENTESIS INDICATIONS: Alcoholic cirrhosis of liver with ascites TECHNIQUE: The indications, alternatives, benefits, risks, and complications of the procedure were explained to the patient. Written informed consent was obtained and placed in the chart. The abdomen and pelvis were examined sonographically, and an appropriate site was chosen for paracentesis. The skin was prepared and draped in the usual sterile fashion, and 1% lidocaine was infiltrated from the skin down through the peritoneal surface. A 19-gauge catheter-covered needle was then introduced into the peritoneal space, the catheter was advanced and the needle was withdrawn, and thereafter peritoneal fluid was withdrawn. The catheter was then removed and a dressing was applied. The fluid was discarded if the clinician did not order diagnostic testing of the fluid. COMPARISON: [facility], PARACENTESIS, 02/29/2024, 7:56. [facility], PARACENTESIS, 02/26/2024, 9:59. FINDINGS: Access site: Right lower quadrant Needle: One-Step centesis catheter with introducer needle. Fluid volume and description: 5 L clear yellow fluid Fluid sent for diagnostic testing: Not requested Medications: 1% lidocaine for local anaesthesia. Complications: None. IMPRESSION: Successful ultrasound-guided paracentesis. Approved by: Ovi Interiano M.D. on 03/03/2024 at 13:53
== END ==
LOC: US 12:35
PROVIDERS: PCP Family Medicine; Referring Provider Family Medicine; Visit Provider Family Medicine
DX: K70.31 Alcoholic cirrhosis of liver with ascites (principal)
CPT/HCPCS: 49083

== ENCOUNTER → 2024-03-03 13:54 | Outpatient (CLI) | payer MEDICARE, SELFPAY ==
[2024-03-03 15:03] LABS: Add Manual Diff / Slide Review NO; Basophils Absolute Auto 0 /uL (0-100); Basophils Percent Auto 0.5 % (0-2); Eosinophils Absolute Auto 100 /uL (0-450); Eosinophils Percent Auto 1.9 % (2-4); Hematocrit 36.3 % (41-53); Hemoglobin 12.5 g/dL (13.5-17.5); Lymphocytes Absolute Auto 600 /uL (1100-4500); Lymphocytes Percent Auto 11.5 % (25-40); Mean Corpuscular HGB Conc 34.5 % (30-36); Mean Corpuscular Hemoglobin 34.7 PG (26-34); Mean Corpuscular Volume 100.5 fL (80-100); Monocytes Absolute Auto 1100 /uL (0-900); Monocytes Percent Auto 19.9 % (3-14); Neutrophils Absolute Auto 3500 /uL (1500-7000); Neutrophils Percent Auto 66.2 % (50-75); Platelet Count 80 X10^3/uL (150-400); Red Blood Cell Count 3.61 X10^6/uL (4.5-5.9); Red Cell Distribution Width 15.4 % (11.6-14.8); White Blood Cell Count 5.3 X10^3/uL (4.5-11.0)
[2024-03-03 15:11] LABS: Hemoglobin A1C% w Est Avg Glu 4.2 % (4.0-6.0)
[2024-03-03 15:34] LABS: HEMOLYSIS < 15 (0-50); Iron 86 ug/dL (49-181)
[2024-03-03 15:36] LABS: Alanine Aminotransferase 21 IU/L (<50); Albumin 3.2 g/dL (3.5-5.0); Albumin Globulin Ratio 0.7 (1.0-2.8); Alkaline Phosphatase 101 U/L (38-126); Aspartate Aminotransferase 41 IU/L (17-59); BUN Creatinine Ratio 14.3 (6-22); Bilirubin Total 4.5 mg/dL (0.2-1.3); Blood Urea Nitrogen 15 mg/dL (9-20); Calcium 8.3 mg/dL (8.4-10.2); Carbon Dioxide 28 mmol/L (22-32); Chloride 107 mmol/L (98-107); Cholesterol 101 mg/dL (140-199); Estimated Glomerular Filt Rate > 60 mL/min (>60); Globulin 4.7 g/dL (1.7-4.1); Glucose 138 mg/dL (80-110); HDL Cholesterol 30 mg/dL (40-60); HEMOLYSIS < 15 (0-50); LDL Cholesterol Calculated 57 mg/dL (<100); Magnesium 2.4 mg/dL (1.6-2.3); Potassium 4.2 mmol/L (3.4-5.1); Sodium 139 mmol/L (137-145); Total Protein 7.9 g/dL (6.3-8.2); Triglycerides 69 mg/dL (35-150)
[2024-03-03 15:45] LABS: Percent Iron Saturation 51 % (20-50); Total Iron Binding Capacity 169 ug/dL (261-462); Transferrin 88 mg/dL (206-381)
[2024-03-03 15:47] LABS: INR 1.6 (0.9-1.3); Prothrombin Time 18.5 SECONDS (9.4-12.5)
[2024-03-03 16:05] LABS: Prostate Specific Antigen Scrn 0.302 ng/mL (0.1-4.0)
[2024-03-03 16:10] LABS: Ferritin 264 ng/mL (18-464)
[2024-03-03 16:41] LABS: Folate 10.1 ng/mL (2.76-20.0)
[2024-03-03 17:45] LABS: Hepatitis B Surface Antigen NEGATIVE s/c (NEGATIVE)
[2024-03-03 18:11] LABS: HIV 1 & 2 Ab/Ag 4th Gen Combo NEGATIVE (NEGATIVE); Hep C Virus Ab w/Reflex Quant NEGATIVE s/c (NEGATIVE)
[2024-03-05 08:12] LABS: Ceruloplasmin 16.3 mg/dL (16.0-31.0)
[2024-03-07 10:08] LABS: Hepatitis B Surf Ab Qualitativ Non Reactive (.)
[2024-03-09 07:11] LABS: Vitamin B1 87.5 nmol/L (66.5-200.0)
== END ==
PROVIDERS: PCP Family Medicine; Referring Provider Family Medicine; Visit Provider Family Medicine
DX: Z12.5 Encounter for screening for malignant neoplasm of prostate (principal); F10.20 Alcohol dependence, uncomplicated; K70.31 Alcoholic cirrhosis of liver with ascites; E11.9 Type 2 diabetes mellitus without complications
CPT/HCPCS: 36415; 49083; 80053; 80061; 82390; 82728; 82746; 83036; 83540; 83550; 83735; 84425; 85025; 85610; 86706; 86803; 87340; 87389; G0103

== ENCOUNTER → 2024-03-07 07:43 | Outpatient (CLI) | payer MEDICARE, SELFPAY ==
--- NOTE | 2024-03-07 07:44 | DI.US.S_ITS ---
PROCEDURE: US PARACENTESIS INDICATIONS: therapeutic paracentesis TECHNIQUE: The indications, alternatives, benefits, risks, and complications of the procedure were explained to the patient. Written informed consent was obtained and placed in the chart. The abdomen and pelvis were examined sonographically, and an appropriate site was chosen for paracentesis. The skin was prepared and draped in the usual sterile fashion, and 1% lidocaine was infiltrated from the skin down through the peritoneal surface. A 19-gauge catheter-covered needle was then introduced into the peritoneal space, the catheter was advanced and the needle was withdrawn, and thereafter peritoneal fluid was withdrawn. The catheter was then removed and a dressing was applied. The fluid was discarded if the clinician did not order diagnostic testing of the fluid. COMPARISON: [facility], PARACENTESIS, 03/03/2024, 12:47. FINDINGS: Access site: Right lower quadrant Needle: One-Step centesis catheter with introducer needle. Fluid volume and description: 5 L Fluid sent for diagnostic testing: No Medications: 1% lidocaine for local anaesthesia. Complications: None. IMPRESSION: Successful ultrasound-guided paracentesis. Dictated by: Wendy Faust M.D. on 03/07/2024 at 15:58 Approved by: Wendy Faust M.D. on 03/07/2024 at 15:59
== END ==
PROVIDERS: PCP Family Medicine; Referring Provider Family Medicine; Visit Provider Family Medicine
DX: K70.31 Alcoholic cirrhosis of liver with ascites (principal); E11.9 Type 2 diabetes mellitus without complications
CPT/HCPCS: 49083; 82043; 82570

== ENCOUNTER → 2024-03-07 12:09 | Outpatient (CLI) | payer MEDICARE, SELFPAY ==
[2024-03-07 14:49] LABS: Creatinine Urine Random 91.62 mg/dL
[2024-03-07 14:57] LABS: Microalbumin Urine Random 1.9 mg/dL (0-1.6)
== END ==
PROVIDERS: PCP Family Medicine; Referring Provider Family Medicine; Visit Provider Family Medicine
DX: K74.60 Unspecified cirrhosis of liver (principal); E11.9 Type 2 diabetes mellitus without complications
CPT/HCPCS: 82043; 82570

== ENCOUNTER → 2024-03-09 07:44 | Outpatient (CLI) | payer MEDICARE, SELFPAY ==
--- NOTE | 2024-03-09 | DI.US.S_ITS ---
PROCEDURE: US PARACENTESIS INDICATIONS: ASCITES TECHNIQUE: The indications, alternatives, benefits, risks, and complications of the procedure were explained to the patient. Written informed consent was obtained and placed in the chart. The abdomen and pelvis were examined sonographically, and an appropriate site was chosen for paracentesis. The skin was prepared and draped in the usual sterile fashion, and 1% lidocaine was infiltrated from the skin down through the peritoneal surface. A 19-gauge catheter-covered needle was then introduced into the peritoneal space, the catheter was advanced and the needle was withdrawn, and thereafter peritoneal fluid was withdrawn. The catheter was then removed and a dressing was applied. The fluid was discarded if the clinician did not order diagnostic testing of the fluid. COMPARISON: [facility], , PARACENTESIS, 03/07/2024, 7:57. FINDINGS: Access site: Left lower quadrant Needle: One-Step centesis catheter with introducer needle. Fluid volume and description: 10L, clear graham ascites Fluid sent for diagnostic testing: none Medications: 1% lidocaine for local anaesthesia. Complications: None. IMPRESSION: Successful ultrasound-guided paracentesis. Dictated by: Viral Harrington M.D. on 03/09/2024 at 20:12 Approved by: Viral Harrington M.D. on 03/09/2024 at 20:21
== END ==
PROVIDERS: PCP Family Medicine; Referring Provider Family Medicine; Visit Provider Physician Assistant
DX: K70.31 Alcoholic cirrhosis of liver with ascites
CPT/HCPCS: 49083; P9041

== ENCOUNTER → 2024-03-16 07:42 | Outpatient (CLI) | payer MEDICARE, SELFPAY ==
--- NOTE | 2024-03-16 07:43 | DI.US.S_ITS ---
PROCEDURE: US PARACENTESIS INDICATIONS: ASCITES TECHNIQUE: The indications, alternatives, benefits, risks, and complications of the procedure were explained to the patient. Written informed consent was obtained and placed in the chart. The abdomen and pelvis were examined sonographically, and an appropriate site was chosen for paracentesis. The skin was prepared and draped in the usual sterile fashion, and 1% lidocaine was infiltrated from the skin down through the peritoneal surface. A 19-gauge catheter-covered needle was then introduced into the peritoneal space, the catheter was advanced and the needle was withdrawn, and thereafter peritoneal fluid was withdrawn. The catheter was then removed and a dressing was applied. The fluid was discarded if the clinician did not order diagnostic testing of the fluid. COMPARISON: [facility], PARACENTESIS, 03/09/2024, 8:00. FINDINGS: Access site: Right lower quadrant Needle: One-Step centesis catheter with introducer needle. Fluid volume and description: 01335 cc clear Fluid sent for diagnostic testing: No Medications: 1% lidocaine for local anaesthesia. Complications: None. IMPRESSION: Successful ultrasound-guided paracentesis. Dictated by: Wendy Faust M.D. on 03/16/2024 at 15:16 Approved by: Wendy Faust M.D. on 03/16/2024 at 15:17
== END ==
LOC: US 07:42
PROVIDERS: PCP Family Medicine; Referring Provider Family Medicine; Visit Provider Family Medicine
DX: K70.31 Alcoholic cirrhosis of liver with ascites (principal)
CPT/HCPCS: 49083

== ENCOUNTER → 2024-03-24 08:30 | Outpatient (CLI) | payer MEDICARE, SELFPAY ==
--- NOTE | 2024-03-24 | DI.US.S_ITS ---
PROCEDURE: US PARACENTESIS INDICATIONS: Alcoholic cirrhosis of liver with ascites TECHNIQUE: The indications, alternatives, benefits, risks, and complications of the procedure were explained to the patient. Written informed consent was obtained and placed in the chart. The abdomen and pelvis were examined sonographically, and an appropriate site was chosen for paracentesis. The skin was prepared and draped in the usual sterile fashion, and 1% lidocaine was infiltrated from the skin down through the peritoneal surface. A 19-gauge catheter-covered needle was then introduced into the peritoneal space, the catheter was advanced and the needle was withdrawn, and thereafter peritoneal fluid was withdrawn. The catheter was then removed and a dressing was applied. The fluid was discarded if the clinician did not order diagnostic testing of the fluid. COMPARISON: [facility], , PARACENTESIS, 03/16/2024, 8:03. FINDINGS: Access site: Right lower quadrant Needle: One-Step centesis catheter with introducer needle. Fluid volume and description: 9300 cc yellow Fluid sent for diagnostic testing: No Medications: 1% lidocaine for local anaesthesia. Complications: None. IMPRESSION: Successful ultrasound-guided paracentesis. Dictated by: Wendy Faust M.D. on 03/24/2024 at 22:49 Approved by: Wendy Faust M.D. on 03/24/2024 at 22:50
== END ==
PROVIDERS: PCP Family Medicine; Referring Provider Family Medicine; Visit Provider Family Medicine
DX: K70.31 Alcoholic cirrhosis of liver with ascites (principal)
CPT/HCPCS: 49083

== ENCOUNTER → 2024-03-28 07:43 | Outpatient (CLI) | payer MEDICARE, SELFPAY ==
--- NOTE | 2024-03-28 | DI.US.S_ITS ---
PROCEDURE: US PARACENTESIS INDICATIONS: ASCITES TECHNIQUE: The indications, alternatives, benefits, risks, and complications of the procedure were explained to the patient. Written informed consent was obtained and placed in the chart. The abdomen and pelvis were examined sonographically, and an appropriate site was chosen for paracentesis. The skin was prepared and draped in the usual sterile fashion, and 1% lidocaine was infiltrated from the skin down through the peritoneal surface. A 19-gauge catheter-covered needle was then introduced into the peritoneal space, the catheter was advanced and the needle was withdrawn, and thereafter peritoneal fluid was withdrawn. The catheter was then removed and a dressing was applied. The fluid was discarded if the clinician did not order diagnostic testing of the fluid. COMPARISON: [facility], PARACENTESIS, 03/24/2024, 9:09. FINDINGS: Access site: Right lower quadrant Needle: One-Step centesis catheter with introducer needle. Fluid volume and description: 6900 cc of clear fluid was removed. Fluid sent for diagnostic testing: No Medications: 1% lidocaine for local anaesthesia. Complications: None. IMPRESSION: Successful ultrasound-guided paracentesis. Dictated by: Kishan Cutler M.D. on 04/13/2024 at 15:38 Approved by: Kishan Cutler M.D. on 04/13/2024 at 15:40
== END ==
PROVIDERS: PCP Family Medicine; Referring Provider Family Medicine; Visit Provider Family Medicine
DX: K70.31 Alcoholic cirrhosis of liver with ascites (principal)
CPT/HCPCS: 49083

== ENCOUNTER → 2024-04-04 07:37 | Outpatient (CLI) | payer MEDICARE, SELFPAY ==
--- NOTE | 2024-04-04 07:38 | DI.US.S_ITS ---
PROCEDURE: US PARACENTESIS INDICATIONS: ASCITES TECHNIQUE: The indications, alternatives, benefits, risks, and complications of the procedure were explained to the patient. Written informed consent was obtained and placed in the chart. The abdomen and pelvis were examined sonographically, and an appropriate site was chosen for paracentesis. The skin was prepared and draped in the usual sterile fashion, and 1% lidocaine was infiltrated from the skin down through the peritoneal surface. A 19-gauge catheter-covered needle was then introduced into the peritoneal space, the catheter was advanced and the needle was withdrawn, and thereafter peritoneal fluid was withdrawn. The catheter was then removed and a dressing was applied. The fluid was discarded if the clinician did not order diagnostic testing of the fluid. COMPARISON: [facility], PARACENTESIS, 03/28/2024, 8:00. FINDINGS: Access site: Right lower quadrant Needle: One-Step centesis catheter with introducer needle. Fluid volume and description: 5 liters. Straw-colored fluid. No blood or prune matter. Fluid sent for diagnostic testin cc Medications: 1% lidocaine for local anaesthesia. Complications: None. IMPRESSION: Successful ultrasound-guided paracentesis. Dictated by: Carlos Trevino M.D. on 04/05/2024 at 12:03 Approved by: Carlos Trevino M.D. on 04/05/2024 at 12:15
[2024-04-04 09:41] VITALS: BP 91/59; PULSE 62; RESP 16; TEMP 36.5; O2SAT 100
[2024-04-04] MEDS: ALBUMIN HUMAN 50 GM/200 ML VIAL IV (10:28)
[2024-04-04 10:49] VITALS: BP 100/69; PULSE 62; TEMP 36.2; O2SAT 99
== END ==
PROVIDERS: PCP Family Medicine; Referring Provider Family Medicine; Visit Provider Family Medicine
DX: K70.31 Alcoholic cirrhosis of liver with ascites (principal)
CPT/HCPCS: 49083; 96365; 96366; P9041

== ENCOUNTER → 2024-04-11 07:40 | Outpatient (CLI) | payer MEDICARE, SELFPAY ==
--- NOTE | 2024-04-11 07:42 | DI.US.S_ITS ---
PROCEDURE: US PARACENTESIS INDICATIONS: Ascites TECHNIQUE: The indications, alternatives, benefits, risks, and complications of the procedure were explained to the patient. Written informed consent was obtained and placed in the chart. The abdomen and pelvis were examined sonographically, and an appropriate site was chosen for paracentesis. The skin was prepared and draped in the usual sterile fashion, and 1% lidocaine was infiltrated from the skin down through the peritoneal surface. A 19-gauge catheter-covered needle was then introduced into the peritoneal space, the catheter was advanced and the needle was withdrawn, and thereafter peritoneal fluid was withdrawn. The catheter was then removed and a dressing was applied. The fluid was discarded if the clinician did not order diagnostic testing of the fluid. COMPARISON: [facility], PARACENTESIS, 04/04/2024, 8:05. FINDINGS: Access site: Right lower quadrant Needle: One-Step centesis catheter with introducer needle. Fluid volume and description: 2.6 liters of clear, yellow fluid Fluid sent for diagnostic testing: Negative Medications: 1% lidocaine for local anaesthesia. Complications: None. IMPRESSION: Successful ultrasound-guided paracentesis. Dictated by: Mark Juares M.D. on 04/11/2024 at 11:51 Approved by: Mark Juares M.D. on 04/11/2024 at 11:52
[2024-04-11 09:54] LABS: Platelet Count 85 X10^3/uL (150-400)
[2024-04-11 10:06] LABS: INR 1.6 (0.9-1.3); Prothrombin Time 18.1 SECONDS (9.4-12.5)
== END ==
PROVIDERS: PCP Family Medicine; Referring Provider Family Medicine; Visit Provider Family Medicine
DX: K70.31 Alcoholic cirrhosis of liver with ascites (principal)
CPT/HCPCS: 36415; 49083; 85049; 85610

== ENCOUNTER → 2024-04-14 11:48 | Outpatient (CLI) | payer MEDICARE, SELFPAY ==
[2024-04-14 12:31] LABS: INR 1.5 (0.9-1.3); Prothrombin Time 17.5 SECONDS (9.4-12.5)
[2024-04-14 13:02] LABS: Alanine Aminotransferase 27 IU/L (<50); Albumin 3.4 g/dL (3.5-5.0); Albumin Globulin Ratio 0.8 (1.0-2.8); Alkaline Phosphatase 177 U/L (38-126); Aspartate Aminotransferase 44 IU/L (17-59); BUN Creatinine Ratio 17.1 (6-22); Bilirubin Total 4.1 mg/dL (0.2-1.3); Bilirubin Unconjugated 2.9 mg/dL (0.0-1.1); Blood Urea Nitrogen 21 mg/dL (9-20); Carbon Dioxide 20 mmol/L (22-32); Chloride 107 mmol/L (98-107); Estimated Glomerular Filt Rate > 60 mL/min (>60); Globulin 4.3 g/dL (1.7-4.1); Glucose 111 mg/dL (80-110); HEMOLYSIS < 15 (0-50); Potassium 4.2 mmol/L (3.4-5.1); Sodium 135 mmol/L (137-145); Total Protein 7.7 g/dL (6.3-8.2)
== END ==
PROVIDERS: PCP Family Medicine; Referring Provider Nurse Practitioner; Visit Provider Nurse Practitioner
DX: K70.31 Alcoholic cirrhosis of liver with ascites (principal)
CPT/HCPCS: 36415; 80048; 80076; 85610

== ENCOUNTER → 2024-05-05 08:58 | Outpatient (CLI) | payer MEDICARE, SELFPAY ==
[2024-05-05 10:00] LABS: Platelet Count 51 X10^3/uL (150-400)
[2024-05-05 10:28] LABS: INR 1.5 (0.9-1.3); Prothrombin Time 17.8 SECONDS (9.4-12.5)
[2024-05-05 11:23] LABS: Albumin 3.4 g/dL (3.5-5.0)
[2024-05-05 11:26] LABS: Alanine Aminotransferase 30 IU/L (<50); Albumin 3.5 g/dL (3.5-5.0); Albumin Globulin Ratio 0.8 (1.0-2.8); Alkaline Phosphatase 183 U/L (38-126); Aspartate Aminotransferase 61 IU/L (17-59); Bilirubin Conjugated 0.2 md/dL (0.0-0.3); Bilirubin Unconjugated 3.2 mg/dL (0.0-1.1); Blood Urea Nitrogen 17 mg/dL (9-20); Carbon Dioxide 24 mmol/L (22-32); Chloride 106 mmol/L (98-107); Estimated Glomerular Filt Rate > 60 mL/min (>60); Globulin 4.3 g/dL (1.7-4.1); Glucose 104 mg/dL (80-110); HEMOLYSIS < 15 (0-50); Potassium 4.9 mmol/L (3.4-5.1); Sodium 137 mmol/L (137-145); Total Protein 7.8 g/dL (6.3-8.2)
== END ==
PROVIDERS: PCP Family Medicine; Referring Provider Nurse Practitioner; Visit Provider Nurse Practitioner
DX: K70.31 Alcoholic cirrhosis of liver with ascites (principal); F10.20 Alcohol dependence, uncomplicated; R16.0 Hepatomegaly, not elsewhere classified
CPT/HCPCS: 36415; 80048; 80076; 82040; 85049; 85610

== ENCOUNTER → 2024-05-09 07:39 | Outpatient (CLI) | payer MEDICARE, SELFPAY ==
--- NOTE | 2024-05-09 | DI.US.S_ITS ---
PROCEDURE: US ABDOMEN LIMITED INDICATIONS: ascites TECHNIQUE: Real-time focused scanning was performed of the abdomen, with image documentation. COMPARISON: [facility], , US ABDOMEN LIMITED, 02/22/2024, 9:53. FINDINGS: Limited abdominal ultrasound shows a small amount of abdominal pelvic ascites. No large pockets were identified and given the amount of ascites the schedule paracentesis was canceled. IMPRESSION: Small amount of abdominal pelvic ascites without large fluid pocket present. Given the small amount of ascites the scheduled paracentesis was canceled. Dictated by: Jose Pratt M.D. on 05/09/2024 at 9:38 Approved by: Jose Pratt M.D. on 05/09/2024 at 9:40
== END ==
LOC: US 07:39
PROVIDERS: PCP Family Medicine; Referring Provider Family Medicine; Visit Provider Family Medicine
DX: K70.31 Alcoholic cirrhosis of liver with ascites (principal)
CPT/HCPCS: 76705

== ENCOUNTER → 2024-05-18 09:49 | Outpatient (CLI) | payer MEDICARE, SELFPAY ==
--- NOTE | 2024-05-18 09:56 | DI.CT.S_ITS ---
PROCEDURE: CT ABDOMEN LIVER PROTOCOL INDICATIONS: LIVER LESION TECHNIQUE: 4 phase scanning was performed. Non-contrast 5 mm axial sections acquired from the diaphragm to the iliac crests. Following the administration of intravenous contrast, 5 mm thick arterial-phase, portal venous-phase, and 5-minute delayed phase images were acquired through the liver. 5 mm thick coronal and sagittal reformats were performed. For radiation dose reduction, the following was used: automated exposure control, adjustment of mA and/or kV according to patient size. COMPARISON: [facility], , ABDOMEN LIVER PROTOCOL, 09/12/2022, 8:23. [facility], US, US ABDOMEN LIMITED, 02/22/2024, 9:53. [facility], , US ABDOMEN LIMITED, 05/09/2024, 7:53. FINDINGS: Image quality: Diagnostic Lower chest: Right Bochdalek's hernia with ascites. Scattered scarring and atelectasis. Similar fluid versus thickening at the right fissure dating back to at least 2020. Moderate distal esophageal wall thickening is nonspecific. Borderline cardiomegaly Liver: Cirrhosis. There are numerous cysts. Subcentimeter lesions are too small to characterize, probably also cysts, also seen on prior MRI. No hypervascular liver lesion identified. Gallbladder and biliary system: Mildly distended gallbladder. Mildly ectatic biliary ducts, similar to prior Pancreas: No ductal dilation. Possible subcentimeter cystic lesion at the head, attention on follow-up. Spleen: Splenomegaly Adrenals: No discrete nodules Kidneys: Possible lesion in the right anterior kidney measuring 2.3 cm, similar to prior. Vessels and lymph nodes: There are portal venous varices. Suspected nonobstructing thrombus is seen at the portal confluence. No abdominal aortic aneurysm. Prominent upper abdominal lymph nodes are nonspecific and may be reactive in the setting of liver disease. Bowel and peritoneum: [id number] ascites. Diffuse mesenteric omental edema, likely related to congestion. No small bowel obstruction. Body wall: Unremarkable Bones: There are degenerative changes. IMPRESSION: No suspicious hypervascular liver lesion. Recommend continued HCC screening. Cirrhosis and portal hypertension sequelae. Possible right anterior renal lesion, similar in size compared to 202 imaging. [id number] ascites. Other findings above. Dictated by: Eugene Kramer M.D. on 05/18/2024 at 12:22 Approved by: Eugene Kramer M.D. on 05/18/2024 at 12:30
== END ==
PROVIDERS: PCP Family Medicine; Referring Provider Nurse Practitioner; Visit Provider Nurse Practitioner
DX: K76.9 Liver disease, unspecified (principal); K74.60 Unspecified cirrhosis of liver; K76.6 Portal hypertension; R18.8 Other ascites
CPT/HCPCS: 74170; Q9967

== ENCOUNTER 2024-07-29 12:20 | Outpatient (CLI) | payer MEDICARE, SELFPAY ==
[2024-07-29] VITALS (12 sets, daily range): BP systolic 102–120; BP diastolic 57–69; PULSE 74–83; RESP 16–20; TEMP 36.2; O2SAT 96–99
--- NOTE | 2024-07-29 12:22 | DI.US.S_ITS ---
PROCEDURE: US PARACENTESIS W/ALBUMIN INDICATIONS: THERAPEUTIC WITH ALBUMIN REPLACEMENT TECHNIQUE: The indications, alternatives, benefits, risks, and complications of the procedure were explained to the patient. Written informed consent was obtained and placed in the chart. The abdomen and pelvis were examined sonographically, and an appropriate site was chosen for paracentesis. The skin was prepared and draped in the usual sterile fashion, and 1% lidocaine was infiltrated from the skin down through the peritoneal surface. A 19-gauge catheter-covered needle was then introduced into the peritoneal space, the catheter was advanced and the needle was withdrawn, and thereafter peritoneal fluid was withdrawn. The catheter was accidentally knocked out and a 2nd catheter was placed. The catheter was then removed and a dressing was applied. The fluid was discarded if the clinician did not order diagnostic testing of the fluid. COMPARISON: None. FINDINGS: Access site: RLQ Needle: One-Step centesis catheter with introducer needle. Fluid volume and description: 64804 mL, clear yellow Fluid sent for diagnostic testing: No Medications: 1% lidocaine for local anaesthesia. Complications: Catheter was accidentally knocked out and a 2nd catheter was placed. IMPRESSION: Successful ultrasound-guided paracentesis. Dictated by: Stef NESS Interpreted: Gaston Pérez MD on 07/29/2024 at 15:50 Transcribed by: JOSE on 07/29/2024 at 15:51 Approved by: Gaston Pérez M.D. on 07/29/2024 at 20:25
[2024-07-29 13:28] LABS: Hematocrit 35.6 % (41-53); Hemoglobin 12.3 g/dL (13.5-17.5); Mean Corpuscular HGB Conc 34.5 % (30-36); Mean Corpuscular Volume 101.7 fL (80-100); Platelet Count 85 X10^3/uL (150-400); Red Cell Distribution Width 16.8 % (11.6-14.8); White Blood Cell Count 5.8 X10^3/uL (4.5-11.0)
[2024-07-29 13:33] LABS: INR 1.5 (0.9-1.3)
== END 2024-07-29 16:30 | disposition home or self-care (01) ==
PROVIDERS: PCP Family Medicine; Referring Provider Family Medicine; Visit Provider Family Medicine
DX: K76.9 Liver disease, unspecified (principal); K70.31 Alcoholic cirrhosis of liver with ascites
CPT/HCPCS: 49083; 85027; 85610; P9041

== ENCOUNTER 2024-08-05 12:35 | Outpatient (CLI) | payer MEDICARE, SELFPAY ==
[2024-08-02 16:28] VITALS: BMI 37.8
[2024-08-05] VITALS (12 sets, daily range): BP systolic 88–115; BP diastolic 47–63; PULSE 74–94; RESP 18–96; TEMP 37.1; O2SAT 94–96
--- NOTE | 2024-08-05 12:36 | DI.US.S_ITS ---
PROCEDURE: US PARACENTESIS W/ALBUMIN INDICATIONS: ASCITES TECHNIQUE: The indications, alternatives, benefits, risks, and complications of the procedure were explained to the patient. Written informed consent was obtained and placed in the chart. The abdomen and pelvis were examined sonographically, and an appropriate site was chosen for paracentesis. The skin was prepared and draped in the usual sterile fashion, and 1% lidocaine was infiltrated from the skin down through the peritoneal surface. A 19-gauge catheter-covered needle was then introduced into the peritoneal space, the catheter was advanced and the needle was withdrawn, and thereafter peritoneal fluid was withdrawn. The catheter was then removed and a dressing was applied. The fluid was discarded if the clinician did not order diagnostic testing of the fluid. COMPARISON: [facility], PARACENTESIS W/ALBUMIN, 07/29/2024, 13:23. FINDINGS: Access site: Right lower quadrant Needle: One-Step centesis catheter with introducer needle. Fluid volume and description: 5850 mL of clear graham ascites Fluid sent for diagnostic testing: Therapeutic paracentesis only Medications: 1% lidocaine for local anaesthesia. Complications: None. IMPRESSION: Successful ultrasound-guided paracentesis. Dictated by: Viral Harrington M.D. on 08/05/2024 at 17:04 Approved by: Viral Harrington M.D. on 08/05/2024 at 17:04
[2024-08-05] MEDS: ALBUMIN HUMAN 50 GM/200 ML VIAL IV (13:37)
== END 2024-08-05 15:50 | disposition home or self-care (01) ==
PROVIDERS: PCP Family Medicine; Referring Provider Family Medicine; Visit Provider Family Medicine
DX: K70.31 Alcoholic cirrhosis of liver with ascites (principal)
CPT/HCPCS: 49083; 96365; 96366; P9041

== ENCOUNTER 2024-08-12 11:05 | Outpatient (CLI) | payer MEDICARE, SELFPAY ==
[2024-08-02 16:28] VITALS: BMI 37.8
--- NOTE | 2024-08-12 | DI.US.S_ITS ---
PROCEDURE: US PARACENTESIS W/ALBUMIN INDICATIONS: ascities TECHNIQUE: The indications, alternatives, benefits, risks, and complications of the procedure were explained to the patient. Written informed consent was obtained and placed in the chart. The abdomen and pelvis were examined sonographically, and an appropriate site was chosen for paracentesis. The skin was prepared and draped in the usual sterile fashion, and 1% lidocaine was infiltrated from the skin down through the peritoneal surface. A 19-gauge catheter-covered needle was then introduced into the peritoneal space, the catheter was advanced and the needle was withdrawn, and thereafter peritoneal fluid was withdrawn. The catheter was then removed and a dressing was applied. The fluid was discarded if the clinician did not order diagnostic testing of the fluid. COMPARISON: [facility], PARACENTESIS W/ALBUMIN, 08/05/2024, 12:54. [facility], PARACENTESIS W/ALBUMIN, 07/29/2024, 13:23. FINDINGS: Access site: Right lower quadrant Needle: One-Step centesis catheter with introducer needle. Fluid volume and description: 3900 mL of clear, yellow fluid Fluid sent for diagnostic testing: No Medications: 1% lidocaine for local anaesthesia. Complications: None. IMPRESSION: Successful ultrasound-guided paracentesis. Dictated by: Kye Brito M.D. on 08/12/2024 at 14:42 Approved by: Kye Brito M.D. on 08/12/2024 at 14:43
[2024-08-12 11:55] VITALS: BP 109/65; PULSE 83; RESP 18; TEMP 36.9; O2SAT 98
[2024-08-12 12:00] VITALS: BP 106/63; PULSE 79; RESP 18; O2SAT 97
[2024-08-12 12:15] VITALS: BP 110/65; PULSE 80; RESP 18; O2SAT 97
[2024-08-12 12:30] VITALS: BP 110/56; PULSE 77; RESP 20; O2SAT 96
[2024-08-12 12:45] VITALS: BP 111/57; PULSE 96; RESP 20; O2SAT 96
== END 2024-08-12 12:55 | disposition home or self-care (01) ==
LOC: US 11:06
PROVIDERS: PCP Family Medicine; Referring Provider Family Medicine; Visit Provider Family Medicine
DX: K70.31 Alcoholic cirrhosis of liver with ascites (principal)
CPT/HCPCS: 49083

== ENCOUNTER 2024-08-19 08:00 | Outpatient (CLI) | payer MEDICARE, SELFPAY ==
[2024-08-02 16:28] VITALS: BMI 37.8
--- NOTE | 2024-08-19 08:01 | DI.US.S_ITS ---
PROCEDURE: US ABDOMEN LIMITED INDICATIONS: ASCITES - PARACENTESIS CONSULT TECHNIQUE: Real-time focused scanning was performed of the abdomen, with image documentation. COMPARISON: [facility], , US ABDOMEN LIMITED, 05/09/2024, 7:53. FINDINGS: No significant ascites. IMPRESSION: No paracentesis is indicated. Dictated by: Reji Mccallum M.D. on 08/19/2024 at 14:05 Approved by: Reji Mccallum M.D. on 08/19/2024 at 14:05
[2024-08-19 08:44] VITALS: BP 114/59; PULSE 16; RESP 98; TEMP 36.9
== END 2024-08-19 09:00 | disposition home or self-care (01) ==
PROVIDERS: PCP Family Medicine; Referring Provider Radiology Diagnostic Radiology; Visit Provider Radiology Diagnostic Radiology
DX: K70.31 Alcoholic cirrhosis of liver with ascites (principal)
CPT/HCPCS: 76705

== ENCOUNTER 2024-09-23 00:53 | Emergency (ER) | payer MEDICARE, SELFPAY ==
[2024-08-02 16:28] VITALS: BMI 37.8
[2024-09-23] VITALS (14 sets, daily range): BP systolic 94–116; BP diastolic 53–65; PULSE 89–101; RESP 9–22; TEMP 35.9; O2SAT 91–100; BMI 35.9
--- NOTE | 2024-09-23 00:59 | ED_ITS ---
HPI - General Adult General Chief complaint: Fall Stated complaint: Fall Time Seen by Provider: 09/23/24 00:57 Source: patient and EMS Mode of arrival: EMS History of Present Illness HPI narrative: Patient was a 68-year-old male. Brought in by EMS on a vacuum backboard and a vacuum cervical after they were called to the patient's residence for fallen down stairs. Patient was reporting left shoulder/left clavicle and left-sided rib pain. There was potentially loss of consciousness. EMS reports that the patient was confused upon their arrival. He did receive ketamine and fentanyl prior to arrival as well. He was on insulin-dependent diabetic. Blood sugar was greater than 100 pre-hospital. Patient reports he was drinking alcohol this evening. He does have a history of alcohol abuse per his problem list. He reports no lower extremity injuries. Unsure as to whether or not he hit his head. He was not on anticoagulation. Related Data Home Medications Medication Instructions Recorded Confirmed ciprofloxacin HCl 500 mg tablet mg PO DAILY 08/04/24 08/04/24 furosemide 40 mg tablet 40 mg PO 5XD 08/04/24 08/04/24 insulin glargine 100 unit/mL 24 unit SUBCUT DAILY 08/04/24 08/04/24 subcutaneous solution (Lantus U-100 Insulin) spironolactone 100 mg tablet 300 mg PO DAILY 08/04/24 08/04/24 Previous Rx's Medication Instructions Recorded diabetic supplies, miscellan. #25 ea 01/02/22 (Chemstrip bG Log Book) miscellaneous medical supply #48 ea 01/02/22 insulin lispro 100 unit/mL 5 unit (0.05 mL) SUBCUT TIDWMEAL 08/04/24 subcutaneous pen (Admelog SoloStar #15 mL U-100 Insulin lispro) tramadol 50 mg tablet 50 mg PO Q8H PRN pain #14 tabs 09/23/24 Allergies Allergy/AdvReac Type Severity Reaction Status Date / Time adhesive AdvReac Intermediate Blister Verified 02/22/24 07:58 Review of Systems Review of Systems Narrative: Somewhat limited given his somnolence from the alcohol/ketamine/fentanyl. Cardiovascular Comments: Denies chest pain Respiratory Comments: Denies shortness of breath Gastrointestinal Comments: Denies abdominal pain Musculoskeletal Comments: Left shoulder/left clavicle/left rib pain Neurologic Comments: See HPI Hematologic/Lymphatic On Anticoagulants: No Patient History Medical History Substance abuse (~1975) Fractures (~2015) Vertigo (~2019) Hearing loss (~2019) Systolic murmur Type 2 diabetes mellitus (~2019) Acute kidney injury Lesion of right [place] kidney Renal failure Hepatic failure Anticoagulated Urinary tract infection Left ureteral calculus Right renal stone Sepsis Surgical History (Updated 03/19/24 @ 19:36 by Cecy Burr) Anesthesia Kidney stones (~2023) H/O Spinal surgery (~2009) History of ankle surgery (~2015) Retained ureteral stent Family History (Updated 03/19/24 @ 19:40 by Cecy Burr) Father Cancer Grandfather Cancer History of heart disease Grandmother Diabetes mellitus Heart disease Mother Alzheimer disease Sister Age: 69 Hypertension Social History household members: spouse Smoking Status: Current every day smoker alcohol intake: current Smoking Status: Current every day smoker tobacco type: smokeless tobacco alcohol intake frequency: 3 or more drinks per day Exam Initial Vital Signs Initial Vital Signs: Vital Signs Pulse Rate 91 H 09/23/24 01:02 Respiratory Rate 15 09/23/24 01:02 Pulse Oximetry 97 09/23/24 01:02 Const General: disheveled and No ill appearing HENMT Head: normal to inspection and normocephalic Face and sinus: normal facial exam Eyes General: Yes appearance normal, both eyes and all related structures Chest Other: Discomfort to the left upper chest no crepitus. Discomfort to left chest wall. Resp Effort & Inspection: normal respiratory effort Auscultation: clear to auscultation bilaterally Cardio Rate: regular rate Rhythm: regular rhythm GI Inspection: non-distended Palpation: soft Other: Soft nontender umbilical hernia present Back/Spine/Pelvis Other: No reported tenderness to palpation of the spine. No step-offs. Skin Other: Superficial abrasion to left elbow Neuro Other: Alert. Follows commands. Does report that he drank alcohol this evening. Extrem Other: Discomfort to palpation of the left shoulder. Course Orders Ordered: ED Orders 09/23/24 00:57 CT cervical spine wo con Stat CT head/brain wo con Stat XR shoulder LT min 2V Stat 09/23/24 00:58 CT Trauma Chest Abdomen Pelvis Stat 09/23/24 01:05 Complete Blood Count AUTO DIFF Stat Comprehensive Metabolic Panel Stat Ethanol (ETOH) Stat Lipase Stat Discontinued Medications Acetaminophen (Ofirmev) 1,000 mg in 100 mls @ 400 mls/hr IV NOW ONE Stop: 09/23/24 05:14 Last Infusion: 09/23/24 05:45 Dose: Infused Documented By: Admin: 09/23/24 05:04 Dose: 400 mls/hr Documented By: CATALINO Vital Signs Vital signs: Vital Signs - 8 hr 09/23/24 01:02 09/23/24 01:04 09/23/24 01:25 Temperature 96.6 F L Pulse Rate 91 H 90 Respiratory Rate 15 22 Blood Pressure 116/59 L 105/57 L Pulse Oximetry 97 98 Oxygen Delivery Method Room Air 09/23/24 01:25 09/23/24 01:30 09/23/24 01:30 Temperature Pulse Rate 89 Respiratory Rate 13 Blood Pressure 105/58 L 105/58 L Pulse Oximetry 99 Oxygen Delivery Method 09/23/24 01:30 09/23/24 01:41 09/23/24 01:41 Temperature Pulse Rate 90 90 Respiratory Rate 14 13 Blood Pressure 106/59 L Pulse Oximetry 100 96 Oxygen Delivery Method 09/23/24 02:00 09/23/24 02:00 09/23/24 02:30 Temperature Pulse Rate 89 Respiratory Rate 18 Blood Pressure 106/59 L 108/60 Pulse Oximetry 97 Oxygen Delivery Method 09/23/24 02:30 09/23/24 03:00 09/23/24 03:00 Temperature Pulse Rate 91 H 93 H Respiratory Rate 12 14 Blood Pressure 104/57 L Pulse Oximetry 91 100 Oxygen Delivery Method 09/23/24 03:30 09/23/24 03:30 09/23/24 04:00 Temperature Pulse Rate 97 H Respiratory Rate 12 Blood Pressure 106/65 94/61 Pulse Oximetry 97 Oxygen Delivery Method 09/23/24 04:00 09/23/24 04:30 09/23/24 04:30 Temperature Pulse Rate 96 H 101 H Respiratory Rate 14 14 Blood Pressure 99/62 Pulse Oximetry 96 95 Oxygen Delivery Method 09/23/24 05:00 09/23/24 05:00 09/23/24 05:30 Temperature Pulse Rate 100 H Respiratory Rate 9 L Blood Pressure 100/59 L 105/59 L Pulse Oximetry 95 Oxygen Delivery Method 09/23/24 05:30 09/23/24 06:00 09/23/24 06:00 Temperature Pulse Rate 97 H 99 H Respiratory Rate 15 14 Blood Pressure 97/53 L Pulse Oximetry 97 95 Oxygen Delivery Method Medical Decision Making Medical Records Medical records reviewed: Yes I reviewed the patient's medical records. Lab Data Lab results reviewed: Yes I reviewed the patient's lab results. 09/23/24 01:05 09/23/24 01:05 Labs: Lab Results 09/23/24 Range/Units 01:05 WBC 7.8 (4.5-11.0) X10^3/uL RBC 3.37 L (4.5-5.9) X10^6/uL Hgb 12.3 L (13.5-17.5) g/dL Hct 34.9 L (41-53) % MCV 103.7 H (80-100) fL MCH 36.5 H (26-34) PG MCHC 35.2 (30-36) % RDW 15.5 H (11.6-14.8) % Plt Count 49 L (150-400) X10^3/uL Neut % (Auto) 74.2 (50-75) % Lymph % (Auto) 9.5 L (25-40) % [place]ascade % (Auto) 15.0 H (3-14) % Eos % (Auto) 1.1 L (2-4) % Baso % (Auto) 0.2 (0-2) % Neut # (Auto) 5800 (7723-5326) /uL Lymph # (Auto) 700 L (8628-8032) /uL Cascade # (Auto) 1200 H (0-900) /uL Eos # (Auto) 100 (0-450) /uL Baso # (Auto) 0 (0-100) /uL Sodium 137 (137-145) mmol/L Potassium 4.0 (3.4-5.1) mmol/L Chloride 101 (98-107) mmol/L Carbon Dioxide 26 (22-32) mmol/L BUN 14 (9-20) mg/dL Creatinine 1.38 H (0.66-1.25) mg/dL Estimated GFR 56 L (>60) mL/min BUN/Creatinine Ratio 10.1 (6-22) Glucose 139 H (80-110) mg/dL Calcium 8.4 (8.4-10.2) mg/dL Total Bilirubin 4.7 H (0.2-1.3) mg/dL AST 99 H (17-59) IU/L ALT 41 (<50) IU/L Alkaline Phosphatase 238 H (38-126) U/L Total Protein 8.1 (6.3-8.2) g/dL Albumin 3.5 (3.5-5.0) g/dL Globulin 4.6 H (1.7-4.1) g/dL Albumin/Globulin Ratio 0.8 L (1.0-2.8) Lipase 123 (23-300) U/L Ethyl Alcohol 249 H ( - 10) mg/dL Imaging Data CT scan - head: Radiologist's Impression: PROCEDURE: CT HEAD/BRAIN WO CON INDICATIONS: fall and altered TECHNIQUE: Noncontrast 4.5 mm thick angled axial sections acquired from the foramen magnum to the vertex, with coronal and sagittal reformats. For radiation dose reduction, the following was used: automated exposure control, adjustment of mA and/or kV according to patient size. COMPARISON: None. FINDINGS: Image quality: Diagnostic. CSF spaces: Basal cisterns are patent. No extra-axial fluid collections. The ventricles are symmetric in size and shape. Brain: No intracranial bleeds or masses. There is cerebral volume loss for age, with resultant ventricular and sulcal prominence. There are periventricular and deep white matter chronic small vessel ischemic changes. There is intracranial internal carotid artery atherosclerosis. Skull and face: Calvarium and visualized facial bones appear intact, without suspicious lesions. Sinuses: Visualized sinuses and mastoids are clear. IMPRESSION: No acute intracranial pathology. CT - cervical spine: Radiologist's Impression: PROCEDURE: CT CERVICAL SPINE WO CON INDICATIONS: fall and altered TECHNIQUE: Noncontrast 3 mm thick sections acquired from the skull base to the T4 level. Sagittal and coronal reformats were then constructed. For radiation dose reduction, the following was used: automated exposure control, adjustment of mA and/or kV according to patient size. COMPARISON: None. FINDINGS: Image quality: Excellent. Bones: No fractures or dislocations. Loss of disc height, degenerative endplate changes and bilateral uncovertebral hypertrophic changes throughout cervical spine is seen. Dorsal disc osteophyte complex formation are noted at C3-4, C5-6 and C6-7 levels causing [id number] central canal stenosis and mild bilateral neural foraminal narrowing. Visualized superior ribs are intact. Soft tissues: Prevertebral soft tissues are normal in thickness. No paravertebral hematomas. No apical pneumothoraces. IMPRESSION: 1. No displaced fracture or traumatic subluxation. 2. Degenerative disc disease throughout cervical spine as above. CT chest/abd/pelvis: Radiologist's Impression: ADDENDUMThis report includes an Addendum and supersedes previous reports for this exam. PROCEDURE: CT TRAUMA CHEST ABDOMEN PELVIS INDICATIONS: Fall. Altered mental status. TECHNIQUE: After the administration of intravenous contrast, 5 mm thick sections acquired from the lung apices to the symphysis. 2.5 mm thick coronal and sagittal reformats were acquired. Additional 7 mm thick coronal maximum intensity projection (MIP) reformats acquired through the lungs. Optional 10-minute delayed imaging may be performed from the kidneys to the bladder. For radiation dose reduction, the following was used: automated exposure control, adjustment of mA and/or kV according to patient size. COMPARISON: [facility], [place], PET NECK TO MID THIGH, 10/18/2021, 9:53. [facility], CT, CT ABDOMEN WITH/WITHOUT AND PELVIS WITH CONTRAST, 08/30/2021, 9:38. [facility], CT, CT CHEST WITH CONTRAST, 08/30/2021, 9:38. [facility], MR, MR ABDOMEN LIVER PROTOCOL, 09/12/2022, 8:23. FINDINGS: Image quality: Diagnostic. CHEST: Lower Neck: No enlarged lymph nodes. Thyroid: No thyroid nodules which require sonographic evaluation. Axillae: No enlarged lymph nodes. Chest Wall: No subcutaneous gas. Lungs and Pleura: No pulmonary contusions or lacerations. Hazy ground-glass opacities scattered in bilateral lung emmanuel are seen. Oval loculated pleural effusion in right lateral lower lung field with adjacent compressive atelectasis in right lower lobe and myalgias 14.6 x 6.5 x 7.2 cm in size. Masslike consolidation in right middle lobe along the minor fissure is again seen and measures 3.6 x 1.6 cm on the current study compared to 3.4 x 2.2 cm in 2021 series 5, image 226. No pneumothorax. Mediastinum: No mediastinal hematomas. Heart size is enlarged. No pericardial effusion. Thoracic aorta and pulmonary arteries demonstrate normal size and enhancement. No mediastinal or hilar adenopathy. Esophagus is normal in caliber. Small hiatal hernia. ABDOMEN: Liver: No lacerations. Cirrhotic liver with markedly lobulated liver contour. Well-circumscribed hypodensities scattered in liver parenchyma likely represent hepatic cysts. Gallbladder: No radiopaque gallstones or wall thickening. Biliary ducts: No biliary dilation. Pancreas: Homogenous enhancement. Spleen: Homogenous enhancement without laceration or hematoma. Splenomegaly. Adrenal Glands: Symmetric enhancement. Kidneys and Ureters: Symmetric enhancement. No hydronephrosis. 2 cm solid- appearing mass in anterior lateral cortex of right kidney is again seen series 2, image 154 unchanged from previous PET-CT scan and show low level FDG uptake. No complex renal cystic lesion which requires follow up. Stomach and Bowel: Normal colonic caliber, without significant wall thickening. No abscess collection. Peritoneum: Small to moderate amount of free fluid adjacent to right lobe of liver extending to right pericolic gutter.. No free air. Ventral Wall: Moderate size umbilical hernia is seen containing fat only. Abdominal Nodes: No retroperitoneal or mesenteric adenopathy by size criteria. Vessels: Aorta and inferior vena cava are normal in size. PELVIS: Pelvic Organs: Unremarkable. Bladder: Normal thickness. Pelvic Nodes: No enlarged lymph nodes. Miscellaneous: Bilateral inguinal hernia are seen containing fat only. Bones: Pelvic ring and hip joints appear intact. No displaced rib fractures. IMPRESSION: 1. No evidence of traumatic injury to the chest, abdomen or pelvis. 2. Moderate size loculated right lower lung field pleural fluid collection as above. The appearance is more suggestive of simple fluid. 3. Small to moderate amount of ascites fluid in right upper quadrant abdomen extending to right pericolic gutter. No gross free air. 4. Scattered atelectasis throughout bilateral lung emmanuel with pulmonary edema. No pneumothorax. 5. Cirrhotic liver and splenomegaly. 6. Stable 2 cm solid-appearing mass in right kidney and show no significant FDG uptake on previous PET-CT scan. 7. Essentially stable masslike consolidation along right minor fissure not significantly changed from previous PET-CT scan. Dictated by: Cabrera Rivera M.D. on 09/23/2024 at 1:43 Approved by: Cabrera Rivera M.D. on 09/23/2024 at 1:56 ADDENDUM: There is a slightly displaced oblique fracture involving distal left clavicle near acromioclavicular joint. Minimally displaced fracture involving left posterior medial 10th rib series 2, image 110. Dictated by: Cabrera Rivera M.D. on 09/23/2024 at 2:08 Approved by: Cabrera Rivera M.D. on 09/23/2024 at 2:09 Addendum Dictated By: Cabrera Rivera MD Addendum Signed By: 09/23/24208 Addendum Cosigned By: DD/ /08/209 TD/TT: 09/23/2407/08/209 PROCEDURE: CT TRAUMA CHEST ABDOMEN PELVIS INDICATIONS: Fall. Altered mental status. TECHNIQUE: After the administration of intravenous contrast, 5 mm thick sections acquired from the lung apices to the symphysis. 2.5 mm thick coronal and sagittal reformats were acquired. Additional 7 mm thick coronal maximum intensity projection (MIP) reformats acquired through the lungs. Optional 10-minute delayed imaging may be performed from the kidneys to the bladder. For radiation dose reduction, the following was used: automated exposure control, adjustment of mA and/or kV according to patient size. COMPARISON: [facility], [place], PET NECK TO MID THIGH, 10/18/2021, 9:53. [facility], CT, CT ABDOMEN WITH/WITHOUT AND PELVIS WITH CONTRAST, 08/30/2021, 9:38. [facility], CT, CT CHEST WITH CONTRAST, 08/30/2021, 9:38. [facility], MR, MR ABDOMEN LIVER PROTOCOL, 09/12/2022, 8:23. FINDINGS: Image quality: Diagnostic. CHEST: Lower Neck: No enlarged lymph nodes. Thyroid: No thyroid nodules which require sonographic evaluation. Axillae: No enlarged lymph nodes. Chest Wall: No subcutaneous gas. Lungs and Pleura: No pulmonary contusions or lacerations. Hazy ground-glass opacities scattered in bilateral lung emmanuel are seen. Oval loculated pleural effusion in right lateral lower lung field with adjacent compressive atelectasis in right lower lobe and myalgias 14.6 x 6.5 x 7.2 cm in size. Masslike consolidation in right middle lobe along the minor fissure is again seen and measures 3.6 x 1.6 cm on the current study compared to 3.4 x 2.2 cm in 2021 series 5, image 226. No pneumothorax. Mediastinum: No mediastinal hematomas. Heart size is enlarged. No pericardial effusion. Thoracic aorta and pulmonary arteries demonstrate normal size and enhancement. No mediastinal or hilar adenopathy. Esophagus is normal in caliber. Small hiatal hernia. ABDOMEN: Liver: No lacerations. Cirrhotic liver with markedly lobulated liver contour. Well-circumscribed hypodensities scattered in liver parenchyma likely represent hepatic cysts. Gallbladder: No radiopaque gallstones or wall thickening. Biliary ducts: No biliary dilation. Pancreas: Homogenous enhancement. Spleen: Homogenous enhancement without laceration or hematoma. Splenomegaly. Adrenal Glands: Symmetric enhancement. Kidneys and Ureters: Symmetric enhancement. No hydronephrosis. 2 cm solid- appearing mass in anterior lateral cortex of right kidney is again seen series 2, image 154 unchanged from previous PET-CT scan and show low level FDG uptake. No complex renal cystic lesion which requires follow up. Stomach and Bowel: Normal colonic caliber, without significant wall thickening. No abscess collection. Peritoneum: Small to moderate amount of free fluid adjacent to right lobe of liver extending to right pericolic gutter.. No free air. Ventral Wall: Moderate size umbilical hernia is seen containing fat only. Abdominal Nodes: No retroperitoneal or mesenteric adenopathy by size criteria. Vessels: Aorta and inferior vena cava are normal in size. PELVIS: Pelvic Organs: Unremarkable. Bladder: Normal thickness. Pelvic Nodes: No enlarged lymph nodes. Miscellaneous: Bilateral inguinal hernia are seen containing fat only. Bones: Pelvic ring and hip joints appear intact. No displaced rib fractures. IMPRESSION: 1. No evidence of traumatic injury to the chest, abdomen or pelvis. 2. Moderate size loculated right lower lung field pleural fluid collection as above. The appearance is more suggestive of simple fluid. 3. Small to moderate amount of ascites fluid in right upper quadrant abdomen extending to right pericolic gutter. No gross free air. 4. Scattered atelectasis throughout bilateral lung emmanuel with pulmonary edema. No pneumothorax. 5. Cirrhotic liver and splenomegaly. 6. Stable 2 cm solid-appearing mass in right kidney and show no significant FDG uptake on previous PET-CT scan. 7. Essentially stable masslike consolidation along right minor fissure not significantly changed from previous PET-CT scan. Extremity x-ray #1: Radiologist's Impression: PROCEDURE: XR SHOULDER LT MIN 2V INDICATIONS: pain after fall TECHNIQUE: 2 views of the shoulder were acquired. COMPARISON: [facility], , SHOULDER MINIMUM 2VIEW RIGHT, 07/18/2017, 7:52. FINDINGS: Bones: Acute oblique fracture involving distal left clavicular shaft is seen with slight superior displacement and overlapping at fracture site. No other fracture or dislocation. Moderate acromioclavicular joint and glenohumeral joint osteoarthritic changes are seen. No suspicious bony lesions. Visualized ribs appear intact. Soft tissues: No suspicious soft tissue calcifications. IMPRESSION: 1. Slightly displaced oblique fracture through mid to distal left clavicular shaft. 2. Moderate acromioclavicular joint and glenohumeral joint osteoarthritis. MDM Narrative Medical decision making narrative: Workup here in the emergency department shows a left clavicle fracture and a left posterior rib fracture. This does correspond to where he was having discomfort. The rest of his imaging studies are unremarkable. Patient was observed in the emergency department for a period of time. He became clinically sober. He was able to stand. He was able to talk in complete sentences. No respiratory distress. Was able to ambulate and use the restroom. Patient was given a sling for comfort. He was given care instructions and return precautions. He expressed understanding and agreement with plan Discharge Plan Departure Patient Disposition: Home Clinical Impression: Fracture of left clavicle, Fracture of rib, Alcohol intoxication Instructions: DI for Rib Fracture, DI for Clavicle Fracture-Adult Activity Restrictions/Additional Instructions: No driving for the next 24 hours or in the future if you are drinking alcohol. I do recommend that you contact the orthopedic doctors the number provided below for a follow-up. You are given a prescription for pain medication however this can not be combined with alcohol. The sling is for your comfort. You can take it off to shower and change her clothes. Return to the emergency department for new symptoms. Prescriptions: New tramadol 50 mg tablet 50 mg PO Q8H PRN (Reason: pain) Qty: 14 0RF No Action spironolactone 100 mg tablet 300 mg PO DAILY ciprofloxacin HCl 500 mg tablet PO DAILY furosemide 40 mg tablet 40 mg PO 5XD insulin glargine [Lantus U-100 Insulin] 100 unit/mL solution 24 unit SUBCUT DAILY insulin lispro [Admelog SoloStar U-100 Insulin] 100 unit/mL insulin pen 5 unit SUBCUT TIDWMEAL Qty: 15 3RF (DME) miscellaneous medical supply Package See Rx Instructions .Route Qty: 48 0RF Rx Instructions: As directed (DME) Chemstrip bG Log Book Misc See Rx Instructions .Route Qty: 25 0RF Rx Instructions: [facility] Referrals: Yunior Jones MD [Primary Care Provider] - Joyce Simon MD [Physician] - Stand Alone Forms: Patient Portal/API/Survey
[2024-09-23 01:18] LABS: Add Manual Diff / Slide Review NO; Basophils Absolute Auto 0 /uL (0-100); Basophils Percent Auto 0.2 % (0-2); Eosinophils Absolute Auto 100 /uL (0-450); Eosinophils Percent Auto 1.1 % (2-4); Hematocrit 34.9 % (41-53); Hemoglobin 12.3 g/dL (13.5-17.5); Lymphocytes Absolute Auto 700 /uL (1100-4500); Lymphocytes Percent Auto 9.5 % (25-40); Mean Corpuscular HGB Conc 35.2 % (30-36); Mean Corpuscular Hemoglobin 36.5 PG (26-34); Mean Corpuscular Volume 103.7 fL (80-100); Monocytes Absolute Auto 1200 /uL (0-900); Neutrophils Absolute Auto 5800 /uL (1500-7000); Neutrophils Percent Auto 74.2 % (50-75); Platelet Count 49 X10^3/uL (150-400); Red Blood Cell Count 3.37 X10^6/uL (4.5-5.9); Red Cell Distribution Width 15.5 % (11.6-14.8); White Blood Cell Count 7.8 X10^3/uL (4.5-11.0)
[2024-09-23 01:29] LABS: Alanine Aminotransferase 41 IU/L (<50); Albumin 3.5 g/dL (3.5-5.0); Albumin Globulin Ratio 0.8 (1.0-2.8); Alkaline Phosphatase 238 U/L (38-126); Aspartate Aminotransferase 99 IU/L (17-59); BUN Creatinine Ratio 10.1 (6-22); Bilirubin Total 4.7 mg/dL (0.2-1.3); Blood Urea Nitrogen 14 mg/dL (9-20); Calcium 8.4 mg/dL (8.4-10.2); Carbon Dioxide 26 mmol/L (22-32); Chloride 101 mmol/L (98-107); Estimated Glomerular Filt Rate 56 mL/min (>60); Ethanol (ETOH) 249 mg/dL; Globulin 4.6 g/dL (1.7-4.1); Glucose 139 mg/dL (80-110); HEMOLYSIS < 15 (0-50); Lipase 123 U/L (23-300); Sodium 137 mmol/L (137-145); Total Protein 8.1 g/dL (6.3-8.2)
[2024-09-23] MEDS: ACETAMINOPHEN IV 1,000 MG/100 ML VIAL 400 MG IV (05:04)
--- NOTE | 2024-09-23 06:37 | PC.NURSE ---
pt awake wanting to sit up, sling applied to left arm and pt assisted up to wc given cool rag for face and the assisted to br in wc
== END 2024-09-23 06:48 | disposition home or self-care (01) ==
PROVIDERS: Emergency Provider Emergency Medicine; PCP Family Medicine
DX: S42.022A Displaced fracture of shaft of left clavicle, initial encounter for closed fracture (principal); S22.32XA Fracture of one rib, left side, initial encounter for closed fracture; R07.89 Other chest pain; S50.312A Abrasion of left elbow, initial encounter; F10.129 Alcohol abuse with intoxication, unspecified; Y90.8 Blood alcohol level of 240 mg/100 ml or more; R41.82 Altered mental status, unspecified; S09.90XA Unspecified injury of head, initial encounter; W10.9XXA Fall (on) (from) unspecified stairs and steps, initial encounter
CPT/HCPCS: 70450; 71275; 72125; 73030; 74177; 80053; 80320; 83690; 85025; 96365; 99284; 99285; J0131; Q9967

== ENCOUNTER 2024-12-02 16:12 | Emergency (ER) | payer MEDICARE, SELFPAY ==
[2024-08-02 16:28] VITALS: BMI 37.8
[2024-12-02] VITALS (7 sets, daily range): BP systolic 102–119; BP diastolic 53–63; PULSE 88–98; RESP 16–20; TEMP 36.6; O2SAT 98–100; BMI 37.3
[2024-12-02 17:45] LABS: Add Manual Diff / Slide Review NO; Basophils Absolute Auto 0 /uL (0-100); Basophils Percent Auto 0.5 % (0-2); Eosinophils Absolute Auto 100 /uL (0-450); Hematocrit 30.7 % (41-53); Hemoglobin 10.5 g/dL (13.5-17.5); Lymphocytes Absolute Auto 900 /uL (1100-4500); Lymphocytes Percent Auto 13.6 % (25-40); Mean Corpuscular HGB Conc 34.4 % (30-36); Mean Corpuscular Hemoglobin 36.2 PG (26-34); Mean Corpuscular Volume 105.2 fL (80-100); Monocytes Absolute Auto 1200 /uL (0-900); Neutrophils Absolute Auto 4200 /uL (1500-7000); Neutrophils Percent Auto 64.9 % (50-75); Platelet Count 77 X10^3/uL (150-400); Red Blood Cell Count 2.91 X10^6/uL (4.5-5.9); Red Cell Distribution Width 19.2 % (11.6-14.8); White Blood Cell Count 6.5 X10^3/uL (4.5-11.0)
--- NOTE | 2024-12-02 17:51 | ED_ITS ---
HPI - Male Genitourinary General Chief complaint: Urogenital-Male Stated complaint: poss UTI, groin pain Time Seen by Provider: 12/02/24 17:42 Source: patient Mode of arrival: Wheelchair Related Data Home Medications Medication Instructions Recorded Confirmed ciprofloxacin HCl 500 mg tablet mg PO DAILY 08/04/24 11/03/24 furosemide 40 mg tablet 40 mg PO 5XD 08/04/24 11/03/24 insulin glargine 100 unit/mL 24 unit SUBCUT DAILY 08/04/24 11/03/24 subcutaneous solution (Lantus U-100 Insulin) spironolactone 100 mg tablet 300 mg PO DAILY 08/04/24 11/03/24 Previous Rx's Medication Instructions Recorded diabetic supplies, miscellan. #25 ea 01/02/22 (Chemstrip bG Log Book) miscellaneous medical supply #48 ea 01/02/22 insulin lispro 100 unit/mL 5 unit (0.05 mL) SUBCUT TIDWMEAL 08/04/24 subcutaneous pen (Admelog SoloStar #15 mL U-100 Insulin lispro) tramadol 50 mg tablet 50 mg PO Q8H PRN pain #60 tabs 10/14/24 hydroxyzine HCl 25 mg tablet 25 mg PO BEDTIME PRN itching #30 11/03/24 tabs Allergies Allergy/AdvReac Type Severity Reaction Status Date / Time adhesive AdvReac Intermediate Blister Verified 11/03/24 08:22 Patient History Medical History Substance abuse (~1975) Fractures (~2015) Vertigo (~2019) Hearing loss (~2019) Systolic murmur Type 2 diabetes mellitus (~2019) Acute kidney injury Lesion of right [place] kidney Renal failure Hepatic failure Anticoagulated Urinary tract infection Left ureteral calculus Right renal stone Sepsis Surgical History (Updated 03/19/24 @ 19:36 by Cecy Burr) Anesthesia Kidney stones (~2023) H/O Spinal surgery (~2009) History of ankle surgery (~2015) Retained ureteral stent Family History (Updated 03/19/24 @ 19:40 by Cecy Burr) Father Cancer Grandfather Cancer History of heart disease Grandmother Diabetes mellitus Heart disease Mother Alzheimer disease Sister Age: 69 Hypertension Social History household members: spouse Smoking Status: Current every day smoker alcohol intake: current Smoking Status: Current every day smoker tobacco type: smokeless tobacco alcohol intake frequency: 3 or more drinks per day Exam Initial Vital Signs Initial Vital Signs: Vital Signs Temperature 98 F 12/02/24 16:15 Pulse Rate 97 H 12/02/24 16:15 Respiratory Rate 20 12/02/24 16:15 Blood Pressure 119/63 12/02/24 16:15 Pulse Oximetry 100 12/02/24 16:15 Oxygen Delivery Method Room Air 12/02/24 16:15 Course Orders Ordered: ED Orders 12/02/24 16:31 EKG-12 Lead Stat 12/02/24 17:38 Complete Blood Count AUTO DIFF Stat Comprehensive Metabolic Panel Stat Lipase Stat Ondansetron HCl (Ondansetron 4 Mg/2 Ml Inj) 4 mg IV NOW PRN PRN Reason: Nausea And Vomiting Ondansetron HCl (Ondansetron 4 Mg Odt) 4 mg PO NOW PRN PRN Reason: Nausea And Vomiting Vital Signs Vital signs: Vital Signs - 8 hr 12/02/24 16:15 Temperature 98 F Pulse Rate 97 H Respiratory Rate 20 Blood Pressure 119/63 Pulse Oximetry 100 Oxygen Delivery Method Room Air MDM - Male Genitourinary Lab Data 12/02/24 17:38 12/02/24 17:38 Labs: Lab Results 12/02/24 Range/Units 17:38 WBC 6.5 (4.5-11.0) X10^3/uL RBC 2.91 L (4.5-5.9) X10^6/uL Hgb 10.5 L (13.5-17.5) g/dL Hct 30.7 L (41-53) % MCV 105.2 H (80-100) fL MCH 36.2 H (26-34) PG MCHC 34.4 (30-36) % RDW 19.2 H (11.6-14.8) % Plt Count 77 L (150-400) X10^3/uL Neut % (Auto) 64.9 (50-75) % Lymph % (Auto) 13.6 L (25-40) % [place] % (Auto) 19.0 H (3-14) % Eos % (Auto) 2.0 (2-4) % Baso % (Auto) 0.5 (0-2) % Neut # (Auto) 4200 (1834-9257) /uL Lymph # (Auto) 900 L (6760-6280) /uL [place] # (Auto) 1200 H (0-900) /uL Eos # (Auto) 100 (0-450) /uL Baso # (Auto) 0 (0-100) /uL Discharge Plan Departure Prescriptions: No Action spironolactone 100 mg tablet 300 mg PO DAILY ciprofloxacin HCl 500 mg tablet PO DAILY furosemide 40 mg tablet 40 mg PO 5XD insulin glargine [Lantus U-100 Insulin] 100 unit/mL solution 24 unit SUBCUT DAILY insulin lispro [Admelog SoloStar U-100 Insulin] 100 unit/mL insulin pen 5 unit SUBCUT TIDWMEAL Qty: 15 3RF hydroxyzine HCl 25 mg tablet 25 mg PO BEDTIME PRN (Reason: itching) Qty: 30 1RF tramadol 50 mg tablet 50 mg PO Q8H PRN (Reason: pain) Qty: 60 0RF (DME) miscellaneous medical supply Package See Rx Instructions .Route Qty: 48 0RF Rx Instructions: As directed (DME) Chemstrip bG Log Book Misc See Rx Instructions .Route Qty: 25 0RF Rx Instructions: achs Referrals: Yunior Jones MD [Primary Care Provider] -
[2024-12-02 17:57] LABS: Alanine Aminotransferase 34 IU/L (<50); Albumin 3.1 g/dL (3.5-5.0); Albumin Globulin Ratio 0.7 (1.0-2.8); Alkaline Phosphatase 188 U/L (38-126); Aspartate Aminotransferase 55 IU/L (17-59); BUN Creatinine Ratio 13.6 (6-22); Bilirubin Total 5.9 mg/dL (0.2-1.3); Blood Urea Nitrogen 15 mg/dL (9-20); Calcium 8.5 mg/dL (8.4-10.2); Carbon Dioxide 22 mmol/L (22-32); Chloride 105 mmol/L (98-107); Estimated Glomerular Filt Rate > 60 mL/min (>60); Globulin 4.3 g/dL (1.7-4.1); Glucose 117 mg/dL (80-110); HEMOLYSIS < 15 (0-50); Lipase 97 U/L (23-300); Potassium 3.7 mmol/L (3.4-5.1); Sodium 135 mmol/L (137-145); Total Protein 7.4 g/dL (6.3-8.2)
[2024-12-02 18:32] LABS: Appearance Urine UA CLEAR; Bilirubin Urine UA 1+ (NEGATIVE); Ketones Urine UA NEGATIVE (NEGATIVE); Leukocyte Esterase Urine UA NEGATIVE (NEGATIVE); Nitrite Urine UA NEGATIVE (Negative); Occult Blood Urine UA NEGATIVE (Negative); Protein Urine UA NEGATIVE (Negative); Specific Gravity Urine UA 1.015 (1.000-1.035); pH Urine UA 5.5 (4.5-8.0)
[2024-12-02 18:41] LABS: Color Urine UA ORANGE
[2024-12-02 18:43] LABS: Bacteria Urine Occasional (0-1); Culture Indicated Urine Cult Not Indicated; Ictotest Urine Negative (Negative); RBC Urine None Seen (0-5/HPF); Urine Volume 10mL (spun); WBC Urine 0-1/HPF (0-5/HPF)
[2024-12-02 18:57] LABS: Squamous Epithelial Cell Urine None Seen (0-5/HPF)
--- NOTE | 2024-12-02 19:10 | ED.MALEGU ---
HPI - Male Genitourinary General Chief complaint: Urogenital-Male Stated complaint: poss UTI, groin pain Time Seen by Provider: 12/02/24 17:42 Source: patient Mode of arrival: Wheelchair History of Present Illness HPI Narrative: 69-year-old man who is an active alcoholic complaining of right groin pain. He says it started about a day and a half ago it was initially stinging and has gotten progressively worse. He also notes that his urine smells foul and believes it has a urinary tract infection. He has not having dysuria he has not having flank pain he has not having fevers or vomiting. Had not noticed a lump in the area. Related Data Home Medications Medication Instructions Recorded Confirmed ciprofloxacin HCl 500 mg tablet mg PO DAILY 08/04/24 11/03/24 furosemide 40 mg tablet 40 mg PO 5XD 08/04/24 11/03/24 insulin glargine 100 unit/mL 24 unit SUBCUT DAILY 08/04/24 11/03/24 subcutaneous solution (Lantus U-100 Insulin) spironolactone 100 mg tablet 300 mg PO DAILY 08/04/24 11/03/24 Previous Rx's Medication Instructions Recorded diabetic supplies, miscellan. #25 ea 01/02/22 (Chemstrip bG Log Book) miscellaneous medical supply #48 ea 01/02/22 insulin lispro 100 unit/mL 5 unit (0.05 mL) SUBCUT TIDWMEAL 08/04/24 subcutaneous pen (Admelog SoloStar #15 mL U-100 Insulin lispro) tramadol 50 mg tablet 50 mg PO Q8H PRN pain #60 tabs 10/14/24 hydroxyzine HCl 25 mg tablet 25 mg PO BEDTIME PRN itching #30 11/03/24 tabs Allergies Allergy/AdvReac Type Severity Reaction Status Date / Time adhesive AdvReac Intermediate Blister Verified 11/03/24 08:22 Review of Systems Gastrointestinal Comments: Large umbilical hernia not under Genitourinary Comments: Uncircumcised male genitalia. No palpable hernia. Has some focal tenderness in the right inguinal crease without inguinal adenopathy. Patient History Medical History Substance abuse (~1975) Fractures (~2015) Vertigo (~2019) Hearing loss (~2019) Systolic murmur Type 2 diabetes mellitus (~2019) Acute kidney injury Lesion of right [place] kidney Renal failure Hepatic failure Anticoagulated Urinary tract infection Left ureteral calculus Right renal stone Sepsis Surgical History (Updated 03/19/24 @ 19:36 by Cecy Burr) Anesthesia Kidney stones (~2023) H/O Spinal surgery (~2009) History of ankle surgery (~2015) Retained ureteral stent Family History (Updated 03/19/24 @ 19:40 by Cecy Burr) Father Cancer Grandfather Cancer History of heart disease Grandmother Diabetes mellitus Heart disease Mother Alzheimer disease Sister Age: 69 Hypertension Social History household members: spouse Smoking Status: Current every day smoker alcohol intake: current Smoking Status: Current every day smoker tobacco type: smokeless tobacco alcohol intake frequency: 3 or more drinks per day Exam Initial Vital Signs Initial Vital Signs: Vital Signs Temperature 98 F 12/02/24 16:15 Pulse Rate 97 H 12/02/24 16:15 Respiratory Rate 20 12/02/24 16:15 Blood Pressure 119/63 12/02/24 16:15 Pulse Oximetry 100 12/02/24 16:15 Oxygen Delivery Method Room Air 12/02/24 16:15 Course Orders Ordered: ED Orders 12/02/24 16:31 EKG-12 Lead Stat 12/02/24 17:38 Complete Blood Count AUTO DIFF Stat Comprehensive Metabolic Panel Stat Lipase Stat 12/02/24 18:00 Ictotest Urine Stat Urinalysis and Microscopic Stat 12/02/24 19:09 CT pelvis w con Stat Ondansetron HCl (Ondansetron 4 Mg/2 Ml Inj) 4 mg IV NOW PRN PRN Reason: Nausea And Vomiting Ondansetron HCl (Ondansetron 4 Mg Odt) 4 mg PO NOW PRN PRN Reason: Nausea And Vomiting Vital Signs Vital signs: Vital Signs - 8 hr 12/02/24 16:15 12/02/24 18:29 12/02/24 18:29 Temperature 98 F Pulse Rate 97 H 88 Respiratory Rate 20 Blood Pressure 119/63 111/53 L Pulse Oximetry 100 98 Oxygen Delivery Method Room Air 12/02/24 18:30 12/02/24 18:30 Temperature Pulse Rate 91 H Respiratory Rate Blood Pressure 111/55 L Pulse Oximetry 99 Oxygen Delivery Method MDM - Male Genitourinary Lab Data Lab results narrative: Thrombocytopenia which has been previously observed, elevated bilirubin, stable 12/02/24 17:38 12/02/24 17:38 Labs: Lab Results 12/02/24 12/02/24 Range/Units 17:38 18:00 WBC 6.5 (4.5-11.0) X10^3/uL RBC 2.91 L (4.5-5.9) X10^6/uL Hgb 10.5 L (13.5-17.5) g/dL Hct 30.7 L (41-53) % MCV 105.2 H (80-100) fL MCH 36.2 H (26-34) PG MCHC 34.4 (30-36) % RDW 19.2 H (11.6-14.8) % Plt Count 77 L (150-400) X10^3/uL Neut % (Auto) 64.9 (50-75) % Lymph % (Auto) 13.6 L (25-40) % [place] % (Auto) 19.0 H (3-14) % Eos % (Auto) 2.0 (2-4) % Baso % (Auto) 0.5 (0-2) % Neut # (Auto) 4200 (8657-3300) /uL Lymph # (Auto) 900 L (8389-8193) /uL [place] # (Auto) 1200 H (0-900) /uL Eos # (Auto) 100 (0-450) /uL Baso # (Auto) 0 (0-100) /uL Sodium 135 L (137-145) mmol/L Potassium 3.7 (3.4-5.1) mmol/L Chloride 105 (98-107) mmol/L Carbon Dioxide 22 (22-32) mmol/L BUN 15 (9-20) mg/dL Creatinine 1.10 (0.66-1.25) mg/dL Estimated GFR > 60 (>60) mL/min BUN/Creatinine Ratio 13.6 (6-22) Glucose 117 H (80-110) mg/dL Calcium 8.5 (8.4-10.2) mg/dL Total Bilirubin 5.9 H (0.2-1.3) mg/dL AST 55 (17-59) IU/L ALT 34 (<50) IU/L Alkaline Phosphatase 188 H (38-126) U/L Total Protein 7.4 (6.3-8.2) g/dL Albumin 3.1 L (3.5-5.0) g/dL Globulin 4.3 H (1.7-4.1) g/dL Albumin/Globulin Ratio 0.7 L (1.0-2.8) Lipase 97 (23-300) U/L Urine Color [place] Urine Appearance Clear Urine pH 5.5 (4.5-8.0) Ur Specific [place] 1.015 (1.000-1.035) Urine Protein Negative (Negative) Urine Glucose (UA) TNP Urine Ketones Negative (NEGATIVE) Urine Occult Blood Negative (Negative) Urine Nitrate Negative (Negative) Urine Bilirubin 1+ H (NEGATIVE) Ur Bilirubin Confirm Negative (Negative) Urine Urobilinogen TNP Ur Leukocyte Esterase Negative (NEGATIVE) Urine RBC None seen (0-5/HPF) Urine WBC 0-1/hpf (0-5/HPF) Ur Squamous Epith Cells None seen (0-5/HPF) Urine Bacteria Occasional (0-1) (None) Urine Yeast 1-5/hpf H (None) Ur Culture Indicated? Cult not indicated Vol Urine Centrifuged 10ml (spun) Imaging Data CT scan - abdomen/pelvis: My Impression: independently reviewed CT abdomen and pelvis, ascites is present, no evidence of bowel obstruction possible inguinal hernia on the Radiologist's Impression: [address] [address] [address] Scan Report Signed Patient: Natalio Cardozo V MR#: [id number] : 1955 Acct:[id number] Age/Sex: 69 / M Date of Service: 12/02/24 Loc: ED Accession Number: [id number] Procedure: CT pelvis w con Ordering Provider: Delmer Hernández MD PROCEDURE: CT PELVIS W CON INDICATIONS: r groin pain TECHNIQUE: After the administration of intravenous contrast, 5 mm thick sections acquired from the iliac crests to the symphysis. 5 mm coronal and sagittal reformats were acquired. For radiation dose reduction, the following was used: automated exposure control, adjustment of mA and/or kV according to patient size. COMPARISON: [facility], CT, CT TRAUMA CHEST ABDOMEN PELVIS, 09/23/2024, 1:00. FINDINGS: Image quality: Diagnostic Lower abdomen: Partially seen chronic ascites. No small bowel obstruction. Bladder: Unremarkable Reproductive organs: Heterogeneous prostate enhancement. Suspect hydroceles. Rectum: Moderate rectal stool ball. Vessels and lymph nodes: No aneurysmal vessel is identified. Atherosclerotic calcifications. No pathologic lymph nodes by size criteria Pelvic wall: Small fat containing left and fat and fluid containing right inguinal hernias. There is also a fluid containing umbilical hernia. Scrotal wall thickening. Suspect hydroceles. Bones: No aggressive appearing focal osseous abnormality. IMPRESSION: Bilateral inguinal hernias, containing fluid on the right. Moderate fluid containing umbilical hernia also seen. Chronic ascites. Suspect hydroceles. Scrotal wall thickening. Testes can be further evaluated with ultrasound if necessary Dictated by: Eugene Kramer M.D. on 12/02/2024 at 20:10 Approved by: Eugene Kramer M.D. on 12/02/2024 at 20:14 ECG Data Interpretation: ECG shows sinus rhythm at 92 prolonged MO interval prolonged QTC no acute ST segment changes MDM Narrative Medical decision making narrative: 69-year-old active alcoholic with cirrhosis presenting with right inguinal pain. It does not testicular pain, patient had some urinary symptoms, urinalysis does not suggest infection. On exam there is no palpable hernia but CT shows bilateral inguinal hernias with fluid on the right no evidence of obstruction. Patient has ascites at baseline. I think he is stable for discharge I recommended they follow up with General surgery regarding his inguinal hernia and his primary care provider as soon as possible. Patient was cautioned to discontinue alcohol use. Discharge Plan Departure Patient Disposition: Home Clinical Impression: Hernia, inguinal, right Activity Restrictions/Additional Instructions: emergency department workup today shows you have an inguinal hernia on both sides but the right has some fluid in it which I believe is causing her pain. It does not appear that you have a bladder infection or urinary infection. You have chronic fluid in your abdomen and evidence of liver damage from alcohol use. It is important that you not use alcohol. I recommend you follow up with General surgery regarding your inguinal hernia and follow up as soon as possible with your primary care provider. Rest, avoid heavy lifting straining for bowel movements make sure that you are taking your regular home medications. Prescriptions: No Action spironolactone 100 mg tablet 300 mg PO DAILY ciprofloxacin HCl 500 mg tablet PO DAILY furosemide 40 mg tablet 40 mg PO 5XD insulin glargine [Lantus U-100 Insulin] 100 unit/mL solution 24 unit SUBCUT DAILY insulin lispro [Admelog SoloStar U-100 Insulin] 100 unit/mL insulin pen 5 unit SUBCUT TIDWMEAL Qty: 15 3RF hydroxyzine HCl 25 mg tablet 25 mg PO BEDTIME PRN (Reason: itching) Qty: 30 1RF tramadol 50 mg tablet 50 mg PO Q8H PRN (Reason: pain) Qty: 60 0RF (DME) miscellaneous medical supply Package See Rx Instructions .Route Qty: 48 0RF Rx Instructions: As directed (DME) Chemstrip bG Log Book Misc See Rx Instructions .Route Qty: 25 0RF Rx Instructions: achs Referrals: Yunior Jones MD [Primary Care Provider] - Paramjit Gregory MD [Physician] - As soon as possible Stand Alone Forms: Patient Portal/API/Survey
--- NOTE | 2024-12-02 19:46 | EKG_ITS ---
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
== END 2024-12-02 20:50 | disposition home or self-care (01) ==
PROVIDERS: Physician Assistant; Emergency Provider Emergency Medicine; PCP Family Medicine
DX: K40.90 Unilateral inguinal hernia, without obstruction or gangrene, not specified as recurrent (principal); I44.0 Atrioventricular block, first degree; I45.2 Bifascicular block
CPT/HCPCS: 72193; 80053; 81001; 83690; 85025; 93005; 99281; 99284; Q9967

== ENCOUNTER → 2025-01-02 06:01 | Outpatient (CLI) | payer MEDICARE, SELFPAY ==
[2024-08-02 16:28] VITALS: BMI 37.8
[2025-01-02 07:59] LABS: Platelet Count 56 X10^3/uL (150-400)
[2025-01-02 08:13] LABS: INR 1.6 (0.9-1.3); Prothrombin Time 18.3 SECONDS (9.4-12.5)
== END ==
PROVIDERS: PCP Family Medicine; Referring Provider Family Medicine; Visit Provider Family Medicine
DX: R18.8 Other ascites (principal); K74.60 Unspecified cirrhosis of liver; F10.20 Alcohol dependence, uncomplicated
CPT/HCPCS: 36415; 85049; 85610

== ENCOUNTER 2025-01-04 06:43 | Outpatient (CLI) | payer MEDICARE, SELFPAY ==
[2024-08-02 16:28] VITALS: BMI 37.8
[2025-01-04] VITALS (7 sets, daily range): BP systolic 94–110; BP diastolic 50–61; PULSE 96–102; RESP 18–20; TEMP 36.4–36.6; O2SAT 90–97
--- NOTE | 2025-01-04 06:44 | DI.US.S_ITS ---
PROCEDURE: US PARACENTESIS W/ALBUMIN INDICATIONS: ascites TECHNIQUE: The indications, alternatives, benefits, risks, and complications of the procedure were explained to the patient. Written informed consent was obtained and placed in the chart. The abdomen and pelvis were examined sonographically, and an appropriate site was chosen for paracentesis. The skin was prepared and draped in the usual sterile fashion, and 1% lidocaine was infiltrated from the skin down through the peritoneal surface. A 19-gauge catheter-covered needle was then introduced into the peritoneal space, the catheter was advanced and the needle was withdrawn, and thereafter peritoneal fluid was withdrawn. The catheter was then removed and a dressing was applied. The fluid was discarded if the clinician did not order diagnostic testing of the fluid. COMPARISON: [facility], PARACENTESIS W/ALBUMIN, 08/12/2024, 11:51. [facility], PARACENTESIS W/ALBUMIN, 08/05/2024, 12:54. [facility], PARACENTESIS W/ALBUMIN, 07/29/2024, 13:23. FINDINGS: Access site: Left lower quadrant Needle: One-Step centesis catheter with introducer needle. Fluid volume and description: 13, 650 mL of clear, yellow fluid Fluid sent for diagnostic testing: No Medications: 1% lidocaine for local anaesthesia. Complications: None. IMPRESSION: Successful ultrasound-guided paracentesis. Dictated by: Kye Brito M.D. on 01/04/2025 at 13:52 Approved by: Kye Brito M.D. on 01/04/2025 at 13:53
[2025-01-04] MEDS: ALBUMIN HUMAN 50 GM/200 ML VIAL IV (09:24)
== END 2025-01-04 11:10 | disposition home or self-care (01) ==
LOC: US 06:43
PROVIDERS: PCP Family Medicine; Referring Provider Family Medicine; Visit Provider Family Medicine
DX: K74.60 Unspecified cirrhosis of liver (principal); R18.8 Other ascites; F10.20 Alcohol dependence, uncomplicated
CPT/HCPCS: 49083; 96365; 96366; P9041

== ENCOUNTER 2025-01-07 01:01 | Inpatient (IN) | payer MEDICARE, SELFPAY ==
[2024-08-02 16:28] VITALS: BMI 37.8
[2025-01-07] VITALS (15 sets, daily range): BP systolic 92–115; BP diastolic 51–67; PULSE 97–106; RESP 14–38; TEMP 36.2–37.1; O2SAT 88–96; BMI 38.0; BMI 37.1
--- NOTE | 2025-01-07 01:07 | EKG_ITS ---
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
[2025-01-07 01:48] LABS: Add Manual Diff / Slide Review NO; Alanine Aminotransferase 46 IU/L (<50); Albumin Globulin Ratio 0.7 (1.0-2.8); Alkaline Phosphatase 138 U/L (38-126); Aspartate Aminotransferase 63 IU/L (17-59); BUN Creatinine Ratio 19.3 (6-22); Basophils Absolute Auto 0 /uL (0-100); Basophils Percent Auto 0.4 % (0-2); Bilirubin Total 10.3 mg/dL (0.2-1.3); Blood Urea Nitrogen 44 mg/dL (9-20); Calcium 8.4 mg/dL (8.4-10.2); Carbon Dioxide 23 mmol/L (22-32); Chloride 100 mmol/L (98-107); Eosinophils Absolute Auto 100 /uL (0-450); Eosinophils Percent Auto 1.7 % (2-4); Estimated Glomerular Filt Rate 31 mL/min (>60); Globulin 4.2 g/dL (1.7-4.1); Glucose 127 mg/dL (70-99); HEMOLYSIS < 15 (0-50); Hematocrit 27.3 % (41-53); Hemoglobin 9.6 g/dL (13.5-17.5); Lipase 86 U/L (23-300); Lymphocytes Absolute Auto 1000 /uL (1100-4500); Lymphocytes Percent Auto 12.9 % (25-40); Mean Corpuscular Hemoglobin 36.7 PG (26-34); Mean Corpuscular Volume 104.8 fL (80-100); Monocytes Absolute Auto 1100 /uL (0-900); Monocytes Percent Auto 13.4 % (3-14); Neutrophils Absolute Auto 5800 /uL (1500-7000); Neutrophils Percent Auto 71.6 % (50-75); Platelet Count 63 X10^3/uL (150-400); Potassium 4.3 mmol/L (3.4-5.1); Red Blood Cell Count 2.61 X10^6/uL (4.5-5.9); Red Cell Distribution Width 18.1 % (11.6-14.8); Sodium 133 mmol/L (137-145); Total Protein 7.2 g/dL (6.3-8.2); White Blood Cell Count 8.1 X10^3/uL (4.5-11.0)
--- NOTE | 2025-01-07 02:13 | DI.CT.S_ITS ---
PROCEDURE: CT ABDOMEN PELVIS WO CON INDICATIONS: abd pain/jaundice TECHNIQUE: Axial sections were acquired from the lung bases to the pubic symphysis. Coronal and sagittal reformats were performed. For radiation dose reduction, the following was used: automated exposure control, adjustment of mA and/or kV according to patient size. COMPARISON: [facility], CT, CT TRAUMA CHEST ABDOMEN PELVIS, 09/23/2024, 1:00. FINDINGS: Lower Chest: Significant bilateral pulmonary infiltrates noted left greater than right. Loculated right pleural effusion. Healing left rib fractures URINARY: Right Kidney: No stones or hydronephrosis. Right Ureter: No hydroureter. Left Kidney: No stones or hydronephrosis. Left Ureter: No hydroureter. Bladder: Normal wall thickness. No stones. ABDOMEN: Liver: Advanced cirrhosis progressed from the prior exam Gallbladder: Cholelithiasis Biliary ducts: No biliary dilation. Pancreas: No ductal dilation. Spleen: Splenomegaly. Prominent perisplenic collateral vessels Adrenal Glands: No adrenal nodules. Stomach and Bowel: Normal colonic caliber, without significant wall thickening. Peritoneum: Large volume ascites Ventral Wall: No hernia. Abdominal Nodes: No enlarged retroperitoneal or mesenteric lymph nodes. Vessels: Aorta and inferior vena cava are normal in size. PELVIS: Pelvic Organs: Unremarkable. Pelvic Nodes: Unremarkable. Miscellaneous: No inguinal hernias are seen. Bones: Unremarkable. IMPRESSION: In significant bibasilar pulmonary infiltrates consistent with pneumonia Worsening hepatic cirrhosis, splenomegaly and ascites Note: This final report is concordant with the preliminary after-hours interpretation provided by [facility] Approved by: Bebeto Allen M.D. on 01/07/2025 at 8:43
--- NOTE | 2025-01-07 02:13 | ED.ABDPAIN ---
HPI - Abdominal Pain General Chief Complaint: Abdominal Pain Stated Complaint: weakness Time Seen by Provider: 01/07/25 01:23 Mode of arrival: Wheelchair History of Present Illness HPI narrative: 69-year-old gentleman history of DM, liver cirrhosis with large volume ascites status post paracentesis, last week where they removed 12L presents tonight with weakness inability to get out of bed and shortness of breath brought in via EMS for further evaluation. Patient stated his last drink was over 10 days ago before he received his paracentesis and has not drank since then. Pt has also had a nonproductive nonbloody cough the past few days but denies chest pain, fever, chills, bodyache, nausea, vomiting, diarrhea or constipation. Other than what is stated 14 point review of system is negative Related Data Home Medications Medication Instructions Recorded Confirmed spironolactone 100 mg tablet 300 mg PO DAILY 08/04/24 12/08/24 Previous Rx's Medication Instructions Recorded diabetic supplies, miscellan. #25 ea 01/02/22 (Chem[employer] bG Log Book) miscellaneous medical supply #48 ea 01/02/22 insulin lispro 100 unit/mL 5 unit (0.05 mL) SUBCUT TIDWMEAL 08/04/24 subcutaneous pen (Admelog SoloStar #15 mL U-100 Insulin lispro) hydroxyzine HCl 25 mg tablet 25 mg PO BEDTIME PRN itching #30 11/03/24 tabs duloxetine 30 mg capsule,delayed 30 mg PO BID #60 caps 12/08/24 release furosemide 40 mg tablet 120 mg (3 x 40 mg) PO DAILY #270 12/08/24 tabs gabapentin 300 mg capsule 300 mg PO BID #60 caps 12/08/24 insulin glargine 100 unit/mL 24 unit (0.24 mL) SUBCUT DAILY #10 12/08/24 subcutaneous solution (Lantus mL U-100 Insulin) Allergies Allergy/AdvReac Type Severity Reaction Status Date / Time adhesive AdvReac Intermediate Blister Verified 12/08/24 16:34 Review of Systems Review of Systems ROS Unobtainable: All systems reviewed & are unremarkable except as noted in HPI and below Patient History Medical History Substance abuse (~1975) Fractures (~2015) Vertigo (~2019) Hearing loss (~2019) Systolic murmur Type 2 diabetes mellitus (~2019) Acute kidney injury Lesion of right [place] kidney Renal failure Hepatic failure Anticoagulated Urinary tract infection Left ureteral calculus Right renal stone Sepsis Surgical History (Updated 03/19/24 @ 19:36 by Cecy Burr) Anesthesia Kidney stones (~2023) H/O Spinal surgery (~2009) History of ankle surgery (~2015) Retained ureteral stent Family History (Updated 03/19/24 @ 19:40 by Cecy Burr) Father Cancer Grandfather Cancer History of heart disease Grandmother Diabetes mellitus Heart disease Mother Alzheimer disease Sister Age: 69 Hypertension Social History household members: spouse alcohol intake: current tobacco type: smokeless tobacco alcohol intake frequency: 3 or more drinks per day Exam Narrative Exam Narrative: GENERAL: [69] year old patient appears stated age. Well-developed patient, in mild distress. HEAD: Atraumatic. Normocephalic. EYES: Pupils equal round and reactive. Extraocular motions intact. Scleral icterus. No injection or drainage. ENT: Nose without bleeding, purulent drainage. Throat without erythema, tonsillar hypertrophy or exudate. Airway patent. NECK: Trachea midline. Non tender CARDIOVASCULAR: Tachycardic Regular rate and rhythm without murmurs, gallops, or rubs. RESPIRATORY: Coarse crackles b/l GASTROINTESTINAL: Abdomen firm distended with mild diffuse ttp . EXTREMITIES: No edema or joint tenderness. BACK: Nontender without deformity or crepitance. No flank tenderness. NEURO: AOx3. SKIN: Jaundiced head to toe Initial Vital Signs Initial Vital Signs: Vital Signs Temperature 98.2 F 01/07/25 01:02 Pulse Rate 102 H 01/07/25 01:02 Respiratory Rate 26 H 01/07/25 01:02 Blood Pressure 102/56 L 01/07/25 01:02 Pulse Oximetry 92 01/07/25 01:02 Oxygen Delivery Method Room Air 01/07/25 01:02 Course Orders Ordered: ED Orders 01/07/25 00:58 Complete Blood Count AUTO DIFF Stat Comprehensive Metabolic Panel Stat Lipase Stat Procalcitonin Stat Prothrombin Time INR Stat Troponin & CK Cardiac Panel Stat 01/07/25 01:24 EKG-12 Lead Stat 01/07/25 02:13 CT abdomen pelvis wo con Stat 01/07/25 02:21 Urinalysis and Microscopic Stat 01/07/25 03:15 Ammonia (NH3) Stat Blood Culture Stat Lactate (Lactic Acid) Stat Troponin I Stat Lactated Ringer's (Lactated Ringers) 1,000 mls @ 200 mls/hr IV CONT LUCRETIA Last Admin: 01/07/25 04:09 Dose: 200 mls/hr Ondansetron HCl (Ondansetron 4 Mg/2 Ml Inj) 4 mg IV NOW PRN PRN Reason: Nausea And Vomiting Ondansetron HCl (Ondansetron 4 Mg Odt) 4 mg PO NOW PRN PRN Reason: Nausea And Vomiting Discontinued Medications Ceftriaxone Sodium 2,000 mg/ (Sodium Chloride) 100 mls @ 200 mls/hr IV NOW ONE Stop: 01/07/25 02:22 Last Admin: 01/07/25 03:32 Dose: 200 mls/hr Documented By: ANIKET Azithromycin 500 mg/ Dextrose 250 mls @ 250 mls/hr IV NOW ONE Stop: 01/07/25 04:15 Vital Signs Vital signs: Vital Signs - 8 hr 01/07/25 01:02 01/07/25 01:30 01/07/25 01:30 Temperature 98.2 F Pulse Rate 102 H 99 H Respiratory Rate 26 H 22 Blood Pressure 102/56 L 96/67 Pulse Oximetry 92 90 L Oxygen Delivery Method Room Air Oxygen Flow Rate 01/07/25 02:00 01/07/25 02:00 01/07/25 02:53 Temperature Pulse Rate 100 H Respiratory Rate 20 Blood Pressure 98/56 L 99/56 L Pulse Oximetry 91 Oxygen Delivery Method Oxygen Flow Rate 01/07/25 02:53 01/07/25 03:00 01/07/25 03:30 Temperature Pulse Rate 100 H 100 H 99 H Respiratory Rate 20 33 H 26 H Blood Pressure 107/57 L Pulse Oximetry 90 L 88 L 93 Oxygen Delivery Method Room Air Nasal Cannula Oxygen Flow Rate 2 01/07/25 03:33 01/07/25 03:33 Temperature Pulse Rate 101 H Respiratory Rate 25 H Blood Pressure 103/57 L Pulse Oximetry 93 Oxygen Delivery Method Oxygen Flow Rate MDM - Abdominal Pain Lab Data 01/07/25 00:58 01/07/25 00:58 Labs: Lab Results 04/26/25 04/26/25 Range/Units 00:58 03:15 WBC 8.1 (4.5-11.0) X10^3/uL RBC 2.61 L (4.5-5.9) X10^6/uL Hgb 9.6 L (13.5-17.5) g/dL Hct 27.3 L (41-53) % MCV 104.8 H (80-100) fL MCH 36.7 H (26-34) PG MCHC 35.0 (30-36) % RDW 18.1 H (11.6-14.8) % Plt Count 63 L (150-400) X10^3/uL Neut % (Auto) 71.6 (50-75) % Lymph % (Auto) 12.9 L (25-40) % [place] % (Auto) 13.4 (3-14) % Eos % (Auto) 1.7 L (2-4) % Baso % (Auto) 0.4 (0-2) % Neut # (Auto) 5800 (9392-6082) /uL Lymph # (Auto) 1000 L (0190-6645) /uL [place] # (Auto) 1100 H (0-900) /uL Eos # (Auto) 100 (0-450) /uL Baso # (Auto) 0 (0-100) /uL PT 20.2 H (9.4-12.5) SECONDS INR 1.8 H (0.9-1.3) Sodium 133 L (137-145) mmol/L Potassium 4.3 (3.4-5.1) mmol/L Chloride 100 (98-107) mmol/L Carbon Dioxide 23 (22-32) mmol/L BUN 44 H (9-20) mg/dL Creatinine 2.28 H (0.66-1.25) mg/dL Estimated GFR 31 L (>60) mL/min BUN/Creatinine Ratio 19.3 (6-22) Glucose 127 H (70-99) mg/dL Lactate 1.6 (0.7-2.1) mmol/L Calcium 8.4 (8.4-10.2) mg/dL Total Bilirubin 10.3 H (0.2-1.3) mg/dL AST 63 H (17-59) IU/L ALT 46 (<50) IU/L Alkaline Phosphatase 138 H (38-126) U/L Ammonia < 9 L (9-30) umol/L Total Creatine Kinase 47 L (55-170) U/L Troponin I 0.076 H 0.078 H (0.01-0.034) ng/mL Total Protein 7.2 (6.3-8.2) g/dL Albumin 3.0 L (3.5-5.0) g/dL Globulin 4.2 H (1.7-4.1) g/dL Albumin/Globulin Ratio 0.7 L (1.0-2.8) Lipase 86 (23-300) U/L Procalcitonin 0.299 (<0.5) ng/mL ECG Data Interpretation: Sinus Tach MO 194 QRS 116 Qt [address]-t wave change Change from 12/02/24 MDM Narrative Medical decision making narrative: All lab work EKG CT scan vital signs nurse triage note medication list and all records reviewed. Patient was given Rocephin 2 g IV 500 mg of azithromycin and was initially started on continuous infusion of IV fluids for which patient has only received about 200 mL. Case was discussed with Dr. Triston INFANTE MD regarding patient request of the hospitalist who stated given low Meld score no steroids at this time, and to start the patient on low volume albumin 25 g in 50 mL bag and to give 1 dose over 8 hours for hypotension and to cover for SBP and that the patient will need a paracentesis. Watchful waiting at this point as the patient is vasal dilated and vasoconstricted and certainly hepatorenal syndrome is also in the diet differential diagnosis. Differential diagnosis includes SBP, hepatorenal syndrome, sepsis. MELD score 31 with 52.6% 3 month mortality. Discharge Plan Departure Patient Disposition: Admitted As Inpatient Clinical Impression: Acute kidney injury Cirrhosis of liver Qualifiers: Hepatic cirrhosis type: alcoholic cirrhosis Ascites presence: with ascites Qualified Code(s): K70.31 - Alcoholic cirrhosis of liver with ascites Pneumonia Qualifiers: Pneumonia type: due to unspecified organism Laterality: bilateral Lung location: unspecified part of lung Qualified Code(s): J18.9 - Pneumonia, unspecified organism Admit Date/Time: 01/07/25 05:07 Admit Provider: Anuj Story
[2025-01-07 02:55] LABS: Creatine Kinase 47 U/L (55-170)
[2025-01-07 02:56] LABS: INR 1.8 (0.9-1.3); Prothrombin Time 20.2 SECONDS (9.4-12.5)
[2025-01-07 03:08] LABS: Troponin I 0.076 ng/mL (0.01-0.034)
[2025-01-07 03:13] LABS: Procalcitonin 0.299 ng/mL (<0.5)
[2025-01-07] MEDS: cefTRIAXone 2,000 MG in SODIUM CHLORIDE 0.9% 100 ML 200 MG IV (03:32)
[2025-01-07 03:55] LABS: Ammonia (NH3) < 9 umol/L (9-30)
[2025-01-07 03:57] LABS: Lactate (Lactic Acid) 1.6 mmol/L (0.7-2.1)
[2025-01-07 04:09] LABS: Troponin I 0.078 ng/mL (0.01-0.034)
[2025-01-07] MEDS: LACTATED RINGERS 1,000 ML 200 ML IV (04:09)
[2025-01-07 04:54] LABS: Hyaline Casts Urine 5-10/LPF; Urine Volume 10mL (spun)
[2025-01-07 04:55] LABS: Bacteria Urine Few (2-10); RBC Urine 10-30/HPF (0-5/HPF); Squamous Epithelial Cell Urine 1-5 /HPF (0-5/HPF); WBC Urine 1-5/HPF (0-5/HPF)
[2025-01-07 04:57] LABS: Culture Indicated Urine Cult Not Indicated
[2025-01-07] MEDS: AZITHROMYCIN 500 MG in DEXTROSE 5% IN WATER 250 ML 250 MG IV (05:02)
--- NOTE | 2025-01-07 05:39 | PM.HP.1 ---
History of Present Illness History of Present Illness Chief complaint: weakness Narrative: 69-year-old male with past medical history of alcoholic liver cirrhosis with ascites, insulin-dependent diabetes, depression and alcohol abuse presents with shortness of breath and abdominal distention. Of note the patient reports that the patient had a large-volume paracentesis last week. He is unsure exactly the amount of fluid that was taken out. However today the patient started to have increasing shortness of breath and again abdominal distention. The patient however denies any abdominal pain, fever, chills, nausea, vomiting, diarrhea or chest pain. The patient does admit to have a mild amount productive cough. The patient states that his last alcohol intake was 10 more than 10 days ago. Otherwise the patient has no other complaints. In our emergency room, the patient was relatively hypotensive requiring 1 L of NS with improvement of blood pressure. The patient however was not septic with normal WBC and was afebrile. Abdominal exam shows significant fluid shift per our ER physician. CT abdomen and pelvics shows again large volume ascites. And suggested pneumonia. IV azithromycin and ceftriaxone was given. GI on-call was consulted over the phone by our ER physician who recommended to admit the patient here and start albumin 25 g every 8 hours. The patient's creatinine is 2.28 today and was 1.1 on December 02, 2024. Bilirubin today is 10.3 and was 5.9 roughly a month ago. The GI doctor on-call did not think that the patient would need any transfer at this time as the MELD score is not very high. [facility] Medical History Substance abuse (~1975) Fractures (~2015) Vertigo (~2019) Hearing loss (~2019) Systolic murmur Type 2 diabetes mellitus (~2019) Acute kidney injury Lesion of right [place] kidney Renal failure Hepatic failure Anticoagulated Urinary tract infection Left ureteral calculus Right renal stone Sepsis Surgical History (Updated 03/19/24 @ 19:36 by Cecy Burr) Anesthesia Kidney stones (~2023) H/O Spinal surgery (~2009) History of ankle surgery (~2015) Retained ureteral stent Family History (Updated 03/19/24 @ 19:40 by Cecy Burr) Father Cancer Grandfather Cancer History of heart disease Grandmother Diabetes mellitus Heart disease Mother Alzheimer disease Sister Age: 69 Hypertension Social History household members: spouse alcohol intake: current Meds Home Medications and Allergies Home Medications Medication Instructions Recorded Confirmed Type diabetic supplies, miscellan. #25 ea 01/02/22 12/08/24 Rx (Chemstrip bG Log Book) miscellaneous medical supply #48 ea 01/02/22 12/08/24 Rx insulin lispro 100 unit/mL 5 unit (0.05 mL) SUBCUT TIDWMEAL 08/04/24 12/08/24 Rx subcutaneous pen (Admelog SoloStar #15 mL U-100 Insulin lispro) spironolactone 100 mg tablet 300 mg PO DAILY 08/04/24 12/08/24 History hydroxyzine HCl 25 mg tablet 25 mg PO BEDTIME PRN itching #30 11/03/24 12/08/24 Rx tabs duloxetine 30 mg capsule,delayed 30 mg PO BID #60 caps 12/08/24 12/08/24 Rx release furosemide 40 mg tablet 120 mg (3 x 40 mg) PO DAILY #270 12/08/24 12/08/24 Rx tabs gabapentin 300 mg capsule 300 mg PO BID #60 caps 12/08/24 12/08/24 Rx insulin glargine 100 unit/mL 24 unit (0.24 mL) SUBCUT DAILY #10 12/08/24 12/08/24 Rx subcutaneous solution (Lantus mL U-100 Insulin) Allergies Allergy/AdvReac Type Severity Reaction Status Date / Time adhesive AdvReac Intermediate Blister Verified 12/08/24 16:34 Review of Systems Review of Systems ROS: Yes All systems reviewed with the patient and are negative except as otherwise documented Exam Vital Signs (past 8 hours): - 01/07/25 01:02 01/07/25 01:30 01/07/25 01:30 Temperature 98.2 F Pulse Rate 102 H 99 H Respiratory Rate 26 H 22 Blood Pressure 102/56 L 96/67 Pulse Oximetry 92 90 L Oxygen Delivery Method Room Air Oxygen Flow Rate 01/07/25 02:00 01/07/25 02:00 01/07/25 02:53 Temperature Pulse Rate 100 H Respiratory Rate 20 Blood Pressure 98/56 L 99/56 L Pulse Oximetry 91 Oxygen Delivery Method Oxygen Flow Rate 01/07/25 02:53 04/26/25 03:00 01/07/25 03:30 Temperature Pulse Rate 100 H 100 H 99 H Respiratory Rate 20 33 H 26 H Blood Pressure 107/57 L Pulse Oximetry 90 L 88 L 93 Oxygen Delivery Method Room Air Nasal Cannula Oxygen Flow Rate 2 01/07/25 03:33 01/07/25 03:33 01/07/25 04:00 Temperature Pulse Rate 101 H Respiratory Rate 25 H Blood Pressure 103/57 L 94/63 Pulse Oximetry 93 Oxygen Delivery Method Oxygen Flow Rate 01/07/25 04:00 01/07/25 04:30 01/07/25 04:30 Temperature Pulse Rate 100 H 99 H Respiratory Rate 35 H 38 H Blood Pressure 100/59 L Pulse Oximetry 92 95 Oxygen Delivery Method Oxygen Flow Rate 01/07/25 05:00 01/07/25 05:00 Temperature Pulse Rate 99 H Respiratory Rate 38 H Blood Pressure 102/63 Pulse Oximetry 93 Oxygen Delivery Method Nasal Cannula Oxygen Flow Rate 2 Oxygen Delivery Method Nasal Cannula Oxygen Flow Rate 2 Narrative Exam Narrative: Physical Exam: GENERAL: The patient is not in any acute distressed. Awake and alert. HEENT: Nonicteric sclerae, PERRLA, EOMI. Oropharynx clear. Moist mucous membranes. Conjunctivae appear well perfused. HEART: Regular rate and rhythm without murmurs. 1+lower extremities edema. LUNGS: Clear to auscultation bilaterally. No wheezing, crackles or rhonchi ABDOMEN: Soft, distended with positive fluid wave. positive bowel sounds, nontender. SKIN: No rash, no excessive bruising, petechiae, or purpura. NEUROLOGIC: AxO x 3. Cranial nerves II-XII intact without motor/sensory deficit. Objective Labs 01/07/25 00:58 01/07/25 00:58 Labs: Laboratory Results - last 24 hr 01/07/25 01/07/25 01/07/25 00:58 03:15 04:29 WBC 8.1 RBC 2.61 L Hgb 9.6 L Hct 27.3 L MCV 104.8 H MCH 36.7 H MCHC 35.0 RDW 18.1 H Plt Count 63 L Neut % (Auto) 71.6 Lymph % (Auto) 12.9 L [place] % (Auto) 13.4 Eos % (Auto) 1.7 L Baso % (Auto) 0.4 Neut # (Auto) 5800 Lymph # (Auto) 1000 L [place] # (Auto) 1100 H Eos # (Auto) 100 Baso # (Auto) 0 PT 20.2 H INR 1.8 H Sodium 133 L Potassium 4.3 Chloride 100 Carbon Dioxide 23 BUN 44 H Creatinine 2.28 H Estimated GFR 31 L BUN/Creatinine Ratio 19.3 Glucose 127 H Lactate 1.6 Calcium 8.4 Total Bilirubin 10.3 H AST 63 H ALT 46 Alkaline Phosphatase 138 H Ammonia < 9 L Total Creatine Kinase 47 L Troponin I 0.076 H 0.078 H Total Protein 7.2 Albumin 3.0 L Globulin 4.2 H Albumin/Globulin Ratio 0.7 L Lipase 86 Procalcitonin 0.299 Urine RBC 10-30/hpf H Urine WBC 1-5/hpf Ur Squamous Epith Cells 1-5 /hpf Urine Bacteria Few (2-10) H Hyaline Casts 5-10/lpf Ur Culture Indicated? Cult not indicated Vol Urine Centrifuged 10ml (spun) Assessment & Plan Assessment & Plan narrative: Acute kidney injury. Admit the patient to medical telemetry as inpatient. Of note the patient did have large-volume paracentesis done roughly a week ago. Baseline creatinine is 1.1 and today 2.28. Could be prerenal from dehydration versus hepatorenal renal syndrome. As recommended per GI physician on-call. The patient does not need to be transferred at this time but recommended albumin 25 g every 8 hours and to monitor blood pressure and renal function. Patient already received 1 L of fluid in the ER. Community-acquired pneumonia. Again patient is not septic. Continue azithromycin and ceftriaxone. Large volume ascites. Again patient has reaccumulate large volume ascites and was somewhat symptomatic from it. Patient did have a large volume paracentesis about a week ago. Again continue albumin as above. When patient becomes stable consider doing another therapeutic paracentesis but keep in mind to give albumin prior to paracentesis. Liver failure with coagulopathy. Of note patient's MELD score is not so high at this time and GI. Does not recommend steroid. Continue to monitor LFTs for now. Insulin-dependent diabetes. Note patient glucose is in the low 100s. Hold all insulin at this time and monitor glucose. Depression. Resume home medication. Alcohol abuse. Patient states that he has not drink any alcohol more than 10 days now. Continue to monitor for any withdrawal. DVT prophylaxis SCDs due to coagulopathy. CODE STATUS full code. Disposition likely home in 2 days. - As the provider of this telehealth evaluation, requested by the patient's evaluating physician, I attest that I introduced myself to the patient, provided my credentials and determined that telemedicine via a real-time, 2 way interactive audio and video platform is an appropriate and effective means of providing this service. - I reviewed the patient's chart and had a discussion with the member of the patient's treatment team. - The patient and I mutually agreed with continuation of this evaluation via telemedicine. The patient consented for the telemedicine evaluation. - This virtual encounter was taken place from [place]. The encounter was approximately 35 minutes. The nurse was present during the entire time of the encounter and was able to move the stethoscope in appropriate directions. The patient was evaluated at [facility]. Time-Based Coding :: [TOTAL MINUTES] spent with patient and on the chart (including review of chart, obtaining history, exam, reviewing outside data, placing orders, documenting exam and treatment plan, and counseling patient) on [DATE].
[2025-01-07] MEDS: ALBUMIN HUMAN 25 GM/100 ML VIAL IV ×3 (06:32→20:36)
--- NOTE | 2025-01-07 06:59 | P.PN_ITS ---
Subjective Subjective Interval history: 69-year-old male with alcohol induced liver cirrhosis with ascites ( 13.4 L paracentesis 3 days ago), insulin-dependent diabetes, depression and alcohol dependence admitted w/HEIDE, CAP and large volume ascites. Patient had a headache earlier in the day and oxycodone was ordered. It was not particularly effective. Subsequently Dilaudid was ordered and he states that was effective. He is now rather sleepy but arouses and denies significant complaint. He does admit to some shortness of breath but overall reports it is improved. No abdominal pain. His and stepdaughter are at bedside. reports that they have all elected comfort care. They would like to proceed with having a PleurX catheter placed prior to hospice admission. A hospice informational was done today with [facility]. Hospice [facility] will be able to admit next week following placement of the PleurX. Exam Vital Signs (past 8 hours): - 01/07/25 01:02 01/07/25 01:30 01/07/25 01:30 Temperature 98.2 F Pulse Rate 102 H 99 H Respiratory Rate 26 H 22 Blood Pressure 102/56 L 96/67 Pulse Oximetry 92 90 L Oxygen Delivery Method Room Air Oxygen Flow Rate 01/07/25 02:00 01/07/25 02:00 01/07/25 02:53 Temperature Pulse Rate 100 H Respiratory Rate 20 Blood Pressure 98/56 L 99/56 L Pulse Oximetry 91 Oxygen Delivery Method Oxygen Flow Rate 01/07/25 02:53 01/07/25 03:00 01/07/25 03:30 Temperature Pulse Rate 100 H 100 H 99 H Respiratory Rate 20 33 H 26 H Blood Pressure 107/57 L Pulse Oximetry 90 L 88 L 93 Oxygen Delivery Method Room Air Nasal Cannula Oxygen Flow Rate 2 01/07/25 03:33 01/07/25 03:33 01/07/25 04:00 Temperature Pulse Rate 101 H Respiratory Rate 25 H Blood Pressure 103/57 L 94/63 Pulse Oximetry 93 Oxygen Delivery Method Oxygen Flow Rate 01/07/25 04:00 01/07/25 04:30 01/07/25 04:30 Temperature Pulse Rate 100 H 99 H Respiratory Rate 35 H 38 H Blood Pressure 100/59 L Pulse Oximetry 92 95 Oxygen Delivery Method Oxygen Flow Rate 01/07/25 05:00 01/07/25 05:00 01/07/25 05:45 Temperature 97.3 F L Pulse Rate 99 H 99 H Respiratory Rate 38 H 20 Blood Pressure 102/63 103/57 L Pulse Oximetry 93 92 Oxygen Delivery Method Nasal Cannula Oxygen Flow Rate 2 3 01/07/25 06:11 Temperature Pulse Rate Respiratory Rate Blood Pressure Pulse Oximetry Oxygen Delivery Method Nasal Cannula Oxygen Flow Rate Oxygen Delivery Method Nasal Cannula Oxygen Flow Rate 3 Narrative Exam Narrative: GEN: Ill-appearing middle-aged male, somnolent but arousable, no acute distress HEENT:NC, Face symmetric CHEST: Respiratory excursions symmetric, CTAB CV: RRR, no M/R/G ABD: Distended but soft, positive ascites, umbilical hernia which is easily depressed, bowel tones are present throughout, nontender EXTR: warm, well perfused, no C/C, 2 to 3+ bilateral lower extremity pitting edema to the hips, he does have venous stasis changes in the pretibial area SKIN: warm and dry, no rash NEURO: Somnolent but arousable, nonfocal Objective Labs 01/07/25 00:58 01/07/25 00:58 Labs: Laboratory Results - last 24 hr 01/07/25 01/07/25 01/07/25 00:58 03:15 04:29 WBC 8.1 RBC 2.61 L Hgb 9.6 L Hct 27.3 L MCV 104.8 H MCH 36.7 H MCHC 35.0 RDW 18.1 H Plt Count 63 L Neut % (Auto) 71.6 Lymph % (Auto) 12.[address] [place] % (Auto) 13.4 Eos % (Auto) 1.7 L Baso % (Auto) 0.4 Neut # (Auto) 5800 Lymph # (Auto) [address] [place] # (Auto) 1100 H Eos # (Auto) 100 Baso # (Auto) 0 PT 20.2 H INR 1.8 H Sodium 133 L Potassium 4.3 Chloride 100 Carbon Dioxide 23 BUN 44 H Creatinine 2.28 H Estimated GFR 31 L BUN/Creatinine Ratio 19.3 Glucose 127 H Lactate 1.6 Calcium 8.4 Total Bilirubin 10.3 H AST 63 H ALT 46 Alkaline Phosphatase 138 H Ammonia < 9 L Total Creatine Kinase 47 L Troponin I 0.076 H 0.078 H Total Protein 7.2 Albumin 3.0 L Globulin 4.2 H Albumin/Globulin Ratio 0.7 L Lipase 86 Procalcitonin 0.299 Urine RBC 10-30/hpf H Urine WBC 1-5/hpf Ur Squamous Epith Cells 1-5 /hpf Urine Bacteria Few (2-10) H Hyaline Casts 5-10/lpf Ur Culture Indicated? Cult not indicated Vol Urine Centrifuged 10ml (spun) [facility] Medical History Substance abuse (~1975) Fractures (~2015) Vertigo (~2019) Hearing loss (~2019) Systolic murmur Type 2 diabetes mellitus (~2019) Acute kidney injury Lesion of right [place] kidney Renal failure Hepatic failure Anticoagulated Urinary tract infection Left ureteral calculus Right renal stone Sepsis Surgical History (Updated 03/19/24 @ 19:36 by Cecy Burr) Anesthesia Kidney stones (~2023) H/O Spinal surgery (~2009) History of ankle surgery (~2015) Retained ureteral stent Family History (Updated 03/19/24 @ 19:40 by Cecy Burr) Father Cancer Grandfather Cancer History of heart disease Grandmother Diabetes mellitus Heart disease Mother Alzheimer disease Sister Age: 69 Hypertension Social History household members: spouse alcohol intake: current Assessment & Plan Assessment & Plan narrative: 1.Acute kidney injury. Suspect HEIDE is secondary to intravascular volume depletion from large volume paracentesis of 13.6 L 3 days ago, rather than hepatorenal syndrome. creatinine was 2.28 on admission compared with 1.10 baseline. GI Physician on- call recommended albumin every 8 hours and monitoring of renal function. Although overall, goals of care consistent with comfort, family is comfortable with this being continued. 2. Community-acquired pneumonia patient had a CT of the abdomen and pelvis but not a chest x-ray. However, given goals of care, chest x-ray will not be performed. Continues Rocephin and azithromycin per family's wishes. 3. alcohol-induced cirrhosis with ascites patient had a large volume paracentesis 3 days ago and has recurring ascites. We discussed deferring another paracentesis until a PleurX could be placed as they prefer having ascites fluid in his abdomen for the PleurX procedure. Family expresses understanding. 4. 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 5. Diabetes mellitus type 2, insulin dependent Family is declining fingersticks and insulin. 6. Depression He is not treated for depression. 7. Alcohol dependence patient reported abstinence for 10 days. Monitoring for withdrawal symptoms 8. Macrocytic anemia Has been trending down since September of this year. Family does not wish to pursue any intervention. 9. Hyponatremia mild at 133. code status full for now, but family is wishing to transition towards comfort care. Will plan to complete a POLST prior to discharge prophylaxis chemical prophylaxis contraindicated secondary to coagulopathy disposition Likely discharge tomorrow afternoon once arrangements are further made towards outpatient PleurX placement and coordinated hospice admission Time-Based Coding :: [TOTAL MINUTES] spent with patient and on the chart (including review of chart, obtaining history, exam, reviewing outside data, placing orders, documenting exam and treatment plan, and counseling patient) on [DATE].
[2025-01-07] MEDS: DULOXETINE 30 MG CAPSULE PO ×2 (09:20→20:36)
[2025-01-07] MEDS: INSULIN LISPRO 100 UNIT/ML 3ML VIAL SUBCUT (09:20)
[2025-01-07] MEDS: OXYCODONE IR 5 MG TABLET PO (12:24)
[2025-01-07] MEDS: HYDROMORPHONE 0.5 MG INJ IV (14:32)
--- NOTE | 2025-01-07 16:34 | CM.DANOTE ---
DCP Assessment note pt is a 69yo M admitted with HEIDE/pneumonia. PMH alcoholic liver cirrhosis with ascites, insulin-dependent diabetes, depression and alcohol abuse. recent large volume paracentesis about a week ago. PCP listed as Yunior Jones (not yet established? PCP group not following?) Payer [facility] and Self pay [employer] reviewed EMR per staff combat information center officer, family reports they were in contact with hospice for potential CC yesterday prior to pt coming to hospital. unclear whether pt is decisional or not at this time. per provider, pt would need a pleurx cath placement prior to hospice services, cannot be done here [facility] [employer] met pt in room and introduced self and role. pt only oriented to self. gave CM team permission to discuss with pt step-dtr/spouse. slept heavily throughout rest of day. per Sheree at [facility], have been working with family. quesitons of if pt is decisional. have SOC openings all this week. [employer] met with step dtr Maria E and spouse often throughout day. spouse provided copies of DPOA paperwork (Spouse is primary and Maria E (step dtr) secondary POA). [employer] placed copy in chart/and in scanned folder to scan into chart. after lengthy discussion, spouse/step dtr hope is for pt to transfer to [place] for pleurx cath, to finish abx course for pneumonia, and then have SOC with hospice. acknowledge they would have to arrange hospice SOC after abx. long hx of patient declining from alcoholic liver cirrhosis, pt not bouncing back like he has in the past. they think pt would prefer comfort measures and does not want continued hospitalization, plurex cath would be comfort measures only. report understanding of the various barriers (INS, [place] accept for care, they would need to arrange hospice SOC after abx, etc.). report familiarity with [facility] and could use it for transport if needed. per chart, pt on 3ltrs O2 now (none at baseline?) [employer] updated provider on DPOA preferences at this time. P: medical POC pending. transfer vs CC? will continue to follow closely for DCP coordination. update [facility] as needed. ROSEANNA Hughes Discharge Planning/Care Management Advanced directive, confirm from FAMILY Start: 01/07/25 06:21 Freq: Q24H Status: Active Protocol: Document 01/07/25 09:00 BT (Rec: 01/07/25 09:11 BT [id number]) Advance Directive, confirm on record Time 09:07 Person contacted Pt Copy received No CM Discharge Assessment Start: 01/07/25 16:32 Freq: Status: Active Protocol: Document 01/07/25 16:32 SL (Rec: 01/07/25 16:33 SL Desktop) Discharge Planning Assessment Assigned Donor Services Team Leader ROSEANNA Marie DPOA/Assigned Designee Name Jessica, spouse Contact Information [phone] Advance Directives? Yes Advance Directives on File No History Provided By Patient Prior Living Arrangements Apartment/Condo Household Members spouse Is patient alert and oriented? No Discharge Plan Home Whiteboard Updated in Patient Room with Yes name and ext. # of Donor Services Team Leader Review Status In Process Please Provide Date Initial DC 01/07/25 Assessment Was Performed Next Review Type Continued Stay Review
[2025-01-08] MEDS: HYDROMORPHONE 0.5 MG INJ IV ×5 (00:28→18:39)
[2025-01-08] MEDS: cefTRIAXone 2,000 MG in SODIUM CHLORIDE 0.9% 100 ML 200 MG IV (03:59)
[2025-01-08] MEDS: AZITHROMYCIN 500 MG in DEXTROSE 5% IN WATER 250 ML 250 MG IV (04:47)
[2025-01-08] MEDS: ALBUMIN HUMAN 25 GM/100 ML VIAL IV (06:35)
[2025-01-08 09:21] VITALS: BP 107/49; PULSE 99; RESP 14; TEMP 36.3; O2SAT 90
[2025-01-08 10:29] VITALS: O2SAT 93
[2025-01-08] MEDS: SODIUM CHLORIDE 0.9% FLUSH 10 ML IV (13:27)
--- NOTE | 2025-01-08 13:44 | CM.DPNOTE ---
Addendum entered by ROSEANNA Laura 01/08/25 15:06: UPDATE: According to bedside RN, patient is now full comfort care, DNR, and is expected not to survive this hospitalization. Daughter Maria E remains at bedside today. Original Note: ANDREW John Reviewed chart. Patient discussed in multidisciplinary rounds. Dr Dash discussed discharging patient home with family today; family would be responsible for scheduling patient's outpatient placement of a PleurX cath for draining. Reviewed this plan with patient's step daughter, Maria E, at bedside. Maria E states concern about this plan, explains 1. patient does not have a hospital bed or oxygen at home and 2. PleurX cath placement has not been scheduled. Maria E asking that patient remain admitted until at least tomorrow 01/09. This [employer] curious, questioning with daughter how will patient get from his home to an outpatient procedure? Patient lethargic today and needing close monitoring and medication management. Daughter very pleasant, does not entertain the idea that patient will not eventually get the PleurX cath placed. Daughter requests additional conversation with DR Dash to review the plan. Placed call to [facility], spoke w/Nori. The initial info visit has been completed although no DME has been ordered and patient has not been placed on the schedule for the week yet. More to come from [facility] on scheduling and DME Thursday. Plan: Family prefers discharge home w/[facility], will need BLS. Patient remains Full Code. Family requesting PleurX cath be placed for comfort/fluid drainage. Coordination still needed: PleurX cath placement , Code status, transport, [facility] SOC and DME for home discharge, family agreement. CM team following closely. KEN
[2025-01-08] MEDS: HYDROMORPHONE 1 MG INJ IV (14:06)
[2025-01-08] MEDS: LORazepam 2 MG/ML INJ 1 MG IV ×2 (14:28→18:44)
[2025-01-08] MEDS: LIDOCAINE 2% (GLYDO) 6 ML GEL TOP (16:29)
--- NOTE | 2025-01-08 18:01 | P.PN_ITS ---
Subjective Subjective Interval history: 69-year-old male with alcohol induced liver cirrhosis with ascites ( 13.4 L paracentesis 3 days ago), insulin-dependent diabetes, depression and alcohol dependence admitted w/HEIDE, CAP and large volume ascites. His and stepdaughter are at bedside. Patient has suffered significant decline since yesterday. He is now unresponsive. He has Luis-Amado respirations. They have noted wet breath sounds and have been suctioning him intermittently. Exam Vital Signs (past 8 hours): - 01/08/25 10:29 Pulse Oximetry 93 Oxygen Delivery Method Oximask Oxygen Flow Rate 5 Oxygen Delivery Method Oximask Oxygen Flow Rate 5 Narrative Exam Narrative: GEN: Ill-appearing middle-aged male, unresponsive, appears uncomfortable HEENT:NC, Face symmetric CHEST: Respiratory excursions symmetric, coarse with scattered rhonchi, Luis- Amado respirations CV: RRR, no M/R/G ABD: Distended but soft, positive ascites, umbilical hernia which is easily depressed, bowel tones are present throughout, nontender EXTR: warm, well perfused, no C/C, 2 to 3+ bilateral lower extremity pitting edema to the hips, chronic venous stasis changes SKIN: warm and dry, no rash NEURO: Unresponsive Objective Labs 01/07/25 00:58 01/07/25 00:58 [facility] Medical History Substance abuse (~1975) Fractures (~2015) Vertigo (~2019) Hearing loss (~2019) Systolic murmur Type 2 diabetes mellitus (~2019) Acute kidney injury Lesion of right [place] kidney Renal failure Hepatic failure Anticoagulated Urinary tract infection Left ureteral calculus Right renal stone Sepsis Surgical History (Updated 03/19/24 @ 19:36 by Cecy Burr) Anesthesia Kidney stones (~2023) H/O Spinal surgery (~2009) History of ankle surgery (~2015) Retained ureteral stent Family History (Updated 03/19/24 @ 19:40 by Cecy Burr) Father Cancer Grandfather Cancer History of heart disease Grandmother Diabetes mellitus Heart disease Mother Alzheimer disease Sister Age: 69 Hypertension Social History household members: spouse alcohol intake: current Assessment & Plan Assessment & Plan narrative: 1. Acute kidney injury. 2. Alcohol-induced cirrhosis 3. Community-acquired pneumonia 4. 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 Diabetes mellitus type 2, insulin dependent 6. Depression 7. Alcohol dependence w/o withdrawal 8. Macrocytic anemia 9. Hyponatremia Patient has had rapid ongoing decline in the past 24 hours. He is now unresponsive and transitioning towards . code status I have had a milana discussion with family about his more rapid trajectory and that continuing antibiotics and albumin at this stage is futile. I have also advised that given the rapidity of his decline, performing paracentesis and pursuing the previous plan to go home with home hospice would be incredibly difficult. I think attempting a paracentesis at this time would be unwise. I have advised that his prognosis is likely a matter of 24-48 hours or less. His appears imminent. They were appropriately distressed at receiving the news but agreed with transitioning towards full comfort care and DNR status. Time-Based Coding :: [TOTAL MINUTES] spent with patient and on the chart (including review of chart, obtaining history, exam, reviewing outside data, placing orders, documenting exam and treatment plan, and counseling patient) on [DATE].
--- NOTE | 2025-01-08 19:00 | PC.NURSE ---
Event Note Patient called to bedside by family due to possible passing. This RN at bedside to assess patient, patient with agonal breathing and distant slow heart tones. Patient medicated per NOV. Patient passed at 1844, confirmed by ausculation by two RNs. aware, TOD 1844.
--- NOTE | 2025-01-08 19:15 | PM.DDS.1 ---
Discharge Summary History of Illness Narrative: Per H&P: 69-year-old male with past medical history of alcoholic liver cirrhosis with ascites, insulin-dependent diabetes, depression and alcohol abuse presents with shortness of breath and abdominal distention. Of note the patient reports that the patient had a large-volume paracentesis last week. He is unsure exactly the amount of fluid that was taken out. However today the patient started to have increasing shortness of breath and again abdominal distention. The patient however denies any abdominal pain, fever, chills, nausea, vomiting, diarrhea or chest pain. The patient does admit to have a mild amount productive cough. The patient states that his last alcohol intake was 10 more than 10 days ago. Otherwise the patient has no other complaints. In our emergency room, the patient was relatively hypotensive requiring 1 L of NS with improvement of blood pressure. The patient however was not septic with normal WBC and was afebrile. Abdominal exam shows significant fluid shift per our ER physician. CT abdomen and pelvics shows again large volume ascites. And suggested pneumonia. IV azithromycin and ceftriaxone was given. GI on-call was consulted over the phone by our ER physician who recommended to admit the patient here and start albumin 25 g every 8 hours. The patient's creatinine is 2.28 today and was 1.1 on December 02, 2024. Bilirubin today is 10.3 and was 5.9 roughly a month ago. The GI doctor on-call did not think that the patient would need any transfer at this time as the MELD score is not very high. Hospital Course Date of Admission: 01/07/25 05:07 Date of : 01/08/25 Primary care provider: Yunior Jones MD Consults: 01/08/25 14:00 Consult to Discharge Planning Routine Comment: Discharge Diagnosis: 1. Acute kidney injury. 2. Alcohol-induced cirrhosis 3. Community-acquired pneumonia 4. 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 Diabetes mellitus type 2, insulin dependent 6. Depression 7. Alcohol dependence w/o withdrawal 8. Macrocytic anemia 9. Hyponatremia Hospital Course: 69-year-old male with alcohol induced liver cirrhosis with ascites ( 13.4 L paracentesis 3 days ago), insulin-dependent diabetes, depression and alcohol dependence admitted w/HEIDE, CAP and large volume ascites. He had received a large volume paracentesis 3 days prior to admission. He presented to the emergency department on the date of admission with shortness of breath and abdominal distention. He was found to have acute kidney injury as well as possible pneumonia. He was placed on IV antibiotics. The initial plan on January 07 was to continue antibiotics and albumin but continue to move towards comfort care with placement of PleurX outpatient followed by admission to hospice. Overnight, patient suffered significant decline. He became unresponsive and had Luis-Amado respirations. He developed wet respirations and was requiring suctioning intermittently. After further discussion with family, the decision was made to fully transitioned to comfort care measures. Antibiotics and albumin were discontinued. He remained on IV Dilaudid and lorazepam. He at 6:45 p.m.. Objective Labs 01/07/25 00:58 01/07/25 00:58
[2025-01-08 22:04] VITALS: O2SAT 93
--- NOTE | 2025-01-08 23:52 | PC.NURSE ---
wet mixer: [facility] came and picked up patient body. No issues.
--- NOTE | 2025-01-09 07:23 | PC.WOUNDPHOT ---
Late Entry note: Photos by Juan Jose ROBLES 01/07/25 at 0606.
--- NOTE | 2025-01-09 10:07 | CM.DPNOTE ---
DCP note per chart, pt overnight. LUMBER STACKER lvm with [facility] to update them/cancel referral ROSEANNA Lockett
== END 2025-01-08 23:57 | disposition expired | DRG 682 ==
LOC: ED 01:25 → AC 05:08
PROVIDERS: Admitting Provider Internal Medicine; Emergency Provider Family Medicine; PCP Family Medicine; Referring Provider Family Medicine; Visit Provider Internal Medicine
DX: N17.9 Acute kidney failure, unspecified (principal); J18.9 Pneumonia, unspecified organism; D68.4 Acquired coagulation factor deficiency; E87.1 Hypo-osmolality and hyponatremia; Z66 Do not resuscitate; K70.40 Alcoholic hepatic failure without coma; K70.31 Alcoholic cirrhosis of liver with ascites; E11.9 Type 2 diabetes mellitus without complications; F10.20 Alcohol dependence, uncomplicated; Z79.4 Long term (current) use of insulin; I95.9 Hypotension, unspecified; F32.A Depression, unspecified; D53.9 Nutritional anemia, unspecified; Z82.49 Family history of ischemic heart disease and other diseases of the circulatory system; Z83.3 Family history of diabetes mellitus
CPT/HCPCS: 36415; 49083; 74176; 80053; 81003; 81015; 82140; 82550; 82962; 83605; 83690; 84145; 84484; 85025; 85610; 87040; 93005; 93010; 94762; 96361; 96365; 96366; 99284; J0696; J1171; J1815; J2060; P9041